=== PATIENT | male | born 1950 | race Caucasian/White ===

== ENCOUNTER 2019-04-11 13:42 | Emergency (ER) | payer MEDICARE, MEDICAID, SELFPAY ==
[2019-04-11] VITALS (8 sets, daily range): BP systolic 116–135; BP diastolic 56–60; PULSE 69–79; RESP 16–22; TEMP 36.9; O2SAT 93–100
--- NOTE | ~2019-04-11 | XR_ITS ---
EXAMINATION: XR chest 2V DATE: 04/11/2019 15:47 INDICATION: Shortness of breath and cough TECHNIQUE: frontal and lateral views of the chest were obtained. COMPARISON: Chest radiograph dated 02/28/2019 FINDINGS: Small lung volumes with additional chronic elevation of the right hemidiaphragm. Opacities in the lori ateral lower lung zones. No pneumothorax or definitive pleural effusion. The caudal tip of the right posterior sulcus is excluded from the [id number] on the lateral projection. The cardiomediastinal silhouette is within normal limits for AP technique. There are bridging osteophytes at multiple level s in the spine, consistent with diffuse idiopathic skeletal hyperostosis (DISH). IMPRESSION: 1. Opacities in the bilateral lower lung zones which could represent atelectasis or pneumonia. 2. Small lung volumes with chronic elevation of the right hemidiaphragm. Reviewed, dictated and finalized at location A. ER INFLATED PAD IMPRESSION: 1. Opacities in the bilateral lower lung zones which could represent atelectasi s or pneumonia. 2. Small lung volumes with chronic elevation of the right hemidiaphragm.
--- NOTE | 2019-04-11 13:57 | ED.SOB ---
HPI - SOB/Dyspnea General Chief Complaint: Shortness of Breath/Dyspnea Stated Complaint: sob Time Seen by Provider: 04/11/19 13:56 Source: patient Mode of arrival: ambulatory Limitations: no limitations History of Present Illness HPI Narrative: A 68 y/o male pt presents to the ED, with c/o chronic SOB that is worse today and a cough x 3 days. Pt states he called his assistant manager trainee who suggested he come to the ED. Per EMS, pt's O2 sat was 90% on RA en route to the hospital. Pt is currently 96% O2 on RA in the ED. Pt states he was approved for home O2 but he has not had a follow up yet. He states that he is fatigued and unable to sleep d/t his cough, but denies having a fever or CP. Pt notes having a PMHx of COPD, asthma, a paralyzed diaphragm, fibromyalgia, diastolic CHF, and states that only 25% of his heart is functioning. He denies taking any medication for his cough prior to arrival. MD elicited complaint: shortness of breath and cough Pertinent past history: COPD, asthma and congestive heart failure (diastolic) Onset (ago): day(s) (3) Timing: progressively worsening Known history of: COPD, asthma and congestive heart failure (diastolic) Associated symptoms: cough and other (difficulty sleeping, fatigue) Treatment prior to arrival: none Related Data Home Medications Medication Instructions Recorded Confirmed atorvastatin 40 mg tablet 40 mg PO HS 12/22/18 03/06/19 cholecalciferol (vitamin D3) 25 1,000 unit PO DAILY 12/22/18 03/06/19 mcg (1,000 unit) capsule cyanocobalamin (vitamin B-12) 2,500 mcg PO DAILY 12/22/18 03/06/19 2,500 mcg tablet cyclobenzaprine 5 mg tablet 5 mg PO HS PRN 12/22/18 03/06/19 furosemide 40 mg tablet 40 mg PO BID 12/22/18 03/06/19 levothyroxine 200 mcg tablet 200 mcg PO DAILY 12/22/18 03/06/19 metolazone 2.5 mg tablet 2.5 mg PO USEASDIRECTD 12/22/18 03/06/19 pantoprazole 40 mg tablet,delayed 40 mg PO BID 12/22/18 03/06/19 release sacubitril 49 mg-valsartan 51 mg 1 tablet PO BID 12/22/18 03/06/19 tablet tramadol 50 mg tablet 50 mg PO Q6H PRN 02/14/19 03/06/19 Fiasp FlexTouch U-100 Insulin 40 unit SUBCUT QACBREAK 02/28/19 03/06/19 Tresiba FlexTouch U-100 300 unit SUB-Q QACBREAK 02/28/19 03/06/19 Xarelto 20 mg PO HS 02/28/19 03/06/19 albuterol sulfate [Ventolin HFA] 2 puff INHALATION Q4H PRN 02/28/19 03/06/19 ascorbic acid (vitamin C) 1,000 mg PO DAILY 02/28/19 03/06/19 aspirin 81 mg PO DAILY 02/28/19 03/06/19 isosorbide mononitrate 30 mg PO DAILY 02/28/19 03/06/19 magnesium 500 mg PO DAILY 02/28/19 03/06/19 pen needle, diabetic [BD 02/28/19 03/06/19 Ultra-Fine Mini Pen Needle] potassium chloride [Klor-Con M20] 20 meq PO DAILY 02/28/19 03/06/19 pregabalin [Lyrica] 50 mg PO BID 02/28/19 03/06/19 trazodone 100 mg PO HS 02/28/19 03/06/19 Allergies Allergy/AdvReac Type Severity Reaction Status Date / Time clindamycin Allergy Severe Anaphylaxis Verified 02/28/19 20:33 iodine Allergy Mild RASH Verified 02/28/19 22:36 povidone Allergy Mild RASH Verified 02/28/19 22:36 azithromycin Allergy Unknown unk Verified 02/14/19 13:57 Gadolinium-Containing Allergy Unknown unk Verified 02/14/19 13:57 Contrast Medi latex Allergy Unknown unk Verified 02/14/19 13:57 erythromycin base AdvReac Mild NAUSEA Verified 02/28/19 22:36 Contrast Media Allergy Severe Hives / Uncoded 02/28/19 22:36 Red Face CONTRAST DYE Allergy Mild Rash Uncoded 02/28/19 22:36 INSULIN Allergy Unknown unk Uncoded 02/14/19 13:57 GLARGINE,HUM.REC.ANLOG Review of Systems Review of Systems: All systems reviewed & are unremarkable except as noted in HPI and below Constitutional: Constitutional: Reports difficulty sleeping, Reports fatigue and Denies fever(s) Cardiovascular: Cardiovascular: Denies chest pain Respiratory: Respiratory: Reports cough and Reports dyspnea (chronic, worsening) [facility] Past Medical History Medical History Anemia Anxiety Arthritis Asthma Atrial
--- NOTE | 2019-04-11 14:01 | PC.NURSE ---
Pt here today due to sample box maker asked to be evaluated for pneumonia. Pt has barking cough that is productive with yellow frothy sputum x 3 days. Pt has diminished lung sounds throughout. Pt has hx of COPD with asthma, CHF. Pt on monitor and call light in reach
--- NOTE | 2019-04-11 14:04 | ECG_ITS ---
Measurements Intervals [place] Rate: 61 P: 31 VT: 148 QRS: 3 QRSD: 84 T: 1 QT: 369 QTc: 373 Interpretive Statements SINUS RHYTHM EARLY PRECORDIAL R/S TRANSITION NONSPECIFIC T-WAVE ABNORMALITY- INFERIOR LEADS BASELINE ARTIFACT- I, II, III, AVR, AVL, AVF BORDERLINE ECG Electronically Signed On 04-11-2019 14:28:47 INSULATION HELPER by Gabriel Freed D.O.
[2019-04-11] MEDS: ALBUTEROL SULFATE NEB 2.5 MG/0.5 ML INH 10 MG INHALATION (14:17)
[2019-04-11] MEDS: IPRATROPIUM BR 0.02% INH SOLN 0.5 MG/2.5 ML VIAL 1 MG INHALATION (14:18)
[2019-04-11 14:24] LABS: Basophils Absolute Auto 0.1 K/mm3 (0.0-0.1); Basophils Percent Auto 0.8 % (0.2-1.2); Eosinophils Absolute Auto 0.1 K/mm3 (0-0.3); Eosinophils Percent Auto 1.7 % (0-4.4); Hemoglobin 11.6 g/dL (14.0-18.0); Immature Granulocyte Absolute 0.09 K/mm3 (0.00-0.031); Immature Granulocyte Percent A 1.2 % (0-0.5); Lymphocytes Absolute Auto 1.37 K/mm3 (0.9-3.2); Lymphocytes Percent Auto 17.7 % (18.3-44.2); Mean Corpuscular HGB Conc 31.4 g/dl (32-36); Mean Corpuscular Hemoglobin 28.4 pg (26-34); Mean Corpuscular Volume 90.7 fl (80-100); Mean Platelet Volume 10.9 fl (7.4-10.4); Monocytes Absolute Auto 0.8 K/mm3 (0.1-0.6); Monocytes Percent Auto 10.7 % (2.6-8.5); Neutrophils Absolute Auto 5.3 K/mm3 (1.3-6.7); Neutrophils Percent Auto 67.9 % (45.5-73.1); Platelet Count Result 214 k/mm3 (150-375); Red Blood Count 4.08 M/mm3 (4.6-6.20); Red Cell Distribution Width 15.7 % (11.5-14.5); White Blood Count 7.8 K/mm3 (4.5-10.0)
[2019-04-11 14:29] LABS: Alveolar/Arterial O2 Gradient 71.1 mmHg; Base Excess ABG 4.7 mEq/l (+/-2.0); Fractional Inspired Oxygen 28 %; HCO3 ABG 29.7 mEq/l (22.0-26.0); Oxygen Content ABG 16.2 %vol (16.0-22.0); Oxygen Saturation ABG 95.3 % (95.0-100.0); Oxyhemoglobin 93.9 % THb (90.0-100.0); PCO2 ABG 45.7 mmHg (35.0-45.0); PO2 ABG 74.6 mmHg (80.0-100.0); PO2 FiO2 Ratio Arterial Blood 2.66 %; Total Hemoglobin 12.2 g/dL (12.0-18.0); pH ABG 7.431 (7.350-7.450)
[2019-04-11 14:30] LABS: Device NASAL CANNULA; Modified Allen's Test Pass; Site Drawn RIGHT RADIAL
[2019-04-11 14:35] LABS: Partial Thromboplastin Time 25.2 SECONDS (22.3-36.8); Prothrombin Time 13.2 Seconds (11.1-14.7)
[2019-04-11 14:36] LABS: Blood Urea Nitrogen 15 mg/dL (9-20); Calcium 8.6 mg/dL (8.4-10.2); Carbon Dioxide 32 mmol/L (22-30); Chloride 95 mmol/L (98-107); Estimated CRCL calculation 100 ml/min; Estimated Glomerular Filt Rate > 60; Glucose 71 mg/dL (75-110); Potassium 3.8 mmol/L (3.4-5.0); Sodium 138 mmol/L (137-145)
[2019-04-11 14:47] LABS: NT Pro B Type Natriuretic Pept 54 PG/ML (5-100); Troponin I < 0.012 ng/mL (0.000-0.034)
== END 2019-04-11 16:28 | disposition home or self-care (01) ==
PROVIDERS: Emergency Provider Emergency Medicine; PCP Family Medicine
DX: J18.9 Pneumonia, unspecified organism (principal); I11.0 Hypertensive heart disease with heart failure; I50.30 Unspecified diastolic (congestive) heart failure; J44.9 Chronic obstructive pulmonary disease, unspecified; I48.91 Unspecified atrial fibrillation; E11.9 Type 2 diabetes mellitus without complications; I25.10 Atherosclerotic heart disease of native coronary artery without angina pectoris
CPT/HCPCS: 36415; 36600; 71046; 80048; 82805; 83880; 84484; 85025; 85610; 85730; 93005; 94640; 99284; A9270

== ENCOUNTER 2019-05-16 15:25 | Observation (INO) | payer MEDICARE, MEDICAID, SELFPAY ==
[2019-05-16] VITALS (10 sets, daily range): BP systolic 77–104; BP diastolic 46–61; PULSE 52–72; RESP 18–26; TEMP 36.6–36.7; O2SAT 92–100; BMI 44.3
--- NOTE | ~2019-05-16 | XR_ITS ---
EXAMINATION: XR chest 1V portable EXAM DATE: 05/16/2019 16:50 INDICATION: Shortness of breath, COPD, asthma. TECHNIQUE: Portable AP frontal chest x-ray was obtained. Comparison is made to prior examination from 04/11/2019. FINDINGS: There is cardiomegaly and pulmonary vascular congestion. Chronically elevated right hemidia phragm. There is some right basilar airspace disease probably atelectasis There is no pneumothorax vela spected. Possible small pleural effusions. There are mild bony degenerative changes. Accounting for differences in technique, there is no significant interval change. IMPRESSION: 1. Cardiomegaly, pulmonary vascular congestion. Possible small effusions. 2. Elevated right hemidiaphragm with adjacent opacity more likely atelectasis than pneumonia or isabela a. Reviewed, dictated and finalized at location A. IMPRESSION: 1. Cardiomegaly, pulmonary vascular congestion. Possible small effusions. 2. Elevated right hemidiaphragm with adjacent opacity more likely atelectasis than pneumonia or edema.
--- NOTE | 2019-05-16 15:48 | ECG_ITS ---
Measurements Intervals [place] Rate: 65 P: 28 KS: 162 QRS: 6 QRSD: 89 T: 60 QT: 398 QTc: 415 Interpretive Statements SINUS RHYTHM EARLY PRECORDIAL R/S TRANSITION NONSPECIFIC T-WAVE ABNORMALITY- INF/LAT LEADS BASELINE ARTIFACT- I, II, III, AVR, AVL, AVF, V1 BORDERLINE ECG Electronically Signed On 05-16-2019 17:09:49 CDT by Gabriel Freed D.O.
[2019-05-16 16:06] LABS: Basophils Absolute Auto 0.1 K/mm3 (0.0-0.1); Basophils Percent Auto 0.4 % (0.2-1.2); Eosinophils Absolute Auto 0.3 K/mm3 (0-0.3); Eosinophils Percent Auto 2.7 % (0-4.4); Hematocrit 35.1 % (42.0-52.0); Hemoglobin 11.4 g/dL (14.0-18.0); Immature Granulocyte Absolute 0.13 K/mm3 (0.00-0.031); Immature Granulocyte Percent A 1.1 % (0-0.5); Lymphocytes Absolute Auto 1.86 K/mm3 (0.9-3.2); Mean Corpuscular HGB Conc 32.5 g/dl (32-36); Mean Corpuscular Hemoglobin 28.4 pg (26-34); Mean Corpuscular Volume 87.3 fl (80-100); Mean Platelet Volume 11.5 fl (7.4-10.4); Monocytes Absolute Auto 0.9 K/mm3 (0.1-0.6); Monocytes Percent Auto 7.5 % (2.6-8.5); Neutrophils Absolute Auto 8.4 K/mm3 (1.3-6.7); Neutrophils Percent Auto 72.3 % (45.5-73.1); Platelet Count Result 260 k/mm3 (150-375); Red Blood Count 4.02 M/mm3 (4.6-6.20); Red Cell Distribution Width 15.9 % (11.5-14.5); White Blood Count 11.7 K/mm3 (4.5-10.0)
[2019-05-16 16:12] LABS: Alveolar/Arterial O2 Gradient 56.4 mmHg; Base Excess ABG 7.5 mEq/l (+/-2.0); Fractional Inspired Oxygen 28 %; HCO3 ABG 33.3 mEq/l (22.0-26.0); Oxygen Content ABG 16.1 %vol (16.0-22.0); Oxyhemoglobin 94.1 % THb (90.0-100.0); PCO2 ABG 52.4 mmHg (35.0-45.0); PO2 ABG 81.4 mmHg (80.0-100.0); PO2 FiO2 Ratio Arterial Blood 2.91 %; Total Hemoglobin 12.1 g/dL (12.0-18.0); pH ABG 7.421 (7.350-7.450)
[2019-05-16 16:13] LABS: Device NASAL CANNULA; Modified Allen's Test Pass; Site Drawn LEFT RADIAL
[2019-05-16 16:16] LABS: INR 1.2; Prothrombin Time 14.4 Seconds (11.1-14.7)
[2019-05-16 16:17] LABS: Alanine Aminotransferase 13 U/L (4-50); Albumin Level 3.6 g/dL (3.5-5.1); Alkaline Phosphatase 94 U/L (38-126); Aspartate Amino Transferase 17 U/L (17-59); Bilirubin,Total 0.7 mg/dL (0.2-1.3); Blood Urea Nitrogen 27 mg/dL (9-20); Calcium 8.7 mg/dL (8.4-10.2); Carbon Dioxide 34 mmol/L (22-30); Chloride 90 mmol/L (98-107); Estimated CRCL calculation 69 ml/min; Estimated Glomerular Filt Rate 47; Glucose 209 mg/dL (75-110); Magnesium 1.8 mg/dL (1.6-2.3); Partial Thromboplastin Time 26.4 SECONDS (22.3-36.8); Potassium 3.6 mmol/L (3.4-5.0); Sodium 135 mmol/L (137-145)
[2019-05-16] MEDS: SODIUM CHLORIDE 0.9% IV 500 ML 999 ML IV CONT ×2 (16:24→17:35)
[2019-05-16 16:28] LABS: NT Pro B Type Natriuretic Pept 70 PG/ML (5-100); Troponin I < 0.012 ng/mL (0.000-0.034)
[2019-05-16 16:28] LABS: Lactic Acid Reflex 1.8 mmol/L (0.7-2.1)
--- NOTE | 2019-05-16 16:47 | ED.GENADULT ---
HPI - General Adult General Chief complaint: Shortness of Breath/Dyspnea <Bryant Borja PA-C - Last Filed: 05/16/19 18:08> Stated complaint: weakness <IVON Beltran Last Filed: 05/16/19 18:08> Time Seen by Provider: 05/16/19 15:34 <IVON Beltran Last Filed: 05/16/19 18:08> Source: patient <IVON Beltran Last Filed: 05/16/19 18:08> Mode of arrival: ambulatory <IVON Beltran Last Filed: 05/16/19 18:08> Limitations: no limitations <IVON Beltran Last Filed: 05/16/19 18:08> History of Present Illness HPI narrative: Patient is a 68-year-old male who presents to emergency department for evaluation of generalized body aches and fatigue over the last several days worsening over the last 5 hours with generalized aches and pains. Patient denies any fever chills nausea vomiting diarrhea rectal bleeding or melena. Patient with multiple comorbidities lives at home by himself. Patient seen denies URI symptoms but does note dyspnea. On arrival patient in the room in no distress. Patient denies sick contacts <IVON Beltran Last Filed: 05/16/19 18:08> Related Data Home medications: Home Medications Medication Instructions Recorded Confirmed atorvastatin 40 mg tablet 40 mg PO HS 12/22/18 03/06/19 cholecalciferol (vitamin D3) 25 1,000 unit PO DAILY 12/22/18 03/06/19 mcg (1,000 unit) capsule cyanocobalamin (vitamin B-12) 2,500 mcg PO DAILY 12/22/18 03/06/19 2,500 mcg tablet cyclobenzaprine 5 mg tablet 5 mg PO HS PRN 12/22/18 03/06/19 furosemide 40 mg tablet 40 mg PO BID 12/22/18 03/06/19 levothyroxine 200 mcg tablet 200 mcg PO DAILY 12/22/18 03/06/19 pantoprazole 40 mg tablet,delayed 40 mg PO BID 12/22/18 03/06/19 release sacubitril 49 mg-valsartan 51 mg 1 tablet PO BID 12/22/18 03/06/19 tablet Tresiba FlexTouch U-100 300 unit SUB-Q QACBREAK 02/28/19 03/06/19 Xarelto 20 mg PO HS 02/28/19 03/06/19 albuterol sulfate [Ventolin HFA] 2 puff INHALATION Q4H PRN 02/28/19 03/06/19 ascorbic acid (vitamin C) 1,000 mg PO DAILY 02/28/19 03/06/19 aspirin 81 mg PO DAILY 02/28/19 03/06/19 isosorbide mononitrate 30 mg PO DAILY 02/28/19 03/06/19 magnesium 500 mg PO DAILY 02/28/19 03/06/19 pen needle, diabetic [BD 02/28/19 03/06/19 Ultra-Fine Mini Pen Needle] potassium chloride [Klor-Con M20] 20 meq PO DAILY 02/28/19 03/06/19 pregabalin [Lyrica] 50 mg PO BID 02/28/19 03/06/19 trazodone 100 mg PO HS 02/28/19 03/06/19 <Bryant Borja PA-C - Last Filed: 05/16/19 18:08> Allergies/adverse reactions: Allergies Allergy/AdvReac Type Severity Reaction Status Date / Time clindamycin Allergy Severe Anaphylaxis Verified 05/16/19 15:36 latex Allergy Intermediate Swelling Verified 05/16/19 15:39 Gadolinium-Containing Allergy Mild Rash Verified 05/16/19 15:39 Contrast Medi iodine Allergy Mild RASH Verified 05/16/19 15:36 erythromycin base AdvReac Mild NAUSEA Verified 05/16/19 15:39 Contrast Media Allergy Severe Hives / Uncoded 02/28/19 22:36 Red Face <Bryant Borja PA-C - Last Filed: 05/16/19 18:08> Review of Systems Review of Systems: All systems reviewed & are unremarkable except as noted in HPI and below <Bryant Borja PA-C - Last Filed: 05/16/19 18:08> [facility] Past Medical History Medical History: Medical History Anemia Anxiety Arthritis Asthma Atrial fibrillation BPH without obstruction/lower urinary tract symptoms CAD (coronary artery disease) Candidiasis of perineum Cataracts, bilateral CHF (congestive heart failure) Chronic bilateral low back pain Chronic neck pain COPD (chronic obstructive pulmonary disease) Coronary artery disease involving [place]well coronary artery of cantwell heart without angina pectoris DDD (degenerative disc disease) Depression Diabetic peripheral neuropathy associated with type 2 diabetes mellitus Diaphragmatic p
[2019-05-16 17:12] LABS: CRP 3.2 mg/dL (<1.0); Lactate Dehydrogenase 319 U/L (313-618)
[2019-05-16] MEDS: LACTATED RINGERS 1,000 ML 50 ML IV CONT (18:56)
[2019-05-16 19:08] LABS: Add Urine Microscopic? YES; Appearance Urine Clear (Clear); Bacteria Urine Trace /hpf; Bilirubin Urine Negative (Negative); Blood Urine Negative (Negative); Color Urine Yellow (Yellow); Glucose Urine UA 3+ mg/dL (Negative); Hyaline Casts Urine 20-29 /lpf; Ketones Urine Negative (Negative); Leukocyte Esterase Ur 2+ LEU/UL (Negative); Mucus Urine Rare /lpf; Nitrate Urine Negative (Negative); Protein Urine Negative (Negative); RBC Urine 0-2 /hpf (0-2); Specific Grav Ur 1.012 (1.001-1.035); Squamous Epithelial Cell Urine Rare /hpf (Few); Urobilinogen Urine Negative mg/dL (<2.0); WBC Urine 31-50 /hpf
[2019-05-16 20:09] LABS: Glucose Point of Care 215 (65-105)
--- NOTE | 2019-05-16 20:12 | ADMGEN ---
This patient, Nolan Onofre Jr., was admitted to IMU Room 204-01. Patient/family oriented to hospital policies and general routines including ID bracelet, bed and alarms, visiting hours, pain management, procedures, bathroom and other care routines, personal items, smoking policy, room service/diet, and visiting hours. Valuables list has been completed. Information on how to activate the Rapid Response Team has been discussed. Patient/Family are encouraged to report perceived risks to care and to ask questions if they do not understand what they are told or what they should do.
[2019-05-16] MEDS: OSELTAMIVIR PHOSPHATE 75 MG CAPSULE PO (20:34)
[2019-05-16] MEDS: INSULIN ASPART (*BKC) 100 UNITS/ML SUB-Q (20:34)
[2019-05-16 21:57] LABS: Troponin I < 0.012 ng/mL (0.000-0.034)
--- NOTE | 2019-05-16 22:04 | PM.IMHP ---
H&P: HPI History of Present Illness Chief complaint: Influenza B/hypotension/acute kidney injury/dehydr Narrative: Nolan Onofre Jr. is a 68 year old male who lives home alone.He came to Er because he is having generalized body aches and fatigue that last several days wosening over the last 5 hours. He had an upset stomach this am. No fever but he has chills. no cough. The patient stated that he has not been around any sick people. He does have a health aide that comes and helps him and feels that maybe he may have gotten the flu from her. Although she has not been complained of being sick. His home health aide takes care of several other people as well. But the patient does not go anywhere outside of his house. The patient is basically wheelchair-bound and has a hospital bed that is broken at home. He has multiple comorbidities. He does have congestive heart failure in takes his medication as prescribed. However the patient had several low blood pressures in the emergency room. It was given some fluids to maintain his blood pressure. The patient did test positive for influenza B. his lows blood pressure today was 77/56. And then he came up to 95/61. Patient was admitted overnight to IMU to monitor his blood pressure. He was started on Tamiflu as well. Date of service is 05/16/2019 The patient took [place] today to help with a body aches but it did not help. The patient's creatinine is normally normal and today is 1.5. Review of Systems Review of Systems: Narrative: Body aches and cramping leg aches and increased swelling to his lower extremities. All systems reviewed & are unremarkable except as noted in HPI and below Constitutional: Constitutional: Reports as per HPI and Reports no additional constitutional complaints Eyes: Eyes: Reports as per HPI and Reports no additional eye complaints ENT: Reports system reviewed and no additional complaints, except as documented and Reports Normal hearing present Cardiovascular: Cardiovascular: Reports no additional cardiovascular complaints Respiratory: Respiratory: Reports no additional respiratory complaints and Reports no additional respiratory complaints Gastrointestinal: Gastrointestinal: Reports as per HPI and Reports no additional gastrointestinal complaints Musculoskeletal: Musculoskeletal: Reports no additional musculoskeletal complaints Integumentary/Breasts: Skin/Breast: Reports system reviewed and no additional complaints, except as docu and Reports as per HPI Neurologic: Reports system reviewed and no additional complaints, except as documented, Reports as per HPI and Reports Normal hearing present Psychiatric: Psychiatric: Reports no additional psychiatric complaints and Reports as per HPI Endocrine: Endocrine: Reports no additional endocrine complaints Hematologic/Lymphatic: Hematologic/Lymphatic: Reports no additional hematologic/lymphatic complaints Allergic/Immunologic: Allergic/Immunologic: Reports no additional allergic/immunologic complaints [facility] Past Medical History Medical History (Updated 05/16/19 @ 22:35 by Tricia Chatterjee NP) Anemia Anxiety Arthritis Asthma Atrial fibrillation BPH without obstruction/lower urinary tract symptoms CAD (coronary artery disease) Candidiasis of perineum Cataracts, bilateral CHF (congestive heart failure) Chronic bilateral low back pain Chronic neck pain COPD (chronic obstructive pulmonary disease) Coronary artery disease involving nome coronary artery of nome heart without angina pectoris DDD (degenerative disc disease) Depression Diabetic peripheral neuropathy associated with type 2 diabetes mellitus Diaphragmatic paralysis DM (diabetes mellitus) Edema, peripheral Essential (primary) hypertension Fibromyalgia Gastroesophageal reflux disease Gout H/O: HTN (hypertension) Herniated disc History of inguinal hernia History of kidney stones History of pneumonia History of rectal polyps Hx of back injury fra
[2019-05-16] MEDS: FLUCONAZOLE 100 MG TABLET PO (22:59)
[2019-05-16] MEDS: TRAZODONE HCL 50 MG TABLET 100 MG PO (22:59)
[2019-05-16] MEDS: TOLNAFTATE 1% POWDER 45 GM BTL 1 APPLIC TOPICAL (23:00)
[2019-05-17] VITALS (10 sets, daily range): BP systolic 107–111; BP diastolic 51–68; PULSE 61–79; RESP 16–22; TEMP 36.1–36.6; O2SAT 94–97
[2019-05-17] MEDS: LEVOTHYROXINE SODIUM 100 MCG TABLET 200 MCG PO (05:42)
[2019-05-17 06:34] LABS: Basophils Percent Auto 0.3 % (0.2-1.2); Eosinophils Absolute Auto 0.3 K/mm3 (0-0.3); Eosinophils Percent Auto 3.1 % (0-4.4); Hematocrit 39.2 % (42.0-52.0); Hemoglobin 12.5 g/dL (14.0-18.0); Immature Granulocyte Absolute 0.16 K/mm3 (0.00-0.031); Immature Granulocyte Percent A 1.8 % (0-0.5); Lymphocytes Absolute Auto 1.59 K/mm3 (0.9-3.2); Lymphocytes Percent Auto 17.6 % (18.3-44.2); Mean Corpuscular HGB Conc 31.9 g/dl (32-36); Mean Corpuscular Hemoglobin 28.2 pg (26-34); Mean Corpuscular Volume 88.5 fl (80-100); Mean Platelet Volume 11.9 fl (7.4-10.4); Monocytes Absolute Auto 0.5 K/mm3 (0.1-0.6); Monocytes Percent Auto 5.8 % (2.6-8.5); Neutrophils Absolute Auto 6.5 K/mm3 (1.3-6.7); Neutrophils Percent Auto 71.4 % (45.5-73.1); Platelet Count Result 245 k/mm3 (150-375); Red Blood Count 4.43 M/mm3 (4.6-6.20); Red Cell Distribution Width 15.9 % (11.5-14.5)
[2019-05-17 06:41] LABS: Alanine Aminotransferase 12 U/L (4-50); Albumin Level 3.5 g/dL (3.5-5.1); Alkaline Phosphatase 91 U/L (38-126); Aspartate Amino Transferase 15 U/L (17-59); Bilirubin,Total 0.6 mg/dL (0.2-1.3); Blood Urea Nitrogen 24 mg/dL (9-20); Calcium 8.9 mg/dL (8.4-10.2); Carbon Dioxide 33 mmol/L (22-30); Chloride 95 mmol/L (98-107); Estimated CRCL calculation 101 ml/min; Estimated Glomerular Filt Rate > 60; Glucose 391 mg/dL (75-110); Sodium 132 mmol/L (137-145)
[2019-05-17 07:56] LABS: Glucose Point of Care 387 (65-105)
[2019-05-17] MEDS: ASPIRIN 81 MG ENTERIC TABLET PO (08:32)
[2019-05-17] MEDS: CYANOCOBALAMIN 500 MCG TABLET 2500 MCG PO (08:32)
[2019-05-17] MEDS: CHOLECALCIFEROL 1,000 UNIT TABLET 1000 UNITS PO (08:32)
[2019-05-17] MEDS: PRAMIPEXOLE 1 MG TABLET PO (08:33)
[2019-05-17] MEDS: OSELTAMIVIR PHOSPHATE 75 MG CAPSULE PO (08:33)
[2019-05-17] MEDS: TOLNAFTATE 1% POWDER 45 GM BTL 1 APPLIC TOPICAL (08:33)
[2019-05-17] MEDS: PREGABALIN 50 MG CAPSULE PO (08:33)
[2019-05-17] MEDS: MAGNESIUM OXIDE 400 MG TABLET PO (08:33)
[2019-05-17] MEDS: PANTOPRAZOLE 40 MG TABLET PO (08:33)
[2019-05-17] MEDS: TAMSULOSIN HCL 0.4 MG CAPSULE PO (08:33)
[2019-05-17] MEDS: INSULIN ASPART (*BKC) 100 UNITS/ML SUB-Q (08:35)
[2019-05-17] MEDS: ACETAMINOPHEN 325 MG TABLET 650 MG PO (08:36)
--- NOTE | 2019-05-17 09:46 | PM.DS ---
DS: Diagnosis Admitting Diagnosis Admitting Diagnosis: Influenza due to other identified influenza virus with other respiratory manifestations Discharge Diagnosis (1) Influenza B: Code(s): J10.1 - Influenza due to other identified influenza virus with other respiratory manifestations Status: Acute Assessment and Plan: Supportive care, as his duration of illness exceeded the window of opportunity to treat with Tamiflu. (2) Acute kidney injury: Code(s): N17.9 - Acute kidney failure, unspecified Status: Acute Assessment and Plan: Creatinine 1.0 Resume home meds (3) Acute hypotension: Code(s): I95.9 - Hypotension, unspecified Status: Acute Assessment and Plan: I held patient's blood pressure medication his Lasix and metolazone. Please re-evaluate tomorrow. Please take off his IV fluids as soon as possible as the patient has congestive heart failure. For tonight I feel that the patient needs a fluids but please monitor closely. (4) CHF (congestive heart failure): Code(s): I50.9 - Heart failure, unspecified Status: Acute Assessment and Plan: Resolved after hydration. Resume home medications. (5) Essential (primary) hypertension: Code(s): I10 - Essential (primary) hypertension Status: Acute Assessment and Plan: Resume home medications. (6) Hypothyroidism, unspecified: Code(s): E03.9 - Hypothyroidism, unspecified Status: Acute Assessment and Plan: Continue levothyroxine (7) COPD (chronic obstructive pulmonary disease): Code(s): J44.9 - Chronic obstructive pulmonary disease, unspecified Status: Acute Assessment and Plan: Continue Anoro (8) Obstructive sleep apnea on CPAP: Code(s): G47.33 - Obstructive sleep apnea (adult) (pediatric); Z99.89 - Dependence on other enabling machines and devices Status: Acute Assessment and Plan: Resume home CPAP (9) Atrial fibrillation: Code(s): I48.91 - Unspecified atrial fibrillation Status: Acute Assessment and Plan: Continue with Xarelto and Coreg. DS: Summary Hospital Course Reason for hospitalization: Fatigue cough body aches Hospital Course: Mr. Onofre was ill for several days prior to coming to the emergency department on May 15. He was feeling worse on that day so decided come and. He denied any recent travel or exposure to ill individuals. He was found to be mildly dehydrated, hypotensive, and have influenza B. he was treated overnight symptomatic [place] and with IV fluids for hydration. He remained afebrile. He was feeling much better on May 16. He tolerated his diet. He was able to transfer adequately from bed to chair. At home he transfers from bed to his electric scooter. He does not ambulate. He was evaluated by both PT and OT. He underwent a home oxygen evaluation that revealed no need for home oxygen. He ate well. He wished to go home. Time Spent with Patient Time attestation: Total time spent providing and/or coordinating discharge services: Exam Narrative: Exam Narrative: HEENT: EOMI, PERRL, pharyngeal mucosa pink and intact NECK: No JVD, adenopathy, or thyromegaly CHEST: Clear to auscultation. Normal effort. HEART: NL S1/S2, regular, no murmur ABDOMEN: BS+, soft, nontender, no mass, no bruits EXTREMITIES: No cyanosis, edema, or clubbing NEUROLOGIC: CN intact and symmetric to inspection. MUSCULOSKELETAL: Tone and strength symmetric. PSYCH: Alert. Oriented to person, place, and time. DS: Data Data Completed and Pending Labs on day of discharge: Labs from last 24 hours 05/17/19 05/17/19 05/17/19 07:48 05:58 05:58 WBC RBC Hgb Hct MCV MCH MCHC RDW Plt Count MPV Immature Gran % (Auto) Neut % (Auto) Lymph % (Auto) [place] % (Auto) Eos % (Auto) Baso % (Auto) Lymph # (Auto) [place] # (Auto) Eos # (Auto) Baso # (Auto)
[2019-05-17] MEDS: ASCORBIC ACID 500 MG TABLET 1000 MG PO (10:30)
[2019-05-17] MEDS: INSULIN GLARGINE (*BKC) 100 UNITS/ML 47 UNITS SUB-Q (10:30)
--- NOTE | 2019-05-17 10:32 | PCRCNOTE ---
HOME O2 EVAL COMPLETE, NO REQUIRMENTS
== END 2019-05-17 11:21 | disposition home or self-care (01) ==
LOC: ANHED 18:08 → ANHIMU 19:01
PROVIDERS: Emergency Medicine Emergency Medical Services; Nurse Practitioner; Admitting Provider Internal Medicine; Emergency Provider Emergency Medicine; PCP Family Medicine; Visit Provider Internal Medicine
DX: J10.1 Influenza due to other identified influenza virus with other respiratory manifestations (principal); N17.9 Acute kidney failure, unspecified; I95.9 Hypotension, unspecified; E86.0 Dehydration; I25.10 Atherosclerotic heart disease of native coronary artery without angina pectoris; I11.0 Hypertensive heart disease with heart failure; I50.9 Heart failure, unspecified; I48.91 Unspecified atrial fibrillation; E03.9 Hypothyroidism, unspecified; G47.33 Obstructive sleep apnea (adult) (pediatric); J44.9 Chronic obstructive pulmonary disease, unspecified; J45.40 Moderate persistent asthma, uncomplicated; E11.42 Type 2 diabetes mellitus with diabetic polyneuropathy; E11.51 Type 2 diabetes mellitus with diabetic peripheral angiopathy without gangrene; E11.59 Type 2 diabetes mellitus with other circulatory complications; E66.01 Morbid (severe) obesity due to excess calories; Z68.41 Body mass index [BMI] 40.0-44.9, adult; Z28.21 Immunization not carried out because of patient refusal; Z79.01 Long term (current) use of anticoagulants; Z79.4 Long term (current) use of insulin; Z79.82 Long term (current) use of aspirin; Z79.899 Other long term (current) drug therapy; Z99.3 Dependence on wheelchair; Z99.89 Dependence on other enabling machines and devices
CPT/HCPCS: 36415; 36600; 71045; 80053; 81001; 82805; 83036; 83605; 83615; 83735; 83880; 84484; 85025; 85610; 85730; 86140; 87040; 87077; 87086; 87088; 87186; 87804; 93005; 94618; 96361; 96365; 97161; 97165; 99285; A9270; G0378; J0131; J1815; J7040; J7120

== ENCOUNTER → 2019-05-22 15:39 | Outpatient (CLI) | payer MEDICARE, MEDICAID, SELFPAY ==
--- NOTE | ~2019-05-22 | XR_ITS ---
XR knee RT min 4V 05/22/2019 16:20 Indication: Right knee pain Procedure: 4 views right knee Comparison: No prior studies for comparison. Findings: No acute fracture, subluxation or dislocation. There is prepatellar soft tissue swelling. N o significant joint effusion. No significant joint space narrowing. There is subcutaneous edema. Impression: 1: No acute fracture. 2: Moderate prepatellar soft tissue swelling. Consider bursitis in the appropriate clinical setting. Reviewed, dictated and finalized at location A. Impression: 1: No acute fracture. 2: Moderate prepatellar soft tissue swelling. Consider bursitis in the appropri ate clinical setting.
== END ==
PROVIDERS: PCP Family Medicine; Visit Provider Family Medicine
DX: M25.561 Pain in right knee (principal); M79.89 Other specified soft tissue disorders
CPT/HCPCS: 73564

== ENCOUNTER 2019-07-14 12:03 | Outpatient (RCR) | payer MEDICARE, MEDICAID, SELFPAY ==
[2019-07-14 13:15] VITALS: BMI 45.9
== END 2019-09-13 15:09 | disposition home or self-care (01) ==
LOC: ANHWOC 12:03
PROVIDERS: PCP Family Medicine; Visit Provider Family Medicine
DX: L89.209 Pressure ulcer of unspecified hip, unspecified stage (principal); L89.309 Pressure ulcer of unspecified buttock, unspecified stage; E66.01 Morbid (severe) obesity due to excess calories; Z74.09 Other reduced mobility
CPT/HCPCS: 99212; G0463

== ENCOUNTER 2019-09-18 16:49 | Observation (INO) | payer MEDICARE, MEDICAID, SELFPAY ==
[2019-09-18] VITALS (9 sets, daily range): BP systolic 87–118; BP diastolic 51–62; PULSE 60–73; RESP 17–94; TEMP 35.6–36.8; O2SAT 92–100; BMI 43.4
--- NOTE | ~2019-09-18 | XR_ITS ---
EXAMINATION: XR chest 1V portable EXAM DATE: 09/18/2019 17:42 INDICATION: Weakness, history of CHF, COPD, coronary artery disease. TECHNIQUE: Portable AP frontal chest x-ray was obtained. Comparison is made to prior examination from 05/16/2019. FINDINGS: There is pulmonary vascular congestion. There is indistinct reticulation with a bibasal pre dominance which may indicate pulmonary edema. The cardiac silhouette is enlarged. No confluent cons olidation, pneumothorax or pleural effusion suspected. Low lung volume again noted. There are bony de generative changes. IMPRESSION: 1. Findings suspicious for mild CHF exacerbation. Reviewed, dictated and finalized at location A.
--- NOTE | 2019-09-18 17:00 | ECG_ITS ---
Measurements Intervals [place] Rate: 60 P: 17 VT: 150 QRS: 9 QRSD: 93 T: 31 QT: 393 QTc: 396 Interpretive Statements SINUS RHYTHM EARLY PRECORDIAL R/S TRANSITION NONSPECIFIC T-WAVE ABNORMALITY- INFERIOR LEADS BASELINE ARTIFACT- I, II, III, AVL, AVF BORDERLINE ECG Electronically Signed On 09-19-2019 10:43:36 CDT by Gabriel Freed D.O.
[2019-09-18] MEDS: SODIUM CHLORIDE 0.9% IV 1,000 ML 999 ML IV CONT (17:34)
[2019-09-18 17:57] LABS: Basophils Absolute Auto 0.1 K/mm3 (0.0-0.1); Basophils Percent Auto 0.6 % (0.2-1.2); Eosinophils Absolute Auto 0.4 K/mm3 (0-0.3); Eosinophils Percent Auto 3.6 % (0-4.4); Hematocrit 35.5 % (42.0-52.0); Hemoglobin 11.6 g/dL (14.0-18.0); Immature Granulocyte Absolute 0.08 K/mm3 (0.00-0.031); Immature Granulocyte Percent A 0.8 % (0-0.5); Lymphocytes Absolute Auto 2.37 K/mm3 (0.9-3.2); Lymphocytes Percent Auto 23.6 % (18.3-44.2); Mean Corpuscular HGB Conc 32.7 g/dl (32-36); Mean Corpuscular Hemoglobin 29.4 pg (26-34); Mean Corpuscular Volume 90.1 fl (80-100); Mean Platelet Volume 11.3 fl (7.4-10.4); Monocytes Absolute Auto 0.7 K/mm3 (0.1-0.6); Monocytes Percent Auto 6.9 % (2.6-8.5); Neutrophils Absolute Auto 6.5 K/mm3 (1.3-6.7); Neutrophils Percent Auto 64.5 % (45.5-73.1); Platelet Count Result 185 k/mm3 (150-375); Red Blood Count 3.94 M/mm3 (4.6-6.20); Red Cell Distribution Width 15.4 % (11.5-14.5); White Blood Count 10.1 K/mm3 (4.5-10.0)
--- NOTE | 2019-09-18 18:09 | PC.NURSE ---
PER ERP Dr. Keene hold NS Bolus until further notice..
[2019-09-18 18:10] LABS: Alanine Aminotransferase 11 U/L (4-50); Albumin Level 3.7 g/dL (3.5-5.1); Alkaline Phosphatase 71 U/L (38-126); Anion Gap 9.3 mmol/L (7-16); Aspartate Amino Transferase 22 U/L (17-59); Bilirubin,Total 0.7 mg/dL (0.2-1.3); Blood Urea Nitrogen 29 mg/dL (9-20); Calcium 8.4 mg/dL (8.4-10.2); Carbon Dioxide 33 mmol/L (22-30); Chloride 97 mmol/L (98-107); Estimated CRCL calculation 104 ml/min; Estimated Glomerular Filt Rate > 60; Glucose 164 mg/dL (75-110); Lipase 39 U/L (23-300); Potassium 4.3 mmol/L (3.4-5.0); Sodium 135 mmol/L (137-145)
[2019-09-18 18:17] LABS: NT Pro B Type Natriuretic Pept 68 PG/ML (5-100)
--- NOTE | 2019-09-18 18:35 | ED.WEAKNESS ---
HPI - Weakness General Chief complaint: Weakness Stated complaint: weakness Time Seen by Provider: 09/18/19 16:53 History of Present Illness HPI Narrative: Patient is a 69-year-old male who presents the ER with diffuse weakness. Worsening over the last 5 days. Reports he is too fatigued to get up and walk. Notes that his blood pressure is lower than typical. He also reports chronic shortness of breath. Has new productive cough that he reports to nursing staff but not to me. No covid expsoures as he doesn't leave the house. Patient has CHF. Reports due to his fatigue he has been unable to get up and really feed himself over the last couple of days. No fevers or chills or sweats. No new runny nose/sore throat. No dysuria. Patient reports orthopnea but this is chronic. Patient describes his symptoms very vaguely cannot give many specifics from [place]. Related Data Home Medications Medication Instructions Recorded Confirmed atorvastatin 40 mg tablet 40 mg PO HS 12/22/18 07/13/19 cholecalciferol (vitamin D3) 25 1,000 unit PO DAILY 12/22/18 07/13/19 mcg (1,000 unit) capsule cyanocobalamin (vitamin B-12) 2,500 mcg PO DAILY 12/22/18 07/13/19 2,500 mcg tablet cyclobenzaprine 5 mg tablet 5 mg PO HS PRN 12/22/18 07/13/19 pantoprazole 40 mg tablet,delayed 40 mg PO BID 12/22/18 07/13/19 release sacubitril 49 mg-valsartan 51 mg 1 tablet PO BID 12/22/18 07/13/19 tablet Xarelto 20 mg PO HS 02/28/19 07/13/19 albuterol sulfate [Ventolin HFA] 2 puff INHALATION Q4H PRN 02/28/19 07/13/19 ascorbic acid (vitamin C) 1,000 mg PO DAILY 02/28/19 07/13/19 aspirin 81 mg PO DAILY 02/28/19 07/13/19 isosorbide mononitrate 30 mg PO DAILY 02/28/19 07/13/19 magnesium 500 mg PO DAILY 02/28/19 07/13/19 potassium chloride [Klor-Con M20] 20 meq PO DAILY 02/28/19 07/13/19 trazodone 100 mg PO HS 02/28/19 07/13/19 carvedilol 25 mg PO BID 05/16/19 07/13/19 furosemide 40 mg tablet 40 mg PO QAM tablet 07/13/19 07/13/19 Allergies Allergy/AdvReac Type Severity Reaction Status Date / Time clindamycin Allergy Severe Anaphylaxis Verified 09/18/19 17:02 latex Allergy Intermediate Swelling Verified 09/18/19 17:02 Gadolinium-Containing Allergy Mild Rash Verified 09/18/19 17:02 Contrast Medi iodine Allergy Mild RASH Verified 09/18/19 17:02 erythromycin base AdvReac Mild NAUSEA Verified 09/18/19 17:02 Contrast Media Allergy Severe Hives / Uncoded 09/18/19 17:02 Red Face Review of Systems Review of Systems: All systems reviewed & are unremarkable except as noted in HPI and below Constitutional: Constitutional: Denies chills, Reports fatigue, Denies fever(s) and Reports weakness ENT: Denies nasal congestion and Denies sore throat Cardiovascular: Cardiovascular: Denies chest pain and Denies radiating jaw, neck or arm pain Respiratory: Respiratory: Reports cough, Reports dyspnea and Denies wheezing Gastrointestinal: Gastrointestinal: Reports abdominal pain (Intermittent and left-sided), Denies nausea and Denies vomiting [facility] Past Medical History Medical History (Updated 09/18/19 @ 19:09 by Michael Keene MD) Abscess of back Anemia Anxiety Arthritis Asthma Atrial fibrillation BPH without obstruction/lower urinary tract symptoms CAD (coronary artery disease) Candidiasis of perineum Cataracts, bilateral Cellulitis of right thigh CHF (congestive heart failure) Chronic bilateral low back pain Chronic neck pain Controlled diabetes mellitus with hyperglycemia, with long-term current use of insulin COPD (chronic obstructive pulmonary disease) Coronary artery disease involving [place] coronary artery of [place] heart without angina pectoris DDD (degenerative disc disease) Decubitus ulcer of right thigh, stage 3 Depression Diabetic peripheral neuropathy associated with type 2 diabetes mellitus Diaphragmatic paralysis DM (diabetes mellitus) Edema, peripheral Essential (primary) hypertension Fibromyalgia Gastroesophageal reflux disease Gout H/O
[2019-09-18 18:56] LABS: Add Urine Microscopic? YES; Appearance Urine Clear (Clear); Bacteria Urine Trace /hpf; Bilirubin Urine Negative (Negative); Color Urine Straw (Yellow); Glucose Urine UA 3+ mg/dL (Negative); Ketones Urine Negative (Negative); Leukocyte Esterase Ur 3+ LEU/UL (Negative); Mucus Urine Rare /lpf; Nitrate Urine Negative (Negative); Protein Urine Negative (Negative); Specific Grav Ur 1.018 (1.001-1.035); Squamous Epithelial Cell Urine Occasional /hpf (Few); Urobilinogen Urine Negative mg/dL (<2.0); WBC Urine >75 /hpf
[2019-09-18 19:01] LABS: Blood Urine Negative (Negative)
[2019-09-18] MEDS: SODIUM CHLORIDE 0.9% IV 1,000 ML 75 ML IV CONT (20:00)
--- NOTE | 2019-09-18 21:39 | PCRCNOTE ---
PT JUST GOT TO HIS ROOM AT 21:38. GIVING NEB TX NOW.
[2019-09-18] MEDS: IPRATROPIUM BR 0.02% INH SOLN 0.5 MG/2.5 ML VIAL INHALATION (21:43)
[2019-09-18] MEDS: ALBUTEROL SULFATE NEB 2.5 MG/0.5 ML INH 5 MG INHALATION (21:43)
--- NOTE | 2019-09-18 21:57 | ADMGEN ---
This patient, Nolan Onofre Jr., was admitted to IMU Room 212-01. Patient/family oriented to hospital policies and general routines including ID bracelet, bed and alarms, visiting hours, pain management, procedures, bathroom and other care routines, personal items, smoking policy, room service/diet, and visiting hours. Valuables list has been completed. Information on how to activate the Rapid Response Team has been discussed. Patient/Family are encouraged to report perceived risks to care and to ask questions if they do not understand what they are told or what they should do.
[2019-09-19] VITALS (25 sets, daily range): BP systolic 106–126; BP diastolic 47–67; PULSE 60–82; RESP 16–32; TEMP 35.6–36.9; O2SAT 91–97
[2019-09-19] MEDS: IPRATROPIUM BR 0.02% INH SOLN 0.5 MG/2.5 ML VIAL INHALATION ×4 (02:11→21:14)
[2019-09-19] MEDS: ALBUTEROL SULFATE NEB 2.5 MG/0.5 ML INH 5 MG INHALATION ×4 (02:11→21:14)
[2019-09-19] MEDS: SODIUM CHLORIDE 0.9% IV 1,000 ML 75 ML IV CONT ×2 (04:47→18:33)
[2019-09-19 08:15] LABS: Basophils Absolute Auto 0.1 K/mm3 (0.0-0.1); Basophils Percent Auto 0.6 % (0.2-1.2); Eosinophils Absolute Auto 0.4 K/mm3 (0-0.3); Eosinophils Percent Auto 3.8 % (0-4.4); Hematocrit 37.4 % (42.0-52.0); Hemoglobin 12.1 g/dL (14.0-18.0); Immature Granulocyte Absolute 0.08 K/mm3 (0.00-0.031); Immature Granulocyte Percent A 0.9 % (0-0.5); Lymphocytes Absolute Auto 1.73 K/mm3 (0.9-3.2); Lymphocytes Percent Auto 18.7 % (18.3-44.2); Mean Corpuscular HGB Conc 32.4 g/dl (32-36); Mean Corpuscular Hemoglobin 29.4 pg (26-34); Mean Platelet Volume 11.3 fl (7.4-10.4); Monocytes Absolute Auto 0.5 K/mm3 (0.1-0.6); Monocytes Percent Auto 5.6 % (2.6-8.5); Neutrophils Absolute Auto 6.5 K/mm3 (1.3-6.7); Neutrophils Percent Auto 70.4 % (45.5-73.1); Platelet Count Result 218 k/mm3 (150-375); Red Blood Count 4.11 M/mm3 (4.6-6.20); Red Cell Distribution Width 15.3 % (11.5-14.5); White Blood Count 9.3 K/mm3 (4.5-10.0)
[2019-09-19 08:28] LABS: Blood Urea Nitrogen 19 mg/dL (9-20); Calcium 8.2 mg/dL (8.4-10.2); Carbon Dioxide 30 mmol/L (22-30); Chloride 99 mmol/L (98-107); Estimated CRCL calculation 122 ml/min; Estimated Glomerular Filt Rate > 60; Glucose 229 mg/dL (75-110); Sodium 136 mmol/L (137-145)
[2019-09-19] MEDS: ASPIRIN 81 MG ENTERIC TABLET PO (10:12)
[2019-09-19] MEDS: LEVOTHYROXINE SODIUM 100 MCG TABLET 200 MCG PO (10:12)
[2019-09-19] MEDS: CHOLECALCIFEROL 1,000 UNIT TABLET 1000 UNITS PO (10:13)
[2019-09-19] MEDS: ASCORBIC ACID 500 MG TABLET 1000 MG PO (10:13)
[2019-09-19] MEDS: CYANOCOBALAMIN 1,000 MCG TABLET 5000 MCG PO (10:14)
[2019-09-19] MEDS: NYSTATIN OINTMENT 15 GM TUBE 1 APPLIC TOPICAL ×2 (10:15→17:33)
[2019-09-19] MEDS: PANTOPRAZOLE 40 MG TABLET PO ×2 (10:16→17:37)
[2019-09-19] MEDS: PRAMIPEXOLE 1 MG TABLET PO ×2 (10:16→17:37)
[2019-09-19] MEDS: TAMSULOSIN HCL 0.4 MG CAPSULE PO (10:16)
[2019-09-19] MEDS: PREGABALIN 50 MG CAPSULE PO ×2 (10:23→17:49)
[2019-09-19] MEDS: INSULIN ASPART (*BKC) 100 UNITS/ML SUB-Q ×3 (10:36→17:33)
[2019-09-19] MEDS: INSULIN GLARGINE (*BKC) 100 UNITS/ML 23 UNITS SUB-Q ×2 (10:39→17:46)
[2019-09-19 13:21] LABS: Glucose Point of Care 299 (65-105)
[2019-09-19 16:16] LABS: Glucose Point of Care 337 (65-105)
[2019-09-19] MEDS: SILVERGEL (ELTA) 45 ML 1 APPLIC TOPICAL (17:32)
--- NOTE | 2019-09-19 18:15 | PM.IMHP ---
H&P: HPI History of Present Illness Date/Time: 09/19/19 18:16 Chief complaint: hypotension, dyspnea Narrative: Nolan Onofre Jr. is a 69 year old male his morbidly obese with BMI 44 and home bound due to difficulty ambulating and chronic short of breath patient states the last few days symptoms were getting progressively worse he was so fatigued that had not been able to get apparently eat from his chair, he was seen by home health nurse and was asked to come to emergency department, the patient was brought to the emergency depart by EMS, patient complains of tired fatigue and shortness of breath. denies any fever or chills, in the emergency depart chest x-ray showed mild exacerbation of congestive failure patient is being gently diuresed, patient urine is positive for leukocyte patient being treated for UTI with Rocephin. will have a PT OT evaluate the patient, patient will benefit from acute rehab, patient also complains sores on his back will have more nurse evaluate the patient. Review of Systems Review of Systems: All systems reviewed & are unremarkable except as noted in HPI and below PMFSH Past Medical History Medical History (Updated 09/18/19 @ 19:09 by Michael Keene MD) Abscess of back Anemia Anxiety Arthritis Asthma Atrial fibrillation BPH without obstruction/lower urinary tract symptoms CAD (coronary artery disease) Candidiasis of perineum Cataracts, bilateral Cellulitis of right thigh CHF (congestive heart failure) Chronic bilateral low back pain Chronic neck pain Controlled diabetes mellitus with hyperglycemia, with long-term current use of insulin COPD (chronic obstructive pulmonary disease) Coronary artery disease involving [place] coronary artery of [place] heart without angina pectoris DDD (degenerative disc disease) Decubitus ulcer of right thigh, stage 3 Depression Diabetic peripheral neuropathy associated with type 2 diabetes mellitus Diaphragmatic paralysis DM (diabetes mellitus) Edema, peripheral Essential (primary) hypertension Fibromyalgia Gastroesophageal reflux disease Gout H/O: HTN (hypertension) Herniated disc History of inguinal hernia History of kidney stones History of pneumonia History of rectal polyps Hx of back injury fracture x2. Hx of transient ischemic attack (TIA) Hypertension associated with diabetes Hypothyroidism, unspecified Inflamed sebaceous cyst Malignant melanoma Metacarpal bone fracture Moderate persistent asthma, uncomplicated Morbid obesity Myocardial infarction x2 Obstructive sleep apnea on CPAP Pressure ulcer of buttock PVD (peripheral vascular disease) Right knee pain Shingles Sleep apnea Spinal stenosis Uncontrolled diabetes mellitus with hyperglycemia, with long-term current use of insulin Very poor mobility Surgical History Surgical History H/O removal of neck cyst History of inguinal hernia repair History of lithotripsy History of tonsillectomy Hx of cardiac cath with 1 stent. Social History Social History Smoking status: Never smoker Alcohol intake: never Substance use: never Gender identity (if verbalized by the patient): Male Sexual Orientation (if Verbalized by the Patient): Straight or Heterosexual Spiritual care concerns: No Agree to blood products: Yes Meds Home Medications and Allergies Home Medications Medication Instructions Recorded Confirmed Type atorvastatin 40 mg tablet 40 mg PO HS 12/22/18 09/18/19 History cholecalciferol (vitamin D3) 25 1,000 unit PO DAILY 12/22/18 09/18/19 History mcg (1,000 unit) capsule cyanocobalamin (vitamin B-12) 5,000 mcg PO DAILY 12/22/18 09/18/19 History 2,500 mcg tablet cyclobenzaprine 5 mg tablet 5 mg PO HS PRN 12/22/18 09/18/19 History pantoprazole 40 mg tablet,delayed 40 mg PO BID 12/22/18 09/18/19 History release sacubitril 49 mg-valsartan 51 mg 1 ta
[2019-09-19] MEDS: traZODone HCL 50 MG TABLET 100 MG PO (20:15)
[2019-09-19] MEDS: RIVAROXABAN 20 MG TABLET PO (20:15)
[2019-09-19] MEDS: ATORVASTATIN 40 MG TABLET PO (20:15)
[2019-09-19 20:49] LABS: Glucose Point of Care 330 (65-105)
[2019-09-20] VITALS (19 sets, daily range): BP systolic 120–146; BP diastolic 54–66; PULSE 60–84; RESP 18–22; TEMP 35.7–37.1; O2SAT 93–99
[2019-09-20] MEDS: IPRATROPIUM BR 0.02% INH SOLN 0.5 MG/2.5 ML VIAL INHALATION ×3 (02:31→14:58)
[2019-09-20] MEDS: ALBUTEROL SULFATE NEB 2.5 MG/0.5 ML INH 5 MG INHALATION ×3 (02:31→14:58)
[2019-09-20 04:47] LABS: Hematocrit 35.6 % (42.0-52.0); Hemoglobin 11.3 g/dL (14.0-18.0); Mean Corpuscular HGB Conc 31.7 g/dl (32-36); Mean Corpuscular Volume 91.3 fl (80-100); Platelet Count Result 224 k/mm3 (150-375); Red Cell Distribution Width 15.1 % (11.5-14.5); White Blood Count 9.1 K/mm3 (4.5-10.0)
[2019-09-20 05:03] LABS: Blood Urea Nitrogen 15 mg/dL (9-20); Calcium 8.3 mg/dL (8.4-10.2); Carbon Dioxide 29 mmol/L (22-30); Chloride 99 mmol/L (98-107); Estimated CRCL calculation 161 ml/min; Estimated Glomerular Filt Rate > 60; Glucose 259 mg/dL (75-110); Sodium 134 mmol/L (137-145)
[2019-09-20] MEDS: LEVOTHYROXINE SODIUM 100 MCG TABLET 200 MCG PO (05:05)
[2019-09-20 09:27] LABS: Glucose Point of Care 358 (65-105)
[2019-09-20] MEDS: INSULIN ASPART (*BKC) 100 UNITS/ML SUB-Q ×2 (09:27→14:09)
[2019-09-20] MEDS: CHOLECALCIFEROL 1,000 UNIT TABLET 1000 UNITS PO (09:29)
[2019-09-20] MEDS: PANTOPRAZOLE 40 MG TABLET PO (09:29)
[2019-09-20] MEDS: NYSTATIN OINTMENT 15 GM TUBE 1 APPLIC TOPICAL (09:29)
[2019-09-20] MEDS: PRAMIPEXOLE 1 MG TABLET PO (09:29)
[2019-09-20] MEDS: SILVERGEL (ELTA) 45 ML 1 APPLIC TOPICAL (09:29)
[2019-09-20] MEDS: ASCORBIC ACID 500 MG TABLET 1000 MG PO (09:29)
[2019-09-20] MEDS: ASPIRIN 81 MG ENTERIC TABLET PO (09:29)
[2019-09-20] MEDS: CYANOCOBALAMIN 1,000 MCG TABLET 5000 MCG PO (09:30)
[2019-09-20] MEDS: TAMSULOSIN HCL 0.4 MG CAPSULE PO (09:30)
[2019-09-20] MEDS: INSULIN GLARGINE (*BKC) 100 UNITS/ML 23 UNITS SUB-Q (09:49)
[2019-09-20] MEDS: PREGABALIN 50 MG CAPSULE PO (09:54)
[2019-09-20 10:23] LABS: NT Pro B Type Natriuretic Pept 128 PG/ML (5-100)
[2019-09-20 12:03] LABS: Glucose Point of Care 345 (65-105)
[2019-09-20 16:53] LABS: Hemoglobin A1C 11.9 % (<5.7)
--- NOTE | 2019-10-16 10:19 | PM.DS ---
DS: Admitting Diagnosis Admitting Diagnosis Admitting Diagnosis: hypotension, dyspnea DS: Discharge Diagnosis Discharge Diagnosis (1) Dyspnea: Code(s): R06.00 - Dyspnea, unspecified Status: Acute Assessment and Plan: Nolan Onofre Jr. is a 69 year old male his morbidly obese with BMI 44 and home bound due to difficulty ambulating and chronic short of breath patient states the last few days symptoms were getting progressively worse he was so fatigued that had not been able to get apparently eat from his chair, he was seen by home health nurse and was asked to come to emergency department, the patient was brought to the emergency depart by EMS, patient complains of tired fatigue and shortness of breath. denies any fever or chills, in the emergency depart chest x-ray showed mild exacerbation of congestive failure patient is being gently diuresed, patient urine is positive for leukocyte patient being treated for UTI with Rocephin. will have a PT OT evaluate the patient, patient will benefit from acute rehab, patient also complains sores on his back will have more nurse evaluate the patient. (2) Acute UTI: Code(s): N39.0 - Urinary tract infection, site not specified Status: Acute Assessment and Plan: patient started on Rocephin will follow-up culture and sensitivity (3) Decubitus ulcer of right thigh, stage 3: Code(s): L89.213 - Pressure ulcer of right hip, stage 3 Status: Acute Assessment and Plan: will wound nurse evaluate and treat the patient (4) Uncontrolled diabetes mellitus with hyperglycemia, with long-term current use of insulin: Code(s): E11.65 - Type 2 diabetes mellitus with hyperglycemia; Z79.4 - vermin exterminator (current) use of insulin Status: Acute Assessment and Plan: patient with history of uncontrolled diabetes will continue home regimen, will check A1c, health promotion educator consult the patient. DS: Summary Hospital Course Reason for hospitalization: Chief complaint: hypotension, dyspnea Narrative: Nolan Onofre Jr. is a 69 year old male his morbidly obese with BMI 44 and home bound due to difficulty ambulating and chronic short of breath patient states the last few days symptoms were getting progressively worse he was so fatigued that had not been able to get apparently eat from his chair, he was seen by home health nurse and was asked to come to emergency department, the patient was brought to the emergency depart by EMS, patient complains of tired fatigue and shortness of breath. denies any fever or chills, in the emergency depart chest x-ray showed mild exacerbation of congestive failure patient is being gently diuresed, patient urine is positive for leukocyte patient being treated for UTI with Rocephin. will have a PT OT evaluate the patient, patient will benefit from acute rehab, patient also complains sores on his back will have more nurse evaluate the patient. Hospital Course: Chief complaint: hypotension, dyspnea Narrative: Nolan Onofre Jr. is a 69 year old male his morbidly obese with BMI 44 and home bound due to difficulty ambulating and chronic short of breath patient states the last few days symptoms were getting progressively worse he was so fatigued that had not been able to get apparently eat from his chair, he was seen by home health nurse and was asked to come to emergency department, the patient was brought to the emergency depart by EMS, patient complains of tired fatigue and shortness of breath. denies any fever or chills, in the emergency depart chest x-ray showed mild exacerbation of congestive failure patient is being gently diuresed, patient urine is positive for leukocyte patient being treated for UTI with Rocephin. will have a PT OT evaluate the patient, patient will benefit from acute rehab, patient also complains sores on his back will have more nurse evaluate the patient. today patient is clinically it is baseline was seen by julian
== END 2019-09-20 16:16 | disposition home health service (06) ==
LOC: ANHED 18:59 → ANHIMU 19:39
PROVIDERS: Admitting Provider Family Medicine; Emergency Provider Emergency Medicine; PCP Family Medicine; Visit Provider Family Medicine
DX: N39.0 Urinary tract infection, site not specified (principal); L89.213 Pressure ulcer of right hip, stage 3; E11.65 Type 2 diabetes mellitus with hyperglycemia; R53.1 Weakness; I95.9 Hypotension, unspecified; R06.00 Dyspnea, unspecified; I25.10 Atherosclerotic heart disease of native coronary artery without angina pectoris; J44.9 Chronic obstructive pulmonary disease, unspecified; E11.42 Type 2 diabetes mellitus with diabetic polyneuropathy; E11.51 Type 2 diabetes mellitus with diabetic peripheral angiopathy without gangrene; I11.0 Hypertensive heart disease with heart failure; I50.9 Heart failure, unspecified; G47.33 Obstructive sleep apnea (adult) (pediatric); E66.01 Morbid (severe) obesity due to excess calories; Z68.41 Body mass index [BMI] 40.0-44.9, adult; Z79.4 Long term (current) use of insulin; Z79.82 Long term (current) use of aspirin; Z99.3 Dependence on wheelchair
CPT/HCPCS: 36415; 71045; 80048; 80053; 81001; 83036; 83690; 83735; 83880; 85025; 85027; 87040; 87077; 87086; 87088; 87186; 93005; 94640; 96361; 96365; 96366; 97161; 97165; 97535; 99285; A9270; G0378; J0696; J1815; J7030

== ENCOUNTER 2019-11-01 12:17 | Outpatient (CLI) | payer MEDICARE, MEDICAID, SELFPAY ==
--- NOTE | ~2019-11-01 | XR_ITS ---
XR chest 2V 11/01/2019 12:51 Indication: Chronic diastolic congestion Procedure: AP and lateral views of the chest Comparison: Comparison to multiple prior studies sequentially, with oldest reviewed study dated 02/28. Findings: Heart size normal. Bibasilar atelectasis. No focal pneumonia, edema, pleural effusion or pn eumothorax. No acute osseous abnormality. Impression: 1: Bibasilar atelectasis. Reviewed, dictated and finalized at location B. Impression: 1: Bibasilar atelectasis.
== END 2019-11-01 12:18 | disposition home or self-care (01) ==
PROVIDERS: PCP Family Medicine; Visit Provider Internal Medicine Cardiovascular Disease
DX: I50.32 Chronic diastolic (congestive) heart failure (principal); R91.8 Other nonspecific abnormal finding of lung field
CPT/HCPCS: 71046

== ENCOUNTER 2019-11-08 13:49 | Outpatient (CLI) | payer MEDICARE, MEDICAID, SELFPAY ==
--- NOTE | ~2019-11-08 | US_ITS ---
EXAMINATION: US venous doppler LE RT EXAM DATE: 11/08/2019 15:23 INDICATION: Right lower extremity edema. TECHNIQUE: Multiple grayscale, color flow and Doppler images of the right lower extremity deep venous system were obtained and reviewed. Comparison is made to prior examination from 05/04/2013. FINDINGS: Examination was done with patient sitting upright in chair. Color-flow evaluation was utili zed and there is no evidence of DVT within right lower extremity deep venous system. IMPRESSION: Limited exam without evidence of DVT. Reviewed, dictated and finalized at location B.
== END 2019-11-08 13:50 | disposition home or self-care (01) ==
PROVIDERS: PCP Family Medicine; Visit Provider Internal Medicine Cardiovascular Disease
DX: R60.0 Localized edema (principal)
CPT/HCPCS: 93971

== ENCOUNTER 2019-11-12 15:11 | Inpatient (IN) | payer MEDICARE, MEDICAID, SELFPAY ==
[2019-11-12] VITALS (9 sets, daily range): BP systolic 85–115; BP diastolic 43–67; PULSE 61–76; RESP 12–20; TEMP 36.4–36.9; O2SAT 88–98; BMI 44.1
--- NOTE | ~2019-11-12 | XR_ITS ---
EXAMINATION: XR chest 1V portable INDICATION: Shortness of breath, hypotension TECHNIQUE: Portable AP chest at 1536 hours COMPARISON: 11/01/2019 FINDINGS: There are minimal airspace opacities of the lung bases. Small pleural effusions are suggest ed. There is no pneumothorax. The cardiomediastinal silhouette is stable. IMPRESSION: 1. Bibasilar airspace opacities, consistent with atelectasis versus pneumonia. Reviewed, dictated and finalized at location A.
--- NOTE | 2019-11-12 15:09 | ED.SOB ---
HPI - SOB/Dyspnea General Chief Complaint: Shortness of Breath/Dyspnea Stated Complaint: sob Source: patient Mode of arrival: EMS Limitations: no limitations History of Present Illness HPI Narrative: Patient is a 69-year-old male with a history of diastolic heart failure, type 2 diabetes, obstructive sleep apnea, who presents for evaluation of weakness, dizziness, lower than normal blood pressure readings at home. Patient states his blood pressure has been slightly lower than normal. He reports increased shortness of breath. Patient reports chronic cough which is not new for him, but slightly worse in the normal. He denies fever, chills, loss of sense of taste or smell. He does report diffuse myalgias and bone pain. . He denies focal numbness or focal weakness. No nausea, vomiting or diarrhea. Patient with recent increase in metolazone, decrease in diuretic per his primary care physician. He follows with Dr. Chen with cardiology. Patient reports increased swelling in his right lower extremity. He denies recent sick contacts. He denies abdominal pain or diarrhea. Related Data Home Medications Medication Instructions Recorded Confirmed atorvastatin 40 mg tablet 40 mg PO HS 12/22/18 09/18/19 cholecalciferol (vitamin D3) 25 1,000 unit PO DAILY 12/22/18 09/18/19 mcg (1,000 unit) capsule cyanocobalamin (vitamin B-12) 5,000 mcg PO DAILY 12/22/18 09/18/19 2,500 mcg tablet pantoprazole 40 mg tablet,delayed 40 mg PO BID 12/22/18 09/18/19 release sacubitril 49 mg-valsartan 51 mg 1 tablet PO BID 12/22/18 09/18/19 tablet Xarelto 20 mg PO HS 02/28/19 09/18/19 ascorbic acid (vitamin C) 1,000 mg PO DAILY 02/28/19 09/18/19 aspirin 81 mg PO DAILY 02/28/19 09/18/19 isosorbide mononitrate 30 mg PO DAILY 02/28/19 09/18/19 magnesium 500 mg PO DAILY 02/28/19 09/18/19 potassium chloride [Klor-Con M20] 20 meq PO DAILY 02/28/19 09/18/19 trazodone 100 mg PO HS 02/28/19 09/18/19 carvedilol 25 mg PO BID 05/16/19 09/18/19 Tresiba FlexTouch U-200 100 unit SUB-Q HS 09/18/19 09/18/19 pregabalin [Lyrica] 50 mg PO BID 09/18/19 09/18/19 Allergies Allergy/AdvReac Type Severity Reaction Status Date / Time clindamycin Allergy Severe Anaphylaxis Verified 11/12/19 16:38 latex Allergy Intermediate Swelling Verified 11/12/19 16:38 Gadolinium-Containing Allergy Mild Rash Verified 11/12/19 16:38 Contrast Medi iodine Allergy Mild RASH Verified 11/12/19 16:38 erythromycin base AdvReac Mild NAUSEA Verified 11/12/19 16:38 Contrast Media Allergy Severe Hives / Uncoded 11/12/19 16:38 Red Face Review of Systems Review of Systems: Narrative: CONSTITUTIONAL: Denies fever, chills, or sweats. EYES: Denies visual changes ENT: Reports dry nasal passages CARDIOVASCULAR: Denies chest pain, palpitations, reports worsening right lower leg edema RESPIRATORY: Reports chronic cough and worsening shortness of breath GASTROINTESTINAL: Denies abdominal pain, nausea, vomiting, or diarrhea. GENITOURINARY: Denies dysuria or hematuria. SKIN: Denies rash or itching. MUSCULOSKELETAL: Reports chronic neck pain, joint pain, reports diffuse myalgias NEUROLOGIC: Denies headache, numbness, or reports feeling more weak than normal PMFSH Past Medical History Medical History Abscess of back Anemia Anxiety Arthritis Asthma Atrial fibrillation BPH without obstruction/lower urinary tract symptoms CAD (coronary artery disease) Candidiasis of perineum Cataracts, bilateral Cellulitis of right thigh CHF (congestive heart failure) Chronic bilateral low back pain Chronic neck pain Controlled diabetes mellitus with hyperglycemia, with long-term current use of insulin COPD (chronic obstructive pulmonary disease) Coronary artery disease involving [place] coronary artery of [place] heart without angina pectoris DDD (degenerative disc disease) Decubitus ulcer of right thigh, stage 3 Depression Diabetic peripheral neuropathy ass
--- NOTE | 2019-11-12 15:15 | ECG_ITS ---
Measurements Intervals [place] Rate: 65 P: 29 OR: 148 QRS: 5 QRSD: 92 T: 8 QT: 385 QTc: 403 Interpretive Statements SINUS RHYTHM EARLY PRECORDIAL R/S TRANSITION LOW QRS VOLTAGE IN PRECORDIAL LEADS BORDERLINE T WAVE ABNORMALITY- INFERIOR LEADS BASELINE WANDER- V1, V3 BORDERLINE ECG Electronically Signed On 11-12-2019 20:07:31 CDT by Gabriel Freed D.O.
[2019-11-12 15:29] LABS: Basophils Absolute Auto 0.1 K/mm3 (0.0-0.1); Basophils Percent Auto 0.5 % (0.2-1.2); Eosinophils Absolute Auto 0.2 K/mm3 (0-0.3); Eosinophils Percent Auto 1.5 % (0-4.4); Hematocrit 40.6 % (42.0-52.0); Hemoglobin 12.8 g/dL (14.0-18.0); Immature Granulocyte Absolute 0.32 K/mm3 (0.00-0.031); Lymphocytes Absolute Auto 1.31 K/mm3 (0.9-3.2); Lymphocytes Percent Auto 8.2 % (18.3-44.2); Mean Corpuscular HGB Conc 31.5 g/dl (32-36); Mean Corpuscular Hemoglobin 28.7 pg (26-34); Mean Platelet Volume 10.9 fl (7.4-10.4); Monocytes Absolute Auto 0.8 K/mm3 (0.1-0.6); Monocytes Percent Auto 5.2 % (2.6-8.5); Neutrophils Absolute Auto 13.2 K/mm3 (1.3-6.7); Neutrophils Percent Auto 82.6 % (45.5-73.1); Platelet Count Result 222 k/mm3 (150-375); Red Blood Count 4.46 M/mm3 (4.6-6.20); Red Cell Distribution Width 14.9 % (11.5-14.5)
[2019-11-12 15:36] LABS: Prothrombin Time 12.9 Seconds (11.1-14.7)
[2019-11-12 15:37] LABS: Partial Thromboplastin Time 21.6 SECONDS (22.3-36.8)
[2019-11-12 15:40] LABS: Anion Gap 3 mmol/L (8-16); Blood Urea Nitrogen 19 mg/dL (9-20); Calcium 8.6 mg/dL (8.4-10.2); Carbon Dioxide 38 mmol/L (22-30); Chloride 93 mmol/L (98-107); Estimated CRCL calculation 96 ml/min; Estimated Glomerular Filt Rate > 60; Glucose 208 mg/dL (75-110); Lactic Acid Reflex 1.5 mmol/L (0.7-2.1); Potassium 4.5 mmol/L (3.4-5.0); Sodium 134 mmol/L (137-145)
[2019-11-12 15:52] LABS: NT Pro B Type Natriuretic Pept 58 PG/ML (5-100); Troponin I < 0.012 ng/mL (0.000-0.034)
[2019-11-12 16:22] LABS: Alveolar/Arterial O2 Gradient 21.5 mmHg; Base Excess ABG 6.8 mEq/l (+/-2.0); Carboxyhemoglobin 0.5 % THb (0-2.0); Fractional Inspired Oxygen 28 %; HCO3 ABG 33.4 mEq/l (22.0-26.0); Methemoglobin ABG 0.2 %THb (0-1.5); Oxyhemoglobin 96.7 % THb (90.0-100.0); PCO2 ABG 56.1 mmHg (35.0-45.0); PO2 ABG 111.9 mmHg (80.0-100.0); Reduced Hemoglobin 2.6 %THb (0-5.0); Total Hemoglobin 13.1 g/dL (12.0-18.0); pH ABG 7.392 (7.350-7.450)
[2019-11-12 16:24] LABS: Modified Allen's Test Pass; Site Drawn LEFT RADIAL
[2019-11-12 16:25] LABS: Device NASAL CANNULA
[2019-11-12] MEDS: SODIUM CHLORIDE 0.9% IV 1,000 ML 999 ML IV CONT (16:35)
--- NOTE | 2019-11-12 18:13 | ADMGEN ---
This patient, Nolan Onofre Jr., was admitted to Intensive Care Unit-7. Patient/family oriented to hospital policies and general routines including ID bracelet, bed and alarms, visiting hours, pain management, procedures, bathroom and other care routines, personal items, smoking policy, room service/diet, and visiting hours. Valuables list has been completed. Information on how to activate the Rapid Response Team has been discussed. Patient/Family are encouraged to report perceived risks to care and to ask questions if they do not understand what they are told or what they should do.
[2019-11-13] VITALS (9 sets, daily range): BP systolic 102–135; BP diastolic 52–68; PULSE 60–76; RESP 12–34; TEMP 36.6–36.9; O2SAT 91–98
--- NOTE | 2019-11-13 00:07 | PM.IMHP ---
H&P: HPI History of Present Illness Date/Time: 11/13/19 00:07 Chief complaint: Dyspnea/pneumonia/hypotension Narrative: Nolan Onofre Jr. is a 69 year old male of COPD. He lives home alone and has a help at home help him and get his groceries otherwise he is in the house. The patient stated he has not left the house except to go to doctor's appointments. The patient sees Sam Florence is office. The patient also stated that he recently had his medications adjusted by Cardiology. He stated he was given more diuretics. The patient is an obese gentleman with a BMI of 44. The patient has been having loose productive cough. He stated he just completed a Medrol Dosepak. He is also diabetic and he states that his blood sugars have been in the 300s to 600s normally. He had been feeling weak and dizzy at home and lower blood pressures than normal. He has a chronic cough but is just been worse last couple days and he has had some bone pain. He denies any sick contacts. White count is noted to be 16.0. However the patient just recently finished steroids. Patient does not wear oxygen at home. He stated that he was not able to do the 6 minutes walk to qualify for home oxygen. The patient does have a CPAP at home for his obstructive sleep apnea patient's ABGs pH 7.392 CO2 56.1 which is about his average. Bicarb 33.4 which is is average. Side 92/43. He was afebrile. Blood pressure 85/48. His pulse ox was 88% on room air and he was placed on 2 L per nasal cannula. Was read as bibasilar airspace opacities consistent with atelectasis versus pneumonia. 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 Which is chronic. I was trying to compare the 2 chest x-rays 1 from the 16th in the 1 from today I could not see any difference however the ER physician felt that there is more consolidation on the right. Patient was swabbed for COVID-19 and placed in isolation in ICU. On Rocephin and azithromycin for possibility of pneumonia. He was also given a bolus of fluids due to his low blood pressure which did help his blood pressure. He responded to the fluid challenge. Date of service is 11/12/2019 Review of Systems Review of Systems: All systems reviewed & are unremarkable except as noted in HPI and below Constitutional: Constitutional: Reports as per HPI and Reports no additional constitutional complaints Eyes: Eyes: Reports as per HPI and Reports no additional eye complaints ENT: Reports system reviewed and no additional complaints, except as documented and Reports Normal hearing present Cardiovascular: Cardiovascular: Reports no additional cardiovascular complaints Respiratory: Respiratory: Reports no additional respiratory complaints and Reports no additional respiratory complaints Gastrointestinal: Gastrointestinal: Reports as per HPI and Reports no additional gastrointestinal complaints Musculoskeletal: Musculoskeletal: Reports no additional musculoskeletal complaints Integumentary/Breasts: Skin/Breast: Reports system reviewed and no additional complaints, except as docu and Reports as per HPI Neurologic: Reports system reviewed and no additional complaints, except as documented, Reports as per HPI and Reports Normal hearing present Psychiatric: Psychiatric: Reports no additional psychiatric complaints and Reports as per HPI Endocrine: Endocrine: Reports no additional endocrine complaints Hematologic/Lymphatic: Hematologic/Lymphatic: Reports no additional hematologic/lymphatic complaints Allergic/Immunologic: Allergic/Immunologic: Reports no additional allergic/immunologic complaints [facility] Past Medical History Medical History (Updated 11/13/19 @ 00:32 by Tricia Chatterjee NP) Abscess of back Anemia Anxiety Arthritis Asthma Atrial fibrillation Paroxysmal BPH without obstruction/lower urinary tract symptoms CAD (coronary artery disease) Candidiasis of perineum Cellulitis of right thigh CHF (congestive heart failure) Chroni
[2019-11-13] MEDS: RIVAROXABAN 20 MG TABLET PO ×2 (00:38→23:47)
[2019-11-13] MEDS: traZODone HCL 50 MG TABLET 100 MG PO ×2 (00:38→23:45)
[2019-11-13] MEDS: ATORVASTATIN 40 MG TABLET PO ×2 (00:38→23:46)
[2019-11-13] MEDS: BENZONATATE 100 MG CAPSULE 200 MG PO (00:38)
[2019-11-13] MEDS: LEVOTHYROXINE SODIUM 100 MCG TABLET 200 MCG PO (05:03)
[2019-11-13 05:17] LABS: Hematocrit 42.4 % (42.0-52.0); Hemoglobin 13.1 g/dL (14.0-18.0); Mean Corpuscular HGB Conc 30.9 g/dl (32-36); Mean Corpuscular Hemoglobin 28.2 pg (26-34); Mean Corpuscular Volume 91.4 fl (80-100); Platelet Count Result 231 k/mm3 (150-375); Red Blood Count 4.64 M/mm3 (4.6-6.20); Red Cell Distribution Width 14.8 % (11.5-14.5); White Blood Count 13.1 K/mm3 (4.5-10.0)
[2019-11-13 05:26] LABS: CRP 2.1 mg/dL (<1.0); Magnesium 2.1 mg/dL (1.6-2.3)
[2019-11-13 05:32] LABS: Anion Gap 1.99999 mmol/L (8-16); Blood Urea Nitrogen 17 mg/dL (9-20); Calcium 8.3 mg/dL (8.4-10.2); Carbon Dioxide > 40 mmol/L (22-30); Chloride 94 mmol/L (98-107); Estimated CRCL calculation 140 ml/min; Estimated Glomerular Filt Rate > 60; Glucose 330 mg/dL (75-110); Potassium 4.4 mmol/L (3.4-5.0); Sodium 136 mmol/L (137-145)
[2019-11-13 05:36] LABS: Hemoglobin A1C 11.5 % (<5.7)
--- NOTE | 2019-11-13 06:25 | PC.NURSE ---
This patient, Nolan Onofre , was received from [ICU ] on 11/13/19 at 0615. Personal belongings list checked and signed. Patient/family oriented to unit policies and routines
[2019-11-13 09:15] LABS: Glucose Point of Care 271 (65-105)
[2019-11-13] MEDS: INSULIN ASPART (*BKC) 100 UNITS/ML SUB-Q ×3 (09:16→16:33)
[2019-11-13] MEDS: oxyCODONE/ACETAMINOPHEN (*CRX) 5-325 MG TABLET 1 TABLET PO (09:17)
[2019-11-13] MEDS: PREGABALIN (*CRX) 50 MG CAPSULE PO ×2 (09:18→16:24)
[2019-11-13] MEDS: PRAMIPEXOLE 1 MG TABLET PO ×2 (11:52→16:27)
[2019-11-13] MEDS: DEXAMETHASONE SOD PHOS INJ 4 MG/ML VIAL 6 MG IV PUSH (11:52)
[2019-11-13] MEDS: TAMSULOSIN HCL 0.4 MG CAPSULE PO (11:53)
[2019-11-13] MEDS: CYANOCOBALAMIN 1,000 MCG TABLET 5000 MCG PO (11:53)
[2019-11-13] MEDS: ASPIRIN 81 MG ENTERIC TABLET PO (11:53)
[2019-11-13] MEDS: PANTOPRAZOLE 40 MG TABLET PO ×2 (11:54→23:48)
[2019-11-13] MEDS: CHOLECALCIFEROL 1,000 UNITS TABLET 1000 UNITS PO (11:54)
[2019-11-13] MEDS: ASCORBIC ACID 500 MG TABLET 1000 MG PO (11:54)
[2019-11-13] MEDS: NYSTATIN OINTMENT 15 GM TUBE 1 APPLIC TOPICAL ×2 (11:54→16:24)
[2019-11-13 12:00] LABS: SARS-CoV-2 RNA PCR Negative
[2019-11-13 12:12] LABS: Glucose Point of Care 304 (65-105)
[2019-11-13] MEDS: ALBUTEROL SULFATE (*SP) AEROSOL 1 PUFF 2 PUFF INHALATION (14:11)
--- NOTE | 2019-11-13 15:54 | PM.IMPN ---
Progress Note: A&P Assessment and Plan (1) Pneumonia: Qualifiers: Laterality: bilateral Lung location: unspecified part of lung Pneumonia type: due to unspecified organism Qualified Code(s): J18.9 - Pneumonia, unspecified organism Code(s): J18.9 - Pneumonia, unspecified organism Status: Acute Assessment and Plan: The patient was started on a Zithromax and Rocephin. Patient has a chronic paralyzed diaphragm this could possibly be atelectasis. Has sputum and blood cultures pending. I ordered a albuterol inhaler as well. Patient is hypoxic in on oxygen at this time. He would like to be evaluated for home O2 possibly we do this before the patient goes home. Currently he is on isolation so this would not be possible. 11/13/19 15:55 patient is 69-year-old male morbidly obese with BMI of 44% he history of diastolic dysfunction, COPD, diabetes sleep apnea he presented emergency department with complaint body ache myalgia shortness of breath he was found to hypotensivem with elevated white count and chest x-ray showing pneumonia he was suspected having sepsis and patient being started azithromycin and Rocephin and being treated for community-acquired pneumonia, patient COVID test was negative, patient with sleep apnea he did not bring his CPAP, will arrange for the CPAP in the hospital, continue to monitor and gently hydrate the patient as we do not want to volume overload, will have a PT OT evaluate the patient, patient will benefit going home with rehab physical therapy. (2) Suspected COVID-19 virus infection: Code(s): Z20.828 - Contact with and (suspected) exposure to other viral communicable diseases Status: Acute Assessment and Plan: The patient is on isolation. I did start the patient on low-dose Decadron. He does not qualify for antiviral this times because he has not had any positive test come back yet. (3) Hypotension: Code(s): I95.9 - Hypotension, unspecified Status: Acute Assessment and Plan: I held his Entresto, his Coreg and his Lasix due to the low blood pressure. For now due to the low blood pressure. The patient stated that he had metolazone ordered as well. So his diuretics and blood pressure pills are on hold at this time. (4) Uncontrolled diabetes mellitus with hyperglycemia, with long-term current use of insulin: Code(s): E11.65 - Type 2 diabetes mellitus with hyperglycemia; Z79.4 - termite control technician (current) use of insulin Status: Chronic Assessment and Plan: Check A1c and do sliding scale insulin. (5) Candidiasis of perineum: Code(s): B37.49 - Other urogenital candidiasis Status: Acute Assessment and Plan: Continue nystatin. (6) NEPTALI on CPAP: Code(s): G47.33 - Obstructive sleep apnea (adult) (pediatric); Z99.89 - Dependence on other enabling machines and devices Status: Chronic Assessment and Plan: Titrate home BiPAP or CPAP (7) Hypothyroidism, unspecified: Qualifiers: Hypothyroidism type: acquired Qualified Code(s): E03.9 - Hypothyroidism, unspecified Code(s): E03.9 - Hypothyroidism, unspecified Status: Chronic Assessment and Plan: Continue with levothyroxine and check levels. (8) Neuropathy: Code(s): G62.9 - Polyneuropathy, unspecified Status: Acute Assessment and Plan: Continue Lyrica (9) Sepsis: Code(s): A41.9 - Sepsis, unspecified organism Status: Acute Assessment and Plan: most likely secondary pneumonia patient is being treated plan is above Subjective Date/time seen: 11/13/19 15:55 patient is 69-year-old male morbidly obese with BMI of 44% he history of diastolic dysfunction, COPD, diabetes sleep apnea he presented emergency department with complaint body ache myalgia shortness of breath he was found to hypotensivem with elevated white count and chest x-ray showing pneumonia he was suspected having sepsis and
[2019-11-13] MEDS: INSULIN GLARGINE (*BKC) 100 UNITS/ML 20 UNITS SUB-Q (16:34)
[2019-11-13 16:48] LABS: Glucose Point of Care 474 (65-105)
[2019-11-13] MEDS: INSULIN ASPART (*BKC) 100 UNITS/ML 6 UNITS SUB-Q (22:35)
[2019-11-13 22:47] LABS: Glucose Point of Care 477 (65-105)
[2019-11-14] MEDS: oxyCODONE/ACETAMINOPHEN (*CRX) 5-325 MG TABLET 1 TABLET PO ×2 (00:05→08:55)
[2019-11-14 02:00] VITALS: BP 123/57; PULSE 62; RESP 20; TEMP 36.7; O2SAT 91
[2019-11-14 02:48] VITALS: PULSE 62; RESP 15; O2SAT 92
[2019-11-14 06:00] VITALS: BP 110/58; PULSE 55; RESP 20; TEMP 36.7; O2SAT 97
[2019-11-14] MEDS: LEVOTHYROXINE SODIUM 100 MCG TABLET 200 MCG PO (06:22)
[2019-11-14 07:00] LABS: Alanine Aminotransferase 14 U/L (4-50)
[2019-11-14 08:00] VITALS: BP 118/70; PULSE 64; RESP 18; TEMP 36; O2SAT 99
--- NOTE | 2019-11-14 08:02 | PC.NURSE ---
11/13/19 at 2230--called Tricia Chatterjee VOCATIONAL TRAINING TEACHER related to blood sugar of 422, new orders received.TDialRNC
[2019-11-14 08:28] LABS: Glucose Point of Care > 500 (65-105)
[2019-11-14] MEDS: INSULIN ASPART (*BKC) 100 UNITS/ML SUB-Q (08:45)
[2019-11-14] MEDS: INSULIN GLARGINE (*BKC) 100 UNITS/ML 50 UNITS SUB-Q (08:48)
[2019-11-14] MEDS: CHOLECALCIFEROL 1,000 UNITS TABLET 1000 UNITS PO (08:51)
[2019-11-14] MEDS: ASCORBIC ACID 500 MG TABLET 1000 MG PO (08:51)
[2019-11-14] MEDS: MAGNESIUM OXIDE 400 MG TABLET PO (08:51)
[2019-11-14] MEDS: ASPIRIN 81 MG ENTERIC TABLET PO (08:51)
[2019-11-14] MEDS: CYANOCOBALAMIN 1,000 MCG TABLET 5000 MCG PO (08:51)
[2019-11-14] MEDS: TAMSULOSIN HCL 0.4 MG CAPSULE PO (08:52)
[2019-11-14] MEDS: NYSTATIN OINTMENT 15 GM TUBE 1 APPLIC TOPICAL (08:52)
[2019-11-14] MEDS: PANTOPRAZOLE 40 MG TABLET PO (08:52)
[2019-11-14] MEDS: PRAMIPEXOLE 1 MG TABLET PO (08:52)
[2019-11-14] MEDS: PREGABALIN (*CRX) 50 MG CAPSULE PO (08:56)
[2019-11-14 10:28] LABS: Anion Gap 6.99999 mmol/L (8-16); Blood Urea Nitrogen 20 mg/dL (9-20); Calcium 9.4 mg/dL (8.4-10.2); Carbon Dioxide > 40 mmol/L (22-30); Chloride 92 mmol/L (98-107); Estimated CRCL calculation 124 ml/min; Estimated Glomerular Filt Rate > 60; Glucose 433 mg/dL (75-110); Potassium 4.5 mmol/L (3.4-5.0); Sodium 139 mmol/L (137-145)
[2019-11-14 12:00] VITALS: BP 125/58; PULSE 62; RESP 18; TEMP 36.1; O2SAT 99
[2019-11-14 12:23] LABS: Glucose Point of Care 357 (65-105)
--- NOTE | 2019-11-14 14:11 | PCRCNOTE ---
PT DISCHARGED PRIOR TO COMPLETING HOME O2 EVAL.
--- NOTE | 2019-12-05 09:19 | PM.DS ---
DS: Admitting Diagnosis Admitting Diagnosis Admitting Diagnosis: Dyspnea/pneumonia/hypotension DS: Discharge Diagnosis Discharge Diagnosis (1) Pneumonia: Qualifiers: Laterality: bilateral Lung location: unspecified part of lung Pneumonia type: due to unspecified organism Qualified Code(s): J18.9 - Pneumonia, unspecified organism Code(s): J18.9 - Pneumonia, unspecified organism Status: Acute Assessment and Plan: The patient was started on a Zithromax and Rocephin. Patient has a chronic paralyzed diaphragm this could possibly be atelectasis. Has sputum and blood cultures pending. I ordered a albuterol inhaler as well. Patient is hypoxic in on oxygen at this time. He would like to be evaluated for home O2 possibly we do this before the patient goes home. Currently he is on isolation so this would not be possible. 11/13/19 15:55 patient is 69-year-old male morbidly obese with BMI of 44% he history of diastolic dysfunction, COPD, diabetes sleep apnea he presented emergency department with complaint body ache myalgia shortness of breath he was found to hypotensivem with elevated white count and chest x-ray showing pneumonia he was suspected having sepsis and patient being started azithromycin and Rocephin and being treated for community-acquired pneumonia, patient COVID test was negative, patient with sleep apnea he did not bring his CPAP, will arrange for the CPAP in the hospital, continue to monitor and gently hydrate the patient as we do not want to volume overload, will have a PT OT evaluate the patient, patient will benefit going home with rehab physical therapy. (2) Suspected COVID-19 virus infection: Code(s): Z20.828 - Contact with and (suspected) exposure to other viral communicable diseases Status: Acute Assessment and Plan: The patient is on isolation. I did start the patient on low-dose Decadron. He does not qualify for antiviral this times because he has not had any positive test come back yet. (3) Hypotension: Qualifiers: Hypotension type: hypotension due to drug Qualified Code(s): I95.2 - Hypotension due to drugs Code(s): I95.9 - Hypotension, unspecified Status: Acute Assessment and Plan: I held his Entresto, his Coreg and his Lasix due to the low blood pressure. For now due to the low blood pressure. The patient stated that he had metolazone ordered as well. So his diuretics and blood pressure pills are on hold at this time. (4) Uncontrolled diabetes mellitus with hyperglycemia, with long-term current use of insulin: Code(s): E11.65 - Type 2 diabetes mellitus with hyperglycemia; Z79.4 - jail (current) use of insulin Status: Chronic Assessment and Plan: Check A1c and do sliding scale insulin. (5) Candidiasis of perineum: Code(s): B37.49 - Other urogenital candidiasis Status: Acute Assessment and Plan: Continue nystatin. (6) NEPTALI on CPAP: Code(s): G47.33 - Obstructive sleep apnea (adult) (pediatric); Z99.89 - Dependence on other enabling machines and devices Status: Chronic Assessment and Plan: Titrate home BiPAP or CPAP (7) Hypothyroidism, unspecified: Qualifiers: Hypothyroidism type: acquired Qualified Code(s): E03.9 - Hypothyroidism, unspecified Code(s): E03.9 - Hypothyroidism, unspecified Status: Chronic Assessment and Plan: Continue with levothyroxine and check levels. (8) Neuropathy: Code(s): G62.9 - Polyneuropathy, unspecified Status: Acute Assessment and Plan: Continue Lyrica (9) Sepsis: Code(s): A41.9 - Sepsis, unspecified organism Status: Acute Assessment and Plan: most likely secondary pneumonia patient is being treated plan is above DS: Summary Hospital Course Reason for hospitalization: Chief complaint: Dyspnea/pneumonia/hypotension Narrative: Nolankaye Onofre Jr. is a 69 year old
== END 2019-11-14 12:37 | disposition left against medical advice (07) | DRG 871 ==
LOC: ANHED 16:43 → ANHICU 17:47 → ANH3MEDSUR 11-13 06:29
PROVIDERS: Nurse Practitioner; Admitting Provider Family Medicine; Emergency Provider Emergency Medicine; PCP Family Medicine; Visit Provider Family Medicine
DX: A41.9 Sepsis, unspecified organism (principal); L89.893 Pressure ulcer of other site, stage 3; J18.9 Pneumonia, unspecified organism; B37.49 Other urogenital candidiasis; I50.32 Chronic diastolic (congestive) heart failure; Z68.41 Body mass index [BMI] 40.0-44.9, adult; Z20.828 Contact with and (suspected) exposure to other viral communicable diseases; I11.0 Hypertensive heart disease with heart failure; I95.9 Hypotension, unspecified; E11.65 Type 2 diabetes mellitus with hyperglycemia; G47.33 Obstructive sleep apnea (adult) (pediatric); E03.9 Hypothyroidism, unspecified; N40.0 Benign prostatic hyperplasia without lower urinary tract symptoms; I25.10 Atherosclerotic heart disease of native coronary artery without angina pectoris; D64.9 Anemia, unspecified; F41.8 Other specified anxiety disorders; M79.7 Fibromyalgia; E66.01 Morbid (severe) obesity due to excess calories; E11.42 Type 2 diabetes mellitus with diabetic polyneuropathy; J44.9 Chronic obstructive pulmonary disease, unspecified; M48.00 Spinal stenosis, site unspecified; Z79.4 Long term (current) use of insulin; Z86.73 Personal history of transient ischemic attack (TIA), and cerebral infarction without residual deficits; Z85.820 Personal history of malignant melanoma of skin; I25.2 Old myocardial infarction; Z95.5 Presence of coronary angioplasty implant and graft
CPT/HCPCS: 36415; 36600; 71045; 80048; 82375; 82728; 82805; 83036; 83050; 83605; 83735; 83880; 84443; 84460; 84484; 85025; 85027; 85610; 85730; 86140; 87040; 87077; 87635; 93005; 96365; 96367; 96375; 97161; 99285; A9270; C9803; G0378; J0456; J0696; J1100; J1815; J7030; U0003

== ENCOUNTER 2019-11-22 10:17 | Outpatient (CLI) | payer MEDICARE, MEDICAID, SELFPAY ==
[2019-11-22 10:00] VITALS: PULSE 79; O2SAT 94
[2019-11-22 10:05] VITALS: PULSE 86; O2SAT 87
[2019-11-22 10:10] VITALS: PULSE 89; O2SAT 87
[2019-11-22 10:15] VITALS: O2SAT 89
[2019-11-22 10:25] VITALS: PULSE 78; O2SAT 94
--- NOTE | 2019-11-22 11:13 | HOMEO2EVAL ---
Home Oxygen Evaluation RC: Home Oxygen (O2) Evaluation Start: 11/22/19 11:00 Freq: Status: Active Protocol: RPE Activity Type Activity Date Activity User E-Sign Co-Sign Detail Recorded Client Recorded Date Recorded By Document 11/22/19 10:00 [email or web address] [email or web address] 11/22/19 11:13 DJO Document 11/22/19 10:05 [email or web address] [email or web address] 11/22/19 11:13 DJO Document 11/22/19 10:10 [email or web address] [email or web address] 11/22/19 11:13 DJO Document 11/22/19 10:15 [email or web address] [email or web address] 11/22/19 11:13 DJO Document 11/22/19 10:25 [email or web address] [email or web address] 11/22/19 11:13 DJO 11/22/19 11/22/19 11/22/19 10:00 10:05 10:10 Home O2 Evaluation Test Phase Resting Exercise Exercise Oxygen Delivery Room Air Room Air Nasal Cannula Oxygen Flow Rate (L/min) 1 Pulse Oximetry (90-100 %) 94 87 L 87 L Pulse Rate (60-100 beats/min) 79 86 89 Activity Tolerance Poor Home Oxygen Evaluation Comments Treatment Charges O2 Evaluation 11/22/19 11/22/19 10:15 10:25 Home O2 Evaluation Test Phase Exercise Resting Oxygen Delivery Nasal Cannula Room Air Oxygen Flow Rate (L/min) 2 Pulse Oximetry (90-100 %) 89 L 94 Pulse Rate (60-100 beats/min) 78 Activity Tolerance Poor Home Oxygen Evaluation Comments PT NON AMBULATORY, PT DID EXERCISES IN WHEEL CHAIR. Treatment Charges
== END 2019-11-22 10:18 | disposition home or self-care (01) ==
LOC: ANHPFT 10:19
PROVIDERS: PCP Family Medicine; Visit Provider Family Medicine
DX: J44.9 Chronic obstructive pulmonary disease, unspecified (principal); I50.9 Heart failure, unspecified
CPT/HCPCS: 94618

== ENCOUNTER 2020-03-14 12:32 | Inpatient (IN) | payer MEDICARE, MEDICAID, SELFPAY ==
[2020-03-14] VITALS (42 sets, daily range): BP systolic 70–142; BP diastolic 35–101; PULSE 0–81; RESP 15–31; TEMP 36.7–37.6; O2SAT 96–100; BMI 43.4
--- NOTE | ~2020-03-14 | US_ITS ---
EXAMINATION: US venous doppler [facility] EXAM DATE: 03/15/2020 10:34 INDICATION: Right lower extremity edema. TECHNIQUE: Multiple grayscale, color flow and Doppler images of the lower extremity deep venous syste ms bilaterally were obtained and reviewed. Comparison is made to prior examination from 11/08/2019. FINDINGS: Right side: The right common femoral, femoral and profunda veins demonstrate normal color flow, respi ratory variation, augmentation and compressibility. Compressibility, color flow confirmed within the right popliteal, posterior tibial, peroneal, and greater saphenous veins. Left side: The left common femoral, femoral and profunda veins demonstrate normal color flow, respira tory variation, augmentation and compressibility. Compressibility, color flow confirmed within the l eft popliteal, posterior tibial, peroneal, and greater saphenous veins. IMPRESSION: 1. No lower extremity deep venous thrombosis bilaterally. Reviewed, dictated and finalized at location A. BLEACHING PLEATER
--- NOTE | ~2020-03-14 | XR_ITS ---
EXAMINATION: XR chest 1V portable DATE: 03/14/2020 13:35 INDICATION: Shortness of breath TECHNIQUE: frontal view of the chest was obtained. COMPARISON: Chest radiograph dated 11/12/2019 FINDINGS: Similar appearance of airspace opacities in the left mid to lower lung zone and in the right lower ewa ng zone along the chronically elevated right hemidiaphragm. No pneumothorax or definitive pleural eff usion. Cardiomediastinal silhouette is within normal limits for AP technique. There are bridging oste ophytes at multiple levels in the spine, consistent with diffuse idiopathic skeletal hyperostosis (DI SH). IMPRESSION: 1. Opacities in the bilateral lower lung zones which could represent pulmonary edema, pneumonia, atel ectasis or some combination thereof. Reviewed, dictated and finalized at location B. UTER ANALYST SUPERVISOR IMPRESSION: 1. Opacities in the bilateral lower lung zones which could represent pulmonary edema, pneumonia, atelectasis or some combination thereof.
--- NOTE | 2020-03-14 12:54 | ECG_ITS ---
Measurements Intervals [place] Rate: 77 P: 27 WY: 156 QRS: 0 QRSD: 82 T: -6 QT: 347 QTc: 394 Interpretive Statements SINUS RHYTHM LOW QRS VOLTAGE IN PRECORDIAL LEADS BORDERLINE T WAVE ABNORMALITY- ANTEROLAT/INF LEADS BASELINE ARTIFACT- I, II, III, AVR, AVL, AVF, V1, V5-V6 BORDERLINE ECG Electronically Signed On 03-14-2020 13:19:54 GAS MAKER by Gabriel Freed D.O.
[2020-03-14 13:09] LABS: Glucose Point of Care > 500 (65-105)
[2020-03-14 13:14] LABS: Basophils Absolute Auto 0.1 K/mm3 (0.0-0.1); Basophils Percent Auto 0.4 % (0.2-1.2); Eosinophils Absolute Auto 0.4 K/mm3 (0-0.3); Eosinophils Percent Auto 2.5 % (0-4.4); Hematocrit 43.1 % (42.0-52.0); Hemoglobin 13.6 g/dL (14.0-18.0); Immature Granulocyte Absolute 0.08 K/mm3 (0.00-0.031); Immature Granulocyte Percent A 0.6 % (0-0.5); Lymphocytes Absolute Auto 0.93 K/mm3 (0.9-3.2); Lymphocytes Percent Auto 6.5 % (18.3-44.2); Mean Corpuscular HGB Conc 31.6 g/dl (32-36); Mean Corpuscular Hemoglobin 29.1 pg (26-34); Mean Corpuscular Volume 92.3 fl (80-100); Mean Platelet Volume 11.7 fl (7.4-10.4); Monocytes Absolute Auto 0.8 K/mm3 (0.1-0.6); Monocytes Percent Auto 5.3 % (2.6-8.5); Neutrophils Absolute Auto 12.1 K/mm3 (1.3-6.7); Neutrophils Percent Auto 84.7 % (45.5-73.1); Platelet Count Result 199 k/mm3 (150-375); Red Blood Count 4.67 M/mm3 (4.6-6.20); Red Cell Distribution Width 14.6 % (11.5-14.5); White Blood Count 14.2 K/mm3 (4.5-10.0)
[2020-03-14 13:18] LABS: Add Urine Microscopic? YES; Appearance Urine Clear (Clear); Bilirubin Urine Negative (Negative); Blood Urine Negative (Negative); Color Urine Colorless (Yellow); Glucose Urine UA 3+ mg/dL (Negative); Ketones Urine Negative (Negative); Leukocyte Esterase Ur Negative LEU/UL (Negative); Nitrate Urine Negative (Negative); Protein Urine Negative (Negative); RBC Urine 0-2 /hpf (0-2); Specific Grav Ur 1.023 (1.001-1.035); Squamous Epithelial Cell Urine Rare /hpf (Few); Urobilinogen Urine Negative mg/dL (<2.0)
[2020-03-14 13:36] LABS: Alveolar/Arterial O2 Gradient 93.7 mmHg; Carboxyhemoglobin 0.7 % THb (0-2.0); Fractional Inspired Oxygen 36 %; HCO3 ABG 30.9 mEq/l (22.0-26.0); Methemoglobin ABG 0.1 %THb (0-1.5); Oxygen Content ABG 17.7 %vol (16.0-22.0); Oxygen Saturation ABG 95.9 % (95.0-100.0); Oxyhemoglobin 95.5 % THb (90.0-100.0); PO2 ABG 89.8 mmHg (80.0-100.0); PO2 FiO2 Ratio Arterial Blood 2.49 %; Reduced Hemoglobin 3.7 %THb (0-5.0); Total Hemoglobin 13.1 g/dL (12.0-18.0); pH ABG 7.308 (7.350-7.450)
[2020-03-14 13:37] LABS: PCO2 ABG 63.1 mmHg (35.0-45.0)
[2020-03-14 13:38] LABS: Device NASAL CANNULA; Modified Allen's Test Pass; Site Drawn LEFT RADIAL
[2020-03-14 14:24] LABS: INR 1.1; Prothrombin Time 14.4 Seconds (11.1-14.7)
[2020-03-14 14:25] LABS: Partial Thromboplastin Time 25.2 SECONDS (22.3-36.8)
[2020-03-14 14:29] LABS: Lactic Acid Reflex 3.1 mmol/L (0.7-2.1)
[2020-03-14 14:38] LABS: NT Pro B Type Natriuretic Pept 94 PG/ML (5-100)
[2020-03-14 14:40] LABS: Alanine Aminotransferase 15 U/L (4-50); Albumin Level 3.4 g/dL (3.5-5.1); Alkaline Phosphatase 102 U/L (38-126); Anion Gap 2 mmol/L (8-16); Aspartate Amino Transferase 14 U/L (17-59); Bilirubin,Total 0.7 mg/dL (0.2-1.3); Blood Urea Nitrogen 12 mg/dL (9-20); Calcium 8.6 mg/dL (8.4-10.2); Carbon Dioxide 35 mmol/L (22-30); Chloride 96 mmol/L (98-107); Estimated CRCL calculation 157 ml/min; Estimated Glomerular Filt Rate > 60; Glucose 510 mg/dL (75-110); Potassium 4.3 mmol/L (3.4-5.0); Sodium 133 mmol/L (137-145)
--- NOTE | 2020-03-14 14:55 | ED.GENADULT ---
HPI - General Adult General Chief complaint: Recheck/Abnormal Lab/Rx Stated complaint: Decreased BP Time Seen by Provider: 03/14/20 12:58 History of Present Illness HPI narrative: Patient is a 69-year-old male who presents ER with concerns of low blood pressure. Reports he has been feeling weak check his blood pressure this morning it was lower than typical. Patient also had an elevated temperature upon arrival 99.7 ?F. Patient is denying any runny nose/sore throat/productive cough. No known sick contacts. He does have people from [employer] to come in to give him food. Patient's blood sugar found to be significantly elevated. Patient reports he cannot member the last time he took his insulin. Reports he often forgets to take that medication. Patient also is too weak to get up today. Patient has some baseline lower extremity weakness due to spinal stenosis and can only muster enough strength to perform transfers. Today he was unable to do that. Related Data Home Medications Medication Instructions Recorded Confirmed cholecalciferol (vitamin D3) 25 1,000 unit PO DAILY 12/22/18 11/16/19 mcg (1,000 unit) capsule cyanocobalamin (vitamin B-12) 5,000 mcg PO DAILY 12/22/18 11/16/19 2,500 mcg tablet Xarelto 20 mg PO HS 02/28/19 11/16/19 potassium chloride [Klor-Con M20] 20 meq PO DAILY 02/28/19 11/16/19 atorvastatin 03/14/20 carvedilol 03/14/20 cyclobenzaprine mg 03/14/20 furosemide 03/14/20 glycopyrrolate-formoterol [Bevespi INHALATION 03/14/20 Aerosphere] insulin degludec [Tresiba unit SUBCUT 03/14/20 FlexTouch U-200] isosorbide mononitrate mg PO 03/14/20 levothyroxine 03/14/20 nystatin TOPICAL 03/14/20 pantoprazole PO 03/14/20 penicillin V potassium 03/14/20 pramipexole mg 03/14/20 pregabalin 03/14/20 rivaroxaban [Xarelto] mg 03/14/20 sacubitril-valsartan [Entresto] 03/14/20 silver sulfadiazine applic TOPICAL 03/14/20 tamsulosin mg PO 03/14/20 trazodone 03/14/20 vitamin A and D TOPICAL 03/14/20 Allergies Allergy/AdvReac Type Severity Reaction Status Date / Time clindamycin Allergy Severe Anaphylaxis Verified 03/14/20 16:41 latex Allergy Intermediate Swelling Verified 03/14/20 16:41 Gadolinium-Containing Allergy Mild Rash Verified 03/14/20 16:41 Contrast Medi iodine Allergy Mild RASH Verified 03/14/20 16:41 erythromycin base AdvReac Mild NAUSEA Verified 03/14/20 16:41 Contrast Media Allergy Severe Hives / Uncoded 11/12/19 16:38 [place] Review of Systems Review of Systems: All systems reviewed & are unremarkable except as noted in HPI and below Constitutional: Constitutional: Denies chills, Reports fatigue, Reports fever(s) and Reports weakness ENT: Denies nasal congestion and Denies sore throat Cardiovascular: Cardiovascular: Denies chest pain, Denies rapid heart rate and Denies radiating jaw, neck or arm pain Respiratory: Respiratory: Denies cough, Denies dyspnea and Denies wheezing Gastrointestinal: Gastrointestinal: Denies abdominal pain, Denies nausea and Denies vomiting Musculoskeletal: Comments: Chronic lower extremity edema PMFSH Past Medical History Medical History Abscess of back Anemia Anxiety Arthritis Asthma Atrial fibrillation Paroxysmal BPH without obstruction/lower urinary tract symptoms CAD (coronary artery disease) Candidiasis of perineum Cellulitis of right thigh CHF (congestive heart failure) Chronic bilateral low back pain Chronic neck pain Controlled diabetes mellitus with hyperglycemia, with long-term current use of insulin COPD (chronic obstructive pulmonary disease) Coronary artery disease involving pokagon coronary artery of pokagon heart without angina pectoris DDD (degenerative disc disease) Decubitus ulcer of right thigh, stage 3 Depression Diabetic peripheral neuropathy associated with type 2 diabetes mellitus Diaphragmatic paralysis DM (diabetes mellitus) Edema, elijah
[2020-03-14] MEDS: INSULIN ASPART (*BKC) 100 UNITS/ML 50 UNITS SUB-Q (15:42)
[2020-03-14 17:05] LABS: Glucose Point of Care 476 (65-105)
[2020-03-14 17:13] LABS: Reflex Lactic Acid Yes or No Add Lactic
[2020-03-14] MEDS: SODIUM CHLORIDE 0.9% IV 1,000 ML 999 ML IV CONT ×2 (17:30→18:57)
--- NOTE | 2020-03-14 17:55 | PM.IMHP ---
H&P: HPI History of Present Illness Date/Time: 03/14/20 17:55 Chief Complaint: sob Narrative: Nolan Onofre Jr. is a 69 year old male who had been admitted here on 11/13/2019 due to pneumonia and hypotension. He does have a history of COPD. He lives home alone and he has home health 7 days a week for 3 hours a day. The patient does have a history of congestive heart failure as well. The patient has a paralyzed diaphragm and has atelectasis. The patient's white count was noted to be 14.2. The patient was 12 per covid 19 Today. Patient's pH was 7.308 and CO2 63.1. Patient's anion gap was only noted to be two. patient's glucose was noted to be 510 and the patient stated that his blood sugars are typically around for 500 at home. The patient has an allergy to latex and cannot take regular insulin. Patient's lactic is 3.1. The patient's last A1c was 11.5 on 11/13/2019. Appears patient was A1c is typically between 10 and 12. Chest x-ray was read as opacities in the bilateral lower lung zones which could represent pulmonary edema pneumonia atelectasis or some combination thereof. Patient was empirically started on azithromycin and Rocephin. Patient was given NovoLog in the emergency room. The patient was given a L of IV fluids since he appear dry his lips were dry. Then he was given continues IV fluids. Patient's blood pressure was also Low. patient was placed on oxygen at 2 L per nasal cannula since his oxygen level dropped down to 89%. Patient was admitted to inpatient services on 03/14/2020. Review of Systems Review of Systems: All systems reviewed & are unremarkable except as noted in HPI and below Constitutional: Constitutional: Reports as per HPI and Reports no additional constitutional complaints Eyes: Eyes: Reports as per HPI and Reports no additional eye complaints ENT: Reports system reviewed and no additional complaints, except as documented and Reports Normal hearing present Cardiovascular: Cardiovascular: Reports no additional cardiovascular complaints Respiratory: Respiratory: Reports no additional respiratory complaints and Reports no additional respiratory complaints Gastrointestinal: Gastrointestinal: Reports as per HPI and Reports no additional gastrointestinal complaints Musculoskeletal: Musculoskeletal: Reports no additional musculoskeletal complaints Integumentary/Breasts: Skin/Breast: Reports system reviewed and no additional complaints, except as docu and Reports as per HPI Neurologic: Reports system reviewed and no additional complaints, except as documented, Reports as per HPI and Reports Normal hearing present Psychiatric: Psychiatric: Reports no additional psychiatric complaints and Reports as per HPI Endocrine: Endocrine: Reports no additional endocrine complaints Hematologic/Lymphatic: Hematologic/Lymphatic: Reports no additional hematologic/lymphatic complaints Allergic/Immunologic: Allergic/Immunologic: Reports no additional allergic/immunologic complaints [facility] Past Medical History Medical History Abscess of back Anemia Anxiety Arthritis Asthma Atrial fibrillation Paroxysmal BPH without obstruction/lower urinary tract symptoms CAD (coronary artery disease) Candidiasis of perineum Cellulitis of right thigh CHF (congestive heart failure) Chronic bilateral low back pain Chronic neck pain Controlled diabetes mellitus with hyperglycemia, with long-term current use of insulin COPD (chronic obstructive pulmonary disease) Coronary artery disease involving circle coronary artery of circle heart without angina pectoris DDD (degenerative disc disease) Decubitus ulcer of right thigh, stage 3 Depression Diabetic peripheral neuropathy associated with type 2 diabetes mellitus Diaphragmatic paralysis DM (diabetes mellitus) Edema, peripheral Essential (primary) hypertension Fibromyalgia Gastroesophageal reflux disease Gout H/O: HTN (hyperten
[2020-03-14 18:08] LABS: Lactic Acid 1.9 mmol/L (0.7-2.1)
[2020-03-14 19:07] LABS: Alveolar/Arterial O2 Gradient 98.9 mmHg; Carboxyhemoglobin 0.5 % THb (0-2.0); Fractional Inspired Oxygen 36 %; HCO3 ABG 30.8 mEq/l (22.0-26.0); Methemoglobin ABG 0.2 %THb (0-1.5); Oxygen Content ABG 16.7 %vol (16.0-22.0); Oxygen Saturation ABG 95.2 % (95.0-100.0); Oxyhemoglobin 94.6 % THb (90.0-100.0); PO2 ABG 84.6 mmHg (80.0-100.0); PO2 FiO2 Ratio Arterial Blood 2.35 %; Reduced Hemoglobin 4.7 %THb (0-5.0); Total Hemoglobin 12.5 g/dL (12.0-18.0); pH ABG 7.307 (7.350-7.450)
[2020-03-14 19:11] LABS: Device NASAL CANNULA; Modified Allen's Test Pass; PCO2 ABG 63.1 mmHg (35.0-45.0); Site Drawn LEFT RADIAL
[2020-03-14 19:35] LABS: Hemoglobin A1C > 14.0 % (<5.7)
[2020-03-14] MEDS: MORPHINE SULFATE (*CRX) 4 MG/ML INJ IV PUSH (19:55)
[2020-03-14 21:49] LABS: Glucose Point of Care 261 (65-105)
[2020-03-15] VITALS (16 sets, daily range): BP systolic 123–144; BP diastolic 56–88; PULSE 70–94; RESP 20–28; TEMP 35.8–36.7; O2SAT 93–100
[2020-03-15] MEDS: SODIUM CHLORIDE 0.9% IV 1,000 ML 125 ML IV CONT (00:06)
--- NOTE | 2020-03-15 01:49 | ADMGEN ---
This patient, Nolan Onofre Jr., was admitted to IMU Room 209-01 on 03/14/20 at 2210. Patient/family oriented to hospital policies and general routines including ID bracelet, bed and alarms, visiting hours, pain management, procedures, bathroom and other care routines, personal items, smoking policy, room service/diet, and visiting hours. Information on how to activate the Rapid Response Team has been discussed. Patient/Family are encouraged to report perceived risks to care and to ask questions if they do not understand what they are told or what they should do.
[2020-03-15 07:39] LABS: Alanine Aminotransferase 13 U/L (4-50); Albumin Level 3.5 g/dL (3.5-5.1); Alkaline Phosphatase 98 U/L (38-126); Anion Gap 4 mmol/L (8-16); Aspartate Amino Transferase 25 U/L (17-59); Bilirubin,Total 0.8 mg/dL (0.2-1.3); Blood Urea Nitrogen 12 mg/dL (9-20); CRP 8.8 mg/dL (<1.0); Calcium 8.3 mg/dL (8.4-10.2); Carbon Dioxide 30 mmol/L (22-30); Chloride 102 mmol/L (98-107); Estimated CRCL calculation 157 ml/min; Estimated Glomerular Filt Rate > 60; Glucose 316 mg/dL (75-110); Magnesium 1.8 mg/dL (1.6-2.3); Sodium 136 mmol/L (137-145)
[2020-03-15 08:15] LABS: Glucose Point of Care 309 (65-105)
[2020-03-15] MEDS: HYDROcodone/acetaminophen (*CRX) 5-325 MG TABLET 1 TAB PO (08:15)
[2020-03-15] MEDS: INSULIN ASPART (*BKC) 100 UNITS/ML SUB-Q ×3 (08:15→18:36)
[2020-03-15 12:03] LABS: Glucose Point of Care 342 (65-105)
[2020-03-15] MEDS: INSULIN ASPART (*BKC) 100 UNITS/ML 6 UNITS SUB-Q (12:12)
--- NOTE | 2020-03-15 13:51 | PM.IMPN ---
Progress Note: A&P Assessment and Plan (1) Pneumonia: Qualifiers: Laterality: bilateral Lung location: unspecified part of lung Pneumonia type: due to unspecified organism Qualified Code(s): J18.9 - Pneumonia, unspecified organism Code(s): J18.9 - Pneumonia, unspecified organism Status: Acute Assessment and Plan: Continue IV Rocephin and azithromycin pending COVID-19 testing continue inhaler treatment Patient has history of paralysis of the diaphragm Has a history of atelectasis I am not sure patient is having no pneumonia or atelectasis Will get infectious disease evaluation (2) Uncontrolled diabetes mellitus with hyperglycemia, with long-term current use of insulin: Code(s): E11.65 - Type 2 diabetes mellitus with hyperglycemia; Z79.4 - care home (current) use of insulin Status: Chronic Assessment and Plan: Patient's A1cs have been anywhere from 10-12 in the past. Insulin sliding scale Medication adjusted (3) Hypothyroidism, unspecified: Qualifiers: Hypothyroidism type: acquired Qualified Code(s): E03.9 - Hypothyroidism, unspecified Code(s): E03.9 - Hypothyroidism, unspecified Status: Chronic Assessment and Plan: Levothyroxine. (4) Obstructive sleep apnea on CPAP: Code(s): G47.33 - Obstructive sleep apnea (adult) (pediatric); Z99.89 - Dependence on other enabling machines and devices Status: Acute Assessment and Plan: Patient was treated with BiPAP as he has acute on top of chronic hypoxemic respiratory failure Wean off BiPAP discussed with the nurse (5) Tinea cruris: Code(s): B35.6 - Tinea cruris Status: Acute Assessment and Plan: continue with nystatin powder (6) Atrial fibrillation: Qualifiers: Atrial fibrillation type: unspecified Qualified Code(s): I48.91 - Unspecified atrial fibrillation Code(s): I48.91 - Unspecified atrial fibrillation Status: Chronic Assessment and Plan: Continue home medication as tolerated by blood pressure. Continue with Xarelto (7) BPH without obstruction/lower urinary tract symptoms: Code(s): N40.0 - Benign prostatic hyperplasia without lower urinary tract symptoms Status: Chronic Assessment and Plan: continue with tamsulosin (8) Suspected COVID-19 virus infection: Code(s): Z20.828 - Contact with and (suspected) exposure to other viral communicable diseases Status: Acute Assessment and Plan: droplet isolation. Pending COVID-19 serology (9) CHF (congestive heart failure): Qualifiers: Heart failure type: unspecified Heart failure chronicity: chronic Qualified Code(s): I50.9 - Heart failure, unspecified Code(s): I50.9 - Heart failure, unspecified Status: Acute Assessment and Plan: Blood pressure medication was held because of hypotension Patient was given IV fluid Subjective Date/time seen: 03/15/20 13:51 Interval history: Patient seen and examined Patient feels weak he is complaining of cough and shortness of breath patient had episodes of hypoxia up to 70s this morning improved with oxygen pending CT scan of the chest pending COVID-19 Patient denies fever headache chest pain s I am seeing the patient for shortness of breath Exam Narrative: Exam Narrative: Alert Chest positive scattered wheeze and crackles Abdomen nontender nondistended CVS S1 + S2 Positive Lower extremity edema Objective Data Vital Signs Vital Signs: Vital Signs - 24 hr 03/14/20 14:01 03/14/20 14:16 03/14/20 14:31 Temperature Pulse Rate 0 L 70 Respiratory Rate 23 H Blood Pressure 108/55 L 131/58 L 105/63 Pulse Oximetry 03/14/20 14:46 03/14/20 15:01 03/14/20 15:17 Temperature Pulse Rate 67 66 68 Respiratory Rate 18 22 H 19 Blood Pressure 106/64 120/80 142/85 H Pulse Oximetry 03/14/20 15:39 03/14/20 15:47 03/14/20 16:01 Temperature Pu
[2020-03-15 16:50] LABS: Glucose Point of Care 355 (65-105)
--- NOTE | 2020-03-15 17:10 | WPDINFPN2 ---
Progress Note: A&P Assessment and Plan (1) Person under investigation for COVID-19: Code(s): Z20.822 - Contact with and (suspected) exposure to COVID-19 Status: Acute Assessment and Plan: 1. PUI with dyspnea 2. Leukocytosis 3. Abnormal CXR, no new findings and I think represent atelectasis 4. Poorly controlled DM REC No empiric antimicrobials, micro in process Subjective Date/time seen: 03/15/20 17:10 Objective Data Vital Signs Vital Signs: Vital Signs - 24 hr 03/14/20 17:23 03/14/20 17:32 03/14/20 17:45 Temperature Pulse Rate 71 75 69 Respiratory Rate 22 H 16 21 H Blood Pressure 83/35 L 78/44 L Pulse Oximetry 98 03/14/20 17:53 03/14/20 18:00 03/14/20 18:01 Temperature 36.7 C Pulse Rate 0 L 67 Respiratory Rate 23 H 18 Blood Pressure 83/65 L 84/51 L Pulse Oximetry 03/14/20 18:16 03/14/20 18:17 03/14/20 18:30 Temperature Pulse Rate 65 64 68 Respiratory Rate 15 21 H 21 H Blood Pressure 85/43 L Pulse Oximetry 03/14/20 18:32 03/14/20 18:45 03/14/20 18:56 Temperature Pulse Rate 66 69 74 Respiratory Rate 21 H 21 H 21 H Blood Pressure 70/50 L 97/47 L Pulse Oximetry 97 03/14/20 19:00 03/14/20 19:01 03/14/20 19:08 Temperature Pulse Rate 66 Respiratory Rate 26 H 29 H 20 Blood Pressure 116/53 L 116/53 L Pulse Oximetry 97 03/14/20 19:15 03/14/20 19:30 03/14/20 19:32 Temperature Pulse Rate 57 L 69 70 Respiratory Rate 21 H 16 18 Blood Pressure 107/48 L Pulse Oximetry 97 03/14/20 19:45 03/14/20 19:47 03/14/20 20:00 Temperature Pulse Rate 53 L 58 L 67 Respiratory Rate 21 H 17 19 Blood Pressure 93/46 L Pulse Oximetry 03/14/20 20:01 03/14/20 20:38 03/14/20 20:54 Temperature Pulse Rate 66 73 67 Respiratory Rate 18 28 H 21 H Blood Pressure 103/56 L 101/49 L Pulse Oximetry 98 96 03/14/20 21:58 03/14/20 22:12 03/14/20 22:15 Temperature 37.1 C Pulse Rate 71 75 76 Respiratory Rate 22 H 18 Blood Pressure 94/46 L 127/58 L Pulse Oximetry 100 97 03/14/20 22:18 03/15/20 00:00 03/15/20 02:00 Temperature 36.7 C Pulse Rate 75 79 72 Respiratory Rate 18 20 Blood Pressure 123/60 Pulse Oximetry 97 96 03/15/20 03:02 03/15/20 03:06 03/15/20 04:00 Temperature 35.9 C L Pulse Rate 74 79 79 Respiratory Rate 22 H 22 H Blood Pressure 138/63 Pulse Oximetry 100 97 97 03/15/20 06:00 03/15/20 08:00 03/15/20 08:57 Temperature 35.8 C L Pulse Rate 74 94 Respiratory Rate 26 H Blood Pressure 127/56 L Pulse Oximetry 93 93 03/15/20 10:00 03/15/20 12:00 03/15/20 14:00 Temperature 36.1 C L Pulse Rate 89 88 72 Respiratory Rate 28 H Blood Pressure 135/66 Pulse Oximetry 95 03/15/20 16:00 Temperature 36.1 C L Pulse Rate 93 Respiratory Rate 28 H Blood Pressure 144/88 H Pulse Oximetry 95 Intake/Output Intake/Output: Intake & Output 03/12/20 03/13/20 03/14/20 03/15/20 23:59 23:59 23:59 23:59 Intake Total 2300 1640 Output Total 1000 Balance 1300 1640 Meds/Results Medications: Active Medications Generic Name Dose Route Start Last Admin Trade Name Freq PRN Reason Stop Dose Admin Acetaminophen 650 mg 03/14/20 14:52 Acetaminophen 325 Mg Tablet PO Q4H PRN Mild Pain (1-3) or Fever Hydrocodone Bitart/Acetaminophen 1 tab 03/14/20 14:52 03/15/20 08:15 Hydrocodone/Acetaminophen (*Crx) 5-325 Mg Tablet PO 1 tab Q4H PRN Administration Pain Rated 4-6 Dextrose 12.5 gm 03/14/20 17:51 Dextrose 50% 25 Gm/50 Ml Syringe IV PUSH PRN PRN Hypoglycemia Protocol Glucagon 1 mg 03/14/20 17:51 Glucagon For Inj 1 Mg Vial IM PRN PRN Hypoglycemia Protocol Glucose 15 gm 03/14/20 17:51 Glucose Oral Gel 15 Gm Of Glucse In 37.5 Gm Tube PO PRN PRN Hypoglycemia Protocol Dextrose 1,000 mls @ 100 mls/hr 03/14/20 17:51 Dextrose 5% 1,000 Ml IVPB PRN PRN Hypoglycemia
[2020-03-15] MEDS: INSULIN ASPART (*BKC) 100 UNITS/ML 12 UNITS SUB-Q (18:27)
--- NOTE | 2020-03-15 18:50 | CONS_ITS ---
DATE OF CONSULTATION: 03/15/2020 REASON FOR CONSULTATION: Leukocytosis. HISTORY OF PRESENT ILLNESS: A 69-year-old male who has had 3 coronavirus assays nonreactive in the last year. He presented to the emergency room yesterday with a low blood pressure at home by self report. Here he has had some mild hypotension as well. He has been on no antibiotics recently for any reasons. No steroids. He lives alone. Does have a home health nurse or aide 3 hours every day. He also has a dog. No other contacts. He has had no fever, chills, sweats, sputum production. He has had poor appetite. He is not on oxygen at home. Presently does have a CPAP mask on. ALLERGIES: CLINDAMYCIN CAUSED ANAPHYLAXIS. ERYTHROMYCIN, NAUSEA. OTHERS NOT PERTINENT. HABITS: No alcohol, no tobacco. PRESENT MEDICATIONS: List reviewed. No immunosuppressants. PAST MEDICAL HISTORY: Very extensive and reviewed including very poor control of his diabetes. I reviewed the entire list of his past illnesses and will not restate. He was on penicillin for a broken tooth, but stopped before admission. REVIEW OF SYSTEMS: 14-point review otherwise negative. FAMILY HISTORY: Not pertinent to his present illness. SOCIAL HISTORY: since 2014, has a daughter, lives locally. Home health as above. PHYSICAL EXAMINATION: GENERAL: This is an elderly male who appears older than his actual age, in mild respiratory distress. VITAL SIGNS: Afebrile. 95% on 3 L, 144/88, 93, 28. SKIN: No generalized rashes. Warm and dry. EENT: The conjunctivae are normal. Mucous membranes are dry. No paranasal sinus erythema, edema, or tenderness. NECK: Without adenopathy, mass or meningismus. LUNGS: Diminished breath sounds. No wheezing. No rhonchi. Clear to percussion. CARDIAC: Soft S1, S2. Regular rate and rhythm. ABDOMEN: Massively obese. No organomegaly. No masses. EXTREMITIES: No clubbing, cyanosis. There is 2+ edema. LABORATORY DATA: Blood cultures, no growth after 1 day's incubation. White blood cell count 14.2, hemoglobin 13.6, platelets are 199. Blood gases 7.31, 63, 85, 31. AA gradient 99. He has mild hyponatremia. BUN, creatinine normal. Glucose 316. His A1c over 14%. Lactate normal. Transaminases normal. CRP 9. Urinalysis with sugar, otherwise normal. His coronavirus assay is pending. RADIOLOGY: I personally reviewed his chest x-ray. He has atelectasis in both lung bases. No change since prior films in October and April. ASSESSMENT: 1. Chronically abnormal chest x-ray, no recent change. 2. Leukocytosis, mild and without focal or systemic infection identified by clinical evaluation. 3. Dyspnea. 4. Mild hypotension, resolved. 5. Diabetes mellitus, poor control. 6. Multiple medical problems. RECOMMENDATIONS: 1. No empiric antibacterials. 2. Coronavirus assay in process and if positive would treat with dexamethasone 6 mg daily. 3. Glycemic control as you are doing. Thank you very much for asking me to see him. MARCOS CEBALLOS M.D. LINEN ROOM ATTENDANT LINEN ROOM ATTENDANT D I MT: [place]
[2020-03-15 19:17] LABS: SARS-CoV-2 RNA PCR Negative
[2020-03-15 21:02] LABS: Glucose Point of Care 301 (65-105)
[2020-03-15] MEDS: INSULIN GLARGINE (*BKC) 100 UNITS/ML 24 UNITS SUB-Q (21:41)
[2020-03-15] MEDS: CYCLOBENZAPRINE HCL 5 MG TABLET PO (21:43)
[2020-03-15] MEDS: RIVAROXABAN 20 MG TABLET PO (21:44)
[2020-03-15] MEDS: ATORVASTATIN 40 MG TABLET PO (21:44)
[2020-03-15] MEDS: PRAMIPEXOLE 1 MG TABLET PO (21:45)
[2020-03-15] MEDS: PANTOPRAZOLE 40 MG TABLET PO (21:45)
[2020-03-15] MEDS: SACUBITRIL/VALSARTAN 49-51 MG TABLET 1 TABLET PO (21:45)
[2020-03-15] MEDS: carvediloL 25 MG TABLET PO (21:48)
--- NOTE | 2020-03-15 23:01 | PC.NURSE ---
This patient, Nolan Onofre ., was transferred to [[id number] ] on 03/15/20 at 2339. Personal belongings sent with patient. Report given to [ Yanet Mendoza]. Appropriate documentation sent with patient.
--- NOTE | 2020-03-15 23:46 | PC.NURSE ---
Received from IMU At 2340. Transferred per bed in room 254. Oriented to room and call light in reach.
[2020-03-16] VITALS (13 sets, daily range): BP systolic 102–130; BP diastolic 52–69; PULSE 59–89; RESP 20–22; TEMP 36.3–37; O2SAT 94–99
[2020-03-16] MEDS: traZODone HCL 50 MG TABLET 100 MG PO (00:27)
[2020-03-16] MEDS: LEVOTHYROXINE SODIUM 100 MCG TABLET 200 MCG PO (05:16)
[2020-03-16] MEDS: INSULIN ASPART (*BKC) 100 UNITS/ML SUB-Q ×2 (07:34→12:34)
[2020-03-16] MEDS: PRAMIPEXOLE 1 MG TABLET PO (08:55)
[2020-03-16] MEDS: CYANOCOBALAMIN 1,000 MCG TABLET 5000 MCG PO (08:55)
[2020-03-16] MEDS: FUROSEMIDE 20 MG TABLET PO (08:56)
[2020-03-16] MEDS: ISOSORBIDE MONONITRATE 30 MG TAB.ER.24H PO (08:56)
[2020-03-16] MEDS: PANTOPRAZOLE 40 MG TABLET PO (08:56)
[2020-03-16] MEDS: CHOLECALCIFEROL 1,000 UNITS TABLET 1000 UNITS PO (08:56)
[2020-03-16] MEDS: carvediloL 25 MG TABLET PO (08:56)
[2020-03-16] MEDS: TAMSULOSIN HCL 0.4 MG CAPSULE PO (08:56)
[2020-03-16] MEDS: SACUBITRIL/VALSARTAN 49-51 MG TABLET 1 TABLET PO (08:56)
[2020-03-16] MEDS: PREGABALIN (*CRX) 50 MG CAPSULE PO ×2 (08:58→12:35)
[2020-03-16 09:15] LABS: Glucose Point of Care 287 (65-105)
[2020-03-16 09:58] LABS: Base Excess ABG 4.2 mEq/l (+/-2.0); Fractional Inspired Oxygen 36 %; HCO3 ABG 31.3 mEq/l (22.0-26.0); Oxygen Content ABG 17.3 %vol (16.0-22.0); Oxygen Saturation ABG 94.1 % (95.0-100.0); Oxyhemoglobin 93.6 % THb (90.0-100.0); PCO2 ABG 58.3 mmHg (35.0-45.0); PO2 ABG 75.1 mmHg (80.0-100.0); PO2 FiO2 Ratio Arterial Blood 2.09 %; Total Hemoglobin 13.1 g/dL (12.0-18.0); pH ABG 7.348 (7.350-7.450)
[2020-03-16 09:59] LABS: Device NASAL CANNULA; Modified Allen's Test Pass; Site Drawn RIGHT RADIAL
[2020-03-16 10:39] LABS: Basophils Percent Auto 0.5 % (0.2-1.2); Eosinophils Absolute Auto 0.3 K/mm3 (0-0.3); Eosinophils Percent Auto 3.8 % (0-4.4); Hematocrit 38.1 % (42.0-52.0); Immature Granulocyte Absolute 0.06 K/mm3 (0.00-0.031); Immature Granulocyte Percent A 0.7 % (0-0.5); Lymphocytes Absolute Auto 1.42 K/mm3 (0.9-3.2); Mean Corpuscular HGB Conc 31.5 g/dl (32-36); Mean Corpuscular Hemoglobin 29.4 pg (26-34); Mean Corpuscular Volume 93.4 fl (80-100); Mean Platelet Volume 10.6 fl (7.4-10.4); Monocytes Absolute Auto 0.6 K/mm3 (0.1-0.6); Monocytes Percent Auto 6.6 % (2.6-8.5); Neutrophils Absolute Auto 6.4 K/mm3 (1.3-6.7); Neutrophils Percent Auto 72.4 % (45.5-73.1); Platelet Count Result 185 k/mm3 (150-375); Red Blood Count 4.08 M/mm3 (4.6-6.20); Red Cell Distribution Width 14.4 % (11.5-14.5); White Blood Count 8.9 K/mm3 (4.5-10.0)
[2020-03-16 10:56] LABS: Alanine Aminotransferase 12 U/L (4-50); Albumin Level 3.1 g/dL (3.5-5.1); Alkaline Phosphatase 89 U/L (38-126); Anion Gap -3 mmol/L (8-16); Aspartate Amino Transferase 14 U/L (17-59); Bilirubin,Total 0.7 mg/dL (0.2-1.3); Blood Urea Nitrogen 9 mg/dL (9-20); Calcium 8.4 mg/dL (8.4-10.2); Carbon Dioxide 37 mmol/L (22-30); Chloride 99 mmol/L (98-107); Estimated CRCL calculation 157 ml/min; Estimated Glomerular Filt Rate > 60; Glucose 328 mg/dL (75-110); Potassium 4.2 mmol/L (3.4-5.0); Sodium 133 mmol/L (137-145)
[2020-03-16] MEDS: SILVER SULFADIAZINE 1% CR 400 GM JAR (*BKC) 1 APPLIC TOPICAL (11:39)
--- NOTE | 2020-03-16 11:48 | PM.DS ---
DS: Admitting Diagnosis Admitting Diagnosis Admitting Diagnosis: Hyperglycemia shortness of breath DS: Discharge Diagnosis Discharge Diagnosis (1) Pneumonia: Qualifiers: Laterality: bilateral Lung location: unspecified part of lung Pneumonia type: due to unspecified organism Qualified Code(s): J18.9 - Pneumonia, unspecified organism Code(s): J18.9 - Pneumonia, unspecified organism Status: Acute Assessment and Plan: ID was consulted patient does not have pneumonia patient has atelectasis incentive spirometry repeat chest x-ray in 1 week follow-up with PCP (2) Uncontrolled diabetes mellitus with hyperglycemia, with long-term current use of insulin: Code(s): E11.65 - Type 2 diabetes mellitus with hyperglycemia; Z79.4 - ferry terminal agent (current) use of insulin Status: Chronic Assessment and Plan: Patient's A1cs have been anywhere from 10-12 in the past. Medication was adjusted on discharge diet and exercise follow-up with PCP Most likely patient is not compliant (3) Hypothyroidism, unspecified: Qualifiers: Hypothyroidism type: acquired Qualified Code(s): E03.9 - Hypothyroidism, unspecified Code(s): E03.9 - Hypothyroidism, unspecified Status: Chronic Assessment and Plan: Levothyroxine. (4) Obstructive sleep apnea on CPAP: Code(s): G47.33 - Obstructive sleep apnea (adult) (pediatric); Z99.89 - Dependence on other enabling machines and devices Status: Acute Assessment and Plan: Patient was treated with BiPAP as he has acute on top of chronic hypoxemic respiratory failure Wean off BiPAP discussed with the nurse Most likely related to atelectasis counseling was given (5) Tinea cruris: Code(s): B35.6 - Tinea cruris Status: Acute Assessment and Plan: continue with nystatin powder (6) Atrial fibrillation: Qualifiers: Atrial fibrillation type: unspecified Qualified Code(s): I48.91 - Unspecified atrial fibrillation Code(s): I48.91 - Unspecified atrial fibrillation Status: Chronic Assessment and Plan: Continue home medication as tolerated by blood pressure. Continue with Xarelto (7) BPH without obstruction/lower urinary tract symptoms: Code(s): N40.0 - Benign prostatic hyperplasia without lower urinary tract symptoms Status: Chronic Assessment and Plan: continue with tamsulosin (8) Suspected COVID-19 virus infection: Code(s): Z20.828 - Contact with and (suspected) exposure to other viral communicable diseases Status: Acute Assessment and Plan: COVID-19 testing was done and was negative (9) CHF (congestive heart failure): Qualifiers: Heart failure type: unspecified Heart failure chronicity: chronic Qualified Code(s): I50.9 - Heart failure, unspecified Code(s): I50.9 - Heart failure, unspecified Status: Acute Assessment and Plan: Blood pressure medication was held because of hypotension Patient was given IV fluid DS: Summary Hospital Course Hospital Course: Patient was admitted to the hospital with hyperglycemia shortness of breath was found to have atelectasis most likely patient has non compliant insulin dose was adjusted on discharge counseling was given patient did not have pneumonia ID recommendation was consulted and patient has acute on top of chronic hypercapnic respiratory failure likely related to sleep apnea and atelectasis counseling regarding BiPAP and incentive spirometry follow-up with PCP repeat chest x-ray in 2 weeks Time Spent with Patient Time attestation: Total time spent providing and/or coordinating discharge services: Exam Narrative: Exam Narrative: Alert Chest positive scattered wheeze and crackles Abdomen nontender nondistended CVS S1 + S2 Positive Lower extremity edema DS: Data Data Completed and Pending Labs on day of discharge: Labs from last 24 hours 03/16/20 03/16/20
[2020-03-16 12:30] LABS: Glucose Point of Care 295 (65-105)
[2020-03-16] MEDS: INSULIN ASPART (*BKC) 100 UNITS/ML 6 UNITS SUB-Q (12:35)
== END 2020-03-16 18:55 | disposition home or self-care (01) | DRG 189 ==
LOC: ANHED 13:32 → ANH3MEDSUR 20:39 → ANHIMU 03-15 03:39 → ANH2MED 03-16 11:48 → ANH3MEDSUR 03-19 16:34 → ANHIMU 03-19 16:34
PROVIDERS: Nurse Practitioner; Admitting Provider Internal Medicine; Emergency Provider Emergency Medicine; PCP Family Medicine; Visit Provider Internal Medicine
DX: J96.22 Acute and chronic respiratory failure with hypercapnia (principal); J98.11 Atelectasis; J96.21 Acute and chronic respiratory failure with hypoxia; E11.65 Type 2 diabetes mellitus with hyperglycemia; Z20.822 Contact with and (suspected) exposure to COVID-19; J98.6 Disorders of diaphragm; E03.9 Hypothyroidism, unspecified; G47.33 Obstructive sleep apnea (adult) (pediatric); D72.829 Elevated white blood cell count, unspecified; I95.9 Hypotension, unspecified; B35.6 Tinea cruris; I48.91 Unspecified atrial fibrillation; I25.10 Atherosclerotic heart disease of native coronary artery without angina pectoris; I25.2 Old myocardial infarction; N40.0 Benign prostatic hyperplasia without lower urinary tract symptoms; E11.59 Type 2 diabetes mellitus with other circulatory complications; I11.0 Hypertensive heart disease with heart failure; I50.9 Heart failure, unspecified; E11.42 Type 2 diabetes mellitus with diabetic polyneuropathy; J44.9 Chronic obstructive pulmonary disease, unspecified; Z79.01 Long term (current) use of anticoagulants; Z79.4 Long term (current) use of insulin; Z79.899 Other long term (current) drug therapy; Z91.14 Patient's other noncompliance with medication regimen
CPT/HCPCS: 36415; 36600; 71045; 80053; 81001; 82375; 82728; 82805; 82948; 83036; 83050; 83605; 83735; 83880; 84443; 85025; 85610; 85730; 86140; 87040; 93005; 93970; 94002; 94003; 96361; 96365; 96367; 96375; 99285; A9270; C9803; G0378; J0456; J0696; J1815; J2270; J7030; U0003; U0005

== ENCOUNTER 2020-04-14 09:39 | Inpatient (IN) | payer MEDICARE, MEDICAID, SELFPAY ==
[2020-04-14] VITALS (37 sets, daily range): BP systolic 96–131; BP diastolic 50–95; PULSE 61–150; RESP 16–34; TEMP 36.2–36.9; O2SAT 92–98; BMI 44.8
--- NOTE | ~2020-04-14 | US_ITS ---
EXAMINATION: US venous doppler [facility] DATE: 04/15/2020 11:22 INDICATION: Lower limb edema. TECHNIQUE: Grayscale ultrasound images without and with compression and Doppler ultrasound images of the bilateral lower extremity veins were obtained. COMPARISON: Ultrasound 03/15/2020 FINDINGS: The visualized portions of right common femoral vein, profunda (deep) femoral vein, femoral vein, pop liteal vein, peroneal veins, posterior tibial veins, and greater saphenous vein outflow are patent. T he calf veins are not well visualized due to obesity. The visualized portions of left common femoral vein, profunda femoral vein, femoral vein, popliteal v ein, posterior tibial veins, and greater saphenous vein outflow are patent. The calf veins are not we ll visualized due to obesity. IMPRESSION: 1. No deep venous thrombosis. Reviewed, dictated and finalized at location A. H BEAMER
--- NOTE | ~2020-04-14 | XR_ITS ---
XR chest 1V portable DATE: 04/14/2020 10:04 INDICATION: Chest pain TECHNIQUE: Portable AP chest on April 14, 2020 at 1008 hours COMPARISON: 03/14/2020 portable AP chest FINDINGS: There is prominent elevation the right leaf of the diaphragm. Cardiomegaly. There is pulmonary vascular congestion and redistribution. There is mild prominence of the minor fissure. There is suggestion of mild pleural effusions. There are infiltrates and/atelectas is in the lower lung zones. Diffuse osteopenia. Degenerative spurring of the thoracic spine. IMPRESSION: Congestive heart failure Bilateral lower lung infiltrate and/atelectasis Elevated right diaphragm Reviewed, dictated and finalized at location A. ECRAFT SYSTEMS ENGINEER
--- NOTE | 2020-04-14 09:45 | ECG_ITS ---
Measurements Intervals [place] Rate: 150 P: [place]: 0 QRS: 10 QRSD: 88 T: 168 QT: 243 QTc: 384 Interpretive Statements ATRIAL FIBRILLATION WITH RAPID VENTRICULAR RESPONSE NONSPECIFIC ST & T-WAVE ABNORMALITY- DIFFUSE LEADS BASELINE ARTIFACT- I, AVR, AVL, AVF, V1 BORDERLINE ECG Electronically Signed On 04-14-2020 12:42:19 QUALITY ASSURANCE COACH by Gabriel Freed D.O.
[2020-04-14] MEDS: dilTIAZem HCl INJ 25 MG/5 ML VIAL 10 MG IV PUSH (09:59)
[2020-04-14 10:14] LABS: Basophils Absolute Auto 0.1 K/mm3 (0.0-0.1); Basophils Percent Auto 0.6 % (0.2-1.2); Eosinophils Absolute Auto 0.3 K/mm3 (0-0.3); Eosinophils Percent Auto 3.5 % (0-4.4); Hematocrit 38.3 % (42.0-52.0); Hemoglobin 11.7 g/dL (14.0-18.0); Immature Granulocyte Absolute 0.09 K/mm3 (0.00-0.031); Lymphocytes Absolute Auto 1.42 K/mm3 (0.9-3.2); Lymphocytes Percent Auto 15.6 % (18.3-44.2); Mean Corpuscular HGB Conc 30.5 g/dl (32-36); Mean Corpuscular Volume 91.6 fl (80-100); Mean Platelet Volume 11.2 fl (7.4-10.4); Monocytes Absolute Auto 0.6 K/mm3 (0.1-0.6); Monocytes Percent Auto 6.3 % (2.6-8.5); Neutrophils Absolute Auto 6.6 K/mm3 (1.3-6.7); Platelet Count Result 237 k/mm3 (150-375); Red Blood Count 4.18 M/mm3 (4.6-6.20); White Blood Count 9.1 K/mm3 (4.5-10.0)
[2020-04-14 10:18] LABS: INR 2.2
[2020-04-14 10:19] LABS: Partial Thromboplastin Time 39.1 SECONDS (22.3-36.8)
--- NOTE | 2020-04-14 10:20 | ED.SOB ---
HPI - SOB/Dyspnea General Chief Complaint: Shortness of Breath/Dyspnea Stated Complaint: sob/cp x90 mins Time Seen by Provider: 04/14/20 09:42 History of Present Illness HPI Narrative: 69 yo male with mutiple medical problems presents to the ED for SOB. He reports relative sudden onset of chest pain and SOB about 90 minutes prior to arrival. On arrival he states that it has improved significantly. No pain at this time. Moderately SOB. He is on 4L O2 at baseline. He was found to be in a-fib w/ RVR on EMS ekg. He had a recent hospital visit for the same. Related Data Home Medications Medication Instructions Recorded Confirmed cholecalciferol (vitamin D3) 25 1,000 unit PO DAILY 12/22/18 04/14/20 mcg (1,000 unit) capsule cyanocobalamin (vitamin B-12) 5,000 mcg PO DAILY 12/22/18 04/14/20 2,500 mcg tablet Xarelto 20 mg PO HS 02/28/19 04/14/20 potassium chloride [Klor-Con M20] 20 meq PO BID 02/28/19 04/14/20 Bevespi Aerosphere 2 puff INHALATION DAILY 03/14/20 04/14/20 Entresto 1 tablet PO BID 03/14/20 04/14/20 atorvastatin 40 mg PO HS 03/14/20 04/14/20 carvedilol 12.5 mg PO BID 03/14/20 04/14/20 cyclobenzaprine 5 mg PO HS 03/14/20 04/14/20 furosemide 20 mg PO DAILY 03/14/20 04/14/20 isosorbide mononitrate 60 mg PO DAILY 03/14/20 04/14/20 levothyroxine 200 mcg PO DAILY 03/14/20 04/14/20 nystatin 1 applic TOPICAL BID 03/14/20 04/14/20 pantoprazole 40 mg PO BID 03/14/20 04/14/20 pregabalin 50 mg PO BID 03/14/20 04/14/20 tamsulosin 0.4 mg PO DAILY 03/14/20 04/14/20 trazodone 100 mg PO HS 03/14/20 04/14/20 vitamin A and D 1 applic TOPICAL 4-6XD PRN 01/28/21 02/28/21 Fiasp FlexTouch U-100 Insulin 70 unit SUBCUT QACLUNCH 04/14/20 04/14/20 amoxicillin 1,500 mg PO DAILY 04/14/20 04/14/20 Allergies Allergy/AdvReac Type Severity Reaction Status Date / Time clindamycin Allergy Severe Anaphylaxis Verified 04/14/20 09:41 Iodinated Contrast Media Allergy Severe Hives/RED Verified 04/15/20 10:22 FACE latex Allergy Intermediate Swelling Verified 04/14/20 09:41 Gadolinium-Containing Allergy Mild Rash Verified 04/14/20 09:41 Contrast Medi iodine Allergy Mild RASH Verified 04/14/20 09:41 erythromycin base AdvReac Mild NAUSEA Verified 04/14/20 09:41 Contrast Media Allergy Severe Hives / Uncoded 04/14/20 09:41 Red Face Review of Systems Review of Systems: All systems reviewed & are unremarkable except as noted in HPI and below Constitutional: Constitutional: Reports fatigue and Denies fever(s) Eyes: Eyes: Reports no additional eye complaints Cardiovascular: Cardiovascular: Reports chest pain Respiratory: Respiratory: Reports dyspnea Gastrointestinal: Gastrointestinal: Denies abdominal pain Neurologic: Reports system reviewed and no additional complaints, except as documented PMFSH Past Medical History Medical History Abscess of back Acute and chronic respiratory failure with hypercapnia Acute dehydration Acute hyperglycemia Acute hypotension Acute kidney injury Acute UTI Anxiety Arthritis Asthma Atrial fibrillation Paroxysmal BPH without obstruction/lower urinary tract symptoms Candidiasis of perineum Cellulitis of right thigh CHF (congestive heart failure) Chronic bilateral low back pain Chronic neck pain Controlled diabetes mellitus with hyperglycemia, with long-term current use of insulin COPD (chronic obstructive pulmonary disease) Coronary artery disease involving [place] coronary artery of [place] heart without angina pectoris DDD (degenerative disc disease) Decubitus ulcer of right thigh, stage 3 Depression Diabetes Diabetic peripheral neuropathy associated with type 2 diabetes mellitus Diaphragmatic paralysis DVT prophylaxis Dyspnea Edema, peripheral Essential (primary) hypertension Fibromyalgia Gastroesophageal reflux disease Gout H/O: HTN (hypertension) Herniated disc History of inguinal hernia History of kidney stones History of pneumonia H
[2020-04-14 10:21] LABS: Anion Gap 6 mmol/L (8-16); Blood Urea Nitrogen 12 mg/dL (9-20); Calcium 8.4 mg/dL (8.4-10.2); Carbon Dioxide 34 mmol/L (22-30); Chloride 98 mmol/L (98-107); Estimated CRCL calculation 188 ml/min; Estimated Glomerular Filt Rate > 60; Glucose 348 mg/dL (75-110); Potassium 3.6 mmol/L (3.4-5.0); Sodium 138 mmol/L (137-145)
[2020-04-14 10:33] LABS: NT Pro B Type Natriuretic Pept 160 PG/ML (5-100); Troponin I < 0.012 ng/mL (0.000-0.034)
[2020-04-14] MEDS: FUROSEMIDE INJ 100 MG/10 ML VIAL 80 MG IV PUSH (11:45)
--- NOTE | 2020-04-14 13:56 | PC.NURSE ---
Called dietary and ordered pt a tray at this time. Spoke to Dre.
--- NOTE | 2020-04-14 14:25 | ADMGEN ---
This patient, Nolan Onofre Jr., was admitted to IMU Room 201-01. Patient/family oriented to hospital policies and general routines including ID bracelet, bed and alarms, visiting hours, pain management, procedures, bathroom and other care routines, personal items, smoking policy, room service/diet, and visiting hours. Information on how to activate the Rapid Response Team has been discussed. Patient/Family are encouraged to report perceived risks to care and to ask questions if they do not understand what they are told or what they should do.
[2020-04-14 15:52] LABS: Glucose Point of Care 321 (65-105)
[2020-04-14 16:18] LABS: Troponin I < 0.012 ng/mL (0.000-0.034)
--- NOTE | 2020-04-14 18:53 | PM.IMHP ---
H&P: HPI History of Present Illness Date/Time: 04/14/20 18:53 Chief Complaint: sob orthopnea Narrative: Nolan Onofre Jr. is a 69 year old male who has a history of congestive heart failure and COPD. He also has a history of atrial fibrillation. The patient has home health approximately 7 days a week. The patient has become more short of breath recently and more edematous. He was also complaining of having chest pain greater than 90 minutes. The patient is telling me that he has been using his CPAP machine at home. He wears his oxygen at 4 L per nasal cannula at home every day. Patient is short of breath when he lays flat. H&H is 11.7 and 38.3. Which is pretty close to the baseline. His blood sugar is 321 today. Last A1c was greater than 14 last month. His troponin is negative x2. His BNP is only 160. As degenerative spurring of the thoracic spine. Congestive heart failure. Bilateral lower lung infiltrates and/or atelectasis. Elevated right diaphragm. In AFib RVR and was placed on a Cardizem drip. The patient was given IV Lasix and nitro patch. The patient is being admitted to inpatient status on the date of service of 04/14/2020. Review of Systems Review of Systems: All systems reviewed & are unremarkable except as noted in HPI and below Constitutional: Constitutional: Reports as per HPI and Reports no additional constitutional complaints Eyes: Eyes: Reports as per HPI and Reports no additional eye complaints ENT: Reports system reviewed and no additional complaints, except as documented and Reports Normal hearing present Cardiovascular: Cardiovascular: Reports no additional cardiovascular complaints Respiratory: Respiratory: Reports no additional respiratory complaints and Reports no additional respiratory complaints Gastrointestinal: Gastrointestinal: Reports as per HPI and Reports no additional gastrointestinal complaints Musculoskeletal: Musculoskeletal: Reports no additional musculoskeletal complaints Integumentary/Breasts: Skin/Breast: Reports system reviewed and no additional complaints, except as docu and Reports as per HPI Neurologic: Reports system reviewed and no additional complaints, except as documented, Reports as per HPI and Reports Normal hearing present Psychiatric: Psychiatric: Reports no additional psychiatric complaints and Reports as per HPI Endocrine: Endocrine: Reports no additional endocrine complaints Hematologic/Lymphatic: Hematologic/Lymphatic: Reports no additional hematologic/lymphatic complaints Allergic/Immunologic: Allergic/Immunologic: Reports no additional allergic/immunologic complaints [facility] Past Medical History Medical History Abscess of back Acute and chronic respiratory failure with hypercapnia Acute dehydration Acute hyperglycemia Acute hypotension Acute kidney injury Acute UTI Anxiety Arthritis Asthma Atrial fibrillation Paroxysmal BPH without obstruction/lower urinary tract symptoms Candidiasis of perineum Cellulitis of right thigh CHF (congestive heart failure) Chronic bilateral low back pain Chronic neck pain Controlled diabetes mellitus with hyperglycemia, with long-term current use of insulin COPD (chronic obstructive pulmonary disease) Coronary artery disease involving [place] coronary artery of [place] heart without angina pectoris DDD (degenerative disc disease) Decubitus ulcer of right thigh, stage 3 Depression Diabetic peripheral neuropathy associated with type 2 diabetes mellitus Diaphragmatic paralysis DVT prophylaxis Dyspnea Edema, peripheral Essential (primary) hypertension Fibromyalgia Gastroesophageal reflux disease Gout H/O: HTN (hypertension) Herniated disc History of inguinal hernia History of kidney stones History of pneumonia History of rectal polyps Hx of back injury fracture x2. Hx of transient ischemic attack (TIA) Hypothyroidism, unspecified Influenza B Malignant melanoma
[2020-04-14 19:25] LABS: Troponin I < 0.012 ng/mL (0.000-0.034)
[2020-04-14] MEDS: NYSTATIN OINTMENT 15 GM TUBE 1 APPLIC TOPICAL (20:09)
[2020-04-14] MEDS: PANTOPRAZOLE 40 MG TABLET PO (20:09)
[2020-04-14] MEDS: PRAMIPEXOLE 1 MG TABLET PO (20:09)
[2020-04-14] MEDS: ATORVASTATIN 40 MG TABLET PO (20:09)
[2020-04-14] MEDS: RIVAROXABAN 20 MG TABLET PO (20:09)
[2020-04-14] MEDS: traZODone HCL 50 MG TABLET 100 MG PO (20:09)
[2020-04-14] MEDS: CYCLOBENZAPRINE HCL 5 MG TABLET PO (20:09)
[2020-04-14] MEDS: SACUBITRIL/VALSARTAN 49-51 MG TABLET 1 TABLET PO (20:09)
[2020-04-14] MEDS: POTASSIUM CHLORIDE 20 MEQ TABLET.ER PO (20:09)
[2020-04-14] MEDS: PREGABALIN (*CRX) 50 MG CAPSULE PO (20:09)
[2020-04-14] MEDS: methylPREDNISolone SOD SUCC 125 MG VIAL 60 MG IV PUSH (20:10)
[2020-04-14 20:31] LABS: Glucose Point of Care 339 (65-105)
[2020-04-14] MEDS: INSULIN ASPART (*BKC) 100 UNITS/ML 8 UNITS SUB-Q (20:40)
--- NOTE | 2020-04-14 23:17 | ECG_ITS ---
Measurements Intervals [place] Rate: 64 P: 22 [place]: 151 QRS: 15 QRSD: 80 T: 32 QT: 392 QTc: 406 Interpretive Statements SINUS RHYTHM NORMAL ECG Electronically Signed On 04-15-2020 7:18:04 BOTTLE WASHING MACHINE OPERATOR by Gabriel Freed D.O.
[2020-04-14] MEDS: oxyCODONE/ACETAMINOPHEN (*CRX) 5-325 MG TABLET 1 TABLET PO (23:34)
[2020-04-15] VITALS (12 sets, daily range): BP systolic 137–150; BP diastolic 59–78; PULSE 54–91; RESP 15–22; TEMP 36.1–36.6; O2SAT 92–95
--- NOTE | 2020-04-15 00:07 | PC.NURSE ---
Patient in SR (ekg obtained) Dr. Adrian had been notified. Turn Cardizem Drip off as HR is 63. Continue to monitor.
[2020-04-15 04:42] LABS: Basophils Absolute Auto 0.1 K/mm3 (0.0-0.1); Basophils Percent Auto 0.5 % (0.2-1.2); Hemoglobin 12.8 g/dL (14.0-18.0); Lymphocytes Absolute Auto 0.45 K/mm3 (0.9-3.2); Lymphocytes Percent Auto 4.4 % (18.3-44.2); Mean Corpuscular HGB Conc 30.5 g/dl (32-36); Mean Corpuscular Volume 91.9 fl (80-100); Mean Platelet Volume 10.9 fl (7.4-10.4); Monocytes Absolute Auto 0.1 K/mm3 (0.1-0.6); Monocytes Percent Auto 0.7 % (2.6-8.5); Neutrophils Absolute Auto 9.5 K/mm3 (1.3-6.7); Neutrophils Percent Auto 93.4 % (45.5-73.1); Platelet Count Result 266 k/mm3 (150-375); Red Blood Count 4.57 M/mm3 (4.6-6.20); Red Cell Distribution Width 13.9 % (11.5-14.5); White Blood Count 10.2 K/mm3 (4.5-10.0)
[2020-04-15 04:52] LABS: Lactic Acid Reflex 2.3 mmol/L (0.7-2.1)
[2020-04-15] MEDS: LEVOTHYROXINE SODIUM 100 MCG TABLET 200 MCG PO (04:54)
[2020-04-15 04:55] LABS: Alanine Aminotransferase 13 U/L (4-50); Albumin Level 3.7 g/dL (3.5-5.1); Alkaline Phosphatase 88 U/L (38-126); Anion Gap 4 mmol/L (8-16); Aspartate Amino Transferase 15 U/L (17-59); Bilirubin,Total 0.4 mg/dL (0.2-1.3); Blood Urea Nitrogen 15 mg/dL (9-20); Calcium 8.6 mg/dL (8.4-10.2); Carbon Dioxide 37 mmol/L (22-30); Chloride 98 mmol/L (98-107); Estimated CRCL calculation 120 ml/min; Estimated Glomerular Filt Rate > 60; Glucose 397 mg/dL (75-110); Magnesium 1.8 mg/dL (1.6-2.3); Sodium 139 mmol/L (137-145)
[2020-04-15] MEDS: methylPREDNISolone SOD SUCC 125 MG VIAL 60 MG IV PUSH (04:55)
[2020-04-15 07:26] LABS: Glucose Point of Care 430 (65-105)
[2020-04-15 07:37] LABS: Reflex Lactic Acid Yes or No Add Lactic
[2020-04-15 09:12] LABS: Lactic Acid 1.8 mmol/L (0.7-2.1)
[2020-04-15] MEDS: CYANOCOBALAMIN 500 MCG TABLET 5000 MCG PO (09:14)
[2020-04-15] MEDS: CHOLECALCIFEROL 1,000 UNITS TABLET 1000 UNITS PO (09:14)
[2020-04-15] MEDS: INSULIN GLARGINE (*BKC) 100 UNITS/ML 40 UNITS SUB-Q (09:14)
[2020-04-15] MEDS: FUROSEMIDE INJ 40 MG/4 ML VIAL IV PUSH (09:14)
[2020-04-15] MEDS: ISOSORBIDE MONONITRATE 60 MG TAB.ER.24H PO (09:15)
[2020-04-15] MEDS: INSULIN HUMAN REGULAR (*BKC) 100 UNITS/ML SUB-Q (09:15)
[2020-04-15] MEDS: PREGABALIN (*CRX) 50 MG CAPSULE PO (09:15)
[2020-04-15] MEDS: SACUBITRIL/VALSARTAN 49-51 MG TABLET 1 TABLET PO (09:15)
[2020-04-15] MEDS: PRAMIPEXOLE 1 MG TABLET PO (09:15)
[2020-04-15] MEDS: PANTOPRAZOLE 40 MG TABLET PO (09:15)
[2020-04-15] MEDS: POTASSIUM CHLORIDE 20 MEQ TABLET.ER PO (09:15)
[2020-04-15] MEDS: INSULIN ASPART (*BKC) 100 UNITS/ML SUB-Q ×2 (09:15→14:25)
[2020-04-15] MEDS: TAMSULOSIN HCL 0.4 MG CAPSULE PO (09:16)
[2020-04-15] MEDS: NYSTATIN OINTMENT 15 GM TUBE 1 APPLIC TOPICAL (09:16)
[2020-04-15] MEDS: SILVER SULFADIAZINE 1% CR 400 GM JAR (*BKC) 1 APPLIC TOPICAL (09:16)
[2020-04-15] MEDS: oxyCODONE/ACETAMINOPHEN (*CRX) 5-325 MG TABLET 1 TABLET PO (09:28)
[2020-04-15 13:01] LABS: Glucose Point of Care 469 (65-105)
--- NOTE | 2020-04-15 13:09 | PM.DS ---
DS: Admitting Diagnosis Admitting Diagnosis Admitting Diagnosis: Shortness of breath DS: Discharge Diagnosis Discharge Diagnosis (1) Atrial fibrillation: Qualifiers: Atrial fibrillation type: unspecified Qualified Code(s): I48.91 - Unspecified atrial fibrillation Code(s): I48.91 - Unspecified atrial fibrillation Status: Chronic Assessment and Plan: The patient is on a cardizem drip.His bp is on the soft side at this time so i will hold his correg for now.Continue with xarelto (2) CHF (congestive heart failure): Qualifiers: Heart failure type: unspecified Heart failure chronicity: chronic Qualified Code(s): I50.9 - Heart failure, unspecified Code(s): I50.9 - Heart failure, unspecified Status: Chronic Assessment and Plan: The patient is on entresto and we can continue with this if his bp allows. Holding correg. Added iv lasix (3) NEPTALI on CPAP: Code(s): G47.33 - Obstructive sleep apnea (adult) (pediatric); Z99.89 - Dependence on other enabling machines and devices Status: Chronic Assessment and Plan: continue with c pap as he uses at home (4) Depression: Code(s): F32.9 - Major depressive disorder, single episode, unspecified Status: Acute Assessment and Plan: continue with traza done (5) Tinea cruris: Code(s): B35.6 - Tinea cruris Status: Acute Assessment and Plan: continue with nystatin (6) Morbid obesity: Code(s): E66.01 - Morbid (severe) obesity due to excess calories Status: Acute Assessment and Plan: bmi 44.8. on a diabtic diet. needs a heart healthy diet as well (7) BPH without obstruction/lower urinary tract symptoms: Code(s): N40.0 - Benign prostatic hyperplasia without lower urinary tract symptoms Status: Chronic Assessment and Plan: continue with tamsulosin (8) Diabetic peripheral neuropathy associated with type 2 diabetes mellitus: Code(s): E11.42 - Type 2 diabetes mellitus with diabetic polyneuropathy Status: Chronic Assessment and Plan: continue with preglabalin. (9) COPD (chronic obstructive pulmonary disease): Qualifiers: COPD type: unspecified COPD Qualified Code(s): J44.9 - Chronic obstructive pulmonary disease, unspecified Code(s): J44.9 - Chronic obstructive pulmonary disease, unspecified Status: Chronic Assessment and Plan: solumedrol and inhalers. Continue with o2 at 4 liters pe nc as he uses at home.continue with inhalers (10) Essential (primary) hypertension: Code(s): I10 - Essential (primary) hypertension Status: Acute Assessment and Plan: holding his correg at this time due to low bp. he is on entresto and a cardizem drip at this time for the afib with rvr (11) Diabetes: Code(s): E11.9 - Type 2 diabetes mellitus without complications Status: Chronic Assessment and Plan: accucheck ac and hs . last a1c last month was greater than 14. his insulin is non formulary (12) Hypothyroidism, unspecified: Qualifiers: Hypothyroidism type: acquired Qualified Code(s): E03.9 - Hypothyroidism, unspecified Code(s): E03.9 - Hypothyroidism, unspecified Status: Chronic Assessment and Plan: continue with levothyroxine DS: Summary Hospital Course Reason for hospitalization: Chief Complaint: sob orthopnea Narrative: Nolan Onofre . is a 69 year old male who has a history of congestive heart failure and COPD. He also has a history of atrial fibrillation. The patient has home health approximately 7 days a week. The patient has become more short of breath recently and more edematous. He was also complaining of having chest pain greater than 90 minutes. The patient is telling me that he has been using his CPAP machine at home. He wears his oxygen at 4 L per nasal cannula at home every day. Patient is short of breath when he
[2020-04-15] MEDS: carvediloL 12.5 MG TABLET PO (14:25)
[2020-04-15] MEDS: INSULIN GLARGINE (*BKC) 100 UNITS/ML 20 UNITS SUB-Q (14:25)
== END 2020-04-15 15:12 | disposition home health service (06) | DRG 308 ==
LOC: ANHED 12:12 → ANHIMU 13:30
PROVIDERS: Nurse Practitioner; Admitting Provider Family Medicine; Emergency Provider Emergency Medicine; PCP Family Medicine; Visit Provider Family Medicine
DX: I48.20 Chronic atrial fibrillation, unspecified (principal); L89.893 Pressure ulcer of other site, stage 3; Z68.42 Body mass index [BMI] 45.0-49.9, adult; I11.0 Hypertensive heart disease with heart failure; I50.9 Heart failure, unspecified; E11.42 Type 2 diabetes mellitus with diabetic polyneuropathy; E11.65 Type 2 diabetes mellitus with hyperglycemia; L89.309 Pressure ulcer of unspecified buttock, unspecified stage; K21.9 Gastro-esophageal reflux disease without esophagitis; N40.0 Benign prostatic hyperplasia without lower urinary tract symptoms; M19.90 Unspecified osteoarthritis, unspecified site; E11.51 Type 2 diabetes mellitus with diabetic peripheral angiopathy without gangrene; I73.9 Peripheral vascular disease, unspecified; F41.8 Other specified anxiety disorders; R32 Unspecified urinary incontinence; J44.9 Chronic obstructive pulmonary disease, unspecified; B35.6 Tinea cruris; E03.9 Hypothyroidism, unspecified; E66.01 Morbid (severe) obesity due to excess calories; M79.7 Fibromyalgia; G47.33 Obstructive sleep apnea (adult) (pediatric); Z85.820 Personal history of malignant melanoma of skin; I25.2 Old myocardial infarction; Z86.73 Personal history of transient ischemic attack (TIA), and cerebral infarction without residual deficits; Z95.5 Presence of coronary angioplasty implant and graft
CPT/HCPCS: 36415; 71045; 80048; 80053; 82948; 83605; 83735; 83880; 84484; 85025; 85610; 85730; 93005; 93970; 96365; 96366; 96375; 97161; 97166; 99285; A9270; J1815; J1940; J2930

== ENCOUNTER 2020-06-07 12:43 | Outpatient (RCR) | payer MEDICARE, MEDICAID, SELFPAY ==
[2020-06-07 17:44] VITALS: BMI 42.9
== END 2020-07-24 10:40 | disposition home or self-care (01) ==
LOC: ANHWOC 12:43
PROVIDERS: PCP Family Medicine; Visit Provider Family Medicine
DX: L89.90 Pressure ulcer of unspecified site, unspecified stage (principal)
CPT/HCPCS: 99212; G0463

== ENCOUNTER 2020-06-19 13:30 | Inpatient (IN) | payer MEDICARE, MEDICAID, SELFPAY ==
[2020-06-19] VITALS (54 sets, daily range): BP systolic 58–118; BP diastolic 38–73; PULSE 55–144; RESP 13–27; TEMP 36.1–36.7; O2SAT 77–100; BMI 47.7
--- NOTE | ~2020-06-19 | US_ITS ---
EXAMINATION: US venous doppler [facility] DATE: 06/21/2020 16:49 INDICATION: Lower limb edema. TECHNIQUE: Grayscale ultrasound images without and with compression and Doppler ultrasound images of the bilateral lower extremity veins were obtained. COMPARISON: Ultrasound 04/15/2020 FINDINGS: The visualized portions of right common femoral vein, profunda (deep) femoral vein, femoral vein, pop liteal vein, peroneal veins, posterior tibial veins, and greater saphenous vein outflow are patent. The visualized portions of left common femoral vein, profunda femoral vein, femoral vein, popliteal v ein, peroneal veins, posterior tibial veins, and greater saphenous vein outflow are patent. IMPRESSION: 1. No deep venous thrombosis. Reviewed, dictated and finalized at location A.
--- NOTE | ~2020-06-19 | XR_ITS ---
EXAMINATION: XR chest 1V portable DATE: 06/25/2020 11:42 INDICATION: Congestive heart failure. TECHNIQUE: A single frontal view of the chest was obtained. COMPARISON: Chest single view 06/19/2020 FINDINGS: There are small pleural effusions. There are airspace opacities in the perihilar regions an d at the lung bases. No pneumothorax. Cardiomegaly is noted. IMPRESSION: 1. Small pleural effusions. 2. Airspace opacities in the perihilar regions and at the lung bases with interval worsening, consist ent with atelectasis and pulmonary edema versus pneumonia. 3. Cardiomegaly. Reviewed, dictated and finalized at location B. IMPRESSION: 1. Small pleural effusions. 2. Airspace opacities in the perihilar regions and at the lung bases with inter giselle worsening, consistent with atelectasis and pulmonary edema versus pneumonia . 3. Cardiomegaly.
--- NOTE | ~2020-06-19 | XR_ITS ---
EXAMINATION: XR chest 1V portable EXAM DATE: 06/19/2020 14:41 INDICATION: Shortness of breath and weakness noted. TECHNIQUE: Portable AP frontal chest x-ray was obtained. Comparison is made to prior examination from 04/14/2020. FINDINGS: There is no significant interval change. Cardiomegaly, pulmonary vascular congestion and p robable small to moderate pleural effusions. Scattered regions of linear atelectasis. Pneumonia not e xcludable. There is no pneumothorax suspected. There is aortic arteriosclerosis. The vertebral bodies are aligned in the AP dimension. IMPRESSION: Findings consistent with CHF exacerbation. Basilar pneumonia not excluded. Reviewed, dictated and finalized at location B. IMPRESSION: Findings consistent with CHF exacerbation. Basilar pneumonia not e xcluded.
--- NOTE | 2020-06-19 13:32 | ECG_ITS ---
Measurements Intervals [place] Rate: 131 P: NC: 0 QRS: 5 QRSD: 81 T: 85 QT: 311 QTc: 461 Interpretive Statements ATRIAL FIBRILLATION WITH RAPID VENTRICULAR RESPONSE VENTRICULAR PREMATURE COMPLEX LOW QRS VOLTAGE IN PRECORDIAL LEADS NONSPECIFIC T-WAVE ABNORMALITY- INF/LAT LEADS BASELINE ARTIFACT- I, II, AVR, AVF, V1-V6 ABNORMAL ECG Electronically Signed On 06-19-2020 14:07:53 CDT by Gabriel Freed D.O.
[2020-06-19] MEDS: KETAMINE HCL (*CRX) 500 MG/10 ML VIAL 100 MG IV PUSH (13:58)
--- NOTE | 2020-06-19 14:08 | ED.SOB ---
HPI - SOB/Dyspnea General Chief Complaint: Shortness of Breath/Dyspnea Stated Complaint: SOB Time Seen by Provider: 06/19/20 13:32 History of Present Illness HPI Narrative: 69 yo male w/ h/o chf, COPD, atrial fibrillation, DM presents to the ED for not feeling well. He syas that he was generally not feeling well this morning. He says that he was feeling warm and couldn't cool down. He then became short of breath. He checked his glucose, it was over 300, which he says is good for him. On arrival here he was in atrial fibrillation with RVR. He knows that he has had this in the past, but not sure if he is in a-fib chronically. No chest pain. He does report a painful sore on his buttocks. Related Data Home Medications Medication Instructions Recorded Confirmed cholecalciferol (vitamin D3) 25 1,000 unit PO DAILY 12/22/18 06/04/20 mcg (1,000 unit) capsule cyanocobalamin (vitamin B-12) 5,000 mcg PO DAILY 12/22/18 06/04/20 2,500 mcg tablet potassium chloride [Klor-Con M20] 20 meq PO BID 02/28/19 06/04/20 Bevespi Aerosphere 2 puff INHALATION DAILY 03/14/20 06/04/20 Entresto 1 tablet PO BID 03/14/20 06/04/20 atorvastatin 40 mg PO HS 03/14/20 06/04/20 cyclobenzaprine 5 mg PO HS 03/14/20 06/04/20 furosemide 20 mg PO DAILY 03/14/20 06/04/20 isosorbide mononitrate 60 mg PO DAILY 03/14/20 06/04/20 pantoprazole 40 mg PO BID 03/14/20 06/04/20 pregabalin 50 mg PO BID 03/14/20 06/04/20 tamsulosin 0.4 mg PO DAILY 03/14/20 06/04/20 trazodone 100 mg PO HS 03/14/20 06/04/20 vitamin A and D 1 applic TOPICAL 4-6XD PRN 03/14/20 06/04/20 Fiasp FlexTouch U-100 Insulin 70 unit SUBCUT QACLUNCH 04/14/20 06/04/20 Allergies Allergy/AdvReac Type Severity Reaction Status Date / Time clindamycin Allergy Severe Anaphylaxis Verified 04/14/20 09:41 Iodinated Contrast Media Allergy Severe Hives/RED Verified 04/15/20 10:22 FACE latex Allergy Intermediate Swelling Verified 04/14/20 09:41 Gadolinium-Containing Allergy Mild Rash Verified 04/14/20 09:41 Contrast Medi iodine Allergy Mild RASH Verified 04/14/20 09:41 erythromycin base AdvReac Mild NAUSEA Verified 04/14/20 09:41 Contrast Media Allergy Severe Hives / Uncoded 04/14/20 09:41 Red Face Review of Systems Constitutional: Constitutional: Reports chills and Denies fever(s) Eyes: Eyes: Reports no additional eye complaints Cardiovascular: Cardiovascular: Denies chest pain Respiratory: Respiratory: Reports chest congestion and Reports dyspnea Gastrointestinal: Gastrointestinal: Denies abdominal pain Genitourinary: Comments: scrotal chaffing Neurologic: Reports dizziness, Denies syncope and Reports weakness Allergic/Immunologic: Allergic/Immunologic: Reports no additional allergic/immunologic complaints PMFSH Past Medical History Medical History Abscess of back Acute and chronic respiratory failure with hypercapnia Acute dehydration Acute hyperglycemia Acute hypotension Acute kidney injury Acute UTI Anxiety Arthritis Asthma Atrial fibrillation Paroxysmal BPH without obstruction/lower urinary tract symptoms Candidiasis of perineum Cellulitis of right thigh CHF (congestive heart failure) Chronic bilateral low back pain Chronic depression Chronic neck pain Controlled diabetes mellitus with hyperglycemia, with long-term current use of insulin COPD (chronic obstructive pulmonary disease) Coronary artery disease involving [place] coronary artery of [place] heart without angina pectoris DDD (degenerative disc disease) Decubitus ulcer of right thigh, stage 3 Depression Diabetes Diabetic peripheral neuropathy associated with type 2 diabetes mellitus Diaphragmatic paralysis DVT prophylaxis Dyspnea Edema, peripheral Essential (primary) hypertension Fibromyalgia Gastroesophageal reflux disease Gout H/O: HTN (hypertension) Herniated disc History of inguinal hernia History of kidney stones History of pneumonia History of recta
[2020-06-19] MEDS: AMIODARONE 150 MG/D5W 100 ML 150 MG/100 ML BAG 600 MG IV CONT (14:14)
[2020-06-19 14:16] LABS: Alveolar/Arterial O2 Gradient 474.5 mmHg; Base Excess ABG 5.9 mEq/l (+/-2.0); Fractional Inspired Oxygen 100 %; HCO3 ABG 36.8 mEq/l (22.0-26.0); Oxygen Content ABG 15.3 %vol (16.0-22.0); Oxygen Saturation ABG 97.9 % (95.0-100.0); Oxyhemoglobin 97.1 % THb (90.0-100.0); PO2 FiO2 Ratio Arterial Blood 1.39 %
[2020-06-19 14:18] LABS: Device NON-REBREATHER MASK; Modified Allen's Test Pass; PCO2 ABG 99.5 mmHg (35.0-45.0); Site Drawn LEFT RADIAL; pH ABG 7.186 (7.350-7.450)
[2020-06-19] MEDS: SODIUM CHLORIDE 0.9% IV 1,000 ML 999 ML IV CONT (14:18)
[2020-06-19 14:29] LABS: Basophils Absolute Auto 0.1 K/mm3 (0.0-0.1); Basophils Percent Auto 0.5 % (0.2-1.2); Eosinophils Absolute Auto 0.3 K/mm3 (0-0.3); Eosinophils Percent Auto 2.7 % (0-4.4); Hematocrit 35.9 % (42.0-52.0); Hemoglobin 10.2 g/dL (14.0-18.0); Immature Granulocyte Absolute 0.05 K/mm3 (0.00-0.031); Immature Granulocyte Percent A 0.5 % (0-0.5); Lymphocytes Absolute Auto 1.07 K/mm3 (0.9-3.2); Mean Corpuscular HGB Conc 28.4 g/dl (32-36); Mean Corpuscular Hemoglobin 26.4 pg (26-34); Mean Platelet Volume 10.7 fl (7.4-10.4); Monocytes Percent Auto 9.2 % (2.6-8.5); Neutrophils Absolute Auto 8.3 K/mm3 (1.3-6.7); Neutrophils Percent Auto 77.1 % (45.5-73.1); Platelet Count Result 268 k/mm3 (150-375); Red Blood Count 3.86 M/mm3 (4.6-6.20); Red Cell Distribution Width 15.1 % (11.5-14.5); White Blood Count 10.7 K/mm3 (4.5-10.0)
[2020-06-19] MEDS: AMIODARONE 360 MG/D5W 200 ML 360 MG/200 ML BAG 33.33 MG IV CONT (14:30)
[2020-06-19 14:38] LABS: Lactic Acid Reflex 1.2 mmol/L (0.7-2.1)
[2020-06-19 14:41] LABS: INR 1.4; Prothrombin Time 17.9 Seconds (11.1-14.7)
[2020-06-19 14:42] LABS: Partial Thromboplastin Time 34.2 SECONDS (22.3-36.8)
[2020-06-19 14:47] LABS: Hypochromasia 1+ (NORMAL); Ovalocytes 1+ (NORMAL); Platelet Estimate Adequate (Adequate); Stomatocytes 1+ (NORMAL)
[2020-06-19 14:51] LABS: NT Pro B Type Natriuretic Pept 407 pg/mL (5-100); Troponin I < 0.012 ng/mL (0.000-0.034)
--- NOTE | 2020-06-19 18:30 | PM.IMHP ---
H&P: HPI History of Present Illness Date/Time: 06/19/20 18:30 Chief Complaint: Shortness of breath. Narrative: This is a 69-year-old male with multiple medical problems including obstructive sleep apnea recently put on a trilogy, coronary artery disease, paroxysmal atrial fibrillation, hypertension, hypothyroidism, type 2 diabetes mellitus, and several other comorbidities who presented to the emergency department earlier today via EMS from home for evaluation of shortness of breath. He was just not feeling well when he got up this morning although nondescript. About an hour and half prior to arrival he began feeling increasingly short of breath and felt really warm and was unable to cool himself down. He thought perhaps that he was hypoglycemic however Accu-Chek showed that his glucose was somewhere around 300. He then felt his heart racing and his shortness of breath worsened so he pushed his Life Alert and went across the [place] to his neighbor's until EMS arrived. On arrival to the emergency department he was hypoxic and hypercarbic and was started on BiPAP with findings of congestive heart failure on chest x-ray. He was also in atrial fibrillation with rapid ventricular response with soft blood pressures. Attempts at cardioversion were unsuccessful and he was started on an amiodarone drip with improvement in his rate. At the time of my evaluation he is feeling much better and he is able to speak freely through the mask. In addition to the shortness of breath he has had increasing edema up to the scrotum and lower abdomen. He has chronic orthopnea and sleeps with his head raised up on his adjustable bed.He denies fever, chills, sweats, headache, cold and flu symptoms, chest pain, pleuritic pain, nausea, and vomiting. Review of Systems Review of Systems: Narrative: Twelve systems were reviewed with pertinent positives and negatives as per HPI. No fever, chills, or sweats. He denies recent cold and flu symptoms. No exposure to those positive for COVID-19. He denies dysphagia and concerns for aspiration. Denies cough. States compliance with his home medication. He has not noticed a change in urine output. Reports pain in the scrotal region due to swelling and he thinks there may be some yeast under there is well. He admits that his diabetes is poorly controlled with A1c greater than 14% earlier this year. He denies blurry vision, polydipsia, and polyuria. Except as documented, all other systems were reviewed and are negative. [facility] Past Medical History Medical History (Updated 06/19/20 @ 23:51 by Georgia Howard PA-C) Anxiety Arthritis Asthma Benign prostatic hyperplasia Chronic anemia Chronic bilateral low back pain Chronic depression Chronic neck pain Congestive heart failure Coronary artery disease involving [place] coronary artery of [place] heart without angina pectoris Status post RI with stents in 2003. Degenerative disc disease Depression Diabetic peripheral neuropathy Diaphragmatic paralysis Diverticulitis Essential (primary) hypertension Fibromyalgia Gastroesophageal reflux disease Gout Herniated disc Hyperlipidemia Hypertension Hypothyroidism Insulin dependent type 2 diabetes mellitus, uncontrolled Kidney stones Malignant melanoma Moderate persistent asthma, uncomplicated Morbid obesity Myocardial infarction x2 Obstructive sleep apnea Patient uses a trilogy unit. Paroxysmal atrial fibrillation Peripheral vascular disease Rectal polyp Shingles Spinal stenosis Transient ischemic attack Surgical History Surgical History (Updated 06/19/20 @ 23:43 by Georgia Howard PA-C) History of cardiac catheterization Stent x1 in 2003. History of inguinal hernia repair History of lithotripsy History of removal of neck cyst History of tonsillectomy Family History Family History Father Cancer Lung cancer he at the age of 52. Mother Acute myoc
[2020-06-19 19:18] LABS: Alveolar/Arterial O2 Gradient 96.2 mmHg; Base Excess ABG 7.2 mEq/l (+/-2.0); Carboxyhemoglobin 0.3 % THb (0-2.0); Fractional Inspired Oxygen 40 %; HCO3 ABG 36.4 mEq/l (22.0-26.0); Methemoglobin ABG 0.3 %THb (0-1.5); Oxyhemoglobin 95.5 % THb (90.0-100.0); PO2 ABG 95.9 mmHg (80.0-100.0); Reduced Hemoglobin 3.9 %THb (0-5.0); Total Hemoglobin 11.1 g/dL (12.0-18.0)
--- NOTE | 2020-06-19 19:19 | PC.NURSE ---
This patient, Nolan Onofre Jr., was admitted to IMU Room 203-01. Patient/family oriented to hospital policies and general routines including ID bracelet, bed and alarms, visiting hours, pain management, procedures, bathroom and other care routines, personal items, smoking policy, room service/diet, and visiting hours. Information on how to activate the Rapid Response Team has been discussed. Patient/Family are encouraged to report perceived risks to care and to ask questions if they do not understand what they are told or what they should do.
[2020-06-19 19:25] LABS: Device NON-INVASIVE VENT; Modified Allen's Test Pass; Site Drawn LEFT RADIAL
[2020-06-19 19:26] LABS: Non-Invasive Expiratory Pressure 6 CMH2O; Non-Invasive Inspiratory Pressure 14 CMH2O; Non-Invasive Vent Rate 4 /MIN
[2020-06-19 19:41] LABS: Glucose Point of Care 97 (65-105)
[2020-06-19] MEDS: AMIODARONE 360 MG/D5W 200 ML 360 MG/200 ML BAG 16.67 MG IV CONT (20:23)
[2020-06-19 21:06] LABS: Troponin I < 0.012 ng/mL (0.000-0.034)
[2020-06-19 21:55] LABS: Troponin I 0.019 ng/mL (0.000-0.034)
[2020-06-19 23:52] LABS: Alveolar/Arterial O2 Gradient 104.8 mmHg; Base Excess ABG 9.5 mEq/l (+/-2.0); Fractional Inspired Oxygen 40 %; HCO3 ABG 37.9 mEq/l (22.0-26.0); Oxygen Content ABG 15.4 %vol (16.0-22.0); Oxygen Saturation ABG 96.3 % (95.0-100.0); PO2 FiO2 Ratio Arterial Blood 2.35 %; Total Hemoglobin 11.3 g/dL (12.0-18.0); pH ABG 7.321 (7.350-7.450)
[2020-06-19 23:54] LABS: Device NON-INVASIVE VENT; Modified Allen's Test Pass; PCO2 ABG 75.1 mmHg (35.0-45.0); Site Drawn RIGHT RADIAL
[2020-06-19 23:55] LABS: Non-Invasive Expiratory Pressure 8 CMH2O; Non-Invasive Inspiratory Pressure 18 CMH2O; Non-Invasive Vent Rate 12 /MIN
[2020-06-20] VITALS (22 sets, daily range): BP systolic 80–136; BP diastolic 45–83; PULSE 51–68; RESP 18–24; TEMP 36.1–36.6; O2SAT 90–100
--- NOTE | 2020-06-20 00:32 | ECG_ITS ---
Measurements Intervals [place] Rate: 55 P: 24 MA: 148 QRS: 8 QRSD: 84 T: 26 QT: 414 QTc: 399 Interpretive Statements SINUS BRADYCARDIA LOW QRS VOLTAGE IN PRECORDIAL LEADS BORDERLINE T WAVE ABNORMALITY- INFERIOR LEADS BASELINE ARTIFACT- I, II, III, AVR, AVL, AVF BORDERLINE ECG Electronically Signed On 06-20-2020 6:24:57 CDT by Gabriel Freed D.O.
[2020-06-20 01:13] LABS: Hemoglobin A1C 10.8 % (<5.7)
[2020-06-20] MEDS: carvediloL 12.5 MG TABLET PO (01:34)
[2020-06-20] MEDS: RIVAROXABAN 20 MG TABLET PO ×2 (01:35→18:21)
[2020-06-20] MEDS: ATORVASTATIN 40 MG TABLET PO ×2 (01:35→20:49)
[2020-06-20] MEDS: traZODone HCL 50 MG TABLET 100 MG PO ×2 (01:35→20:48)
[2020-06-20] MEDS: CYCLOBENZAPRINE HCL 5 MG TABLET PO ×2 (01:36→20:48)
[2020-06-20] MEDS: PRAMIPEXOLE 1 MG TABLET PO (01:36)
[2020-06-20 02:37] LABS: Alanine Aminotransferase 9 U/L (4-50); Albumin Level 3.2 g/dL (3.5-5.1); Alkaline Phosphatase 59 U/L (38-126); Anion Gap 1 mmol/L (8-16); Aspartate Amino Transferase 19 U/L (17-59); Bilirubin,Total 0.5 mg/dL (0.2-1.3); Blood Urea Nitrogen 18 mg/dL (9-20); Calcium 8.5 mg/dL (8.4-10.2); Carbon Dioxide 38 mmol/L (22-30); Chloride 101 mmol/L (98-107); Estimated CRCL calculation 127 ml/min; Estimated Glomerular Filt Rate > 60; Glucose 103 mg/dL (75-110); Potassium 4.6 mmol/L (3.4-5.0); Sodium 140 mmol/L (137-145)
[2020-06-20 04:21] LABS: Free T4 Free Thyroxine Reflex 1.46 ng/dL (0.78-2.19)
[2020-06-20 05:35] LABS: Total Triiodothyronine (T3) 1.11 NG/ML (0.97-1.69)
[2020-06-20] MEDS: LEVOTHYROXINE SODIUM 100 MCG TABLET 200 MCG PO (05:51)
[2020-06-20 05:55] LABS: Alveolar/Arterial O2 Gradient 99.5 mmHg; Fractional Inspired Oxygen 40 %; HCO3 ABG 38.4 mEq/l (22.0-26.0); Oxygen Saturation ABG 95.1 % (95.0-100.0); Oxyhemoglobin 95.3 % THb (90.0-100.0); PO2 ABG 88.5 mmHg (80.0-100.0); PO2 FiO2 Ratio Arterial Blood 2.21 %; Total Hemoglobin 11.1 g/dL (12.0-18.0)
[2020-06-20 05:57] LABS: Device NON-INVASIVE VENT; PCO2 ABG 84.5 mmHg (35.0-45.0); Site Drawn RIGHT BRACHIAL; pH ABG 7.275 (7.350-7.450)
[2020-06-20 05:58] LABS: Non-Invasive Expiratory Pressure 8 CMH2O; Non-Invasive Inspiratory Pressure 18 CMH2O; Non-Invasive Vent Rate 12 /MIN
[2020-06-20 07:43] LABS: Glucose Point of Care 155 (65-105)
[2020-06-20 07:48] LABS: Alveolar/Arterial O2 Gradient 114.9 mmHg; Base Excess ABG 8.3 mEq/l (+/-2.0); Fractional Inspired Oxygen 40 %; HCO3 ABG 37.1 mEq/l (22.0-26.0); Oxygen Content ABG 14.5 %vol (16.0-22.0); Oxyhemoglobin 94.1 % THb (90.0-100.0); PO2 ABG 80.4 mmHg (80.0-100.0); PO2 FiO2 Ratio Arterial Blood 2.01 %; Total Hemoglobin 10.9 g/dL (12.0-18.0); pH ABG 7.294 (7.350-7.450)
[2020-06-20 07:50] LABS: Device NON-INVASIVE VENT; Modified Allen's Test Pass; PCO2 ABG 78.2 mmHg (35.0-45.0); Site Drawn RIGHT RADIAL
[2020-06-20 07:51] LABS: Non-Invasive Expiratory Pressure 8 CMH2O; Non-Invasive Inspiratory Pressure 20 CMH2O; Non-Invasive Vent Rate 12 /MIN
[2020-06-20] MEDS: DULoxetine HCL 60 MG CAPSULE.DR PO (09:04)
[2020-06-20] MEDS: PANTOPRAZOLE 40 MG TABLET PO ×2 (09:04→18:20)
[2020-06-20] MEDS: POTASSIUM CHLORIDE 20 MEQ TABLET.ER PO (09:04)
[2020-06-20] MEDS: TAMSULOSIN HCL 0.4 MG CAPSULE PO (09:08)
[2020-06-20] MEDS: FUROSEMIDE INJ 40 MG/4 ML VIAL IV PUSH ×2 (09:11→18:20)
[2020-06-20] MEDS: PREGABALIN (*CRX) 50 MG CAPSULE PO ×3 (09:13→18:20)
--- NOTE | 2020-06-20 09:42 | PM.CNCAR ---
Assessment and Plan Additional Plan -acute on chronic diastolic heart failure exacerbation. -atrial fibrillation with RVR. -acute on chronic hypoxic and hypercarbic respiratory failure. -severe obstructive sleep apnea. -history of coronary artery disease with a stent in the circumflex artery 2003. -chronic anticoagulation with Xarelto. This 69-year-old patient who presents to the hospital with shortness of breath and was found to have hypoxia or hypercarbia. Imaging shows bilateral pleural effusions and pulmonary vascular congestion. He does have severe bilateral lower extremity edema. He does have also a history of sleep apnea not compliant with triology. He converted to sinus rhythm and his blood pressures has been running on the low side. -recommend at this time to give IV Lasix 40 b.i.d. -recommend to hold Coreg until we make sure that he tolerates diuretics and his blood pressure will not drop. If his blood pressure tolerates we can start Coreg at 3.125 mg b.i.d. if this patient goes into atrial fibrillation recommend IV amiodarone. -monitor electrolytes and renal function. History of Present Illness History of Present Illness Consult date/time: date of service: 06/20/20 09:42 Requesting physician: Gaston Lujan MD Consult reason: Other (elevated troponins) Reason For Visit: acute on chronic respiratory failure,chf exacerbat Narrative: This is 69-year-old patient with past medical history of diastolic heart failure, paroxysmal atrial fibrillation, myocardial infarction with stent to left circumflex artery 2003, hypertension, diabetes, obstructive sleep apnea who was recently started on Triology who presents to the hospital because of increasing shortness of breath and palpitations. On arrival to emergency room he was found to be hypoxic with AFib in RVR. Apparently attempt to do cardioversion failed and then patient started on IV amiodarone with improvement of heart rates. Blood pressure has been low with systolic being in the 80s. Currently patient is on BiPAP. His blood pressure 94/60. He had some episodes of chest pain at home intermittently with no aggravating or relieving factors lasting for few minutes to hours. He does have chronic lower limb edema. He stated that he has not been compliant with using triology at home. He takes Lasix 20 mg daily at home. Currently sinus rhythm. Last echo 2017 shows normal ejection fraction. Hemoglobin 10, white cell count 10.7. PH 7.18, CO2 98. Serum creatinine 0.8, brain atretic peptide 407, chest x-ray reviewed and analyzed myself shows pulmonary vascular congestion, cardiomegaly and bilateral pleural effusions. Initial EKG reviewed analyze myself shows AFib with RVR and repeat EKG shows normal sinus rhythm. Dobutamine stress echo done February 2019 was technically very difficult study and suspicious that it is positive for ischemia. Review of Systems Constitutional: Constitutional: Denies chills, Denies fever(s) and Denies poor appetite Eyes: Eyes: Denies eye discharge, Denies loss of vision, Denies eye pain and Denies photophobia ENT: Denies dizziness, Denies epistaxis, Denies nasal congestion and Denies sore throat Cardiovascular: Cardiovascular: Reports chest pain, Denies syncope, Reports pedal edema, Reports leg edema, Reports palpitations, Reports dyspnea, Reports dyspnea on exertion and Denies orthopnea Respiratory: Respiratory: Denies cough, Reports dyspnea, Reports dyspnea on exertion and Denies wheezing Gastrointestinal: Gastrointestinal: Denies abdominal pain, Denies diarrhea, Denies nausea and Denies vomiting Genitourinary: Genitourinary: Denies hematuria, Denies genital lesions and Denies dysuria Musculoskeletal: Musculoskeletal: Denies arthralgias, Denies joint swelling and Denies numbness Integumentary/Breasts: Skin/Breast: Denies pruritus and Denies rash Neurologic: Denies dizziness, Denies syncope, Denies loss of vision and Denies numbness Psychiatric: Psych
--- NOTE | 2020-06-20 10:46 | PM.CNPUL ---
Assessment and Plan Assessment and plan (1) Acute respiratory failure with hypoxia and hypercarbia: Code(s): J96.01 - Acute respiratory failure with hypoxia; J96.02 - Acute respiratory failure with hypercapnia Status: Acute Assessment and Plan: Patient with a history of chronic hypoxemic and hypercarbic respiratory failure from multiple conditions including morbid obesity, asthma/COPD, obstructive sleep apnea, CHF, elevated right hemidiarphram (seen on 10/04/2007 CT of abdomen) and alveolar hypoventilation syndrome. patient is maintained on 3 L nasal cannula oxygen at rest and with ambulation and a trilogy noninvasive ventilator at night with 3 L nasal cannula bleed in. Patient presents now with acute hypercarbic respiratory failure with a blood gas of 7.19/100/139 and is currently being treated for fluid overload and possibly untreated obstructive sleep apnea. I see no evidence of a bacterial infection at this time and no evidence of an active COPD exacerbation. 06/20 I have placed the patient on a hospital AVAPS mode with a backup rate of 14, tidal volume 500, EPAP 8, minimal inspiratory pressure 9, maximal inspiratory pressure 25, rise of 3, inspiratory time of 1.2, and 30% FiO2. Patient states that these settings feel very similar to his trilogy. unfortunately he lives at home and has no way to bring his home trilogy machine in to the hospital. patient should wear the hospital AVAPS mode when he sleeps and p.r.n. during the day. current saturations on 30% FIO2 are 97%. I will continue his home dose of glycopyrrolate -formoterol 9-4.8 at 2 puffs b.i.d.. I see no need for inhaled steroids or systemic steroids at this point. with called his home care company to obtain a download to assess his compliance with his home trilogy machine and are waiting those reports. Will follow with you. (2) Acute exacerbation of congestive heart failure: Code(s): I50.9 - Heart failure, unspecified Status: Acute Assessment and Plan: Cardiology has been consulted to manage his AFib/RVR and his fluid overload requiring diuresis. I spoke with the customer logistics manager and I am in favor of aggressive diuresis as tolerated by his cardiac and renal systems. Patient does have right lower extremity edema greater than left and he has had negative venous Dopplers on 04/15/2020 and 03/15/2020 and 9 05/05/2019 all of which were negative for DVT. He states that his right leg usually swells up more than his left. History of Present Illness History of Present Illness Consult date: 06/20/20 Requesting physician: Demi Francois MD Reason for consult: COPD, hypoxemia and obstructive sleep apnea Chief complaint: acute on chronic respiratory failure,chf exacerbat Narrative: This is a new pulmonary consult for hypoxemic and hypercarbic respiratory failure. This is a 69-year-old male with a history of congestive heart failure, AFib on rivaroxaban, who is followed in the Pulmonary Clinic for morbid obesity, chronic hypoxic and hypercarbic respiratory failure, and obstructive sleep apnea. On 05/28/2020 patient was converted from his CPAP 18 to a trilogy noninvasive ventilator. he was set at a rate of auto, tidal volume 500, EPAP minimum 5, EPAP maximum 15, pressure support minimum 4, pressure support maximum 14, pressure maximum 25. Patient tells me today that he has been trying to get acclimated to this machine and has been wearing the machine in consistently. We are awaiting a remote download to assess patient's compliance. Today patient tells me that he just was not feeling right over the last few days and was having trouble sleeping. He denied any fever, chills, rigors, phlegm production, hemoptysis. Patient did state that his total body edema is worse than usual. Patient presented to the emergency room and was also found to be in AFib RVR and underwent cardioversion with a brief return to sinus but then AFib RVR. Patient was treated wi
[2020-06-20 11:27] LABS: Glucose Point of Care 150 (65-105)
[2020-06-20] MEDS: TOLNAFTATE 1% POWDER 45 GM BTL 1 APPLIC TOPICAL ×2 (11:46→20:49)
[2020-06-20 16:50] LABS: Glucose Point of Care 163 (65-105)
--- NOTE | 2020-06-20 18:50 | PM.IMPN ---
Progress Note: A&P Assessment and Plan (1) Acute exacerbation of congestive heart failure: Code(s): I50.9 - Heart failure, unspecified Status: Acute (2) Acute respiratory failure with hypoxia and hypercarbia: Code(s): J96.01 - Acute respiratory failure with hypoxia; J96.02 - Acute respiratory failure with hypercapnia Status: Acute (3) Atrial fibrillation with RVR: Code(s): I48.91 - Unspecified atrial fibrillation Status: Acute (4) Hypotension: Code(s): I95.9 - Hypotension, unspecified Status: Acute (5) Chronic anemia: Code(s): D64.9 - Anemia, unspecified Status: Acute (6) Obstructive sleep apnea: Code(s): G47.33 - Obstructive sleep apnea (adult) (pediatric) Status: Acute (7) Insulin dependent type 2 diabetes mellitus, uncontrolled: Code(s): E11.65 - Type 2 diabetes mellitus with hyperglycemia; Z79.4 - long-term (current) use of insulin Status: Acute (8) Morbid obesity: Code(s): E66.01 - Morbid (severe) obesity due to excess calories Status: Acute Additional Plan 06/19/20 The patient presents today with increasing shortness of breath and lower extremity edema consistent with congestive heart failure exacerbation possibly precipitated by atrial fibrillation with rapid ventricular response. ABG also demonstrated hypercarbia for which he has been started on a BiPAP. He remains in AFib but his rate has improved quite a bit since he was started on an amiodarone drip. I will ask Dr. Chen to see him in consultation as he was supposed to have an appointment with him today anyway. Patient was hypotensive in the emergency department but is pressures have improved with improvement in his rate. At this time I will continue his carvedilol but may end up holding his other hypertensives depending on what his blood pressures do tonight. He will remain on BiPAP tonight with repeat blood gas to ensure his hypercarbia as improving. As mentioned he was recently given a trilogy unit but he does not think anybody will be able to bring that in for him to use while hospitalized. His diabetes remains poorly controlled with a recent A1c of greater than 14%. Will repeat A1c and continue basal insulin. Initiate sliding scale insulin, Accu-Cheks, and hypoglycemic protocol. The rest of his home medications will be reviewed and resumed as appropriate. 06/20/20 patient doing okay has been weaned from BiPAP. He is unable to bring his home machine into the hospital and Pulmonary has given alternative settings for avap. Cardiology has seen pt as well and Time Spent With Patient Time with patient: 25 - 35 minutes Subjective Date/time seen: 06/20/20 18:50 Patient seen on BiPAP is requesting to eat. Patient advise I will not be possible lights on BiPAP at that will give him a break rest him and let him eat a few hours. He has no other complaints during my interview other than lack of access to be healthy food, nonambulatory state preventing him from having normal daily activities and caring for himself, and financial difficulties since the of his spouse. Exam Narrative: Exam Narrative: GEN: NAD, cooperative, morbidly obese HEENT: NCAT, MMM, EOMI Neck: no JVD Lungs: no use of accessory muscles, on BIPAP Abd: globose, soft, NT, ND, bowel sounds normoactive Ext: moves all, no cyanosis, no clubbing, 3+ pitting edema Neuro: Cranial nerves intact, no focal neurological deficits, AAOx3 Psych: Mood and affect congruent Objective Data Vital Signs Vital Signs: Vital Signs - 24 hr 06/19/20 19:11 06/19/20 20:00 06/19/20 20:23 Temperature Pulse Rate 89 92 90 Respiratory Rate 18 Blood Pressure 118/62 Pulse Oximetry 95 06/19/20 21:57 06/19/20 23:23 06/19/20 23:43 Temperature 97.2 F L Pulse Rate 89 55 L 91 Respiratory Rate 23 H 20 Blood Pressure 114/66 Pulse Oximetry 100 95 06/20/20 00:00 06/20/20 01:34 06/20/20 02:00 Temperature
[2020-06-20 20:24] LABS: Glucose Point of Care 159 (65-105)
[2020-06-21] VITALS (16 sets, daily range): BP systolic 116–151; BP diastolic 51–88; PULSE 56–81; RESP 19–27; TEMP 36.1–36.6; O2SAT 90–98
[2020-06-21] MEDS: ACETAMINOPHEN 325 MG TABLET 650 MG PO (02:32)
[2020-06-21 05:05] LABS: Alveolar/Arterial O2 Gradient 93.7 mmHg; Base Excess ABG 12.7 mEq/l (+/-2.0); Fractional Inspired Oxygen 35 %; Oxygen Content ABG 13.8 %vol (16.0-22.0); Oxyhemoglobin 87.8 % THb (90.0-100.0); PCO2 ABG 85.3 mmHg (35.0-45.0); PO2 ABG 56.7 mmHg (80.0-100.0); PO2 FiO2 Ratio Arterial Blood 1.62 %; Total Hemoglobin 11.2 g/dL (12.0-18.0)
[2020-06-21 05:06] LABS: Non-Invasive Vent Rate 14 /MIN; Site Drawn RIGHT BRACHIAL
[2020-06-21 05:07] LABS: Hematocrit 35.5 % (42.0-52.0); Hemoglobin 10.2 g/dL (14.0-18.0); Mean Corpuscular HGB Conc 28.7 g/dl (32-36); Mean Corpuscular Hemoglobin 26.4 pg (26-34); Mean Corpuscular Volume 91.7 fl (80-100); Platelet Count Result 234 k/mm3 (150-375); Red Blood Count 3.87 M/mm3 (4.6-6.20); Red Cell Distribution Width 15.1 % (11.5-14.5); White Blood Count 8.9 K/mm3 (4.5-10.0)
[2020-06-21 05:08] LABS: Device NON-INVASIVE VENT; Non-Invasive Expiratory Pressure 8 CMH2O
[2020-06-21 05:26] LABS: Blood Urea Nitrogen 17 mg/dL (9-20); Calcium 8.4 mg/dL (8.4-10.2); Carbon Dioxide > 40 mmol/L (22-30); Chloride 99 mmol/L (98-107); Estimated CRCL calculation 168 ml/min; Estimated Glomerular Filt Rate > 60; Glucose 148 mg/dL (75-110); Magnesium 1.8 mg/dL (1.6-2.3); Potassium 4.6 mmol/L (3.4-5.0); Sodium 142 mmol/L (137-145)
[2020-06-21] MEDS: LEVOTHYROXINE SODIUM 100 MCG TABLET 200 MCG PO (06:15)
[2020-06-21 08:12] LABS: Glucose Point of Care 120 (65-105)
--- NOTE | 2020-06-21 08:43 | PM.PNPUL ---
Progress Note: A&P Assessment and Plan (1) Acute respiratory failure with hypoxia and hypercarbia: Code(s): J96.01 - Acute respiratory failure with hypoxia; J96.02 - Acute respiratory failure with hypercapnia Status: Acute Assessment and Plan: Patient with a history of chronic hypoxemic and hypercarbic respiratory failure from multiple conditions including morbid obesity, asthma/COPD, obstructive sleep apnea, CHF, elevated right hemidiarphram (seen on 10/04/2007 CT of abdomen) and alveolar hypoventilation syndrome. patient is maintained on 3 L nasal cannula oxygen at rest and with ambulation and a trilogy noninvasive ventilator at night with 3 L nasal cannula bleed in. Patient presents now with acute hypercarbic respiratory failure with a blood gas of 7.19/100/139 and is currently being treated for fluid overload and possibly untreated obstructive sleep apnea. I see no evidence of a bacterial infection at this time and no evidence of an active COPD exacerbation. 06/20 I have placed the patient on a hospital AVAPS mode with a backup rate of 14, tidal volume 500, EPAP 8, minimal inspiratory pressure 9, maximal inspiratory pressure 25, rise of 3, inspiratory time of 1.2, and 30% FiO2. Patient states that these settings feel very similar to his trilogy. unfortunately he lives at home and has no way to bring his home trilogy machine in to the hospital. patient should wear the hospital AVAPS mode when he sleeps and p.r.n. during the day. current saturations on 30% FIO2 are 97%. I will continue his home dose of glycopyrrolate -formoterol 9-4.8 at 2 puffs b.i.d.. I see no need for inhaled steroids or systemic steroids at this point. with called his home care company to obtain a download to assess his compliance with his home trilogy machine and are waiting those reports. 06/21 I obtained a download from [employer] and he is noncompliant and he admits that he is getting used to machine and at times forgets and falls asleep without putting it on. He is on AVAPS-AE rate of auto, tidal volume 500, EPAP minimum 5, EPAP maximum 15, pressure support minimum 4, pressure support maximum 14, pressure maximum 25, rise time 3. Percent of days used greater than 4 hours was 30%, percent total days used was 70%. Average time used -per days used was 3.6 hours , average IPAP was 20.7, average EPAP was 6.3 average breaths were 21.8, average tidal volume was 436 mL. Average total leak was 49.5. Patient wore hospital AVAPS backup rate of 14, tidal volume 500, EPAP 8, minimal inspiratory pressure 9, maximal inspiratory pressure 25, rise of 3, inspiratory time of 1.2, and 35% FiO2 and sled said that he had a very good night sleep and feels refreshed this morning. Overall he has improved since when he presented. He had a blood gas at the end of the night of pH 7.31/85/57 And he was changed to straight BiPAP 20/10 with a backup rate of 16. He was on these settings when I saw him and he was sleeping with tidal volumes of 400. He complains of his chronic back and hip pain and says currently that he would like to come off the BiPAP so he could eat breakfast. Today BiPAP PRN and when sleeps with AVAPS settings of AVAPS backup rate of 20, tidal volume 550, EPAP 8, minimal inspiratory pressure 9, maximal inspiratory pressure 25, rise of 3, inspiratory time of 1.2, and 35% FiO2. I have increased RR to 20 and TV to 550 to increase minute ventilation. Check ABG in morning, Apnea link overnight on 35%. OT/PT and OOB today. Pain issues to be addressed by hospitalist. Will follow with you. (2) Acute exacerbation of congestive heart failure: Code(s): I50.9 - Heart failure, unspecified Status: Acute Assessment and Plan: 06/20 Cardiology has been consulted to manage his AFib/RVR and his fluid overload requiring diuresis. DC inhalers for now. I spoke with the tie bucker and I am in favor of aggressive diuresis as tolerated by his cardiac and renal systems.
[2020-06-21] MEDS: TAMSULOSIN HCL 0.4 MG CAPSULE PO (09:15)
[2020-06-21] MEDS: DULoxetine HCL 60 MG CAPSULE.DR PO (09:15)
[2020-06-21] MEDS: FUROSEMIDE INJ 40 MG/4 ML VIAL IV PUSH ×2 (09:16→18:33)
[2020-06-21] MEDS: POTASSIUM CHLORIDE 20 MEQ TABLET.ER PO (09:16)
[2020-06-21] MEDS: PANTOPRAZOLE 40 MG TABLET PO ×2 (09:16→18:33)
[2020-06-21] MEDS: PREGABALIN (*CRX) 50 MG CAPSULE PO ×3 (09:19→18:33)
[2020-06-21] MEDS: TOLNAFTATE 1% POWDER 45 GM BTL 1 APPLIC TOPICAL ×2 (09:29→23:05)
[2020-06-21] MEDS: MUPIROCIN 2% OINT 22 GM TUBE 1 APPLIC EACH NARE ×2 (11:54→21:55)
[2020-06-21 12:31] LABS: Glucose Point of Care 164 (65-105)
[2020-06-21] MEDS: oxyCODONE/ACETAMINOPHEN (*CRX) 5-325 MG TABLET 1 TABLET PO ×2 (12:44→19:13)
--- NOTE | 2020-06-21 15:29 | PM.IMPN ---
Progress Note: A&P Assessment and Plan (1) Acute exacerbation of congestive heart failure: Code(s): I50.9 - Heart failure, unspecified Status: Acute (2) Acute respiratory failure with hypoxia and hypercarbia: Code(s): J96.01 - Acute respiratory failure with hypoxia; J96.02 - Acute respiratory failure with hypercapnia Status: Acute (3) Atrial fibrillation with RVR: Code(s): I48.91 - Unspecified atrial fibrillation Status: Acute (4) Hypotension: Code(s): I95.9 - Hypotension, unspecified Status: Acute (5) Chronic anemia: Code(s): D64.9 - Anemia, unspecified Status: Acute (6) Obstructive sleep apnea: Code(s): G47.33 - Obstructive sleep apnea (adult) (pediatric) Status: Acute (7) Insulin dependent type 2 diabetes mellitus, uncontrolled: Code(s): E11.65 - Type 2 diabetes mellitus with hyperglycemia; Z79.4 - MCFP (current) use of insulin Status: Acute (8) Morbid obesity: Code(s): E66.01 - Morbid (severe) obesity due to excess calories Status: Acute Additional Plan 06/19/20 The patient presents today with increasing shortness of breath and lower extremity edema consistent with congestive heart failure exacerbation possibly precipitated by atrial fibrillation with rapid ventricular response. ABG also demonstrated hypercarbia for which he has been started on a BiPAP. He remains in AFib but his rate has improved quite a bit since he was started on an amiodarone drip. I will ask Dr. Chen to see him in consultation as he was supposed to have an appointment with him today anyway. Patient was hypotensive in the emergency department but is pressures have improved with improvement in his rate. At this time I will continue his carvedilol but may end up holding his other hypertensives depending on what his blood pressures do tonight. He will remain on BiPAP tonight with repeat blood gas to ensure his hypercarbia as improving. As mentioned he was recently given a trilogy unit but he does not think anybody will be able to bring that in for him to use while hospitalized. His diabetes remains poorly controlled with a recent A1c of greater than 14%. Will repeat A1c and continue basal insulin. Initiate sliding scale insulin, Accu-Cheks, and hypoglycemic protocol. The rest of his home medications will be reviewed and resumed as appropriate. 06/20/20 patient doing okay has been weaned from BiPAP. He is unable to bring his home machine into the hospital and Pulmonary has given alternative settings for avap. Cardiology has seen pt as well 06/21/2020 Patient complaining of nasal congestion saline at bedside, spoke with RN to add humidified air to his nasal cannula, MiraLax for constipation, chronic lower extremity swelling R>L ultrasound ordered to rule out DVT Subjective Date/time seen: 06/21/20 15:30 patient doing okay still with shortness of breath, constipation, dry congested nose. Currently trying to eat breakfast. Complains of lower extremity swelling. Case reviewed with RN invasion to be placed back on BiPAP when breakfast completed. Pulmonology and cardiology following Exam Narrative: Exam Narrative: GEN: NAD, AAOx3, cooperative morbid obesity HEENT: NCAT, MMM, EOMI Neck: no JVD Heart: IRR Lungs: decreased breath sounds mild crackles Abd: globose abdomen, soft, NT, ND, bowel sounds normoactive Ext: moves all, no cyanosis, no clubbing, 2+ edema Neuro: no focal neurological deficits, cranial nerves intact Psych: mood and affect congruent depressed mood Objective Data Vital Signs Vital Signs: Vital Signs - 24 hr 06/20/20 16:00 06/20/20 18:00 06/20/20 19:59 Temperature 97.7 F 97 F L Pulse Rate 58 L 62 64 Respiratory Rate 24 H 24 H Blood Pressure 114/52 L 136/83 Pulse Oximetry 94 98 06/20/20 20:00 06/20/20 21:45 06/20/20 22:00 Temperature Pulse Rate 61 58 L 68 Respiratory Rate 21 H Blood Pressure Pulse Ox
[2020-06-21] MEDS: RIVAROXABAN 20 MG TABLET PO (18:33)
[2020-06-21 18:43] LABS: Glucose Point of Care 304 (65-105)
[2020-06-21] MEDS: INSULIN ASPART (*BKC) 100 UNITS/ML SUB-Q (18:44)
[2020-06-21 21:31] LABS: Glucose Point of Care 246 (65-105)
[2020-06-21] MEDS: CYCLOBENZAPRINE HCL 5 MG TABLET PO (21:54)
[2020-06-21] MEDS: traZODone HCL 50 MG TABLET 100 MG PO (21:54)
[2020-06-21] MEDS: ATORVASTATIN 40 MG TABLET PO (21:54)
[2020-06-22] VITALS (25 sets, daily range): BP systolic 101–136; BP diastolic 44–77; PULSE 55–152; RESP 18–24; TEMP 35.9–36.5; O2SAT 92–100
[2020-06-22] MEDS: oxyCODONE/ACETAMINOPHEN (*CRX) 5-325 MG TABLET 1 TABLET PO ×2 (03:14→12:44)
[2020-06-22 06:13] LABS: Alveolar/Arterial O2 Gradient 79.1 mmHg; Base Excess ABG 13.4 mEq/l (+/-2.0); Carboxyhemoglobin 0.2 % THb (0-2.0); Fractional Inspired Oxygen 35 %; HCO3 ABG 42.3 mEq/l (22.0-26.0); Methemoglobin ABG 0.2 %THb (0-1.5); Oxygen Content ABG 15.1 %vol (16.0-22.0); Oxygen Saturation ABG 93.7 % (95.0-100.0); Oxyhemoglobin 93.9 % THb (90.0-100.0); PO2 ABG 76.4 mmHg (80.0-100.0); PO2 FiO2 Ratio Arterial Blood 2.18 %; Reduced Hemoglobin 5.7 %THb (0-5.0); Total Hemoglobin 11.4 g/dL (12.0-18.0); pH ABG 7.336 (7.350-7.450)
[2020-06-22 06:16] LABS: Device NON-INVASIVE VENT; Modified Allen's Test Pass; PCO2 ABG 80.9 mmHg (35.0-45.0); Site Drawn RIGHT RADIAL
[2020-06-22 06:17] LABS: Non-Invasive Expiratory Pressure 8 CMH2O; Non-Invasive Vent Rate 20 /MIN
[2020-06-22 06:18] LABS: Non-Invasive Inspiratory Pressure 25 CMH2O
[2020-06-22] MEDS: LEVOTHYROXINE SODIUM 100 MCG TABLET 200 MCG PO (06:26)
--- NOTE | 2020-06-22 07:43 | P.PNPL_ITS ---
Progress Note: A&P Assessment and Plan (1) Acute respiratory failure with hypoxia and hypercarbia: Code(s): J96.01 - Acute respiratory failure with hypoxia; J96.02 - Acute respiratory failure with hypercapnia Status: Acute Assessment and Plan: Patient with a history of chronic hypoxemic and hypercarbic respiratory failure from multiple conditions including morbid obesity, asthma/COPD, obstructive sleep apnea, CHF, elevated right hemidiarphram (seen on 10/04/2007 CT of abdomen) and alveolar hypoventilation syndrome. patient is maintained on 3 L nasal cannula oxygen at rest and with ambulation and a trilogy noninvasive ventilator at night with 3 L nasal cannula bleed in. Patient presents now with acute hypercarbic respiratory failure with a blood gas of 7.19/100/139 and is currently being treated for fluid overload and possibly untreated obstructive sleep apnea. I see no evidence of a bacterial infection at this time and no evidence of an active COPD exacerbation. 06/20 I have placed the patient on a hospital AVAPS mode with a backup rate of 14, tidal volume 500, EPAP 8, minimal inspiratory pressure 9, maximal inspiratory pressure 25, rise of 3, inspiratory time of 1.2, and 30% FiO2. Patient states that these settings feel very similar to his trilogy. unfortunately he lives at home and has no way to bring his home trilogy machine in to the hospital. patient should wear the hospital AVAPS mode when he sleeps and p.r.n. during the day. current saturations on 30% FIO2 are 97%. I will continue his home dose of glycopyrrolate -formoterol 9-4.8 at 2 puffs b.i.d.. I see no need for inhaled steroids or systemic steroids at this point. with called his home care company to obtain a download to assess his compliance with his home trilogy machine and are waiting those reports. 06/21 I obtained a download from [employer] and he is noncompliant and he admits that he is getting used to machine and at times forgets and falls asleep without putting it on. He is on AVAPS-AE rate of auto, tidal volume 500, EPAP minimum 5, EPAP maximum 15, pressure support minimum 4, pressure support maximum 14, pressure maximum 25, rise time 3. Percent of days used greater than 4 hours was 30%, percent total days used was 70%. Average time used -per days used was 3.6 hours , average IPAP was 20.7, average EPAP was 6.3 average breaths were 21.8, average tidal volume was 436 mL. Average total leak was 49.5. Patient wore hospital AVAPS backup rate of 14, tidal volume 500, EPAP 8, minimal inspiratory pressure 9, maximal inspiratory pressure 25, rise of 3, inspiratory time of 1.2, and 35% FiO2 and sled said that he had a very good night sleep and feels refreshed this morning. Overall he has improved since when he presented. He had a blood gas at the end of the night of pH 7.31/85/57 And he was changed to straight BiPAP 20/10 with a backup rate of 16. He was on these settings when I saw him and he was sleeping with tidal volumes of 400. He complains of his chronic back and hip pain and says currently that he would like to come off the BiPAP so he could eat breakfast. Today BiPAP PRN and when sleeps with AVAPS settings of AVAPS backup rate of 20, tidal volume 550, EPAP 8, minimal inspiratory pressure 9, maximal inspiratory pressure 25, rise of 3, inspiratory time of 1.2, and 35% FiO2. I have increased RR to 20 and TV to 550 to increase minute ventilation. Check ABG in morning, Apnea link overnight on 35%. OT/PT and OOB today. Pain issues to be addressed by hospitalist. 06/22 Wore AVAPS backup rate of 20, tidal volume 550, EPAP 8, minimal inspiratory pressure 9, maximal inspiratory pressure 25, rise of 3, inspiratory time of 1.2, and 35% FiO2 with ABG at end of night 7.34//76.
[2020-06-22 07:57] LABS: Glucose Point of Care 321 (65-105)
--- NOTE | 2020-06-22 09:04 | PM.IMPN ---
Progress Note: A&P Assessment and Plan (1) Acute exacerbation of congestive heart failure: Code(s): I50.9 - Heart failure, unspecified Status: Acute (2) Acute respiratory failure with hypoxia and hypercarbia: Code(s): J96.01 - Acute respiratory failure with hypoxia; J96.02 - Acute respiratory failure with hypercapnia Status: Acute (3) Atrial fibrillation with RVR: Code(s): I48.91 - Unspecified atrial fibrillation Status: Acute (4) Hypotension: Code(s): I95.9 - Hypotension, unspecified Status: Acute (5) Chronic anemia: Code(s): D64.9 - Anemia, unspecified Status: Acute (6) Obstructive sleep apnea: Code(s): G47.33 - Obstructive sleep apnea (adult) (pediatric) Status: Acute (7) Insulin dependent type 2 diabetes mellitus, uncontrolled: Code(s): E11.65 - Type 2 diabetes mellitus with hyperglycemia; Z79.4 - assisted (current) use of insulin Status: Acute (8) Morbid obesity: Code(s): E66.01 - Morbid (severe) obesity due to excess calories Status: Acute Additional Plan 06/19/20 The patient presents today with increasing shortness of breath and lower extremity edema consistent with congestive heart failure exacerbation possibly precipitated by atrial fibrillation with rapid ventricular response. ABG also demonstrated hypercarbia for which he has been started on a BiPAP. He remains in AFib but his rate has improved quite a bit since he was started on an amiodarone drip. I will ask Dr. Chen to see him in consultation as he was supposed to have an appointment with him today anyway. Patient was hypotensive in the emergency department but is pressures have improved with improvement in his rate. At this time I will continue his carvedilol but may end up holding his other hypertensives depending on what his blood pressures do tonight. He will remain on BiPAP tonight with repeat blood gas to ensure his hypercarbia as improving. As mentioned he was recently given a trilogy unit but he does not think anybody will be able to bring that in for him to use while hospitalized. His diabetes remains poorly controlled with a recent A1c of greater than 14%. Will repeat A1c and continue basal insulin. Initiate sliding scale insulin, Accu-Cheks, and hypoglycemic protocol. The rest of his home medications will be reviewed and resumed as appropriate. 06/20/20 patient doing okay has been weaned from BiPAP. He is unable to bring his home machine into the hospital and Pulmonary has given alternative settings for avap. Cardiology has seen pt as well 06/21/2020 Patient complaining of nasal congestion saline at bedside, spoke with RN to add humidified air to his nasal cannula, MiraLax for constipation, chronic lower extremity swelling R>L ultrasound ordered to rule out DVT 06/22/20 BG not at goal on HD ISS will add Lantus 10U q am, diuresing well - 4.77L cont current regimen monitoring Cr / BUN, BP tolerating diuresis, carvedilol on hold, metoprolol IV PRN x HR.-> patient converted into AFib RVR amiodarone drip started. Bolus x2 given. Metoprolol p.r.n. Encourage up to chair and use of bedside commode when heart rate improves. pulm and cardiology recs appreciated. Subjective Date/time seen: 06/22/20 09:04 Patient complaining of shortness of breath. He feels his heart racing. Patient is noted to have heart rate in 140s on amiodarone drip. Case has been reviewed with both RN and cardiology. Recommendations appreciated. Second Bolus of amiodarone ordered. Exam Narrative: Exam Narrative: GEN: NAD, AAOx3, cooperative morbid obesity HEENT: NCAT, MMM, EOMI Neck: no JVD Heart: IRR Lungs: decreased breath sounds mild crackles Abd: globose abdomen, soft, NT, ND, bowel sounds normoactive Ext: moves all, no cyanosis, no clubbing, 2+ edema Neuro: no focal neurological deficits, cranial nerves intact Psych: mood and affect congruent depressed mood Objective D
[2020-06-22] MEDS: INSULIN ASPART (*BKC) 100 UNITS/ML SUB-Q ×3 (09:34→17:17)
[2020-06-22] MEDS: INSULIN GLARGINE (*BKC) 100 UNITS/ML 10 UNITS SUB-Q (09:35)
[2020-06-22] MEDS: AMIODARONE 150 MG/D5W 100 ML 150 MG/100 ML BAG 600 MG IV CONT ×2 (09:38→11:31)
[2020-06-22] MEDS: MUPIROCIN 2% OINT 22 GM TUBE 1 APPLIC EACH NARE ×2 (09:51→21:39)
[2020-06-22] MEDS: FUROSEMIDE INJ 40 MG/4 ML VIAL IV PUSH ×2 (09:52→16:06)
[2020-06-22] MEDS: TAMSULOSIN HCL 0.4 MG CAPSULE PO (09:53)
[2020-06-22] MEDS: POTASSIUM CHLORIDE 20 MEQ TABLET.ER PO (09:53)
[2020-06-22] MEDS: DULoxetine HCL 60 MG CAPSULE.DR PO (09:53)
[2020-06-22] MEDS: PANTOPRAZOLE 40 MG TABLET PO ×2 (09:54→16:06)
[2020-06-22] MEDS: PREGABALIN (*CRX) 50 MG CAPSULE PO ×3 (09:55→16:08)
[2020-06-22] MEDS: TOLNAFTATE 1% POWDER 45 GM BTL 1 APPLIC TOPICAL ×2 (09:56→21:39)
[2020-06-22] MEDS: AMIODARONE 360 MG/D5W 200 ML 360 MG/200 ML BAG 33.33 MG IV CONT (10:01)
[2020-06-22 10:52] LABS: Blood Urea Nitrogen 14 mg/dL (9-20); Calcium 8.4 mg/dL (8.4-10.2); Carbon Dioxide > 40 mmol/L (22-30); Chloride 92 mmol/L (98-107); Estimated CRCL calculation 129 ml/min; Estimated Glomerular Filt Rate > 60; Glucose 250 mg/dL (75-110); Magnesium 1.7 mg/dL (1.6-2.3); Potassium 4.1 mmol/L (3.4-5.0); Sodium 139 mmol/L (137-145)
[2020-06-22 11:38] LABS: Glucose Point of Care 282 (65-105)
--- NOTE | 2020-06-22 15:55 | PM.PNCARD ---
Progress Note: A&P Assessment and Plan (1) Paroxysmal atrial fibrillation: Code(s): I48.0 - Paroxysmal atrial fibrillation Status: Acute Assessment and Plan: Paroxysmal with RVR. Amiodarone re-initiated this AM due to recurrence of A.Fib with RVR after previously converting to SR. Will also give beta-kathie as BP allows. Systemic anticoagulation with Xarelto. Treatment of respiratory failure, NEPTALI fundamental. I would also resume BB therapy as BP allows. Coreg 3.125mg BID. (2) Acute respiratory failure with hypoxia and hypercarbia: Code(s): J96.01 - Acute respiratory failure with hypoxia; J96.02 - Acute respiratory failure with hypercapnia Status: Acute Assessment and Plan: Chronic O2 use. Pulmonary following. Trilogy. PCO2 81 this a.m. by ABG. (3) Acute exacerbation of congestive heart failure: Code(s): I50.9 - Heart failure, unspecified Status: Acute Assessment and Plan: Acute on chronic heart failure with preserved ejection fraction secondary to hypoxic respiratory failure in setting the AFib with RVR. Continue IV diuresis Lasix 40 mg b.i.d.. Monitor electrolytes and renal function closely. Accurate input and output, daily weight. Monitor renal function and electrolytes closely. (4) NEPTALI on CPAP: Code(s): G47.33 - Obstructive sleep apnea (adult) (pediatric); Z99.89 - Dependence on other enabling machines and devices Status: Chronic Assessment and Plan: As above, per pulmonology. Compliance with O2 and Trilogy unit. (5) Coronary artery disease involving [place] coronary artery of [place] heart without angina pectoris: Code(s): I25.10 - Atherosclerotic heart disease of [place] coronary artery without angina pectoris Status: Acute Assessment and Plan: history of stent to circumflex artery 2003. Risk factor modification. Continue atorvastatin, resume beta-kathie. negative serial troponins. Hold off on isosorbide mononitrate. Subjective Date/time seen: date of service:06/22/20 15:55 Follow-up for atrial fibrillation with rapid ventricular response, shortness of breath patient complains of shortness of breath but he states is chronic. States he feels okay overall. Denies significant palpitations at this time. patient referred back to atrial fibrillation with rapid ventricular response overnight. Amiodarone re-initiated This morning. No chest pain. Review of Systems Constitutional: Constitutional: Denies chills, Denies fever(s) and Denies poor appetite Eyes: Eyes: Denies eye discharge, Denies loss of vision, Denies eye pain and Denies photophobia ENT: Denies dizziness, Denies epistaxis, Denies nasal congestion and Denies sore throat Cardiovascular: Cardiovascular: Reports chest pain, Denies syncope, Reports pedal edema, Reports leg edema, Reports palpitations, Reports dyspnea, Reports dyspnea on exertion and Denies orthopnea Respiratory: Respiratory: Denies cough, Reports dyspnea, Reports dyspnea on exertion and Denies wheezing Gastrointestinal: Gastrointestinal: Denies abdominal pain, Denies diarrhea, Denies nausea and Denies vomiting Genitourinary: Genitourinary: Denies hematuria, Denies genital lesions and Denies dysuria Musculoskeletal: Musculoskeletal: Denies arthralgias, Denies joint swelling and Denies numbness Integumentary/Breasts: Skin/Breast: Denies pruritus and Denies rash Neurologic: Denies dizziness, Denies syncope, Denies loss of vision and Denies numbness Psychiatric: Psychiatric: Denies anxiety and Denies depression Endocrine: Endocrine: Denies cold intolerance, Denies heat intolerance and Reports palpitations Hematologic/Lymphatic: Hematologic/Lymphatic: Denies easy bleeding and Denies easy bruising Allergic/Immunologic: Allergic/Immunologic: Denies urticaria and Denies wheezing Exam Const: General: cooperative, comfortable, no acute distress, alert and awake Nutritional Appearance: w
[2020-06-22] MEDS: ACETAMINOPHEN 325 MG TABLET 650 MG PO (16:05)
[2020-06-22] MEDS: RIVAROXABAN 20 MG TABLET PO (16:08)
[2020-06-22] MEDS: AMIODARONE 360 MG/D5W 200 ML 360 MG/200 ML BAG 16.67 MG IV CONT (16:09)
[2020-06-22 16:59] LABS: Glucose Point of Care 354 (65-105)
[2020-06-22 20:55] LABS: Glucose Point of Care 257 (65-105)
--- NOTE | 2020-06-22 21:37 | ECG_ITS ---
Measurements Intervals [place] Rate: 62 P: 8 [place]: 163 QRS: 17 QRSD: 83 T: 53 QT: 405 QTc: 412 Interpretive Statements SINUS RHYTHM NONSPECIFIC T-WAVE ABNORMALITY- HIGH LATERAL LEADS BORDERLINE ECG Electronically Signed On 06-23-2020 7:53:41 CDT by Gabriel Freed D.O.
[2020-06-22] MEDS: ATORVASTATIN 40 MG TABLET PO (21:38)
[2020-06-22] MEDS: CYCLOBENZAPRINE HCL 5 MG TABLET PO (21:38)
[2020-06-22] MEDS: traZODone HCL 50 MG TABLET 100 MG PO (21:39)
[2020-06-23] VITALS (25 sets, daily range): BP systolic 122–156; BP diastolic 50–70; PULSE 60–89; RESP 18–34; TEMP 36.1–36.6; O2SAT 92–98
[2020-06-23] MEDS: AMIODARONE 360 MG/D5W 200 ML 360 MG/200 ML BAG 16.67 MG IV CONT (04:08)
[2020-06-23] MEDS: LEVOTHYROXINE SODIUM 100 MCG TABLET 200 MCG PO (06:20)
[2020-06-23 06:31] LABS: Blood Urea Nitrogen 13 mg/dL (9-20); Calcium 8.4 mg/dL (8.4-10.2); Carbon Dioxide > 40 mmol/L (22-30); Chloride 90 mmol/L (98-107); Estimated CRCL calculation 168 ml/min; Estimated Glomerular Filt Rate > 60; Glucose 223 mg/dL (75-110); Magnesium 1.6 mg/dL (1.6-2.3); Potassium 3.8 mmol/L (3.4-5.0); Sodium 138 mmol/L (137-145)
[2020-06-23 08:28] LABS: Glucose Point of Care 237 (65-105)
[2020-06-23] MEDS: INSULIN ASPART (*BKC) 100 UNITS/ML SUB-Q ×3 (09:12→17:50)
[2020-06-23] MEDS: INSULIN GLARGINE (*BKC) 100 UNITS/ML 10 UNITS SUB-Q ×2 (09:15→17:51)
[2020-06-23] MEDS: TOLNAFTATE 1% POWDER 45 GM BTL 1 APPLIC TOPICAL ×2 (09:24→20:46)
[2020-06-23] MEDS: FUROSEMIDE INJ 40 MG/4 ML VIAL IV PUSH ×2 (09:24→17:52)
[2020-06-23] MEDS: DULoxetine HCL 60 MG CAPSULE.DR PO (09:24)
[2020-06-23] MEDS: MUPIROCIN 2% OINT 22 GM TUBE 1 APPLIC EACH NARE ×2 (09:25→20:46)
[2020-06-23] MEDS: PANTOPRAZOLE 40 MG TABLET PO ×2 (09:26→17:53)
[2020-06-23] MEDS: POTASSIUM CHLORIDE 20 MEQ TABLET.ER PO (09:27)
[2020-06-23] MEDS: TAMSULOSIN HCL 0.4 MG CAPSULE PO (09:28)
--- NOTE | 2020-06-23 10:04 | PCOTNOTE ---
Patient declined treatment this date due to increased SOB. I was taken off the bipap and breathing is a little more difficult .
[2020-06-23 11:54] LABS: Glucose Point of Care 310 (65-105)
--- NOTE | 2020-06-23 11:54 | PM.PNCARD ---
Progress Note: A&P Assessment and Plan (1) Paroxysmal atrial fibrillation: Code(s): I48.0 - Paroxysmal atrial fibrillation Status: Acute Assessment and Plan: Paroxysmal with RVR converted back to sinus rhythm after re-initiation of Amiodarone. -Transition to po Amiodarone 400mg BID, stop IV gtt 30 minutes after oral dose. Would plan for short term use but for now A.Fib recurs off Amio and BB. -Resume Coreg 3.125mg BID as HR allows. HR 50-60's this AM. BP stable. -Systemic anticoagulation with Xarelto. Treatment of respiratory failure, NEPTALI fundamental. (2) Acute respiratory failure with hypoxia and hypercarbia: Code(s): J96.01 - Acute respiratory failure with hypoxia; J96.02 - Acute respiratory failure with hypercapnia Status: Acute Assessment and Plan: Chronic O2 use. Pulmonary following. (3) Acute exacerbation of congestive heart failure: Code(s): I50.9 - Heart failure, unspecified Status: Acute Assessment and Plan: Acute on chronic heart failure with preserved ejection fraction secondary to hypoxic respiratory failure in setting the AFib with RVR. Continue IV diuresis Lasix 40 mg b.i.d.. Monitor electrolytes and renal function closely. Accurate input and output, daily weight. (4) NEPTALI on CPAP: Code(s): G47.33 - Obstructive sleep apnea (adult) (pediatric); Z99.89 - Dependence on other enabling machines and devices Status: Chronic Assessment and Plan: As above, per pulmonology. Compliance with O2 and Trilogy unit. (5) Coronary artery disease involving [place] coronary artery of [place] heart without angina pectoris: Code(s): I25.10 - Atherosclerotic heart disease of [place] coronary artery without angina pectoris Status: Acute Assessment and Plan: history of stent to circumflex artery 2003. Risk factor modification. Continue atorvastatin, resume beta-kathie. negative serial troponins. Hold off on isosorbide mononitrate. Subjective Date/time seen: Date of service: 06/23/20 11:54 Follow-up for paroxysmal atrial fibrillation with rapid ventricular response Feels little better. Wore AVAPS per Pulm. no palps, converted to SR overnight. Remains on amiodarone. No chest pain, fevers, chills. Review of Systems Constitutional: Constitutional: Denies chills, Denies fever(s) and Denies poor appetite Eyes: Eyes: Denies eye discharge, Denies loss of vision, Denies eye pain and Denies photophobia ENT: Denies dizziness, Denies epistaxis, Denies nasal congestion and Denies sore throat Cardiovascular: Cardiovascular: Reports chest pain, Denies syncope, Reports pedal edema, Reports leg edema, Reports palpitations, Reports dyspnea, Reports dyspnea on exertion and Denies orthopnea Respiratory: Respiratory: Denies cough, Reports dyspnea, Reports dyspnea on exertion and Denies wheezing Gastrointestinal: Gastrointestinal: Denies abdominal pain, Denies diarrhea, Denies nausea and Denies vomiting Genitourinary: Genitourinary: Denies hematuria, Denies genital lesions and Denies dysuria Musculoskeletal: Musculoskeletal: Denies arthralgias, Denies joint swelling and Denies numbness Integumentary/Breasts: Skin/Breast: Denies pruritus and Denies rash Neurologic: Denies dizziness, Denies syncope, Denies loss of vision and Denies numbness Psychiatric: Psychiatric: Denies anxiety and Denies depression Endocrine: Endocrine: Denies cold intolerance, Denies heat intolerance and Reports palpitations Hematologic/Lymphatic: Hematologic/Lymphatic: Denies easy bleeding and Denies easy bruising Allergic/Immunologic: Allergic/Immunologic: Denies urticaria and Denies wheezing Exam Const: General: cooperative, comfortable, no acute distress, alert and awake Nutritional Appearance: well nourished Orientation/consciousness: patient oriented x3 HENMT: Head: normal to inspection, normocephalic and atraumatic Ears: hearing grossly normal bilaterally G
[2020-06-23] MEDS: POTASSIUM CHLORIDE 20 MEQ PACKET (FOR LIQUID) 40 MEQ PO (13:18)
[2020-06-23] MEDS: PREGABALIN (*CRX) 50 MG CAPSULE PO ×2 (13:20→18:04)
[2020-06-23] MEDS: MAGNESIUM SULF 2 GM/WATER 50ML 2 GM/50 ML BAG IVPB (13:21)
[2020-06-23] MEDS: carvediloL 3.125 MG TABLET PO ×2 (13:56→20:47)
[2020-06-23] MEDS: AMIODARONE HCL 200 MG TABLET 400 MG PO ×2 (15:07→20:46)
[2020-06-23 16:14] LABS: Glucose Point of Care 311 (65-105)
--- NOTE | 2020-06-23 16:16 | PM.IMPN ---
Progress Note: A&P Assessment and Plan (1) Acute exacerbation of congestive heart failure: Code(s): I50.9 - Heart failure, unspecified Status: Acute (2) Acute respiratory failure with hypoxia and hypercarbia: Code(s): J96.01 - Acute respiratory failure with hypoxia; J96.02 - Acute respiratory failure with hypercapnia Status: Acute (3) Atrial fibrillation with RVR: Code(s): I48.91 - Unspecified atrial fibrillation Status: Acute (4) Hypotension: Code(s): I95.9 - Hypotension, unspecified Status: Acute (5) Chronic anemia: Code(s): D64.9 - Anemia, unspecified Status: Acute (6) Obstructive sleep apnea: Code(s): G47.33 - Obstructive sleep apnea (adult) (pediatric) Status: Acute (7) Insulin dependent type 2 diabetes mellitus, uncontrolled: Code(s): E11.65 - Type 2 diabetes mellitus with hyperglycemia; Z79.4 - USP (current) use of insulin Status: Acute (8) Morbid obesity: Code(s): E66.01 - Morbid (severe) obesity due to excess calories Status: Acute Additional Plan 06/19/20 The patient presents today with increasing shortness of breath and lower extremity edema consistent with congestive heart failure exacerbation possibly precipitated by atrial fibrillation with rapid ventricular response. ABG also demonstrated hypercarbia for which he has been started on a BiPAP. He remains in AFib but his rate has improved quite a bit since he was started on an amiodarone drip. I will ask Dr. Chen to see him in consultation as he was supposed to have an appointment with him today anyway. Patient was hypotensive in the emergency department but is pressures have improved with improvement in his rate. At this time I will continue his carvedilol but may end up holding his other hypertensives depending on what his blood pressures do tonight. He will remain on BiPAP tonight with repeat blood gas to ensure his hypercarbia as improving. As mentioned he was recently given a trilogy unit but he does not think anybody will be able to bring that in for him to use while hospitalized. His diabetes remains poorly controlled with a recent A1c of greater than 14%. Will repeat A1c and continue basal insulin. Initiate sliding scale insulin, Accu-Cheks, and hypoglycemic protocol. The rest of his home medications will be reviewed and resumed as appropriate. 06/20/20 patient doing okay has been weaned from BiPAP. He is unable to bring his home machine into the hospital and Pulmonary has given alternative settings for avap. Cardiology has seen pt as well 06/21/2020 Patient complaining of nasal congestion saline at bedside, spoke with RN to add humidified air to his nasal cannula, MiraLax for constipation, chronic lower extremity swelling R>L ultrasound ordered to rule out DVT 06/22/20 BG not at goal on HD ISS will add Lantus 10U q am, diuresing well - 4.77L cont current regimen monitoring Cr / BUN, BP tolerating diuresis, carvedilol on hold, metoprolol IV PRN x HR.-> patient converted into AFib RVR amiodarone drip started. Bolus x2 given. Metoprolol p.r.n. Encourage up to chair and use of bedside commode when heart rate improves. pulm and cardiology recs appreciated. 06/23/20 patient improving slowly continues to have elevated blood glucose despite receiving Lantus 10 units q.a.m. Will add Lantus b.i.d. for improved coverage. Remains on high-dose sliding scale. We home insulin was greater than 100 units daily unclear if he was compliant. Carvedilol low-dose started remains on amiodarone drip defer to Cardiology transition to orals. And noted to have p.o. intake of fluids greater than 1500 yesterday p.o. fluid restriction ordered patient with respiratory failure requiring BiPAP being followed by film recordist. Subjective Date/time seen: 06/23/20 16:16 Patient currently using BiPAP. He has no complaints. Swelling is improving. Exam Narrative: Exam Narrative: GEN: NAD
[2020-06-23] MEDS: RIVAROXABAN 20 MG TABLET PO (17:55)
[2020-06-23 20:40] LABS: Glucose Point of Care 282 (65-105)
[2020-06-23] MEDS: ATORVASTATIN 40 MG TABLET PO (20:47)
[2020-06-23] MEDS: traZODone HCL 50 MG TABLET 100 MG PO (20:47)
[2020-06-23] MEDS: CYCLOBENZAPRINE HCL 5 MG TABLET PO (20:47)
[2020-06-24] VITALS (18 sets, daily range): BP systolic 108–150; BP diastolic 49–69; PULSE 55–97; RESP 20–36; TEMP 36.3–36.9; O2SAT 90–98
[2020-06-24] MEDS: LEVOTHYROXINE SODIUM 100 MCG TABLET 200 MCG PO (05:36)
[2020-06-24 05:46] LABS: Basophils Percent Auto 0.5 % (0.2-1.2); Eosinophils Absolute Auto 0.3 K/mm3 (0-0.3); Eosinophils Percent Auto 2.8 % (0-4.4); Hematocrit 34.9 % (42.0-52.0); Hemoglobin 10.5 g/dL (14.0-18.0); Immature Granulocyte Absolute 0.05 K/mm3 (0.00-0.031); Immature Granulocyte Percent A 0.6 % (0-0.5); Lymphocytes Absolute Auto 1.41 K/mm3 (0.9-3.2); Mean Corpuscular HGB Conc 30.1 g/dl (32-36); Mean Corpuscular Hemoglobin 26.1 pg (26-34); Mean Corpuscular Volume 86.8 fl (80-100); Monocytes Absolute Auto 0.8 K/mm3 (0.1-0.6); Monocytes Percent Auto 8.8 % (2.6-8.5); Neutrophils Absolute Auto 6.3 K/mm3 (1.3-6.7); Neutrophils Percent Auto 71.3 % (45.5-73.1); Platelet Count Result 252 k/mm3 (150-375); Red Blood Count 4.02 M/mm3 (4.6-6.20); Red Cell Distribution Width 14.9 % (11.5-14.5); White Blood Count 8.8 K/mm3 (4.5-10.0)
[2020-06-24 05:54] LABS: Alanine Aminotransferase 7 U/L (4-50); Albumin Level 3.4 g/dL (3.5-5.1); Alkaline Phosphatase 70 U/L (38-126); Aspartate Amino Transferase 13 U/L (17-59); Bilirubin,Total 1.1 mg/dL (0.2-1.3); Blood Urea Nitrogen 11 mg/dL (9-20); Calcium 8.8 mg/dL (8.4-10.2); Carbon Dioxide > 40 mmol/L (22-30); Chloride 90 mmol/L (98-107); Estimated CRCL calculation 145 ml/min; Estimated Glomerular Filt Rate > 60; Glucose 252 mg/dL (75-110); Magnesium 1.8 mg/dL (1.6-2.3); Sodium 137 mmol/L (137-145)
[2020-06-24] MEDS: oxyCODONE/ACETAMINOPHEN (*CRX) 5-325 MG TABLET 1 TABLET PO (06:36)
[2020-06-24 08:28] LABS: Glucose Point of Care 264 (65-105)
[2020-06-24] MEDS: PREGABALIN (*CRX) 50 MG CAPSULE PO ×3 (08:30→16:50)
[2020-06-24] MEDS: carvediloL 3.125 MG TABLET PO (08:30)
[2020-06-24] MEDS: AMIODARONE HCL 200 MG TABLET 400 MG PO ×2 (08:31→16:46)
[2020-06-24] MEDS: PANTOPRAZOLE 40 MG TABLET PO ×2 (08:31→16:46)
[2020-06-24] MEDS: DULoxetine HCL 60 MG CAPSULE.DR PO (08:32)
[2020-06-24] MEDS: POTASSIUM CHLORIDE 20 MEQ TABLET.ER PO (08:32)
[2020-06-24] MEDS: FUROSEMIDE INJ 40 MG/4 ML VIAL IV PUSH (08:32)
[2020-06-24] MEDS: TAMSULOSIN HCL 0.4 MG CAPSULE PO (08:34)
[2020-06-24] MEDS: MUPIROCIN 2% OINT 22 GM TUBE 1 APPLIC EACH NARE ×2 (08:34→20:59)
[2020-06-24] MEDS: TOLNAFTATE 1% POWDER 45 GM BTL 1 APPLIC TOPICAL ×2 (08:35→20:59)
[2020-06-24] MEDS: INSULIN GLARGINE (*BKC) 100 UNITS/ML 10 UNITS SUB-Q (08:44)
[2020-06-24] MEDS: INSULIN ASPART (*BKC) 100 UNITS/ML SUB-Q ×3 (08:45→17:08)
--- NOTE | 2020-06-24 09:14 | PM.PNCARD ---
Progress Note: A&P Assessment and Plan (1) Paroxysmal atrial fibrillation: Code(s): I48.0 - Paroxysmal atrial fibrillation Status: Acute Assessment and Plan: Paroxysmal with RVR converted back to sinus rhythm after re-initiation of Amiodarone. -increase carvedilol 6.25 mg p.o. b.i.d. -Systemic anticoagulation with Xarelto. Treatment of respiratory failure, NEPTALI fundamental. (2) Acute respiratory failure with hypoxia and hypercarbia: Code(s): J96.01 - Acute respiratory failure with hypoxia; J96.02 - Acute respiratory failure with hypercapnia Status: Acute Assessment and Plan: Chronic O2 use. Pulmonary following. (3) Acute exacerbation of congestive heart failure: Code(s): I50.9 - Heart failure, unspecified Status: Acute Assessment and Plan: Acute on chronic heart failure with preserved ejection fraction secondary to hypoxic respiratory failure in setting the AFib with RVR. Reduce IV furosemide to 20 mg b.i.d.. Monitor electrolytes and renal function closely. Accurate input and output, daily weight. (4) NEPTALI on CPAP: Code(s): G47.33 - Obstructive sleep apnea (adult) (pediatric); Z99.89 - Dependence on other enabling machines and devices Status: Chronic Assessment and Plan: As above, per pulmonology. Compliance with O2 and Trilogy unit. (5) Coronary artery disease involving [place] coronary artery of [place] heart without angina pectoris: Code(s): I25.10 - Atherosclerotic heart disease of [place] coronary artery without angina pectoris Status: Acute Assessment and Plan: history of stent to circumflex artery 2003. Risk factor modification. Continue atorvastatin, resume beta-kathie. negative serial troponins. Hold off on isosorbide mononitrate. Subjective Date/time seen: 06/24/20 09:14 Interval history: This is a 69-year-old male with a history of congestive heart failure, AFib on rivaroxaban, who is followed in the Pulmonary Clinic for morbid obesity, chronic hypoxic and hypercarbic respiratory failure, and obstructive sleep apnea. On 05/28/2020 patient was converted from his CPAP 18 to a trilogy noninvasive ventilator. he was set at AVAPS-AE rate of auto, tidal volume 500, EPAP minimum 5, EPAP maximum 15, pressure support minimum 4, pressure support maximum 14, pressure maximum 25, rise time 3. Patient tells me today that he has been trying to get acclimated to this machine and has been wearing the machine in consistently. We are awaiting a remote download to assess patient's compliance. Date of service 06/24/2020: Feels a little better today. Less short of breath. No chest pain. Review of Systems Constitutional: Constitutional: Denies chills, Denies fever(s) and Denies poor appetite Eyes: Eyes: Denies eye discharge, Denies loss of vision, Denies eye pain and Denies photophobia ENT: Denies dizziness, Denies epistaxis, Denies nasal congestion and Denies sore throat Cardiovascular: Cardiovascular: Reports chest pain, Denies syncope, Reports pedal edema, Reports leg edema, Reports palpitations, Reports dyspnea, Reports dyspnea on exertion and Denies orthopnea Respiratory: Respiratory: Denies cough, Reports dyspnea, Reports dyspnea on exertion and Denies wheezing Gastrointestinal: Gastrointestinal: Denies abdominal pain, Denies diarrhea, Denies nausea and Denies vomiting Genitourinary: Genitourinary: Denies hematuria, Denies genital lesions and Denies dysuria Musculoskeletal: Musculoskeletal: Denies arthralgias, Denies joint swelling and Denies numbness Integumentary/Breasts: Skin/Breast: Denies pruritus and Denies rash Neurologic: Denies dizziness, Denies syncope, Denies loss of vision and Denies numbness Psychiatric: Psychiatric: Denies anxiety and Denies depression Endocrine: Endocrine: Denies cold intolerance, Denies heat intolerance and Reports palpitations Hematologic/Lymphatic: Hematologic/Lymphatic:
--- NOTE | 2020-06-24 09:28 | PM.PNPUL ---
Progress Note: A&P Assessment and Plan (1) Acute respiratory failure with hypoxia and hypercarbia: Code(s): J96.01 - Acute respiratory failure with hypoxia; J96.02 - Acute respiratory failure with hypercapnia Status: Acute Assessment and Plan: Patient with a history of chronic hypoxemic and hypercarbic respiratory failure from multiple conditions including morbid obesity, asthma/COPD, obstructive sleep apnea, CHF, elevated right hemidiarphram (seen on 10/04/2007 CT of abdomen) and alveolar hypoventilation syndrome. patient is maintained on 3 L nasal cannula oxygen at rest and with ambulation and a trilogy noninvasive ventilator at night with 3 L nasal cannula bleed in. Patient presents now with acute hypercarbic respiratory failure with a blood gas of 7.19/100/139 and is currently being treated for fluid overload and possibly untreated obstructive sleep apnea. I see no evidence of a bacterial infection at this time and no evidence of an active COPD exacerbation. 06/20 I have placed the patient on a hospital AVAPS mode with a backup rate of 14, tidal volume 500, EPAP 8, minimal inspiratory pressure 9, maximal inspiratory pressure 25, rise of 3, inspiratory time of 1.2, and 30% FiO2. Patient states that these settings feel very similar to his trilogy. unfortunately he lives at home and has no way to bring his home trilogy machine in to the hospital. patient should wear the hospital AVAPS mode when he sleeps and p.r.n. during the day. current saturations on 30% FIO2 are 97%. I will continue his home dose of glycopyrrolate -formoterol 9-4.8 at 2 puffs b.i.d.. I see no need for inhaled steroids or systemic steroids at this point. with called his home care company to obtain a download to assess his compliance with his home trilogy machine and are waiting those reports. 06/21 I obtained a download from [employer] and he is noncompliant and he admits that he is getting used to machine and at times forgets and falls asleep without putting it on. He is on AVAPS-AE rate of auto, tidal volume 500, EPAP minimum 5, EPAP maximum 15, pressure support minimum 4, pressure support maximum 14, pressure maximum 25, rise time 3. Percent of days used greater than 4 hours was 30%, percent total days used was 70%. Average time used -per days used was 3.6 hours , average IPAP was 20.7, average EPAP was 6.3 average breaths were 21.8, average tidal volume was 436 mL. Average total leak was 49.5. Patient wore hospital AVAPS backup rate of 14, tidal volume 500, EPAP 8, minimal inspiratory pressure 9, maximal inspiratory pressure 25, rise of 3, inspiratory time of 1.2, and 35% FiO2 and sled said that he had a very good night sleep and feels refreshed this morning. Overall he has improved since when he presented. He had a blood gas at the end of the night of pH 7.31/85/57 And he was changed to straight BiPAP 20/10 with a backup rate of 16. He was on these settings when I saw him and he was sleeping with tidal volumes of 400. He complains of his chronic back and hip pain and says currently that he would like to come off the BiPAP so he could eat breakfast. Today BiPAP PRN and when sleeps with AVAPS settings of AVAPS backup rate of 20, tidal volume 550, EPAP 8, minimal inspiratory pressure 9, maximal inspiratory pressure 25, rise of 3, inspiratory time of 1.2, and 35% FiO2. I have increased RR to 20 and TV to 550 to increase minute ventilation. Check ABG in morning, Apnea link overnight on 35%. OT/PT and OOB today. Pain issues to be addressed by hospitalist. 06/22 Wore AVAPS backup rate of 20, tidal volume 550, EPAP 8, minimal inspiratory pressure 9, maximal inspiratory pressure 25, rise of 3, inspiratory time of 1.2, and 35% FiO2 with ABG at end of night 7.34/81/76. Said he slept well. Will continue these setting PRN during day and when sleeps and NC to achieve sats 90-94% throughout day. Given his degree of respiratory failure and debillity I recommended to rn wound care th
--- NOTE | 2020-06-24 10:04 | PM.IMPN ---
Progress Note: A&P Assessment and Plan (1) Acute respiratory failure with hypoxia and hypercarbia: Code(s): J96.01 - Acute respiratory failure with hypoxia; J96.02 - Acute respiratory failure with hypercapnia Status: Acute Assessment and Plan: -chronic hypoxemic and hypercarbic respiratory failure from multiple conditions including morbid obesity, asthma/COPD, obstructive sleep apnea, CHF, elevated right hemidiarphram (seen on 10/04/2007 CT of abdomen) and alveolar hypoventilation syndrome. -maintained on 3 L nasal cannula oxygen at rest and with ambulation and a trilogy noninvasive ventilator at night with 3 L nasal cannula bleed in. -continue treating fluid overload per helper shear operator - treat obstructive sleep apnea per skull grinder -using trilogy at home, pulmonary waiting those download reports. . unfortunately he lives at home and has no way to bring his home trilogy machine in to the hospital. patient should wear the -continue his home dose of glycopyrrolate -formoterol 9-4.8 at 2 puffs b.i.d.. -continue AVAPS with nursing staff assistance to remember to apply for sleep. - keep chronic back pain controlled. -keep afib controlled -continue diuresis -keep BPs in goal range. -checking a set of Orthostatic BPs -discharge to LTAC -home O2 study ordered -during day, Bambi on 4 L NC with sats 97%. Stable from pulmonary perspective for discharge home. LTAC nursing staff: Need to Call and schedule patient a Follow up appointment to be seen in Pulmonary clinic in 3 weeks. Discharge on: Albuterol 2 puffs Q 4 hours PRN. No other inhalers. AVAPS-AE rate of 20, tidal volume 550, EPAP minimum 5, EPAP maximum 15, pressure support minimum 4, pressure support maximum 24, pressure maximum 35, rise time 3, with 4 Liters bleed in (I have arranged for these changes on 06/24). He should use full face under nose style (dreamwear) until bridge of nose heals then return to full face mask if desired. Oxygen per home O2 assessment on day of discharge. (2) Acute exacerbation of congestive heart failure: Code(s): I50.9 - Heart failure, unspecified Status: Acute Assessment and Plan: AFib/RVR, CHF exacerb, diuresis continued as allowed by renal function and avoiding hypotension. -monitor BLE edema -keeping in mind may have chronicaly RLE edema > Left (negative venous Dopplers on 06/21/2020, 04/15/2020, 03/15/2020,and 05/05/2019 all of which were negative for DVT) -daily weights -keep afib controlled -continue diuresis (tolerated Lasix 40mg IV BID for 06/20-06/24, changed today to Lasix 20mg IV BID) -creatinine stayed normal 0.6 to 0.7 -keep BPs in goal range. -checking a set of Orthostatic BPs -low dose Coreg started today 6.25mg (off Amio?) -continue to follow Rn Correctional recommendations -discharge to LTAC -LTAC nursing staff: Need to Call and schedule patient a Follow up appointment to be seen by Rn Correctional in 2-3 weeks. (3) Obstructive sleep apnea: Code(s): G47.33 - Obstructive sleep apnea (adult) (pediatric) Status: Acute Assessment and Plan: -chronic hypoxemic and hypercarbic respiratory failure from multiple conditions including morbid obesity, asthma/COPD, obstructive sleep apnea, CHF, elevated right hemidiarphram (seen on 10/04/2007 CT of abdomen) and alveolar hypoventilation syndrome. -maintained on 3 L nasal cannula oxygen at rest and with ambulation and a trilogy noninvasive ventilator at night with 3 L nasal cannula bleed in. - treat obstructive sleep apnea per skull grinder -using trilogy at home, pulmonary waiting those download reports. -unfortunately he lives at home and has no way to bring his home trilogy machine in to the hospital. -continue AVAPS with nursing staff assistance to remember to apply for sleep. -continue diuresis -checking a set of Orthostatic BPs -discharge to LTAC -home O2 study ordered -during day, Currenlty on 4 L NC with sats 97%. Stable from pulmonary perspective fo
--- NOTE | 2020-06-24 11:07 | PCRCNOTE ---
Order for Trilogy setting changes faxed to patient's Sandra REYNOLDS.
[2020-06-24 11:50] LABS: Glucose Point of Care 301 (65-105)
[2020-06-24] MEDS: FLUTICASONE PROPIONATE 0.05% NA SPR 16 GM BTL (*BKC) 1 SPRAY NASAL ×2 (12:40→20:59)
--- NOTE | 2020-06-24 14:17 | PC.NURSE ---
This patient, Nolan Whittington [place], was received from [facility] on 06/24/20 at 1418. Patient/family oriented to unit policies and routines
--- NOTE | 2020-06-24 14:46 | PCRCNOTE ---
IN REGARDS TO HOME O2 EVAL, SINCE PATIENT IS DISCHARGING TO ACUTE CARE SETTING, NO HOME O2 EVAL IS NEEDED. O2 WILL BE TITRATED NEEDED.
[2020-06-24 14:55] LABS: Glucose Point of Care 275 (65-105)
--- NOTE | 2020-06-24 15:23 | PC.NURSE ---
This patient, Nolan Onofre , was transferred to [[facility] ] on 06/24/20 at 1415. Personal belongings sent with patient. Report given to [Sarah ]. Appropriate documentation sent with patient.
[2020-06-24] MEDS: FUROSEMIDE INJ 40 MG/4 ML VIAL 20 MG IV PUSH (16:47)
[2020-06-24] MEDS: PRAMIPEXOLE 1 MG TABLET PO (16:47)
[2020-06-24] MEDS: INSULIN GLARGINE (*BKC) 100 UNITS/ML 20 UNITS SUB-Q (17:09)
[2020-06-24] MEDS: RIVAROXABAN 20 MG TABLET PO (17:09)
[2020-06-24 17:57] LABS: Glucose Point of Care 321 (65-105)
[2020-06-24] MEDS: ATORVASTATIN 40 MG TABLET PO (20:58)
[2020-06-24] MEDS: traZODone HCL 50 MG TABLET 100 MG PO (20:58)
[2020-06-24] MEDS: CYCLOBENZAPRINE HCL 5 MG TABLET PO (20:58)
[2020-06-24] MEDS: carvediloL 6.25 MG TABLET PO (20:58)
[2020-06-24 21:06] LABS: Glucose Point of Care 324 (65-105)
[2020-06-25] VITALS (14 sets, daily range): BP systolic 111–141; BP diastolic 49–64; PULSE 55–76; RESP 16–27; TEMP 36.1–36.7; O2SAT 93–98
[2020-06-25 05:44] LABS: Hematocrit 36.5 % (42.0-52.0); Hemoglobin 10.5 g/dL (14.0-18.0); Mean Corpuscular HGB Conc 28.8 g/dl (32-36); Mean Corpuscular Hemoglobin 25.9 pg (26-34); Mean Corpuscular Volume 90.1 fl (80-100); Mean Platelet Volume 10.5 fl (7.4-10.4); Platelet Count Result 216 k/mm3 (150-375); Red Blood Count 4.05 M/mm3 (4.6-6.20); Red Cell Distribution Width 15.3 % (11.5-14.5); White Blood Count 8.9 K/mm3 (4.5-10.0)
[2020-06-25 05:57] LABS: Blood Urea Nitrogen 15 mg/dL (9-20); Calcium 8.6 mg/dL (8.4-10.2); Carbon Dioxide > 40 mmol/L (22-30); Chloride 92 mmol/L (98-107); Estimated CRCL calculation 142 ml/min; Estimated Glomerular Filt Rate > 60; Glucose 285 mg/dL (75-110); Potassium 3.9 mmol/L (3.4-5.0); Sodium 139 mmol/L (137-145)
[2020-06-25] MEDS: LEVOTHYROXINE SODIUM 100 MCG TABLET 200 MCG PO (06:20)
[2020-06-25] MEDS: DULoxetine HCL 60 MG CAPSULE.DR PO (08:35)
[2020-06-25] MEDS: FLUTICASONE PROPIONATE 0.05% NA SPR 16 GM BTL (*BKC) 1 SPRAY NASAL ×2 (08:35→21:05)
[2020-06-25] MEDS: POTASSIUM CHLORIDE 20 MEQ TABLET.ER PO (08:35)
[2020-06-25] MEDS: carvediloL 6.25 MG TABLET PO (08:35)
[2020-06-25] MEDS: TAMSULOSIN HCL 0.4 MG CAPSULE PO (08:35)
[2020-06-25] MEDS: PANTOPRAZOLE 40 MG TABLET PO ×2 (08:36→15:57)
[2020-06-25] MEDS: AMIODARONE HCL 200 MG TABLET 400 MG PO (08:36)
[2020-06-25] MEDS: FUROSEMIDE INJ 40 MG/4 ML VIAL 20 MG IV PUSH (08:36)
[2020-06-25] MEDS: PRAMIPEXOLE 1 MG TABLET PO ×2 (08:36→15:57)
[2020-06-25] MEDS: MUPIROCIN 2% OINT 22 GM TUBE 1 APPLIC EACH NARE ×2 (08:37→20:54)
[2020-06-25] MEDS: TOLNAFTATE 1% POWDER 45 GM BTL 1 APPLIC TOPICAL ×2 (08:37→20:52)
[2020-06-25] MEDS: PREGABALIN (*CRX) 50 MG CAPSULE PO ×3 (08:42→16:00)
[2020-06-25] MEDS: INSULIN GLARGINE (*BKC) 100 UNITS/ML 20 UNITS SUB-Q ×2 (08:43→15:54)
[2020-06-25] MEDS: INSULIN ASPART (*BKC) 100 UNITS/ML SUB-Q ×3 (08:44→15:52)
[2020-06-25 08:58] LABS: Glucose Point of Care 282 (65-105)
[2020-06-25 12:29] LABS: Glucose Point of Care 265 (65-105)
--- NOTE | 2020-06-25 12:39 | PM.PNCARD ---
Progress Note: A&P Assessment and Plan (1) Paroxysmal atrial fibrillation: Code(s): I48.0 - Paroxysmal atrial fibrillation Status: Acute Assessment and Plan: Paroxysmal with RVR converted back to sinus rhythm after re-initiation of Amiodarone. -increase carvedilol 12.5 mg p.o. b.i.d. -Systemic anticoagulation with Xarelto. Treatment of respiratory failure, NEPTALI fundamental. (2) Acute respiratory failure with hypoxia and hypercarbia: Code(s): J96.01 - Acute respiratory failure with hypoxia; J96.02 - Acute respiratory failure with hypercapnia Status: Acute Assessment and Plan: Chronic O2 use. Pulmonary following. (3) Acute exacerbation of congestive heart failure: Code(s): I50.9 - Heart failure, unspecified Status: Acute Assessment and Plan: Acute on chronic heart failure with preserved ejection fraction secondary to hypoxic respiratory failure in setting the AFib with RVR. DC Fajardo. Furosemide 40 mg p.o. daily to be started Change oral amiodarone 200 mg p.o. daily (4) NEPTALI on CPAP: Code(s): G47.33 - Obstructive sleep apnea (adult) (pediatric); Z99.89 - Dependence on other enabling machines and devices Status: Chronic Assessment and Plan: As above, per pulmonology. Compliance with O2 and Trilogy unit. (5) Coronary artery disease involving [place] coronary artery of [place] heart without angina pectoris: Code(s): I25.10 - Atherosclerotic heart disease of [place] coronary artery without angina pectoris Status: Acute Assessment and Plan: history of stent to circumflex artery 2003. Risk factor modification. Continue atorvastatin, resume beta-kathie. negative serial troponins. Hold off on isosorbide mononitrate. Subjective Date/time seen: 06/25/20 12:39 Interval history: This is a 69-year-old male with a history of congestive heart failure, AFib on rivaroxaban, who is followed in the Pulmonary Clinic for morbid obesity, chronic hypoxic and hypercarbic respiratory failure, and obstructive sleep apnea. On 05/28/2020 patient was converted from his CPAP 18 to a trilogy noninvasive ventilator. he was set at AVAPS-AE rate of auto, tidal volume 500, EPAP minimum 5, EPAP maximum 15, pressure support minimum 4, pressure support maximum 14, pressure maximum 25, rise time 3. Patient tells me today that he has been trying to get acclimated to this machine and has been wearing the machine in consistently. We are awaiting a remote download to assess patient's compliance. Date of service 06/24/2020: Feels a little better today. Less short of breath. No chest pain. Review of Systems Constitutional: Constitutional: Denies chills, Denies fever(s) and Denies poor appetite Eyes: Eyes: Denies eye discharge, Denies loss of vision, Denies eye pain and Denies photophobia ENT: Denies dizziness, Denies epistaxis, Denies nasal congestion and Denies sore throat Cardiovascular: Cardiovascular: Reports chest pain, Denies syncope, Reports pedal edema, Reports leg edema, Reports palpitations, Reports dyspnea, Reports dyspnea on exertion and Denies orthopnea Respiratory: Respiratory: Denies cough, Reports dyspnea, Reports dyspnea on exertion and Denies wheezing Gastrointestinal: Gastrointestinal: Denies abdominal pain, Denies diarrhea, Denies nausea and Denies vomiting Genitourinary: Genitourinary: Denies hematuria, Denies genital lesions and Denies dysuria Musculoskeletal: Musculoskeletal: Denies arthralgias, Denies joint swelling and Denies numbness Integumentary/Breasts: Skin/Breast: Denies pruritus and Denies rash Neurologic: Denies dizziness, Denies syncope, Denies loss of vision and Denies numbness Psychiatric: Psychiatric: Denies anxiety and Denies depression Endocrine: Endocrine: Denies cold intolerance, Denies heat intolerance and Reports palpitations Hematologic/Lymphatic: Hematologic/Lymphatic: Denies easy bleeding and Denies easy
--- NOTE | 2020-06-25 13:43 | PM.DS ---
DS: Admitting Diagnosis Admitting Diagnosis Admitting Diagnosis: acute respiratory failure, cHF exacerbation DS: Discharge Diagnosis Discharge Diagnosis (1) Acute respiratory failure with hypoxia and hypercarbia: Code(s): J96.01 - Acute respiratory failure with hypoxia; J96.02 - Acute respiratory failure with hypercapnia Status: Acute (2) Acute exacerbation of congestive heart failure: Code(s): I50.9 - Heart failure, unspecified Status: Acute (3) Obstructive sleep apnea: Code(s): G47.33 - Obstructive sleep apnea (adult) (pediatric) Status: Acute (4) Insulin dependent type 2 diabetes mellitus, uncontrolled: Code(s): E11.65 - Type 2 diabetes mellitus with hyperglycemia; Z79.4 - intermediate designer (current) use of insulin Status: Acute (5) Paroxysmal atrial fibrillation: Code(s): I48.0 - Paroxysmal atrial fibrillation Status: Acute (6) Atrial fibrillation with RVR: Code(s): I48.91 - Unspecified atrial fibrillation Status: Acute DS: Summary Hospital Course Hospital Course: Patient is a 69-year-old male with the past medical history of respiratory failure on 3 L at home, CHF, sleep apnea (on trilogy), diabetes, and AFib who presented emergency room for generalized malaise. weakness and shortness of breath. Vitals in the ER temp 36.7, pulse 139, RR 20, bp 85/57, pulse ox 92 on home 3L. He was found to be in afib RVR and was cardioverted in the ER. Initial wbc 10.7, hgb 10.2, hct 35.9, platlets 268. lactic 1.2, trop neg x 3. CXR showed CHF exacerbation. His initial abg showed significant CO2 retention with a pH of 7.186, pCO2 99.5, bicarb 36.8. Patient was placed on BiPAP with a pulmonology consult.He also saw carediology while he was here and his medications were adjusted. At the beginning of his stay he required an amiodarone drip to control his rate which was transitioned to oral eventually when his HR improved. His respiratory state improved with bipap as well. The day of discharge he was on his home o2 and when he sleeps he uses the bipap. The pt was very weak during his stay and requires PT. Because of his need for bipap and his respiratory failure and heart failure, he was accepted to LTAC. As for his DM, His A1c was 10.8 and takes 15u of aspart TID as well as tresiba 60u HS. While he was here this was decreased due to his diet being more controlled but he did run high. At discharge he was placed back on his home insulin but I have asked the facility to adjust this as needed depending on his glucoses at their facility. Cardiology placed the pt on amiodarone 200mg daily as well as lasix 40mg daily. Pt will need a repeat BMP to assess kidney function and potassium and I have asked the facility to check this. He also needs a TSH in 6 weeks. An order for bipap at their facility was given as such: AVAPS-AE rate of 20, tidal volume 550, EPAP minimum 5, EPAP maximum 15, pressure support minimum 4, pressure support maximum 24, pressure maximum 35, rise time 3, with 4 Liters bleed in. He will be continued on rivaroxaban. All in all, the pt was improved the day of discharge. Both cardiology and pulmonology approved discharge to LTAC. Pt has many chronic co-morbidies that make him high risk for readmission but was discharged in stable, but guarded, condition 06/25/20. Status at Discharge Overall status at discharge: patient is progressing back to baseline Time Spent with Patient Time attestation: Total time spent providing and/or coordinating discharge services:45 min Time spent: Greater than 30 minutes Exam Narrative: Exam Narrative: General: Overweight pt resting in bed in NAD HEENT: normocephalic Neck: supple Neuro: Alert and oriented x4 CV:RRR. tele showing NSR, no afib. Resp:Crackles bilaterally, no wheezing or rhonchi Abd: Soft, non distended. No pain to palpation. Positive bowel sounds Extremities: Mild lower extremity swelling with no significant erythema or pain to palpation.
[2020-06-25] MEDS: RIVAROXABAN 20 MG TABLET PO (15:57)
[2020-06-25 17:44] LABS: Glucose Point of Care 320 (65-105)
[2020-06-25 18:55] LABS: SARS-CoV-2 RNA PCR Negative
[2020-06-25] MEDS: traZODone HCL 50 MG TABLET 100 MG PO (20:53)
[2020-06-25] MEDS: carvediloL 12.5 MG TABLET PO (20:53)
[2020-06-25] MEDS: ATORVASTATIN 40 MG TABLET PO (20:53)
[2020-06-25] MEDS: CYCLOBENZAPRINE HCL 5 MG TABLET PO (21:00)
== END 2020-06-25 22:01 | DRG 291 ==
LOC: ANHED 15:17 → ANHIMU 16:13 → ANH2MED 06-25 07:12 → ANHIMU 06-27 11:53
PROVIDERS: Internal Medicine; Internal Medicine Pulmonary Disease; Nurse Practitioner; Physician Assistant; Admitting Provider Hospitalist; Emergency Provider Emergency Medicine; PCP Family Medicine; Visit Provider Physician Assistant
DX: I11.0 Hypertensive heart disease with heart failure (principal); J96.21 Acute and chronic respiratory failure with hypoxia; J96.22 Acute and chronic respiratory failure with hypercapnia; Z68.42 Body mass index [BMI] 45.0-49.9, adult; E66.2 Morbid (severe) obesity with alveolar hypoventilation; Z20.822 Contact with and (suspected) exposure to COVID-19; I48.0 Paroxysmal atrial fibrillation; I50.33 Acute on chronic diastolic (congestive) heart failure; D64.9 Anemia, unspecified; I95.9 Hypotension, unspecified; E11.65 Type 2 diabetes mellitus with hyperglycemia; E11.42 Type 2 diabetes mellitus with diabetic polyneuropathy; E11.51 Type 2 diabetes mellitus with diabetic peripheral angiopathy without gangrene; J45.40 Moderate persistent asthma, uncomplicated; J44.9 Chronic obstructive pulmonary disease, unspecified; I25.10 Atherosclerotic heart disease of native coronary artery without angina pectoris; K21.9 Gastro-esophageal reflux disease without esophagitis; E78.5 Hyperlipidemia, unspecified; N40.0 Benign prostatic hyperplasia without lower urinary tract symptoms; I25.2 Old myocardial infarction; Z95.5 Presence of coronary angioplasty implant and graft; Z79.01 Long term (current) use of anticoagulants; Z79.4 Long term (current) use of insulin; Z79.899 Other long term (current) drug therapy; Z99.89 Dependence on other enabling machines and devices
CPT/HCPCS: 36415; 36600; 71045; 80048; 80053; 82375; 82805; 82948; 83036; 83050; 83605; 83735; 83880; 84439; 84443; 84480; 84484; 85025; 85027; 85610; 85730; 87040; 92960; 93005; 93970; 94002; 94003; 94762; 96361; 96365; 96375; 97110; 97161; 97166; 97530; 99291; A9270; C9803; J0282; J1815; J1940; J3475; J7030; U0003; U0005

== ENCOUNTER 2020-08-04 17:45 | Inpatient (IN) | payer MEDICARE, MEDICAID, SELFPAY ==
[2020-08-04] VITALS (9 sets, daily range): BP systolic 73–95; BP diastolic 42–68; PULSE 58–98; RESP 18–25; TEMP 36.4–36.8; O2SAT 95–98
--- NOTE | ~2020-08-04 | XR_ITS ---
EXAMINATION: XR chest 1V portable DATE: 08/06/2020 06:06 INDICATION: Congestive heart failure TECHNIQUE: frontal view of the chest was obtained. COMPARISON: Chest radiograph dated 08/04/2020 FINDINGS: Small lung volumes. Cardiomegaly with pulmonary vascular congestion. Opacities at the bilateral lower lung zones. No pneumothorax. Visualized bones and soft tissues are unremarkable. IMPRESSION: 1. Small lung volumes with opacities in the bilateral lower lung zones which could represent atelecta sis, pneumonia, small bilateral pleural effusions or some combination thereof. 2. Cardiomegaly with pulmonary vascular congestion. Reviewed, dictated and finalized at location A. IMPRESSION: 1. Small lung volumes with opacities in the bilateral lower lung zones which co uld represent atelectasis, pneumonia, small bilateral pleural effusions or some combination thereof. 2. Cardiomegaly with pulmonary vascular congestion.
--- NOTE | ~2020-08-04 | XR_ITS ---
XR chest 1V portable DATE: 08/04/2020 18:15 INDICATION: Low oxygen saturation, hypotension. Weakness. TECHNIQUE: Portable AP chest on 08/04/2020 at 1818 hours COMPARISON: 06/25/2020 portable AP chest FINDINGS: There is cardiomegaly. Pulmonary vascular congestion or redistribution. There are pleural e ffusions, right greater than left. There are bilateral pulmonary infiltrates which are more prominent centrally and in the lower lung zo alvin which may be due to pulmonary edema. Pneumonia is not excluded. Diffuse osteopenia. Degenerative spurring of the thoracic spine. IMPRESSION: Congestive heart failure, probable pulmonary edema. Pneumonia is not excluded Reviewed, dictated and finalized at location A. IMPRESSION: Congestive heart failure, probable pulmonary edema. Pneumonia is no t excluded
--- NOTE | 2020-08-04 18:00 | ECG_ITS ---
Measurements Intervals [place] Rate: 59 P: 40 MT: 163 QRS: 12 QRSD: 93 T: 24 QT: 409 QTc: 406 Interpretive Statements SINUS BRADYCARDIA EARLY PRECORDIAL R/S TRANSITION BORDERLINE ST-T WAVE ABNORMALITY- INF/HIGH LAT LEADS BASELINE ARTIFACT- I, II, AVR, AVL, AVF, V1, V3-V6 BORDERLINE ECG Electronically Signed On 08-04-2020 19:31:18 CDT by Gabriel Freed D.O.
[2020-08-04 19:01] LABS: Basophils Percent Auto 0.3 % (0.2-1.2); Eosinophils Percent Auto 0.3 % (0-4.4); Hemoglobin 9.9 g/dL (14.0-18.0); Immature Granulocyte Absolute 0.16 K/mm3 (0.00-0.031); Immature Granulocyte Percent A 1.1 % (0-0.5); Mean Corpuscular HGB Conc 29.1 g/dl (32-36); Mean Corpuscular Hemoglobin 25.8 pg (26-34); Mean Corpuscular Volume 88.8 fl (80-100); Mean Platelet Volume 11.4 fl (7.4-10.4); Monocytes Absolute Auto 1.1 K/mm3 (0.1-0.6); Monocytes Percent Auto 7.6 % (2.6-8.5); Neutrophils Absolute Auto 12.9 K/mm3 (1.3-6.7); Neutrophils Percent Auto 86.7 % (45.5-73.1); Platelet Count Result 214 k/mm3 (150-375); Red Blood Count 3.83 M/mm3 (4.6-6.20); Red Cell Distribution Width 16.9 % (11.5-14.5); White Blood Count 14.9 K/mm3 (4.5-10.0)
[2020-08-04 19:10] LABS: Lactic Acid Reflex 1.1 mmol/L (0.7-2.1)
[2020-08-04 19:11] LABS: Alanine Aminotransferase 9 U/L (4-50); Albumin Level 3.2 g/dL (3.5-5.1); Alkaline Phosphatase 68 U/L (38-126); Anion Gap 8 mmol/L (8-16); Aspartate Amino Transferase 19 U/L (17-59); Bilirubin,Total 0.7 mg/dL (0.2-1.3); Blood Urea Nitrogen 41 mg/dL (9-20); Calcium 7.7 mg/dL (8.4-10.2); Carbon Dioxide 29 mmol/L (22-30); Chloride 99 mmol/L (98-107); Estimated CRCL calculation 46 ml/min; Estimated Glomerular Filt Rate 32; Glucose 176 mg/dL (75-110); Sodium 136 mmol/L (137-145)
[2020-08-04 19:13] LABS: Platelet Estimate Adequate (Adequate)
[2020-08-04 19:14] LABS: Anisocytosis 2+ (NORMAL); Hypochromasia 1+ (NORMAL)
[2020-08-04] MEDS: HYDROcodone/acetaminophen (*CRX) 5-325 MG TABLET 1 TAB PO (19:33)
[2020-08-04 19:50] LABS: NT Pro B Type Natriuretic Pept 1290 pg/mL (5-100); Troponin I < 0.012 ng/mL (0.000-0.034)
--- NOTE | 2020-08-04 19:58 | ED.WEAKNESS ---
HPI - Weakness General Chief complaint: Weakness Stated complaint: weakness Time Seen by Provider: 08/04/20 18:59 History of Present Illness HPI Narrative: Patient is a 69-year-old male who presents ER with weakness. Patient reports he was discharged from [facility] days ago. Home health was out today and called EMS due to him feeling weak over the last 2 days. Patient denies any fevers or chills or sweats. He has had no productive cough. He has chronic shortness of breath and wears 3 L of oxygen at all times. Reports compliance with home medications. No nausea/vomiting/chest pain. Patient does report he has had some achiness in his legs since he is arrived here and would like some pain medication for that. Related Data Home Medications Medication Instructions Recorded Confirmed potassium chloride [Klor-Con M20] 20 meq PO DAILY 02/28/19 08/04/20 atorvastatin 40 mg PO HS 03/14/20 08/04/20 cyclobenzaprine 5 mg PO HS 03/14/20 08/04/20 isosorbide mononitrate 60 mg PO DAILY 03/14/20 08/04/20 pantoprazole 40 mg PO BID 03/14/20 08/04/20 pregabalin 50 mg PO TID 03/14/20 08/04/20 tamsulosin 0.4 mg PO DAILY 03/14/20 08/04/20 trazodone 100 mg PO HS 03/14/20 08/04/20 Saccharomyces boulardii 250 mg 250 mg PO . daily ea 08/02/20 08/04/20 oral powder packet albuterol sulfate 2.5 mg INHALATION Q6H PRN 08/02/20 08/04/20 aspirin 81 mg tablet,delayed 81 mg PO DAILY 08/02/20 08/04/20 release ferrous sulfate 325 mg (65 mg 325 mg PO DAILY 08/02/20 08/04/20 iron) tablet insulin aspart 30 unit SUBCUT TID ml 08/02/20 08/04/20 (niacinamide)(U-100) 100 unit/mL(3 mL) subcutaneous pen insulin degludec 200 unit/mL (3 100 unit SUBCUT HS ml 08/02/20 08/04/20 mL) subcutaneous pen nitroglycerin 0.4 mg sublingual 0.4 mg SUBLINGUAL Q5M PRN 08/02/20 08/04/20 tablet polyethylene glycol 3350 17 gram 17 g PO DAILY PRN 08/02/20 08/04/20 oral powder packet umeclidinium 62.5 mcg/actuation 1 inh INHALATION DAILY 08/02/20 08/04/20 blister powder for inhalation apixaban [Eliquis] 5 mg PO DAILY 08/04/20 08/04/20 carvedilol 25 mg PO DAILY 08/04/20 08/04/20 fluoxetine 20 mg PO DAILY 08/04/20 08/04/20 Allergies Allergy/AdvReac Type Severity Reaction Status Date / Time clindamycin Allergy Severe Anaphylaxis Verified 08/04/20 18:09 Iodinated Contrast Media Allergy Severe Hives/RED Verified 08/04/20 18:09 FACE latex Allergy Intermediate Swelling Verified 08/04/20 18:09 Gadolinium-Containing Allergy Mild Rash Verified 08/04/20 18:09 Contrast Medi iodine Allergy Mild RASH Verified 08/04/20 18:09 erythromycin base AdvReac Mild NAUSEA Verified 08/04/20 18:09 Contrast Media Allergy Severe Hives / Uncoded 08/04/20 18:09 Red Face Review of Systems Review of Systems: All systems reviewed & are unremarkable except as noted in HPI and below Constitutional: Constitutional: Denies chills, Reports fatigue, Denies fever(s) and Reports weakness ENT: Denies nasal congestion and Denies sore throat Cardiovascular: Cardiovascular: Denies chest pain, Denies rapid heart rate and Denies radiating jaw, neck or arm pain Respiratory: Respiratory: Denies cough, Reports dyspnea and Denies wheezing Gastrointestinal: Gastrointestinal: Denies abdominal pain, Denies nausea and Denies vomiting [facility] Past Medical History Medical History (Updated 08/05/20 @ 06:28 by Michael Keene MD) Anxiety Arthritis Asthma Benign prostatic hyperplasia Chronic anemia Chronic bilateral low back pain Chronic constipation Chronic depression Chronic neck pain Congestive heart failure Coronary artery disease involving elem coronary artery of elem heart without angina pectoris Status post [place] with stents in 2003. Degenerative disc disease Depression Diabetic peripheral neuropathy Diaphragmatic paralysis Diverticulitis Essential (primary) hypertension Fibromyalgia Gastroesophageal reflux disease Gout Herniated disc Hyperlipidemia Hy
[2020-08-04 20:48] LABS: Alveolar/Arterial O2 Gradient 58.9 mmHg; Base Excess ABG 0.1 mEq/l (+/-2.0); Fractional Inspired Oxygen 32 %; HCO3 ABG 29.8 mEq/l (22.0-26.0); Methemoglobin ABG 0.3 %THb (0-1.5); Oxygen Content ABG 15.2 %vol (16.0-22.0); Oxygen Saturation ABG 92.1 % (95.0-100.0); PO2 ABG 78.2 mmHg (80.0-100.0); PO2 FiO2 Ratio Arterial Blood 2.44 %; Reduced Hemoglobin 6.7 %THb (0-5.0); Total Hemoglobin 11.7 g/dL (12.0-18.0)
[2020-08-04 20:49] LABS: PCO2 ABG 77.8 mmHg (35.0-45.0); Site Drawn RIGHT RADIAL; pH ABG 7.201 (7.350-7.450)
[2020-08-04 20:50] LABS: Device NASAL CANNULA; Modified Allen's Test Pass
[2020-08-04] MEDS: FUROSEMIDE INJ 40 MG/4 ML VIAL IV PUSH (21:42)
--- NOTE | 2020-08-04 22:00 | PC.NURSE ---
PT BLOOD PRESSURE 84/48 MANUAL. PT ALERT AND ORIENTED. DR TRIANA NOTIFIED. NO NEW ORDERS. OK FOR PT TO GO TO THE FLOOR.
--- NOTE | 2020-08-04 22:18 | ADMGEN ---
This patient, Nolan Onofre Jr., was admitted to IMU Room 212-01. Patient/family oriented to hospital policies and general routines including ID bracelet, bed and alarms, visiting hours, pain management, procedures, bathroom and other care routines, personal items, smoking policy, room service/diet, and visiting hours. Information on how to activate the Rapid Response Team has been discussed. Patient/Family are encouraged to report perceived risks to care and to ask questions if they do not understand what they are told or what they should do.
--- NOTE | 2020-08-04 23:35 | PM.IMHP ---
H&P: HPI History of Present Illness Date/Time: 08/04/20 23:35 Chief Complaint: weakness Narrative: Patient is a 69-year-old male who was recently discharged from [facility] long-term care about 6 days ago, was seen home health. Prior to that was here in this hospital with congestive heart failure on chronic BiPAP. Home health nurse was about to see him today and was noted to be very weak and EMS was called. Upon presentation he reported no fever chills or sweating no productive cough. He reports his chronic shortness of breath and uses 3 L of oxygen all the time and also BiPAP. It isn't clear whether he has been using BiPAP at home. He does did report compliance with more home medication herniated to the ED doc as noted in the chart. Upon evaluation in the ER he was noted to be hypotensive and had acute on chronic respiratory acidosis with pH of 7.2 on initial evaluation with pCO2 of 77. He was put on a BiPAP. Chest x-ray showed congestive changes and hence was given a dose of Lasix. His blood pressure did improve after the treatment. He is also noted to have acute kidney injury with creatinine of 2.1. He was then admitted for further evaluation and management. He is currently somnolent and not able to answer my questions he does answer what his name is but remains on the BiPAP with lowest blood pressure. I tried to contact his next a cane however was not able to get hold of him. As per my conversation with the ED doctor earlier today he had mentioned he does not want to be resuscitated. He had also discussed about central line to aid in his care and also stated he would not allow any invasive tests on him. When I ask him about central line, he does nod his head and says no. Review of Systems Review of Systems: ROS unobtainable: Yes unobtainable due to medical condition [facility] Past Medical History Medical History (Updated 08/02/20 @ 14:19 by Ren Lu MD) Anxiety Arthritis Asthma Benign prostatic hyperplasia Chronic anemia Chronic bilateral low back pain Chronic constipation Chronic depression Chronic neck pain Congestive heart failure Coronary artery disease involving [place] coronary artery of [place] heart without angina pectoris Status post [place] with stents in 2003. Degenerative disc disease Depression Diabetic peripheral neuropathy Diaphragmatic paralysis Diverticulitis Essential (primary) hypertension Fibromyalgia Gastroesophageal reflux disease Gout Herniated disc Hyperlipidemia Hypertension Hypothyroidism Insulin dependent type 2 diabetes mellitus, uncontrolled Kidney stones Malignant melanoma Moderate persistent asthma, uncomplicated Morbid obesity Myocardial infarction x2 Obstructive sleep apnea Patient uses a trilogy unit. Paroxysmal atrial fibrillation Peripheral vascular disease Rectal polyp Shingles Spinal stenosis Transient ischemic attack Surgical History Surgical History History of cardiac catheterization Stent x1 in 2003. History of inguinal hernia repair History of lithotripsy History of removal of neck cyst History of tonsillectomy Family History Family History Father Cancer Lung cancer he at the age of 52. Mother Acute myocardial infarction She during surgery after having a massive heart attack. Social History Social History Social History: The patient is as of June 2014 and lives alone in [place]. He has 1 child. Retired and now on disability. He has home health that comes in daily. No alcohol, tobacco, or illicit substance use. He designates his friend, Jossue Espinosa, as his surrogate decision maker. He wishes to be a do not resuscitate. Smoking status: Unknown if ever smoked Gender identity (if verbalized by the patient): Male Spiritual care concerns: No
--- NOTE | 2020-08-04 23:37 | PC.NURSE ---
patient is unable to answer questions at this time. patient extremely lethargic and has intermittent confusion. dr torres is aware, he has been informed of patients current blood pressure. attempted to call salesperson w[employer] with no answer.
[2020-08-05] VITALS (20 sets, daily range): BP systolic 76–136; BP diastolic 45–88; PULSE 53–79; RESP 18–31; TEMP 36.4–37.1; O2SAT 91–99; BMI 46.0
--- NOTE | 2020-08-05 | ECHO_ITS ---
Patient Info Name: Nolan Onofre Age: 69 years : 1950 Gender: Male Ht: 73 in Wt: 348 lbs BSA: 2.93 m2 HR: 62 bpm BP: 113 / 48 mmHg Heart Rhythm: Sinus Rhythm Technical Quality: Good Exam Date: 08/05/2020 2:47 PM Exam Location: [facility] Patient Status: Inpatient Admit Date: 08/05/2020 Staff Ordering Physician: Luis Chen MD Maintenance Custodian: Ney Pantoja, RDCS, RT Attending Provider: Spenser Rodriguez MD Referring Physician: April ROACH; Exam Type: CA echo doppler color flow Study Info Indications I50.9 - Heart failure, unspecified Complete two-dimensional, color flow and Doppler transthoracic echocardiogram is performed. Summary 1. Complete two-dimensional, color flow and Doppler transthoracic echocardiogram is performed. 2. Left ventricular chamber dimension is mildly enlarged. 3. Left ventricular systolic function is normal, estimated at 55-60%. 4. There is mildly increased left ventricular wall thickness. 5. The left ventricular diastolic function is normal. 6. Right ventricular chamber dimension is mildly enlarged. 7. Left atrial chamber dimension is mildly enlarged. 8. The mitral valve has thickened leaflets. 9. There is mild aortic valve sclerosis. Left Ventricle Left ventricular chamber dimension is mildly enlarged. Left ventricular systolic function is normal, estimated at 55-60%. There is mildly increased left ventricular wall thickness. The left ventricular diastolic function is normal. Right Ventricle Right ventricular chamber dimension is mildly enlarged. Right ventricular systolic function is normal. Left Atria Left atrial chamber dimension is mildly enlarged. Right Atria Right atrial chamber dimension is normal. Atrial Septum Intact interatrial septum visualized by color flow imaging. Aortic Valve The aortic valve is trileaflet. There is mild aortic valve sclerosis. There is no aortic valve stenosis. There is trace aortic valve regurgitation. Pulmonic Valve The pulmonic valve is normal. There is no pulmonic valve stenosis. There is trace pulmonic regurgitation. Mitral Valve The mitral valve has thickened leaflets. There is no mitral valve stenosis. There is trace mitral valve regurgitation. Tricuspid Valve The tricuspid valve leaflets are normal. There is no significant tricuspid valve stenosis. There is trace tricuspid valve regurgitation. Pericardium/Pleural The pericardium appears normal. There is no pericardial effusion. Inferior Vena Cava Normal inferior vena cava with >50% collapse upon inspiration consistent with normal right atrial pressure, 5 mmHg. Aorta The aortic root size at the sinus of Valsalva is normal. The prox ascending aorta size is normal. Left Ventricular Outflow Tract Name Value Normal LVOT 2D LVOT Diameter 2.1 cm LVOT Doppler LVOT Peak Gradient 4 mmHg LVOT Mean Gradient 2 mmHg LVOT VTI 21 cm LVOT VTI/AV VTI Ratio 0.8 LVOT Stroke Volume
[2020-08-05 01:48] LABS: Base Excess ABG 1.1 mEq/l (+/-2.0); Fractional Inspired Oxygen 30 %; HCO3 ABG 30.6 mEq/l (22.0-26.0); Oxygen Content ABG 15.1 %vol (16.0-22.0); Oxygen Saturation ABG 93.6 % (95.0-100.0); Oxyhemoglobin 93.8 % THb (90.0-100.0); PO2 ABG 83.8 mmHg (80.0-100.0); PO2 FiO2 Ratio Arterial Blood 2.79 %; Total Hemoglobin 11.4 g/dL (12.0-18.0)
[2020-08-05 01:49] LABS: pH ABG 7.214 (7.350-7.450)
[2020-08-05 01:50] LABS: Device NON-INVASIVE VENT; Modified Allen's Test Unable to perform; PCO2 ABG 77.5 mmHg (35.0-45.0); Site Drawn RIGHT RADIAL
[2020-08-05 01:51] LABS: Non-Invasive Expiratory Pressure 8 CMH2O; Non-Invasive Inspiratory Pressure 16 CMH2O; Non-Invasive Vent Rate 14 /MIN
--- NOTE | 2020-08-05 04:11 | PC.NURSE ---
patient to lethargic to take oral medication at this time. dr melissa alston.
[2020-08-05 04:31] LABS: Alveolar/Arterial O2 Gradient 43.8 mmHg; Base Excess ABG 0.9 mEq/l (+/-2.0); Carboxyhemoglobin 0.4 % THb (0-2.0); Fractional Inspired Oxygen 30 %; HCO3 ABG 29.6 mEq/l (22.0-26.0); Methemoglobin ABG 0.2 %THb (0-1.5); Oxygen Content ABG 15.3 %vol (16.0-22.0); Oxyhemoglobin 94.7 % THb (90.0-100.0); PO2 ABG 88.3 mmHg (80.0-100.0); PO2 FiO2 Ratio Arterial Blood 2.94 %; Reduced Hemoglobin 4.7 %THb (0-5.0); Total Hemoglobin 11.4 g/dL (12.0-18.0); pH ABG 7.246 (7.350-7.450)
[2020-08-05 04:32] LABS: Device NON-INVASIVE VENT; Modified Allen's Test Pass; Non-Invasive Expiratory Pressure 8 CMH2O; Non-Invasive Inspiratory Pressure 20 CMH2O; Non-Invasive Vent Rate 14 /MIN; PCO2 ABG 69.6 mmHg (35.0-45.0); Site Drawn RIGHT RADIAL
[2020-08-05] MEDS: UMECLIDINIUM BROMIDE 62.5 MCG ELLIPTA 1 PUFF INHALATION (08:34)
[2020-08-05] MEDS: AMIODARONE HCL 200 MG TABLET PO (09:19)
[2020-08-05] MEDS: FERROUS SULFATE 324 MG TABLET PO (09:19)
[2020-08-05] MEDS: ASPIRIN 81 MG ENTERIC TABLET PO (09:20)
[2020-08-05] MEDS: PANTOPRAZOLE 40 MG TABLET PO ×2 (09:20→17:37)
[2020-08-05] MEDS: PREGABALIN (*CRX) 50 MG CAPSULE PO ×3 (09:20→17:37)
[2020-08-05] MEDS: POTASSIUM CHLORIDE 20 MEQ TABLET.ER PO (09:20)
[2020-08-05] MEDS: FUROSEMIDE INJ 40 MG/4 ML VIAL IV PUSH ×2 (09:20→22:03)
[2020-08-05] MEDS: PRAMIPEXOLE 1 MG TABLET PO ×2 (09:20→17:37)
[2020-08-05] MEDS: TAMSULOSIN HCL 0.4 MG CAPSULE PO (09:20)
[2020-08-05] MEDS: DULoxetine HCL 60 MG CAPSULE.DR PO (09:20)
[2020-08-05] MEDS: SACCHAROMYCES BOULARDII 250 MG CAPSULE PO (09:20)
[2020-08-05] MEDS: MICONAZOLE NITRATE 2% CREAM 30 GM TUBE 1 APPLIC TOPICAL (09:21)
[2020-08-05 10:45] LABS: Glucose Point of Care 168 mg/dl (65-105)
--- NOTE | 2020-08-05 10:46 | PM.CNPUL ---
Assessment and Plan Assessment and plan (1) Acute respiratory failure with hypoxia and hypercarbia: Code(s): J96.01 - Acute respiratory failure with hypoxia; J96.02 - Acute respiratory failure with hypercapnia Status: Acute Assessment and Plan: Patient with a history of chronic hypoxemic and hypercarbic respiratory failure from multiple conditions including morbid obesity, possible asthma/COPD (never smoker), obstructive sleep apnea, CHF, elevated right hemidiaphram (seen on 10/04/2007 CT of abdomen) and alveolar hypoventilation syndrome. Patient is a never smoker and I do not believe he has COPD. Last admission he was off all inhaled medications and was breathing at his baseline. I do believe the patient has alveolar hypoventilation syndrome, possible obstructive sleep apnea, fluid overload and a chronically elevated right hemidiaphragm. 08/05 patient is currently off his BiPAP for 1 hour and states that he is breathing back at his baseline. He denies fever, chills, cough, phlegm, wheezing. Patient did have leukocytosis and I will continue ceftriaxone and azithromycin pending culture results. I will discontinue patient's incruse inhaler at this time and follow him clinically. I will obtain a download from his [employer] to determine his compliance and settings. Will follow with you. History of Present Illness History of Present Illness Consult date: 08/05/20 Requesting physician: Loire Garcia MD Reason for consult: other (respiratory failure) Chief complaint: chf exacerbation, acute respiratory failure Narrative: Patient with a history of chronic hypoxemic and hypercarbic respiratory failure from multiple conditions including morbid obesity, possible asthma/COPD (never smoker), obstructive sleep apnea, CHF, elevated right hemidiaphram (seen on 10/04/2007 CT of abdomen) and alveolar hypoventilation syndrome. patient is maintained on 3 L nasal cannula oxygen at rest and with ambulation and a trilogy noninvasive ventilator at night with 3 L nasal cannula bleed in prior to his admission from 06/19/20 to 06/25/20. He was discharged to [facility] rehab on AVAPS-AE rate of 20, tidal volume 550, EPAP minimum 5, EPAP maximum 15, pressure support minimum 4, pressure support maximum 24, pressure maximum 35, rise time 3, with 4 Liters bleed in (I have arranged for these changes on 06/24) his blood gas at the end of the night on these settings was a pH of 7.34/81/76. He should use full face under nose style (dreamwear) until bridge of nose heals then return to full face mask if desired. patient states that he went to [facility] and was there for 2 weeks in which he improved. Patient was walking up to 300 ft with a walker and he was down to 1 L oxygen during the day and BiPAP at night. He was discharged home to his apartment with [facility] providing his nocturnal noninvasive ventilator. He tells me that he was wearing his noninvasive ventilator at home. Patient has minimal recollection of why he was brought to the hospital on 08/04 but the chart indicates he presented with weakness. His blood gas was 7.20/78/78 on 3 L nasal cannula. His white blood cell count was 14.9 and his chest x-ray demonstrated a chronically elevated right hemidiaphragm with possible congestion. Patient was started on ceftriaxone and azithromycin for possible pneumonia, Lasix 40 b.i.d. and increase inhaler. 08/05 patient is currently off his BiPAP for 1 hour and states that he is breathing back at his baseline. He denies fever, chills, cough, phlegm, wheezing. Review of Systems Review of Systems: All systems reviewed & are unremarkable except as noted in HPI and below Eyes: Eyes: Reports no additional eye complaints ENT: Reports system reviewed and no additional complaints, except as documented Cardiovascular: Cardiovascular: Reports no additional cardiovascular complaints Respiratory: Respiratory: Reports no additional respiratory co
--- NOTE | 2020-08-05 12:40 | PM.CNCAR ---
Assessment and Plan Assessment and plan (1) Congestive heart failure: Code(s): I50.9 - Heart failure, unspecified Status: Acute Assessment and Plan: Likely acute on chronic diastolic heart failure. Will repeat a 2D echocardiogram with Doppler. Continue his IV furosemide for another 24 hours but will reduce it to once daily starting tomorrow. Check a BMP tomorrow. I/os and daily weights. Uncertain as to the etiology. Possibly related to dietary noncompliance. Repeat portable chest x-ray tomorrow. (2) Paroxysmal atrial fibrillation: Code(s): I48.0 - Paroxysmal atrial fibrillation Status: Acute Assessment and Plan: On anticoagulation and sinus rhythm. Continue anticoagulation (3) Acute and chronic respiratory failure: Code(s): J96.20 - Acute and chronic respiratory failure, unspecified whether with hypoxia or hypercapnia Status: Acute Assessment and Plan: ? Use of BiPAP appropriately. CO2 significantly elevated upon presentation. Pulmonology following (4) NEPTALI on CPAP: Code(s): G47.33 - Obstructive sleep apnea (adult) (pediatric); Z99.89 - Dependence on other enabling machines and devices Status: Chronic Assessment and Plan: Pulmonology on board (5) Essential (primary) hypertension: Code(s): I10 - Essential (primary) hypertension Status: Acute Assessment and Plan: hypotensive earlier today. Blood pressure has improved. (6) JENS (acute kidney injury): Code(s): N17.9 - Acute kidney failure, unspecified Status: Acute Assessment and Plan: Repeat a basic metabolic panel tomorrow. He also complains of buttock pain. Will consult wound care. White count was elevated upon presentation. Will also check a UA History of Present Illness History of Present Illness Consult date/time: 08/05/20 12:40 Requesting physician: Spenser Rodriguez MD Consult reason: congestive heart failure Reason For Visit: chf exacerbation, acute respiratory failure Narrative: Date of service 08/05/2020: Patient is a 69-year-old patient of mine who does have a history of diastolic heart failure. He also has a multitude of other health problems including morbid obesity, hypoventilation syndrome, CAD, elevated hemidiaphragm, COPD. He has been at [facility] up until recently where he was discharged to home. Home health nurse noticed that he was very weak and had altered mental status. He was therefore admitted to the hospital because of these changes and he was noted to have a pH of 7.2 and a CO2 of 77. He was started on BiPAP and chest x-ray showed congestive changes in started on Lasix. Creatinine was elevated of 2.1. Patient states that he does not really remember what happened yesterday. He was very somnolent whenever he arrived in the emergency department. He denies any chest pain, syncope, presyncope, paroxysmal nocturnal dyspnea, orthopnea, significant palpitations. He thinks that his swelling is better. Review of Systems Review of Systems: All systems reviewed & are unremarkable except as noted in HPI and below Constitutional: Constitutional: Reports weakness Eyes: Eyes: Denies blurry vision ENT: Reports Normal hearing present Cardiovascular: Cardiovascular: Denies chest pain Respiratory: Respiratory: Reports dyspnea Gastrointestinal: Gastrointestinal: Denies abdominal pain Genitourinary: Genitourinary: Denies dysuria and Denies urinary frequency Musculoskeletal: Musculoskeletal: Denies back pain and Denies neck pain Integumentary/Breasts: Skin/Breast: Denies dry skin Neurologic: Denies headache(s) Psychiatric: Psychiatric: Denies anxiety and Denies confusion Endocrine: Endocrine: Denies fatigue and Denies flushing Hematologic/Lymphatic: Hematologic/Lymphatic: Denies easy bleeding Allergic/Immunologic: Allergic/Immunologic: Denies GI upset with certain foods PMFSH Past Medical History [facility]
--- NOTE | 2020-08-05 14:40 | PM.IMPN ---
Progress Note: A&P Assessment and Plan (1) Chronic anemia: Code(s): D64.9 - Anemia, unspecified Status: Acute (2) Hypotension: Code(s): I95.9 - Hypotension, unspecified Status: Acute (3) Acute respiratory failure with hypoxia and hypercarbia: Code(s): J96.01 - Acute respiratory failure with hypoxia; J96.02 - Acute respiratory failure with hypercapnia Status: Acute Assessment and Plan: See plan below (4) Acute exacerbation of congestive heart failure: Code(s): I50.9 - Heart failure, unspecified Status: Acute (5) Obstructive sleep apnea: Code(s): G47.33 - Obstructive sleep apnea (adult) (pediatric) Status: Acute (6) Insulin dependent type 2 diabetes mellitus, uncontrolled: Code(s): E11.65 - Type 2 diabetes mellitus with hyperglycemia; Z79.4 - snf (current) use of insulin Status: Acute (7) Paroxysmal atrial fibrillation: Code(s): I48.0 - Paroxysmal atrial fibrillation Status: Acute (8) Gastroesophageal reflux disease: Qualifiers: Esophagitis presence: without esophagitis Qualified Code(s): K21.9 - Gastro-esophageal reflux disease without esophagitis Code(s): K21.9 - Gastro-esophageal reflux disease without esophagitis Status: Acute (9) Fibromyalgia: Code(s): M79.7 - Fibromyalgia Status: Acute (10) Chronic bilateral low back pain: Qualifiers: Sciatica presence: unspecified whether sciatica present Qualified Code(s): M54.5 - Low back pain; G89.29 - Other chronic pain Code(s): M54.5 - Low back pain; G89.29 - Other chronic pain Status: Acute (11) Chronic neck pain: Code(s): M54.2 - Cervicalgia; G89.29 - Other chronic pain Status: Acute (12) Hypothyroidism, unspecified: Qualifiers: Hypothyroidism type: acquired Qualified Code(s): E03.9 - Hypothyroidism, unspecified Code(s): E03.9 - Hypothyroidism, unspecified Status: Chronic (13) COPD (chronic obstructive pulmonary disease): Qualifiers: COPD type: unspecified COPD Qualified Code(s): J44.9 - Chronic obstructive pulmonary disease, unspecified Code(s): J44.9 - Chronic obstructive pulmonary disease, unspecified Status: Chronic (14) Coronary artery disease involving [place] coronary artery of [place] heart without angina pectoris: Code(s): I25.10 - Atherosclerotic heart disease of [place] coronary artery without angina pectoris Status: Acute Additional Plan Generalised weakness Acute encephalopathy hypotension Possible pneumonia JENS: cr 2.1 baseline 0.6 Acute on chronic congestive heart failure. Acute on chronic hypercapnic respiratory failure on trilogy at home Diabetes mellitus type 2 Paroxysmal a fib Chronic anemia Leukocytosis Hypothyroidism GERD Hyperlipidemia Hypertension Morbid obesity Obstructive sleep apnea Coronary artery disease Chronic back pain Diabetic peripheral neuropathy Depression BPH PLAN Start antibiotics for possible pneumonia with ceftriaxone and azithromycin Cardiology and pulmonary consultation Continue supportive management DVT prophylaxis PT/OT Subjective Date/time seen: 08/05/20 14:40 Interval history: 69-year-old male who was recently discharged from [facility] long-term care about 6 days ago, was seen home health. Prior to that was here in this hospital with congestive heart failure on chronic BiPAP. Pt is back to oxygen with nasal cannulae. Seen by cardiology and pulmonology. Review of Systems Review of Systems: ROS unobtainable: Yes unobtainable due to medical condition Exam Narrative: Exam Narrative: GENERAL: Chronically [id number], morbidly obese, wearing nasal cannulae HEAD: Normocephalic, atraumatic. EYES: PERRL and EOMI. ENT: Mucous membranes moist. CHEST: Clear to auscultation but diminished throughout. No respiratory distress. HEART: regular rate and
[2020-08-05 17:54] LABS: Glucose Point of Care 195 mg/dl (65-105)
[2020-08-05 20:51] LABS: Glucose Point of Care 257 mg/dl (65-105)
[2020-08-05] MEDS: ATORVASTATIN 40 MG TABLET PO (22:02)
[2020-08-05] MEDS: CYCLOBENZAPRINE HCL 5 MG TABLET PO (22:03)
[2020-08-05 22:22] LABS: Add Urine Microscopic? YES; Appearance Urine Cloudy (Clear); Bacteria Urine Trace /hpf; Bilirubin Urine Negative (Negative); Blood Urine 2+ (Negative); Color Urine Yellow (Yellow); Glucose Urine UA 1+ mg/dL (Negative); Ketones Urine Negative (Negative); Leukocyte Esterase Ur 3+ LEU/UL (Negative); Mucus Urine Rare /lpf; Nitrate Urine Negative (Negative); Protein Urine Negative (Negative); Specific Grav Ur 1.011 (1.001-1.035); Squamous Epithelial Cell Urine Few /hpf (Few); Urobilinogen Urine Negative mg/dL (<2.0); WBC Clumps Urine Present /HPF; WBC Urine 51-75 /hpf
[2020-08-06] VITALS (17 sets, daily range): BP systolic 104–125; BP diastolic 46–101; PULSE 57–72; RESP 18–25; TEMP 36.3–36.6; O2SAT 93–99
[2020-08-06 04:55] LABS: Hemoglobin 10.3 g/dL (14.0-18.0); Mean Corpuscular HGB Conc 30.3 g/dl (32-36); Mean Corpuscular Hemoglobin 26.2 pg (26-34); Mean Corpuscular Volume 86.5 fl (80-100); Mean Platelet Volume 10.4 fl (7.4-10.4); Platelet Count Result 242 k/mm3 (150-375); Red Blood Count 3.93 M/mm3 (4.6-6.20); Red Cell Distribution Width 16.8 % (11.5-14.5); White Blood Count 9.3 K/mm3 (4.5-10.0)
[2020-08-06 05:11] LABS: Anion Gap 7 mmol/L (8-16); Blood Urea Nitrogen 45 mg/dL (9-20); Calcium 8.2 mg/dL (8.4-10.2); Carbon Dioxide 35 mmol/L (22-30); Chloride 95 mmol/L (98-107); Estimated CRCL calculation 53 ml/min; Estimated Glomerular Filt Rate 32; Glucose 220 mg/dL (75-110); Potassium 4.4 mmol/L (3.4-5.0); Sodium 137 mmol/L (137-145)
[2020-08-06] MEDS: LEVOTHYROXINE SODIUM 100 MCG TABLET 200 MCG PO (06:03)
[2020-08-06 08:20] LABS: Glucose Point of Care 170 mg/dl (65-105)
[2020-08-06] MEDS: AMIODARONE HCL 200 MG TABLET PO (08:21)
[2020-08-06] MEDS: FERROUS SULFATE 324 MG TABLET PO (08:21)
[2020-08-06] MEDS: DULoxetine HCL 60 MG CAPSULE.DR PO (08:22)
[2020-08-06] MEDS: PRAMIPEXOLE 1 MG TABLET PO ×2 (08:22→17:33)
[2020-08-06] MEDS: POTASSIUM CHLORIDE 20 MEQ TABLET.ER PO (08:22)
[2020-08-06] MEDS: ASPIRIN 81 MG ENTERIC TABLET PO (08:22)
[2020-08-06] MEDS: SACCHAROMYCES BOULARDII 250 MG CAPSULE PO (08:22)
[2020-08-06] MEDS: MICONAZOLE NITRATE 2% CREAM 30 GM TUBE 1 APPLIC TOPICAL (08:22)
[2020-08-06] MEDS: FUROSEMIDE INJ 40 MG/4 ML VIAL IV PUSH (08:22)
[2020-08-06] MEDS: PREGABALIN (*CRX) 50 MG CAPSULE PO ×3 (08:22→17:33)
[2020-08-06] MEDS: PANTOPRAZOLE 40 MG TABLET PO ×2 (08:22→17:33)
[2020-08-06] MEDS: TAMSULOSIN HCL 0.4 MG CAPSULE PO (08:22)
[2020-08-06] MEDS: HYDROcodone/acetaminophen (*CRX) 5-325 MG TABLET 1 TAB PO (08:35)
--- NOTE | 2020-08-06 10:07 | PM.PNCARD ---
Progress Note: A&P Assessment and Plan (1) Congestive heart failure: Code(s): I50.9 - Heart failure, unspecified Status: Acute Assessment and Plan: Reduce furosemide to 40 mg IV once daily and transition back to oral Lasix soon. Will resume his isosorbide mononitrate 60 mg daily. Eventually resume his beta-kathie (2) Paroxysmal atrial fibrillation: Code(s): I48.0 - Paroxysmal atrial fibrillation Status: Acute Assessment and Plan: On anticoagulation and sinus rhythm. Continue anticoagulation (3) Acute and chronic respiratory failure: Code(s): J96.20 - Acute and chronic respiratory failure, unspecified whether with hypoxia or hypercapnia Status: Acute Assessment and Plan: ? Use of BiPAP appropriately. CO2 significantly elevated upon presentation. Pulmonology following (4) NEPTALI on CPAP: Code(s): G47.33 - Obstructive sleep apnea (adult) (pediatric); Z99.89 - Dependence on other enabling machines and devices Status: Chronic Assessment and Plan: Pulmonology on board (5) Essential (primary) hypertension: Code(s): I10 - Essential (primary) hypertension Status: Acute Assessment and Plan: Blood pressure has improved. (6) JENS (acute kidney injury): Code(s): N17.9 - Acute kidney failure, unspecified Status: Acute Assessment and Plan: It appears he has an underlying UTI Subjective Date/time seen: 08/06/20 10:07 Interval history: 69-year-old male who was recently discharged from [facility] long-term care about 6 days ago, was seen home health. Prior to that was here in this hospital with congestive heart failure on chronic BiPAP. Pt is back to oxygen with nasal cannulae. Date of service 08/06/2020: He feels okay today. No chest pain shortness breath. Review of Systems Review of Systems: All systems reviewed & are unremarkable except as noted in HPI and below Constitutional: Constitutional: Denies fatigue, Denies headache(s) and Reports weakness Eyes: Eyes: Denies blurry vision ENT: Reports Normal hearing present, Denies headache(s) and Denies neck pain Cardiovascular: Cardiovascular: Denies chest pain and Reports dyspnea Respiratory: Respiratory: Reports dyspnea Gastrointestinal: Gastrointestinal: Denies abdominal pain Genitourinary: Genitourinary: Denies dysuria and Denies urinary frequency Musculoskeletal: Musculoskeletal: Denies back pain and Denies neck pain Integumentary/Breasts: Skin/Breast: Denies dry skin Neurologic: Reports Normal hearing present, Denies confusion, Denies headache(s) and Reports weakness Psychiatric: Psychiatric: Denies anxiety and Denies confusion Endocrine: Endocrine: Denies fatigue and Denies flushing Hematologic/Lymphatic: Hematologic/Lymphatic: Denies easy bleeding Allergic/Immunologic: Allergic/Immunologic: Denies GI upset with certain foods Exam Narrative: Exam Narrative: Patient is awake alert oriented appears to be in no acute distress. Appears stated age Const: General: comfortable and no acute distress; No confusion Orientation/consciousness: No confusion HENMT: General nose exam: Normal nares present Eyes: Sclera: sclerae normal Neck: Neck: supple and no JVD Chest: Other: No reproducible chest wall pain to palpation Resp: Auscultation: clear to auscultation bilaterally and diminished lung sounds Cardio: Rate: regular rate Rhythm: regular rhythm GI: Inspection: normal to inspection Skin: General skin exam: normal color Neuro: General: No confusion Cranial nerves: Yes Normal hearing present Cognition (Neuro): normal cognition Speech: normal speech Extrem: General: edema (Mild right leg edema) Psych: Mental Status: mental status grossly normal Objective Data Vital Signs Vital Signs: Vital Signs - 24 hr 08/05/20 12:00 08/05/20 14:00 08/05/20 15:10 Temperature 37.1 C Pulse Rate 62 60 Respiratory Rate 20 Bloo
--- NOTE | 2020-08-06 10:35 | PM.PNPUL ---
Progress Note: A&P Assessment and Plan (1) Acute respiratory failure with hypoxia and hypercarbia: Code(s): J96.01 - Acute respiratory failure with hypoxia; J96.02 - Acute respiratory failure with hypercapnia Status: Acute Assessment and Plan: Patient with a history of chronic hypoxemic and hypercarbic respiratory failure from multiple conditions including morbid obesity, possible asthma/COPD (never smoker), obstructive sleep apnea, CHF, elevated right hemidiaphram (seen on 10/04/2007 CT of abdomen) and alveolar hypoventilation syndrome. Patient is a never smoker and I do not believe he has COPD. Last admission he was off all inhaled medications and was breathing at his baseline. I do believe the patient has alveolar hypoventilation syndrome, possible obstructive sleep apnea, fluid overload and a chronically elevated right hemidiaphragm. 08/05 patient is currently off his BiPAP for 1 hour and states that he is breathing back at his baseline. He denies fever, chills, cough, phlegm, wheezing. Patient did have leukocytosis and I will continue ceftriaxone and azithromycin pending culture results. I will discontinue patient's incruse inhaler at this time and follow him clinically. I will obtain a download from his [employer] to determine his compliance and settings. I obtained a download from the patient's [employer] company from July 22 to August 03. Patient told me he is still getting used to the machine and wears a few hours a day. Patient is using AVAPS-AE the breath rate of 20, tidal volume 550, EPAP Min 5, EPAP max 15, pressure support minimum 4, pressure support maximum 24, maximum pressure 35 rise time 3.0, inspiratory time 0.8. Patient states that he does bleed oxygen into his machine but does not know how much. Days used 12 days used greater than 4 hours 15.4%. Average use days used is 2.1 hours. Average EPAP 5.5 cm average IPAP 25.8 cm average total leak 42.9. 08/06 Patient states he is breathing back at his baseline. Wore BiPAP 20/8 last night but pressure is too high. Patient is currently on 1 L oxygen nasal cannula with saturations 96% (on 1 L at home). CXR without change in elevated R HD, bibasilar infiltrates and congestion. Afebrile and white blood cell count is 9.3. Cr 2.1. I do not think this is pneumonia and I will DC ceftriaxone and azithromycin for now. Stable off inhalers. Stable for discharge home from pulmonary perspective: When naps and sleeps at night use home AVAPS-AE breath rate of 20, tidal volume 550, EPAP Min 5, EPAP max 15, pressure support minimum 4, pressure support maximum 24, maximum pressure 35 rise time 3.0, inspiratory time 0.8. Bleed in per home unit settings. Follow up in pulmonary clinic in 2-3 weeks. If he stays in hospital tonight will place on hospital unit AVAPS mode rate 20, TV 550, EPAP 6, IPAP min 7, I PAP max 30. Will follow with you. Subjective Date/time seen: 08/06/20 10:35 Interval history: Chief complaint: chf exacerbation, acute respiratory failure Narrative: Patient with a history of chronic hypoxemic and hypercarbic respiratory failure from multiple conditions including morbid obesity, possible asthma/COPD (never smoker), obstructive sleep apnea, CHF, elevated right hemidiaphram (seen on 10/04/2007 CT of abdomen) and alveolar hypoventilation syndrome. patient is maintained on 3 L nasal cannula oxygen at rest and with ambulation and a trilogy noninvasive ventilator at night with 3 L nasal cannula bleed in prior to his admission from 06/19/20 to 06/25/20. He was discharged to [facility] rehab on AVAPS-AE rate of 20, tidal volume 550, EPAP minimum 5, EPAP maximum 15, pressure support minimum 4, pressure support maximum 24, pressure maximum 35, rise time 3, with 4 Liters bleed in (I have arranged for these changes on 06/24) his blood gas at the end of the night on these settings was a pH of 7.34/81/76. He should use full face under nose style (dreamwear) until bridge of nose hea
[2020-08-06] MEDS: INSULIN ASPART (*BKC) 100 UNITS/ML SUB-Q ×2 (12:15→17:33)
[2020-08-06 12:32] LABS: Glucose Point of Care 351 mg/dl (65-105)
[2020-08-06 16:41] LABS: Glucose Point of Care 329 mg/dl (65-105)
--- NOTE | 2020-08-06 17:07 | PM.IMPN ---
Progress Note: A&P Assessment and Plan (1) Chronic anemia: Code(s): D64.9 - Anemia, unspecified Status: Acute Assessment and Plan: 08/06/20 17:07 patient is a morbidly obese presented with a shortness of breath and atrial fibrillation with RVR an attempts was made to cardiovert the patient but was unsuccessful started the patient on amiodarone and heart rate trended patient was hypotensive, most likely multifactorial with exacerbation of COPD, exacerbation of CHF as well as hyperventilation due to morbid obesity with BMI of 53.4 patient seen by filling layer up his BiPAP is adjusted, the patient is not very comfortable using BiPAP for long-term but being try however today in terms of COPD perspective patient is doing well, patient seen by chemistry specialist suspect patient has acute on chronic diastolic congestive heart failure being diuresed patient's symptoms are improving, today patient sitting in the chair states has no complaint denies any chest pain shortness of breath fever or chills. (2) Hypotension: Code(s): I95.9 - Hypotension, unspecified Status: Acute Assessment and Plan: Patient blood pressure is soft, patient is being diuresed will closely monitor (3) Acute respiratory failure with hypoxia and hypercarbia: Code(s): J96.01 - Acute respiratory failure with hypoxia; J96.02 - Acute respiratory failure with hypercapnia Status: Acute Assessment and Plan: Plan is above See plan below (4) Acute exacerbation of congestive heart failure: Code(s): I50.9 - Heart failure, unspecified Status: Acute Assessment and Plan: Plan is above (5) Obstructive sleep apnea: Code(s): G47.33 - Obstructive sleep apnea (adult) (pediatric) Status: Acute (6) Insulin dependent type 2 diabetes mellitus, uncontrolled: Code(s): E11.65 - Type 2 diabetes mellitus with hyperglycemia; Z79.4 - halfway (current) use of insulin Status: Acute Assessment and Plan: Will continue home regimen and monitor (7) Paroxysmal atrial fibrillation: Code(s): I48.0 - Paroxysmal atrial fibrillation Status: Acute Assessment and Plan: Rate is controlled anticoagulated with Xarelto (8) Gastroesophageal reflux disease: Qualifiers: Esophagitis presence: without esophagitis Qualified Code(s): K21.9 - Gastro-esophageal reflux disease without esophagitis Code(s): K21.9 - Gastro-esophageal reflux disease without esophagitis Status: Acute Assessment and Plan: PPI (9) Fibromyalgia: Code(s): M79.7 - Fibromyalgia Status: Acute (10) Chronic bilateral low back pain: Qualifiers: Sciatica presence: unspecified whether sciatica present Qualified Code(s): M54.5 - Low back pain; G89.29 - Other chronic pain Code(s): M54.5 - Low back pain; G89.29 - Other chronic pain Status: Acute (11) Chronic neck pain: Code(s): M54.2 - Cervicalgia; G89.29 - Other chronic pain Status: Acute (12) Hypothyroidism, unspecified: Qualifiers: Hypothyroidism type: acquired Qualified Code(s): E03.9 - Hypothyroidism, unspecified Code(s): E03.9 - Hypothyroidism, unspecified Status: Chronic (13) COPD (chronic obstructive pulmonary disease): Qualifiers: COPD type: unspecified COPD Qualified Code(s): J44.9 - Chronic obstructive pulmonary disease, unspecified Code(s): J44.9 - Chronic obstructive pulmonary disease, unspecified Status: Chronic (14) Coronary artery disease involving [place] coronary artery of [place] heart without angina pectoris: Code(s): I25.10 - Atherosclerotic heart disease of [place] coronary artery without angina pectoris Status: Acute Additional Plan Generalised weakness Acute encephalopathy hypotension Possible pneumonia JENS: cr 2.1 baseline 0.6 Acute on chronic congestive heart failure. Acute on chronic hypercapnic respirato
[2020-08-06] MEDS: RIVAROXABAN 20 MG TABLET PO (17:33)
[2020-08-06] MEDS: CYCLOBENZAPRINE HCL 5 MG TABLET PO (20:35)
[2020-08-06] MEDS: ATORVASTATIN 40 MG TABLET PO (20:35)
[2020-08-07] VITALS (17 sets, daily range): BP systolic 104–134; BP diastolic 52–67; PULSE 63–87; RESP 14–42; TEMP 36.4–36.9; O2SAT 94–100
[2020-08-07 00:19] LABS: Glucose Point of Care 220 mg/dl (65-105)
[2020-08-07 05:13] LABS: Anion Gap 10 mmol/L (8-16); Blood Urea Nitrogen 51 mg/dL (9-20); Calcium 8.6 mg/dL (8.4-10.2); Carbon Dioxide 32 mmol/L (22-30); Chloride 93 mmol/L (98-107); Estimated CRCL calculation 45 ml/min; Estimated Glomerular Filt Rate 26; Glucose 257 mg/dL (75-110); Potassium 5.1 mmol/L (3.4-5.0); Sodium 135 mmol/L (137-145)
[2020-08-07 05:36] LABS: Glucose Point of Care 272 mg/dl (65-105)
[2020-08-07] MEDS: LEVOTHYROXINE SODIUM 100 MCG TABLET 200 MCG PO (05:50)
--- NOTE | 2020-08-07 08:05 | PC.NURSE ---
0805 Dr. Quinn in patient's room. This RN called to come see patient. Patient unresponsive and placed on bipap mask. Dr. Feldman called and made aware of change in orientation. ABGs, vital signs and blood sugar checked. New orders received.
[2020-08-07] MEDS: FUROSEMIDE INJ 40 MG/4 ML VIAL IV PUSH (08:23)
[2020-08-07] MEDS: NALOXONE HCL 0.4 MG/ML VIAL IV PUSH (08:23)
[2020-08-07 08:27] LABS: Alveolar/Arterial O2 Gradient 47.8 mmHg; Base Excess ABG -0.9 mEq/l (+/-2.0); Fractional Inspired Oxygen 30 %; HCO3 ABG 29.7 mEq/l (22.0-26.0); Oxygen Content ABG 16.3 %vol (16.0-22.0); Oxygen Saturation ABG 87.2 % (95.0-100.0); Oxyhemoglobin 89.3 % THb (90.0-100.0); PO2 ABG 67.6 mmHg (80.0-100.0); PO2 FiO2 Ratio Arterial Blood 2.25 %
[2020-08-07 08:29] LABS: Device NON-INVASIVE VENT; Modified Allen's Test Pass; PCO2 ABG 83.8 mmHg (35.0-45.0); Site Drawn RIGHT RADIAL; pH ABG 7.168 (7.350-7.450)
[2020-08-07 08:30] LABS: Non-Invasive Vent Rate 20 /MIN
[2020-08-07 08:31] LABS: Non-Invasive Expiratory Pressure 6 CMH2O
[2020-08-07] MEDS: INSULIN ASPART (*BKC) 100 UNITS/ML SUB-Q ×2 (08:40→13:26)
[2020-08-07 08:42] LABS: Glucose Point of Care 264 mg/dl (65-105)
[2020-08-07] MEDS: MICONAZOLE NITRATE 2% CREAM 30 GM TUBE 1 APPLIC TOPICAL (08:42)
--- NOTE | 2020-08-07 09:44 | PM.PNCARD ---
Progress Note: A&P Assessment and Plan (1) Congestive heart failure: Code(s): I50.9 - Heart failure, unspecified Status: Acute Assessment and Plan: Continue isosorbide mononitrate 60 mg daily. Eventually resume his beta-kathie. Hold his furosemide and potassium due to worsening renal failure (2) Paroxysmal atrial fibrillation: Code(s): I48.0 - Paroxysmal atrial fibrillation Status: Acute Assessment and Plan: On anticoagulation and sinus rhythm. Continue anticoagulation (3) Acute and chronic respiratory failure: Code(s): J96.20 - Acute and chronic respiratory failure, unspecified whether with hypoxia or hypercapnia Status: Acute Assessment and Plan: ? Use of BiPAP appropriately. CO2 significantly elevated upon presentation. Pulmonology following. Significantly worse today. (4) NEPTALI on CPAP: Code(s): G47.33 - Obstructive sleep apnea (adult) (pediatric); Z99.89 - Dependence on other enabling machines and devices Status: Chronic Assessment and Plan: Pulmonology on board (5) Essential (primary) hypertension: Code(s): I10 - Essential (primary) hypertension Status: Acute Assessment and Plan: Blood pressure has improved. (6) JENS (acute kidney injury): Code(s): N17.9 - Acute kidney failure, unspecified Status: Acute Assessment and Plan: It appears he has an underlying UTI. Will hold his potassium and furosemide today. Subjective Date/time seen: 08/07/20 09:44 Interval history: 69-year-old male who was recently discharged from [facility] long-term care about 6 days ago, was seen home health. Prior to that was here in this hospital with congestive heart failure on chronic BiPAP. Pt is back to oxygen with nasal cannulae. Date of service 08/07/2020: decompensation. CO2 levels are now in the 80s. Obviously there are some issues with his ventilation. He is significantly lethargic and acidotic. Minimally responsive Review of Systems Review of Systems: All systems reviewed & are unremarkable except as noted in HPI and below Constitutional: Constitutional: Denies fatigue, Denies headache(s) and Reports weakness Eyes: Eyes: Denies blurry vision ENT: Reports Normal hearing present, Denies headache(s) and Denies neck pain Cardiovascular: Cardiovascular: Denies chest pain and Reports dyspnea Respiratory: Respiratory: Reports dyspnea Gastrointestinal: Gastrointestinal: Denies abdominal pain Genitourinary: Genitourinary: Denies dysuria and Denies urinary frequency Musculoskeletal: Musculoskeletal: Denies back pain and Denies neck pain Integumentary/Breasts: Skin/Breast: Denies dry skin Neurologic: Reports Normal hearing present, Denies confusion, Denies headache(s) and Reports weakness Psychiatric: Psychiatric: Denies anxiety and Denies confusion Endocrine: Endocrine: Denies fatigue and Denies flushing Hematologic/Lymphatic: Hematologic/Lymphatic: Denies easy bleeding Allergic/Immunologic: Allergic/Immunologic: Denies GI upset with certain foods Exam Narrative: Exam Narrative: Patient is awake alert oriented appears to be in no acute distress. Appears stated age Const: General: comfortable and no acute distress; No confusion Orientation/consciousness: No confusion HENMT: General nose exam: Normal nares present Eyes: Sclera: sclerae normal Neck: Neck: supple and no JVD Chest: Other: No reproducible chest wall pain to palpation Resp: Auscultation: clear to auscultation bilaterally and diminished lung sounds Cardio: Rate: regular rate Rhythm: regular rhythm GI: Inspection: normal to inspection Skin: General skin exam: normal color Neuro: General: confusion Cranial nerves: Yes Normal hearing present Cognition (Neuro): normal cognition Speech: No normal speech Extrem: General: edema (Mild right leg edema) Psych: Mental Status: other ( lethargic) Objective Data Vi
--- NOTE | 2020-08-07 10:28 | PM.PNPUL ---
Progress Note: A&P Assessment and Plan (1) Acute respiratory failure with hypoxia and hypercarbia: Code(s): J96.01 - Acute respiratory failure with hypoxia; J96.02 - Acute respiratory failure with hypercapnia Status: Acute Assessment and Plan: Patient with a history of chronic hypoxemic and hypercarbic respiratory failure from multiple conditions including morbid obesity, possible asthma/COPD (never smoker), obstructive sleep apnea, CHF, elevated right hemidiaphram (seen on 10/04/2007 CT of abdomen) and alveolar hypoventilation syndrome. Patient is a never smoker and I do not believe he has COPD. Last admission he was off all inhaled medications and was breathing at his baseline. I do believe the patient has alveolar hypoventilation syndrome, possible obstructive sleep apnea, fluid overload and a chronically elevated right hemidiaphragm. 08/05 patient is currently off his BiPAP for 1 hour and states that he is breathing back at his baseline. He denies fever, chills, cough, phlegm, wheezing. Patient did have leukocytosis and I will continue ceftriaxone and azithromycin pending culture results. I will discontinue patient's incruse inhaler at this time and follow him clinically. I will obtain a download from his [email or web address] to determine his compliance and settings. I obtained a download from the patient's [email or web address] company from July 22 to August 03. Patient told me he is still getting used to the machine and wears a few hours a day. Patient is using AVAPS-AE the breath rate of 20, tidal volume 550, EPAP Min 5, EPAP max 15, pressure support minimum 4, pressure support maximum 24, maximum pressure 35 rise time 3.0, inspiratory time 0.8 with 2 L bleed in. Patient states that he does bleed oxygen into his machine but does not know how much. Days used 12 days used greater than 4 hours 15.4%. Average use days used is 2.1 hours. Average EPAP 5.5 cm average IPAP 25.8 cm average total leak 42.9. 08/06 Patient states he is breathing back at his baseline. Wore BiPAP 20/8 last night but pressure is too high. Patient is currently on 1 L oxygen nasal cannula with saturations 96% (on 1 L at home). CXR without change in elevated R HD, bibasilar infiltrates and congestion. Afebrile and white blood cell count is 9.3. Cr 2.1. I do not think this is pneumonia and I will DC ceftriaxone and azithromycin for now. Stable off inhalers. 08/07 Patient wore his hospital AVAPS overnight with RR 20, TV 550, EPAP6, IPAP min 7, I PAP max 30, 30% but was lethargic yesterday and this morning with worsening renal function with a creatinine of 2.50. Patient had a blood gas on his AVAPS RR 20, TV 550 setting of 7.17/84/67. Patient was given Narcan with minimal to no response. I will increase his RR to 24 and TV increased to 600. If no response will place on straight BiPAP /. Patient is DNR. Discussed with Dr. Feldman. Will follow with you. Subjective Date/time seen: 08/07/20 10:28 Interval history: Chief complaint: chf exacerbation, acute respiratory failure Narrative: Patient with a history of chronic hypoxemic and hypercarbic respiratory failure from multiple conditions including morbid obesity, possible asthma/COPD (never smoker), obstructive sleep apnea, CHF, elevated right hemidiaphram (seen on 10/04/2007 CT of abdomen) and alveolar hypoventilation syndrome. patient is maintained on 3 L nasal cannula oxygen at rest and with ambulation and a trilogy noninvasive ventilator at night with 3 L nasal cannula bleed in prior to his admission from 06/19/20 to 06/25/20. He was discharged to [facility] rehab on AVAPS-AE rate of 20, tidal volume 550, EPAP minimum 5, EPAP maximum 15, pressure support minimum 4, pressure support maximum 24, pressure maximum 35, rise time 3, with 4 Liters bleed in (I have arranged for these changes on 06/24) his blood gas at the end of the night on these settings was a pH of 7.34/81/76. He should use full face under nose style (dreamwear) un
--- NOTE | 2020-08-07 11:30 | PC.NURSE ---
Dr. Quinn and Dr. Feldman in patient's room. Patient arousable to name and opening eyes. Patient's brother and nephew here to see patient. Drs updated them on patient's condition.
--- NOTE | 2020-08-07 11:56 | PCPTNOTE ---
PT held per RN, do not see patient at this time due to medical status. Will continue tomorrow per POC as appropriate. Doris Restrepo, CLIENT ACCOUNT MANAGER
--- NOTE | 2020-08-07 12:20 | PC.NURSE ---
Patient still on bipap at this time. Patient arousable to name. A/O x3. Patient asked if he had a POA and who that person was. Patient stated his friend Jossue Hernandezrell is his POA.
[2020-08-07 13:18] LABS: Glucose Point of Care 244 mg/dl (65-105)
--- NOTE | 2020-08-07 15:00 | PM.IMPN ---
Progress Note: A&P Assessment and Plan (1) Chronic anemia: Code(s): D64.9 - Anemia, unspecified Status: Acute Assessment and Plan: 08/07/20 15:00 08/06 patient is a morbidly obese presented with a shortness of breath and atrial fibrillation with RVR an attempts was made to cardiovert the patient but was unsuccessful started the patient on amiodarone and heart rate trended patient was hypotensive, most likely multifactorial with exacerbation of COPD, exacerbation of CHF as well as hyperventilation due to morbid obesity with BMI of 53.4 patient seen by assembler lay ups his BiPAP is adjusted, the patient is not very comfortable using BiPAP for long-term but being try however today in terms of COPD perspective patient is doing well, patient seen by mainspring strip gauger suspect patient has acute on chronic diastolic congestive heart failure being diuresed patient's symptoms are improving, today patient sitting in the chair states has no complaint denies any chest pain shortness of breath fever or chills. 08/07 yesterday patient was doing well and had baseline and assembler lay ups had signed off and cardiology diuresing the patient, today I was called to assess the patient as patient was more lethargic and not very responsive. There was a concerned the pain medication patient presents yesterday may have caused somnolent patient was given Narcan 0.4 mg without much improvement, Patient was seen by assembler lay ups ABG showed hypercapnia patient BIPAP setting were adjusted, I also called patient's family to let them know the current condition of the patient and his brother came to see him, I went back to check the patient he is now more alert nor oriented able to communicate, will take the patient off the BiPAP patient nasal cannula so he can eat and monitor him, will place the patient back on BiPAP and the nighttime to0, will continue to monitor and further recommendation to (2) Hypotension: Code(s): I95.9 - Hypotension, unspecified Status: Acute Assessment and Plan: Patient blood pressure is soft, patient is being diuresed will closely monitor (3) Acute respiratory failure with hypoxia and hypercarbia: Code(s): J96.01 - Acute respiratory failure with hypoxia; J96.02 - Acute respiratory failure with hypercapnia Status: Acute Assessment and Plan: Plan is above See plan below (4) Acute exacerbation of congestive heart failure: Code(s): I50.9 - Heart failure, unspecified Status: Acute Assessment and Plan: Plan is above (5) Obstructive sleep apnea: Code(s): G47.33 - Obstructive sleep apnea (adult) (pediatric) Status: Acute (6) Insulin dependent type 2 diabetes mellitus, uncontrolled: Code(s): E11.65 - Type 2 diabetes mellitus with hyperglycemia; Z79.4 - halfway (current) use of insulin Status: Acute Assessment and Plan: Will continue home regimen and monitor (7) Paroxysmal atrial fibrillation: Code(s): I48.0 - Paroxysmal atrial fibrillation Status: Acute Assessment and Plan: Rate is controlled anticoagulated with Xarelto (8) Gastroesophageal reflux disease: Qualifiers: Esophagitis presence: without esophagitis Qualified Code(s): K21.9 - Gastro-esophageal reflux disease without esophagitis Code(s): K21.9 - Gastro-esophageal reflux disease without esophagitis Status: Acute Assessment and Plan: PPI (9) Fibromyalgia: Code(s): M79.7 - Fibromyalgia Status: Acute (10) Chronic bilateral low back pain: Qualifiers: Sciatica presence: unspecified whether sciatica present Qualified Code(s): M54.5 - Low back pain; G89.29 - Other chronic pain Code(s): M54.5 - Low back pain; G89.29 - Other chronic pain Status: Acute (11) Chronic neck pain: Code(s): M54.2 - Cervicalgia; G89.29 - Other chronic pain Status: Acute (12) Hypothyroidism, unspecified: Qualifi
[2020-08-07] MEDS: PRAMIPEXOLE 1 MG TABLET PO (17:35)
[2020-08-07] MEDS: PREGABALIN (*CRX) 50 MG CAPSULE PO (17:35)
[2020-08-07] MEDS: PANTOPRAZOLE 40 MG TABLET PO (17:35)
[2020-08-07] MEDS: RIVAROXABAN 20 MG TABLET PO (17:35)
[2020-08-07] MEDS: CYCLOBENZAPRINE HCL 5 MG TABLET PO (20:19)
[2020-08-07] MEDS: ATORVASTATIN 40 MG TABLET PO (20:19)
[2020-08-08] VITALS (19 sets, daily range): BP systolic 83–162; BP diastolic 43–71; PULSE 62–80; RESP 12–24; TEMP 36.7–37.1; O2SAT 95–97
[2020-08-08 00:33] LABS: Glucose Point of Care 199 mg/dl (65-105)
[2020-08-08] MEDS: LEVOTHYROXINE SODIUM 100 MCG TABLET 200 MCG PO (05:04)
[2020-08-08] MEDS: ACETAMINOPHEN 325 MG TABLET 650 MG PO (05:04)
[2020-08-08 06:06] LABS: Alveolar/Arterial O2 Gradient 57.2 mmHg; Base Excess ABG 5.4 mEq/l (+/-2.0); Fractional Inspired Oxygen 30 %; HCO3 ABG 32.1 mEq/l (22.0-26.0); Oxygen Content ABG 20.5 %vol (16.0-22.0); Oxygen Saturation ABG 96.8 % (95.0-100.0); Oxyhemoglobin 95.8 % THb (90.0-100.0); PO2 ABG 92.1 mmHg (80.0-100.0); PO2 FiO2 Ratio Arterial Blood 3.07 %; Total Hemoglobin 15.2 g/dL (12.0-18.0); pH ABG 7.384 (7.350-7.450)
[2020-08-08 06:07] LABS: Device NON-INVASIVE VENT; Modified Allen's Test Pass; Non-Invasive Expiratory Pressure 10 CMH2O; Non-Invasive Inspiratory Pressure 22 CMH2O; Non-Invasive Vent Rate 24 /MIN; Site Drawn LEFT RADIAL
[2020-08-08 06:16] LABS: Glucose Point of Care 220 mg/dl (65-105)
[2020-08-08 07:23] LABS: Glucose Point of Care 190 mg/dl (65-105)
[2020-08-08] MEDS: SACCHAROMYCES BOULARDII 250 MG CAPSULE PO (09:56)
[2020-08-08] MEDS: TAMSULOSIN HCL 0.4 MG CAPSULE PO (09:56)
[2020-08-08] MEDS: ISOSORBIDE MONONITRATE 60 MG TAB.ER.24H PO (09:56)
[2020-08-08] MEDS: FERROUS SULFATE 324 MG TABLET PO (09:57)
[2020-08-08] MEDS: AMIODARONE HCL 200 MG TABLET PO (09:57)
[2020-08-08] MEDS: PRAMIPEXOLE 1 MG TABLET PO ×2 (09:57→17:15)
[2020-08-08] MEDS: PANTOPRAZOLE 40 MG TABLET PO ×2 (09:57→17:15)
[2020-08-08] MEDS: DULoxetine HCL 60 MG CAPSULE.DR PO (09:57)
[2020-08-08] MEDS: ASPIRIN 81 MG ENTERIC TABLET PO (09:58)
[2020-08-08] MEDS: PREGABALIN (*CRX) 50 MG CAPSULE PO ×3 (10:02→17:15)
--- NOTE | 2020-08-08 10:42 | PCPTNOTE ---
Attempted to see patient at 10:35 for PT, however patient refused to participate. Patient states that he does not want to do anymore therapy and wants everyone to stop asking him. Patient states that he will not do therapy later if attempted. Will continue per POC. Doris Restrepo, DIESEL POWERPLANT MECHANIC
--- NOTE | 2020-08-08 11:13 | PM.PNCARD ---
Progress Note: A&P Assessment and Plan (1) Congestive heart failure: Code(s): I50.9 - Heart failure, unspecified Status: Acute Assessment and Plan: Continue isosorbide mononitrate 60 mg daily. Will resume his metoprolol 25 mg p.o. b.i.d.. Continue to Hold his furosemide and potassium due to worsening renal failure (2) Paroxysmal atrial fibrillation: Code(s): I48.0 - Paroxysmal atrial fibrillation Status: Acute Assessment and Plan: On anticoagulation and sinus rhythm. Continue anticoagulation (3) Acute and chronic respiratory failure: Code(s): J96.20 - Acute and chronic respiratory failure, unspecified whether with hypoxia or hypercapnia Status: Acute Assessment and Plan: ? Use of BiPAP appropriately. CO2 significantly elevated upon presentation. Pulmonology following. CO2 has improved but patient is still lethargic and CO2 levels are still (4) NEPTALI on CPAP: Code(s): G47.33 - Obstructive sleep apnea (adult) (pediatric); Z99.89 - Dependence on other enabling machines and devices Status: Chronic Assessment and Plan: Pulmonology on board (5) Essential (primary) hypertension: Code(s): I10 - Essential (primary) hypertension Status: Acute Assessment and Plan: Blood pressure has improved. (6) JENS (acute kidney injury): Code(s): N17.9 - Acute kidney failure, unspecified Status: Acute Assessment and Plan: It appears he has an underlying UTI. Will hold his potassium and furosemide. Will check a basic metabolic panel Subjective Date/time seen: 08/08/20 11:13 Interval history: 69-year-old male who was recently discharged from [facility] long-term care about 6 days ago, was seen home health. Prior to that was here in this hospital with congestive heart failure on chronic BiPAP. Pt is back to oxygen with nasal cannulae. Date of service 08/08/2020: He has improved from yesterday. CO2 levels markedly better. Still a bit lethargic but conversant. Denies any chest pain or shortness of breath Review of Systems Review of Systems: All systems reviewed & are unremarkable except as noted in HPI and below Constitutional: Constitutional: Denies fatigue, Denies headache(s) and Reports weakness Eyes: Eyes: Denies blurry vision ENT: Reports Normal hearing present, Denies headache(s) and Denies neck pain Cardiovascular: Cardiovascular: Denies chest pain and Reports dyspnea Respiratory: Respiratory: Reports dyspnea Gastrointestinal: Gastrointestinal: Denies abdominal pain Genitourinary: Genitourinary: Denies dysuria and Denies urinary frequency Musculoskeletal: Musculoskeletal: Denies back pain and Denies neck pain Integumentary/Breasts: Skin/Breast: Denies dry skin Neurologic: Reports Normal hearing present, Denies confusion, Denies headache(s) and Reports weakness Psychiatric: Psychiatric: Denies anxiety and Denies confusion Endocrine: Endocrine: Denies fatigue and Denies flushing Hematologic/Lymphatic: Hematologic/Lymphatic: Denies easy bleeding Allergic/Immunologic: Allergic/Immunologic: Denies GI upset with certain foods Exam Narrative: Exam Narrative: Patient is awake alert oriented appears to be in no acute distress. Appears stated age Const: General: comfortable and no acute distress; No confusion Orientation/consciousness: No confusion HENMT: General nose exam: Normal nares present Eyes: Sclera: sclerae normal Neck: Neck: supple and no JVD Chest: Other: No reproducible chest wall pain to palpation Resp: Auscultation: clear to auscultation bilaterally and diminished lung sounds Cardio: Rate: regular rate Rhythm: regular rhythm GI: Inspection: normal to inspection Skin: General skin exam: normal color Neuro: General: No confusion Cranial nerves: Yes Normal hearing present Cognition (Neuro): normal cognition Speech: No normal speech Extrem: General: edema (Mild right le
[2020-08-08 12:57] LABS: Glucose Point of Care 229 mg/dl (65-105)
[2020-08-08] MEDS: INSULIN ASPART (*BKC) 100 UNITS/ML SUB-Q ×2 (13:01→17:16)
[2020-08-08] MEDS: METOPROLOL TARTRATE 25 MG TABLET PO (13:01)
[2020-08-08] MEDS: MICONAZOLE NITRATE 2% CREAM 30 GM TUBE 1 APPLIC TOPICAL (13:05)
--- NOTE | 2020-08-08 14:00 | PCPTNOTE ---
Attempted to see pt for PT session this afternoon and pt declined any participation. Pt was educated on the benefits of therapy, importance of participation, and consequences of remaining in bed during the hospital stay. Pt continued to decline participation on this date.
--- NOTE | 2020-08-08 14:34 | PM.PNPUL ---
Progress Note: A&P Assessment and Plan (1) Acute respiratory failure with hypoxia and hypercarbia: Code(s): J96.01 - Acute respiratory failure with hypoxia; J96.02 - Acute respiratory failure with hypercapnia Status: Acute Assessment and Plan: Patient with a history of chronic hypoxemic and hypercarbic respiratory failure from multiple conditions including morbid obesity, possible asthma/COPD (never smoker), obstructive sleep apnea, CHF, elevated right hemidiaphram (seen on 10/04/2007 CT of abdomen) and alveolar hypoventilation syndrome. Patient is a never smoker and I do not believe he has COPD. Last admission he was off all inhaled medications and was breathing at his baseline. I do believe the patient has alveolar hypoventilation syndrome, possible obstructive sleep apnea, fluid overload and a chronically elevated right hemidiaphragm. 08/05 patient is currently off his BiPAP for 1 hour and states that he is breathing back at his baseline. He denies fever, chills, cough, phlegm, wheezing. Patient did have leukocytosis and I will continue ceftriaxone and azithromycin pending culture results. I will discontinue patient's incruse inhaler at this time and follow him clinically. I will obtain a download from his [employer] to determine his compliance and settings. I obtained a download from the patient's [employer] company from July 22 to August 03. Patient told me he is still getting used to the machine and wears a few hours a day. Patient is using AVAPS-AE the breath rate of 20, tidal volume 550, EPAP Min 5, EPAP max 15, pressure support minimum 4, pressure support maximum 24, maximum pressure 35 rise time 3.0, inspiratory time 0.8 with 2 L bleed in. Patient states that he does bleed oxygen into his machine but does not know how much. Days used 12 days used greater than 4 hours 15.4%. Average use days used is 2.1 hours. Average EPAP 5.5 cm average IPAP 25.8 cm average total leak 42.9. 08/06 Patient states he is breathing back at his baseline. Wore BiPAP 20/8 last night but pressure is too high. Patient is currently on 1 L oxygen nasal cannula with saturations 96% (on 1 L at home). CXR without change in elevated R HD, bibasilar infiltrates and congestion. Afebrile and white blood cell count is 9.3. Cr 2.1. I do not think this is pneumonia and I will DC ceftriaxone and azithromycin for now. Stable off inhalers. 08/07 Patient wore his hospital AVAPS overnight with RR 20, TV 550, EPAP6, IPAP min 7, I PAP max 30, 30% but was lethargic yesterday and this morning with worsening renal function with a creatinine of 2.50. Patient had a blood gas on his AVAPS RR 20, TV 550 setting of 7.17/84/67. Patient was given Narcan with minimal to no response. I will increase his RR to 24 and TV increased to 600. If no response will place on straight BiPAP /. Patient is DNR. 08/08 Patient wore the BiPAP overnight and he is more awake this morning but he is confused. He is currently off the BiPAP on nasal cannula oxygen 2 L with saturations 95%. Continue nasal cannula during the day and will continue BiPAP at night again tonight. If patient is stable tomorrow will consider AVAPS mode. Will follow with you. Subjective Date/time seen: 08/08/20 14:34 Interval history: Chief complaint: chf exacerbation, acute respiratory failure Narrative: Patient with a history of chronic hypoxemic and hypercarbic respiratory failure from multiple conditions including morbid obesity, possible asthma/COPD (never smoker), obstructive sleep apnea, CHF, elevated right hemidiaphram (seen on 10/04/2007 CT of abdomen) and alveolar hypoventilation syndrome. patient is maintained on 3 L nasal cannula oxygen at rest and with ambulation and a trilogy noninvasive ventilator at night with 3 L nasal cannula bleed in prior to his admission from 06/19/20 to 06/25/20. He was discharged to [facility] rehab on AVAPS-AE rate of 20, tidal volume 550, EPAP minimum 5, EPAP maximum 15,
--- NOTE | 2020-08-08 15:29 | PM.IMPN ---
Progress Note: A&P Assessment and Plan (1) Chronic anemia: Code(s): D64.9 - Anemia, unspecified Status: Acute Assessment and Plan: 08/08/20 15:29 08/06 patient is a morbidly obese presented with a shortness of breath and atrial fibrillation with RVR an attempts was made to cardiovert the patient but was unsuccessful started the patient on amiodarone and heart rate trended patient was hypotensive, most likely multifactorial with exacerbation of COPD, exacerbation of CHF as well as hyperventilation due to morbid obesity with BMI of 53.4 patient seen by body man his BiPAP is adjusted, the patient is not very comfortable using BiPAP for long-term but being try however today in terms of COPD perspective patient is doing well, patient seen by aircraft fuselage framer suspect patient has acute on chronic diastolic congestive heart failure being diuresed patient's symptoms are improving, today patient sitting in the chair states has no complaint denies any chest pain shortness of breath fever or chills. 08/07 yesterday patient was doing well and had baseline and body man had signed off and cardiology diuresing the patient, today I was called to assess the patient as patient was more lethargic and not very responsive. There was a concerned the pain medication patient presents yesterday may have caused somnolent patient was given Narcan 0.4 mg without much improvement, Patient was seen by body man ABG showed hypercapnia patient BIPAP setting were adjusted, I also called patient's family to let them know the current condition of the patient and his brother came to see him, I went back to check the patient he is now more alert nor oriented able to communicate, will take the patient off the BiPAP patient nasal cannula so he can eat and monitor him, will place the patient back on BiPAP and the nighttime to0, will continue to monitor and further recommendation to follow. 08/08 today patient is more alert and orient he wore is BiPAP last night, currently is on 2 L nasal cannula and saturating 95%, seen by Cardiology continued isosorbide mononitrate 60 mg q.day and resume metoprolol 25 mg b.i.d., patient creatinine is rising will hold furosemide and monitor kidney function patient remains clinically stable will reassess tomorrow and plan, may discharge the patient home tomorrow (2) Hypotension: Code(s): I95.9 - Hypotension, unspecified Status: Acute Assessment and Plan: Patient blood pressure is soft, patient is being diuresed will closely monitor (3) Acute respiratory failure with hypoxia and hypercarbia: Code(s): J96.01 - Acute respiratory failure with hypoxia; J96.02 - Acute respiratory failure with hypercapnia Status: Acute Assessment and Plan: Plan is above See plan below (4) Acute exacerbation of congestive heart failure: Code(s): I50.9 - Heart failure, unspecified Status: Acute Assessment and Plan: Plan is above (5) Obstructive sleep apnea: Code(s): G47.33 - Obstructive sleep apnea (adult) (pediatric) Status: Acute (6) Insulin dependent type 2 diabetes mellitus, uncontrolled: Code(s): E11.65 - Type 2 diabetes mellitus with hyperglycemia; Z79.4 - ferry terminal agent (current) use of insulin Status: Acute Assessment and Plan: Will continue home regimen and monitor (7) Paroxysmal atrial fibrillation: Code(s): I48.0 - Paroxysmal atrial fibrillation Status: Acute Assessment and Plan: Rate is controlled anticoagulated with Xarelto (8) Gastroesophageal reflux disease: Qualifiers: Esophagitis presence: without esophagitis Qualified Code(s): K21.9 - Gastro-esophageal reflux disease without esophagitis Code(s): K21.9 - Gastro-esophageal reflux disease without esophagitis Status: Acute Assessment and Plan: PPI (9) Fibromyalgia: Code(s): M79.7 - Fibromyalgia Status: Acute (10) Chronic bilate
[2020-08-08 17:05] LABS: Glucose Point of Care 228 mg/dl (65-105)
[2020-08-08] MEDS: RIVAROXABAN 20 MG TABLET PO (17:15)
[2020-08-08] MEDS: ATORVASTATIN 40 MG TABLET PO (20:53)
[2020-08-08] MEDS: CYCLOBENZAPRINE HCL 5 MG TABLET PO (20:53)
[2020-08-08 23:48] LABS: Glucose Point of Care 213 mg/dl (65-105)
[2020-08-09] VITALS (9 sets, daily range): BP systolic 96–132; BP diastolic 50–105; PULSE 57–70; RESP 12–24; TEMP 36.2–36.9; O2SAT 90–100
[2020-08-09 05:42] LABS: Potassium 4.5 mmol/L (3.4-5.0)
[2020-08-09 05:50] LABS: Anion Gap 5 mmol/L (8-16); Blood Urea Nitrogen 50 mg/dL (9-20); Calcium 8.7 mg/dL (8.4-10.2); Carbon Dioxide 35 mmol/L (22-30); Chloride 96 mmol/L (98-107); Estimated CRCL calculation 47 ml/min; Estimated Glomerular Filt Rate 27; Glucose 181 mg/dL (75-110); Sodium 136 mmol/L (137-145)
[2020-08-09] MEDS: LEVOTHYROXINE SODIUM 100 MCG TABLET 200 MCG PO (06:10)
[2020-08-09] MEDS: oxyCODONE/ACETAMINOPHEN (*CRX) 5-325 MG TABLET 1 TABLET PO (06:15)
[2020-08-09] MEDS: PREGABALIN (*CRX) 50 MG CAPSULE PO ×3 (09:10→17:24)
[2020-08-09] MEDS: SACCHAROMYCES BOULARDII 250 MG CAPSULE PO (09:10)
[2020-08-09] MEDS: METOPROLOL TARTRATE 25 MG TABLET PO (09:10)
[2020-08-09] MEDS: FERROUS SULFATE 324 MG TABLET PO (09:10)
[2020-08-09] MEDS: PRAMIPEXOLE 1 MG TABLET PO ×2 (09:10→17:25)
[2020-08-09] MEDS: PANTOPRAZOLE 40 MG TABLET PO ×2 (09:10→17:25)
[2020-08-09] MEDS: ASPIRIN 81 MG ENTERIC TABLET PO (09:10)
[2020-08-09] MEDS: ISOSORBIDE MONONITRATE 60 MG TAB.ER.24H PO (09:11)
[2020-08-09] MEDS: TAMSULOSIN HCL 0.4 MG CAPSULE PO (09:11)
[2020-08-09] MEDS: AMIODARONE HCL 200 MG TABLET PO (09:11)
[2020-08-09] MEDS: DULoxetine HCL 60 MG CAPSULE.DR PO (09:11)
[2020-08-09] MEDS: MICONAZOLE NITRATE 2% CREAM 30 GM TUBE 1 APPLIC TOPICAL (09:12)
--- NOTE | 2020-08-09 11:49 | PM.DS ---
DS: Admitting Diagnosis Admitting Diagnosis Admitting Diagnosis: Chief Complaint: weakness DS: Discharge Diagnosis Discharge Diagnosis (1) Chronic anemia: Code(s): D64.9 - Anemia, unspecified Status: Acute Assessment and Plan: 08/08/20 15:29 08/06 patient is a morbidly obese presented with a shortness of breath and atrial fibrillation with RVR an attempts was made to cardiovert the patient but was unsuccessful started the patient on amiodarone and heart rate trended patient was hypotensive, most likely multifactorial with exacerbation of COPD, exacerbation of CHF as well as hyperventilation due to morbid obesity with BMI of 53.4 patient seen by instructor psychiatric aide his BiPAP is adjusted, the patient is not very comfortable using BiPAP for long-term but being try however today in terms of COPD perspective patient is doing well, patient seen by rubber process hand suspect patient has acute on chronic diastolic congestive heart failure being diuresed patient's symptoms are improving, today patient sitting in the chair states has no complaint denies any chest pain shortness of breath fever or chills. 08/07 yesterday patient was doing well and had baseline and instructor psychiatric aide had signed off and cardiology diuresing the patient, today I was called to assess the patient as patient was more lethargic and not very responsive. There was a concerned the pain medication patient presents yesterday may have caused somnolent patient was given Narcan 0.4 mg without much improvement, Patient was seen by instructor psychiatric aide ABG showed hypercapnia patient BIPAP setting were adjusted, I also called patient's family to let them know the current condition of the patient and his brother came to see him, I went back to check the patient he is now more alert nor oriented able to communicate, will take the patient off the BiPAP patient nasal cannula so he can eat and monitor him, will place the patient back on BiPAP and the nighttime to0, will continue to monitor and further recommendation to follow. 08/08 today patient is more alert and orient he wore is BiPAP last night, currently is on 2 L nasal cannula and saturating 95%, seen by Cardiology continued isosorbide mononitrate 60 mg q.day and resume metoprolol 25 mg b.i.d., patient creatinine is rising will hold furosemide and monitor kidney function patient remains clinically stable will reassess tomorrow and plan, may discharge the patient home tomorrow (2) Hypotension: Code(s): I95.9 - Hypotension, unspecified Status: Acute Assessment and Plan: Patient blood pressure is soft, patient is being diuresed will closely monitor (3) Acute respiratory failure with hypoxia and hypercarbia: Code(s): J96.01 - Acute respiratory failure with hypoxia; J96.02 - Acute respiratory failure with hypercapnia Status: Acute Assessment and Plan: Plan is above See plan below (4) Acute exacerbation of congestive heart failure: Code(s): I50.9 - Heart failure, unspecified Status: Acute Assessment and Plan: Plan is above (5) Obstructive sleep apnea: Code(s): G47.33 - Obstructive sleep apnea (adult) (pediatric) Status: Acute (6) Insulin dependent type 2 diabetes mellitus, uncontrolled: Code(s): E11.65 - Type 2 diabetes mellitus with hyperglycemia; Z79.4 - snf (current) use of insulin Status: Acute Assessment and Plan: Will continue home regimen and monitor (7) Paroxysmal atrial fibrillation: Code(s): I48.0 - Paroxysmal atrial fibrillation Status: Acute Assessment and Plan: Rate is controlled anticoagulated with Xarelto (8) Gastroesophageal reflux disease: Qualifiers: Esophagitis presence: without esophagitis Qualified Code(s): K21.9 - Gastro-esophageal reflux disease without esophagitis Code(s): K21.9 - Gastro-esophageal reflux disease without esophagitis Status: Acute Assessment and Plan: PP
--- NOTE | 2020-08-09 12:43 | PM.PNCARD ---
Progress Note: A&P Assessment and Plan (1) Congestive heart failure: Code(s): I50.9 - Heart failure, unspecified Status: Acute Assessment and Plan: Continue isosorbide mononitrate 60 mg daily. Holding furosemide and potassium due to renal failure. (2) Paroxysmal atrial fibrillation: Code(s): I48.0 - Paroxysmal atrial fibrillation Status: Acute Assessment and Plan: On anticoagulation and sinus rhythm. Continue anticoagulation (3) Acute and chronic respiratory failure: Code(s): J96.20 - Acute and chronic respiratory failure, unspecified whether with hypoxia or hypercapnia Status: Acute Assessment and Plan: ? Use of BiPAP appropriately. CO2 significantly elevated upon presentation. Pulmonology following. (4) NEPTALI on CPAP: Code(s): G47.33 - Obstructive sleep apnea (adult) (pediatric); Z99.89 - Dependence on other enabling machines and devices Status: Chronic Assessment and Plan: Pulmonology following (5) Essential (primary) hypertension: Code(s): I10 - Essential (primary) hypertension Status: Acute Assessment and Plan: Blood pressure has improved. (6) JENS (acute kidney injury): Code(s): N17.9 - Acute kidney failure, unspecified Status: Acute Assessment and Plan: It appears he has an underlying UTI. Will hold his potassium and furosemide. Will check a basic metabolic panel Subjective Date/time seen: 08/09/20 12:43 Interval history: 69-year-old male who was recently discharged from [facility] long-term care about 6 days ago, was seen home health. Prior to that was here in this hospital with congestive heart failure on chronic BiPAP. Pt is back to oxygen with nasal cannulae. Date of service 08/08/2020: He has improved from yesterday. CO2 levels markedly better. Still a bit lethargic but conversant. Denies any chest pain or shortness of breath Date of service 08/09/2020: He is doing much better today. He reports no shortness of breath or any problems breathing on oxygen per nasal cannula. This is his baseline. Alert and oriented today. Review of Systems Review of Systems: All systems reviewed & are unremarkable except as noted in HPI and below Constitutional: Constitutional: Denies fatigue, Denies headache(s) and Reports weakness Eyes: Eyes: Denies blurry vision ENT: Reports Normal hearing present, Denies headache(s) and Denies neck pain Cardiovascular: Cardiovascular: Denies chest pain and Reports dyspnea Respiratory: Respiratory: Denies dyspnea Gastrointestinal: Gastrointestinal: Denies abdominal pain Genitourinary: Genitourinary: Denies dysuria and Denies urinary frequency Musculoskeletal: Musculoskeletal: Denies back pain and Denies neck pain Integumentary/Breasts: Skin/Breast: Denies dry skin Neurologic: Reports Normal hearing present, Denies confusion, Denies headache(s) and Reports weakness Psychiatric: Psychiatric: Denies anxiety and Denies confusion Endocrine: Endocrine: Denies fatigue and Denies flushing Hematologic/Lymphatic: Hematologic/Lymphatic: Denies easy bleeding Allergic/Immunologic: Allergic/Immunologic: Denies GI upset with certain foods Exam Const: General: comfortable and no acute distress; No confusion Orientation/consciousness: No confusion HENMT: Head: normal to inspection Eyes: General: appearance normal, both eyes and all related structures Sclera: sclerae normal Neck: Neck: supple Other: Unable to assess JVD due to body habitus. Chest: Other: No reproducible chest wall pain to palpation Resp: Effort & Inspection: normal respiratory effort Auscultation: clear to auscultation bilaterally and diminished lung sounds Cardio: Rate: regular rate Rhythm: regular rhythm GI: Inspection: normal to inspection GI Palp: Yes Soft to palpation Auscultation: normal bowel sounds Skin: General skin exam: normal color Neuro: General: No confusio
[2020-08-09] MEDS: INSULIN ASPART (*BKC) 100 UNITS/ML SUB-Q ×2 (12:50→17:25)
[2020-08-09 12:59] LABS: Glucose Point of Care 395 mg/dl (65-105)
--- NOTE | 2020-08-09 15:52 | PM.PNPUL ---
Progress Note: A&P Assessment and Plan (1) Acute respiratory failure with hypoxia and hypercarbia: Code(s): J96.01 - Acute respiratory failure with hypoxia; J96.02 - Acute respiratory failure with hypercapnia Status: Acute Assessment and Plan: Patient with a history of chronic hypoxemic and hypercarbic respiratory failure from multiple conditions including morbid obesity, possible asthma/COPD (never smoker), obstructive sleep apnea, CHF, elevated right hemidiaphram (seen on 10/04/2007 CT of abdomen) and alveolar hypoventilation syndrome. Patient is a never smoker and I do not believe he has COPD. Last admission he was off all inhaled medications and was breathing at his baseline. I do believe the patient has alveolar hypoventilation syndrome, possible obstructive sleep apnea, fluid overload and a chronically elevated right hemidiaphragm. 08/05 patient is currently off his BiPAP for 1 hour and states that he is breathing back at his baseline. He denies fever, chills, cough, phlegm, wheezing. Patient did have leukocytosis and I will continue ceftriaxone and azithromycin pending culture results. I will discontinue patient's incruse inhaler at this time and follow him clinically. I will obtain a download from his [employer] to determine his compliance and settings. I obtained a download from the patient's [employer] from July 22 to August 03. Patient told me he is still getting used to the machine and wears a few hours a day. Patient is using AVAPS-AE the breath rate of 20, tidal volume 550, EPAP Min 5, EPAP max 15, pressure support minimum 4, pressure support maximum 24, maximum pressure 35 rise time 3.0, inspiratory time 0.8 with 2 L bleed in. Patient states that he does bleed oxygen into his machine but does not know how much. Days used 12 days used greater than 4 hours 15.4%. Average use days used is 2.1 hours. Average EPAP 5.5 cm average IPAP 25.8 cm average total leak 42.9. 08/06 Patient states he is breathing back at his baseline. Wore BiPAP 20/8 last night but pressure is too high. Patient is currently on 1 L oxygen nasal cannula with saturations 96% (on 1 L at home). CXR without change in elevated R HD, bibasilar infiltrates and congestion. Afebrile and white blood cell count is 9.3. Cr 2.1. I do not think this is pneumonia and I will DC ceftriaxone and azithromycin for now. Stable off inhalers. 08/07 Patient wore his hospital AVAPS overnight with RR 20, TV 550, EPAP6, IPAP min 7, I PAP max 30, 30% but was lethargic yesterday and this morning with worsening renal function with a creatinine of 2.50. Patient had a blood gas on his AVAPS RR 20, TV 550 setting of 7.17/84/67. Patient was given Narcan with minimal to no response. I will increase his RR to 24 and TV increased to 600. If no response will place on straight BiPAP 09/12. Patient is DNR. 08/08 Patient wore the BiPAP overnight and he is more awake this morning but he is confused. He is currently off the BiPAP on nasal cannula oxygen 2 L with saturations 95%. Continue nasal cannula during the day and will continue BiPAP at night again tonight. If patient is stable tomorrow will consider AVAPS mode. 08/09 Patient mental status is back to normal. Patient is deconditioned and will require rehabilitation center. He should be discharged on noninvasive ventilation whenever he naps and sleeps. He was previously on a trilogy [facility] AVAPS-AE the breath rate of 20, tidal volume 550, EPAP Min 5, EPAP max 15, pressure support minimum 4, pressure support maximum 24, maximum pressure 35 rise time 3.0, inspiratory time 0.8 with 2 L bleed in and these setting should be continued at rehab. Patient is an established patient with us in pulmonary clinic and should follow up with us in pulmonary clinic in 2 -3 weeks. Discussed [facility] Dr. Feldman, will sign off, please call with additional questions. Subjective Date/time seen: 08/09/20 15:52 Interval history: Chief
[2020-08-09 17:19] LABS: Glucose Point of Care 284 mg/dl (65-105)
[2020-08-09] MEDS: RIVAROXABAN 20 MG TABLET PO (17:25)
[2020-08-09 19:27] LABS: Glucose Point of Care 242 mg/dl (65-105)
== END 2020-08-09 19:15 | DRG 291 ==
LOC: ANHED 19:00 → ANHIMU 21:43
PROVIDERS: Emergency Medicine; Family Medicine; Internal Medicine Cardiovascular Disease; Internal Medicine Pulmonary Disease; Admitting Provider Internal Medicine; Emergency Provider Emergency Medicine; PCP Family Medicine; Visit Provider Family Medicine
DX: I11.0 Hypertensive heart disease with heart failure (principal); J96.22 Acute and chronic respiratory failure with hypercapnia; J96.21 Acute and chronic respiratory failure with hypoxia; J44.1 Chronic obstructive pulmonary disease with (acute) exacerbation; E66.2 Morbid (severe) obesity with alveolar hypoventilation; Z68.43 Body mass index [BMI] 50.0-59.9, adult; I48.20 Chronic atrial fibrillation, unspecified; N17.9 Acute kidney failure, unspecified; I50.33 Acute on chronic diastolic (congestive) heart failure; I95.9 Hypotension, unspecified; N40.0 Benign prostatic hyperplasia without lower urinary tract symptoms; M19.90 Unspecified osteoarthritis, unspecified site; F41.9 Anxiety disorder, unspecified; I25.10 Atherosclerotic heart disease of native coronary artery without angina pectoris; E11.42 Type 2 diabetes mellitus with diabetic polyneuropathy; F32.9 Major depressive disorder, single episode, unspecified; E78.5 Hyperlipidemia, unspecified; E11.65 Type 2 diabetes mellitus with hyperglycemia; M10.9 Gout, unspecified; D64.9 Anemia, unspecified; M48.00 Spinal stenosis, site unspecified; M79.7 Fibromyalgia; K21.9 Gastro-esophageal reflux disease without esophagitis; E03.9 Hypothyroidism, unspecified; Z66 Do not resuscitate; I25.2 Old myocardial infarction; Z87.442 Personal history of urinary calculi; Z95.5 Presence of coronary angioplasty implant and graft; Z86.73 Personal history of transient ischemic attack (TIA), and cerebral infarction without residual deficits; Z85.820 Personal history of malignant melanoma of skin; Z79.4 Long term (current) use of insulin
CPT/HCPCS: 36415; 36600; 71045; 80048; 80053; 81001; 82375; 82805; 82948; 83050; 83605; 83880; 84484; 85025; 85027; 87040; 87086; 93005; 93306; 94003; 94640; 96365; 96368; 96375; 96376; 97110; 97116; 97161; 97165; 97530; 99285; A9270; G0378; J0456; J0696; J1815; J1940; J2310

== ENCOUNTER 2020-08-16 12:43 | Inpatient (IN) | payer MEDICARE, MEDICAID, SELFPAY ==
[2020-08-16] VITALS (14 sets, daily range): BP systolic 85–114; BP diastolic 62–79; PULSE 49–67; RESP 15–33; TEMP 35.8–36.4; O2SAT 80–100; BMI 39.4
--- NOTE | ~2020-08-16 | US_ITS ---
EXAMINATION: US renal BI EXAM DATE: 08/17/2020 14:23 INDICATION: Renal failure. TECHNIQUE: Multiple grayscale and Doppler images of the kidneys were obtained (by a technologist who performed the scan) and subsequently reviewed. There is no prior study for comparison. FINDINGS: Sizable fatty destin bilaterally with some renal cortical thinning. Sizable fatty destin likely contributing to the mildly enlarged renal dimensions provided below. Right kidney: There is normal contour and echogenicity. It measures 15.0 x 7.2 x 7.7 centimeters. T here are no focal renal lesions identified. There is no hydronephrosis. Left kidney: There is normal contour and echogenicity. It measures 14.9 x 5.2 x 8.0 centimeters. Th ere are no focal renal lesions identified. There is no hydronephrosis. Fjaardo catheter, bladder collapsed. IMPRESSION: 1. No hydronephrosis. Reviewed, dictated and finalized at location A. IMPRESSION: 1. No hydronephrosis.
--- NOTE | ~2020-08-16 | XR_ITS ---
EXAMINATION: XR chest PICC line INDICATION: Weakness and shortness of breath TECHNIQUE: Portable AP chest at 1530 hours COMPARISON: 08/06/2020 FINDINGS: A right upper extremity PICC ends with its tip in the proximal right atrium. Bibasilar airs pace opacities persist without significant change. There is no pneumothorax. Cardiomegaly is noted. IMPRESSION: 1. Right upper extremity PICC ending in the proximal right atrium. 2. Small pleural effusions. 3. Bibasilar airspace opacities, consistent with atelectasis versus pneumonia. Reviewed, dictated and finalized at location B.
[2020-08-16] MEDS: NALOXONE HCL INJ 2 MG/2 ML AMP NASAL (13:27)
--- NOTE | 2020-08-16 13:34 | ECG_ITS ---
Measurements Intervals [place] Rate: 52 P: 34 NC: 176 QRS: 14 QRSD: 102 T: 66 QT: 452 QTc: 422 Interpretive Statements SINUS BRADYCARDIA EARLY PRECORDIAL R/S TRANSITION BORDERLINE ST-T WAVE ABNORMALITY- HIGH LATERAL LEADS BASELINE WANDER- AVL, V3 BORDERLINE ECG Electronically Signed On 08-16-2020 15:44:31 CDT by Gabriel Freed D.O.
[2020-08-16 14:10] LABS: Basophils Absolute Auto 0.1 K/mm3 (0.0-0.1); Basophils Percent Auto 0.6 % (0.2-1.2); Eosinophils Absolute Auto 0.1 K/mm3 (0-0.3); Hemoglobin 12.1 g/dL (14.0-18.0); Immature Granulocyte Absolute 0.44 K/mm3 (0.00-0.031); Lymphocytes Absolute Auto 0.96 K/mm3 (0.9-3.2); Lymphocytes Percent Auto 8.8 % (18.3-44.2); Mean Corpuscular HGB Conc 28.8 g/dl (32-36); Mean Corpuscular Hemoglobin 25.5 pg (26-34); Mean Corpuscular Volume 88.6 fl (80-100); Mean Platelet Volume 11.4 fl (7.4-10.4); Monocytes Absolute Auto 0.6 K/mm3 (0.1-0.6); Neutrophils Absolute Auto 8.8 K/mm3 (1.3-6.7); Neutrophils Percent Auto 80.6 % (45.5-73.1); Platelet Count Result 300 k/mm3 (150-375); Red Blood Count 4.74 M/mm3 (4.6-6.20); Red Cell Distribution Width 16.7 % (11.5-14.5); White Blood Count 10.9 K/mm3 (4.5-10.0)
--- NOTE | 2020-08-16 14:11 | ED.GENADULT ---
HPI - General Adult General Chief complaint: Weakness Stated complaint: 'tired and over medicated' Time Seen by Provider: 08/16/20 13:11 Source: EMS, RN notes reviewed and old records reviewed Mode of arrival: EMS Limitations: no limitations History of Present Illness HPI narrative: Patient is 69 years old white male brought to the emergency room from assisted living because of lethargy. Noticed this morning. Patient baseline is awake, alert and oriented x4, walk with therapy, today unable to eat or hold himself up. Patient on Percocet as needed since he been discharged from our hospital recently, did not take any Percocet for the last 12 hours. Patient is telling me and telling the staff that he does not want any chest resuscitation or intubation. Currently patient is awake, alert and oriented x4, Related Data Home Medications Medication Instructions Recorded Confirmed potassium chloride [Klor-Con M20] 20 meq PO DAILY 02/28/19 08/04/20 atorvastatin 40 mg PO HS 03/14/20 08/04/20 cyclobenzaprine 5 mg PO HS 03/14/20 08/04/20 isosorbide mononitrate 60 mg PO DAILY 03/14/20 08/04/20 pantoprazole 40 mg PO BID 03/14/20 08/04/20 pregabalin 50 mg PO TID 03/14/20 08/04/20 tamsulosin 0.4 mg PO DAILY 03/14/20 08/04/20 trazodone 100 mg PO HS 03/14/20 08/04/20 Saccharomyces boulardii 250 mg 250 mg PO . daily ea 08/02/20 08/04/20 oral powder packet albuterol sulfate 2.5 mg INHALATION Q6H PRN 08/02/20 08/04/20 aspirin 81 mg tablet,delayed 81 mg PO DAILY 08/02/20 08/04/20 release ferrous sulfate 325 mg (65 mg 325 mg PO DAILY 08/02/20 08/04/20 iron) tablet insulin aspart 30 unit SUBCUT TID ml 08/02/20 08/04/20 (niacinamide)(U-100) 100 unit/mL(3 mL) subcutaneous pen insulin degludec 200 unit/mL (3 100 unit SUBCUT HS 08/02/20 08/04/20 mL) subcutaneous pen nitroglycerin 0.4 mg sublingual 0.4 mg SUBLINGUAL Q5M PRN 08/02/20 08/04/20 tablet polyethylene glycol 3350 17 gram 17 g PO DAILY PRN 08/02/20 08/04/20 oral powder packet umeclidinium 62.5 mcg/actuation 1 inh INHALATION DAILY 08/02/20 08/04/20 blister powder for inhalation Xarelto 20 mg PO DAILY 08/06/20 08/06/20 Allergies Allergy/AdvReac Type Severity Reaction Status Date / Time clindamycin Allergy Severe Anaphylaxis Verified 08/04/20 18:09 Iodinated Contrast Media Allergy Severe Hives/RED Verified 08/04/20 18:09 FACE latex Allergy Intermediate Swelling Verified 08/04/20 18:09 Gadolinium-Containing Allergy Mild Rash Verified 08/04/20 18:09 Contrast Medi iodine Allergy Mild RASH Verified 08/04/20 18:09 erythromycin base AdvReac Mild NAUSEA Verified 08/04/20 18:09 Review of Systems Review of Systems: Narrative: CONSTITUTIONAL: Denies fever, chills, or sweats. EYES: Denies visual changes, redness, or discharge. ENT: Denies rhinorrhea, congestion, sore throat, or otalgia. CARDIOVASCULAR: Denies chest pain, palpitations, or edema. RESPIRATORY: Denies cough or dyspnea. GASTROINTESTINAL: Denies abdominal pain, nausea, vomiting, or diarrhea. GENITOURINARY: Denies dysuria or hematuria. SKIN: Denies rash or itching. MUSCULOSKELETAL: Denies back pain, joint pain, or myalgia. NEUROLOGIC: Denies headache, numbness, or weakness. PSYCHIATRIC: Denies anxiety or depression. [facility] Past Medical History Medical History Anxiety Arthritis Asthma Benign prostatic hyperplasia Chronic anemia Chronic bilateral low back pain Chronic constipation Chronic depression Chronic neck pain Congestive heart failure Coronary artery disease involving [place] coronary artery of [place] heart without angina pectoris Status post PA with stents in 2003. Degenerative disc disease Depression Diabetic peripheral neuropathy Diaphragmatic paralysis Diverticulitis Essential (primary) hypertension Fibromyalgia Gastroesophageal reflux disease Gout Herniated disc Hyperlipidemia Hypertension Hypothyroidism Insulin dependent type 2 [place]
[2020-08-16 14:21] LABS: Alanine Aminotransferase 10 U/L (4-50); Albumin Level 3.9 g/dL (3.5-5.1); Alkaline Phosphatase 99 U/L (38-126); Anion Gap 12 mmol/L (8-16); Aspartate Amino Transferase 28 U/L (17-59); Bilirubin,Total 0.5 mg/dL (0.2-1.3); Blood Urea Nitrogen 55 mg/dL (9-20); Calcium 9.1 mg/dL (8.4-10.2); Carbon Dioxide 34 mmol/L (22-30); Chloride 89 mmol/L (98-107); Estimated CRCL calculation 25 ml/min; Estimated Glomerular Filt Rate 15; Glucose 206 mg/dL (75-110); Potassium 4.8 mmol/L (3.4-5.0); Sodium 135 mmol/L (137-145)
[2020-08-16 14:24] LABS: Hypochromasia 1+ (NORMAL); Platelet Estimate Adequate (Adequate)
[2020-08-16 14:30] LABS: Troponin I < 0.012 ng/mL (0.000-0.034)
[2020-08-16 14:37] LABS: Alveolar/Arterial O2 Gradient 405.5 mmHg; Base Excess ABG 1.3 mEq/l (+/-2.0); Fractional Inspired Oxygen 100 %; HCO3 ABG 32.4 mEq/l (22.0-26.0); Oxygen Content ABG 17.4 %vol (16.0-22.0); Oxygen Saturation ABG 99.1 % (95.0-100.0); Oxyhemoglobin 97.7 % THb (90.0-100.0); PO2 FiO2 Ratio Arterial Blood 2.15 %; Total Hemoglobin 12.3 g/dL (12.0-18.0)
[2020-08-16 14:39] LABS: PCO2 ABG 92.5 mmHg (35.0-45.0); pH ABG 7.162 (7.350-7.450)
[2020-08-16 14:40] LABS: Device NON-REBREATHER MASK; Modified Allen's Test Pass; Site Drawn RIGHT RADIAL
[2020-08-16] MEDS: LIDOCAINE HCL 1% PF INJ 5 ML VIAL INFILTRATE (14:40)
[2020-08-16] MEDS: ALBUTEROL SULFATE NEB 2.5 MG/0.5 ML INH 5 MG INHALATION ×2 (15:53→21:12)
[2020-08-16] MEDS: IPRATROPIUM BR 0.02% INH SOLN 0.5 MG/2.5 ML VIAL INHALATION ×2 (15:53→21:12)
[2020-08-16 15:57] LABS: Alveolar/Arterial O2 Gradient 62.3 mmHg; Base Excess ABG 4.8 mEq/l (+/-2.0); Fractional Inspired Oxygen 30 %; HCO3 ABG 35.4 mEq/l (22.0-26.0); Oxygen Content ABG 13.4 %vol (16.0-22.0); PO2 FiO2 Ratio Arterial Blood 1.46 %; Total Hemoglobin 12.2 g/dL (12.0-18.0)
[2020-08-16 16:01] LABS: PCO2 ABG 91.7 mmHg (35.0-45.0); pH ABG 7.205 (7.350-7.450)
[2020-08-16 16:02] LABS: Device BIPAP; Modified Allen's Test Pass; PO2 ABG 43.9 mmHg (80.0-100.0); Site Drawn LEFT RADIAL
[2020-08-16 16:03] LABS: Expiratory Pressure 6 cmH2O; Inspiratory Pressure 12 cmH2O
[2020-08-16 17:06] LABS: Add Urine Microscopic? YES; Appearance Urine Cloudy (Clear); Bacteria Urine Trace /hpf; Bilirubin Urine Negative (Negative); Blood Urine 1+ (Negative); Color Urine Yellow (Yellow); Glucose Urine UA 1+ mg/dL (Negative); Hyaline Casts Urine 30-49 /lpf; Ketones Urine Negative (Negative); Leukocyte Esterase Ur 3+ LEU/UL (Negative); Mucus Urine Rare /lpf; Nitrate Urine Negative (Negative); Protein Urine 1+ mg/dL (Negative); Specific Grav Ur 1.017 (1.001-1.035); Squamous Epithelial Cell Urine Occasional /hpf (Few); Urobilinogen Urine Negative mg/dL (<2.0); WBC Urine >75 /hpf
--- NOTE | 2020-08-16 17:09 | PM.IMHP ---
H&P: HPI History of Present Illness Date/Time: 08/16/20 17:09Curry is a 69-year-old male patient who has a past medical history of having COPD. At 1 time he had been on a trilogy. The patient is now residing at a intermediate which she used to be [place]. The patient stated that his CPAP machine has been broken for 5 days. He has not been able to use it. The patient was discharged from this hospital on 08/09/2020. The patient has chronic hypercapnia and hypoxia. The patient is a DNR. The patient has had multiple admissions due to his hypoxia and hypercapnia. As well as his congestive heart failure. The patient was brought to the emergency room from the intermediate because he was lethargic this morning. Typically he is awake and orientated x4 knees usually walks in therapy but today was unable to eat or are hold himself up. The patient was awake and talking in the emergency room. His arterial blood gases initially in the emergency pH was 7.162 with a CO2 of 92.5. Patient was placed on a BiPAP 22/14 with rate of 18 30% oxygen. Repeat arterial blood gases pH 7.205 with a CO2 91.7. PO2 43.9. The patient is awake and talking to us. The patient remembered me from previous admissions. He was able to answer questions appropriately. A PICC line was placed in the emergency room. A chest x-ray was obtained which was read as right upper extremity PICC any in the proximal right atrium. Small pleural effusion. Bibasilar airspace opacities. Consistent with atelectasis versus pneumonia. The patient does not have any fever chills or cough. The patient was given nor can nasal in the emergency room, and a nebulizer treatment in the emergency room. The patient is being admitted to inpatient services on the date of service of 08/16/2020. Chief Complaint: Shortness of breath Review of Systems Review of Systems: All systems reviewed & are unremarkable except as noted in HPI and below Constitutional: Constitutional: Reports as per HPI and Reports no additional constitutional complaints Eyes: Eyes: Reports as per HPI and Reports no additional eye complaints ENT: Reports system reviewed and no additional complaints, except as documented and Reports Normal hearing present Cardiovascular: Cardiovascular: Reports no additional cardiovascular complaints Respiratory: Respiratory: Reports no additional respiratory complaints and Reports no additional respiratory complaints Gastrointestinal: Gastrointestinal: Reports as per HPI and Reports no additional gastrointestinal complaints Musculoskeletal: Musculoskeletal: Reports no additional musculoskeletal complaints Integumentary/Breasts: Skin/Breast: Reports system reviewed and no additional complaints, except as docu and Reports as per HPI Neurologic: Reports system reviewed and no additional complaints, except as documented, Reports as per HPI and Reports Normal hearing present Psychiatric: Psychiatric: Reports no additional psychiatric complaints and Reports as per HPI Endocrine: Endocrine: Reports no additional endocrine complaints Hematologic/Lymphatic: Hematologic/Lymphatic: Reports no additional hematologic/lymphatic complaints Allergic/Immunologic: Allergic/Immunologic: Reports no additional allergic/immunologic complaints [facility] Past Medical History Medical History (Updated 08/16/20 @ 18:34 by Tricia Chatterjee NP) Anxiety Arthritis Asthma Benign prostatic hyperplasia Chronic anemia Chronic bilateral low back pain Chronic constipation Chronic depression Chronic neck pain Congestive heart failure Coronary artery disease involving [place] coronary artery of [place] heart without angina pectoris Status post [place] with stents in 2003. Degenerative disc disease Depression Diabetic peripheral neuropathy Diaphragmatic paralysis Diverticulitis Essential (primary) hypertension Fibromyalgia Gastroesophageal reflux disease Gout Herniated disc Hyperlipidemia Hypertension Hypothyroidism Insuli
[2020-08-16 17:10] LABS: Lactic Acid Reflex 0.9 mmol/L (0.7-2.1); Partial Thromboplastin Time 29.2 SECONDS (22.3-36.8)
--- NOTE | 2020-08-16 18:17 | ADMGEN ---
This patient, Nolan Onofre Jr., was admitted to IMU Room 231-01. Patient/family oriented to hospital policies and general routines including ID bracelet, bed and alarms, visiting hours, pain management, procedures, bathroom and other care routines, personal items, smoking policy, room service/diet, and visiting hours. Information on how to activate the Rapid Response Team has been discussed. Patient/Family are encouraged to report perceived risks to care and to ask questions if they do not understand what they are told or what they should do.
[2020-08-16 20:46] LABS: Glucose Point of Care 168 mg/dl (65-105)
[2020-08-16] MEDS: CENTRAL LINE FLUSH 10 ML IV PUSH (21:30)
[2020-08-16] MEDS: CYCLOBENZAPRINE HCL 5 MG TABLET PO (21:54)
[2020-08-16] MEDS: ATORVASTATIN 40 MG TABLET PO (21:54)
[2020-08-16] MEDS: RIVAROXABAN 20 MG TABLET PO (21:54)
[2020-08-16] MEDS: PREGABALIN (*CRX) 50 MG CAPSULE PO (21:54)
[2020-08-16] MEDS: PANTOPRAZOLE 40 MG TABLET PO (21:54)
[2020-08-16] MEDS: PRAMIPEXOLE 1 MG TABLET PO (21:55)
[2020-08-16] MEDS: traZODone HCL 50 MG TABLET 100 MG PO (21:55)
[2020-08-17] VITALS (30 sets, daily range): BP systolic 84–108; BP diastolic 43–82; PULSE 53–71; RESP 20–36; TEMP 36.1–36.6; O2SAT 96–100
[2020-08-17] MEDS: ALBUTEROL SULFATE NEB 2.5 MG/0.5 ML INH 5 MG INHALATION ×4 (02:02→20:19)
[2020-08-17] MEDS: IPRATROPIUM BR 0.02% INH SOLN 0.5 MG/2.5 ML VIAL INHALATION ×4 (02:03→20:20)
[2020-08-17] MEDS: CENTRAL LINE FLUSH 10 ML IV PUSH ×6 (05:06→20:44)
[2020-08-17] MEDS: LEVOTHYROXINE SODIUM 100 MCG TABLET 200 MCG PO (05:31)
[2020-08-17 05:56] LABS: Basophils Percent Auto 0.4 % (0.2-1.2); Eosinophils Absolute Auto 0.2 K/mm3 (0-0.3); Eosinophils Percent Auto 1.6 % (0-4.4); Hematocrit 35.8 % (42.0-52.0); Hemoglobin 10.5 g/dL (14.0-18.0); Immature Granulocyte Absolute 0.26 K/mm3 (0.00-0.031); Immature Granulocyte Percent A 2.4 % (0-0.5); Lymphocytes Absolute Auto 0.93 K/mm3 (0.9-3.2); Lymphocytes Percent Auto 8.7 % (18.3-44.2); Mean Corpuscular HGB Conc 29.3 g/dl (32-36); Mean Corpuscular Hemoglobin 25.9 pg (26-34); Mean Corpuscular Volume 88.4 fl (80-100); Mean Platelet Volume 10.5 fl (7.4-10.4); Monocytes Absolute Auto 0.6 K/mm3 (0.1-0.6); Monocytes Percent Auto 5.2 % (2.6-8.5); Neutrophils Absolute Auto 8.8 K/mm3 (1.3-6.7); Neutrophils Percent Auto 81.7 % (45.5-73.1); Platelet Count Result 275 k/mm3 (150-375); Red Blood Count 4.05 M/mm3 (4.6-6.20); Red Cell Distribution Width 16.4 % (11.5-14.5); White Blood Count 10.7 K/mm3 (4.5-10.0)
[2020-08-17 06:09] LABS: Alanine Aminotransferase 8 U/L (4-50); Albumin Level 3.4 g/dL (3.5-5.1); Alkaline Phosphatase 87 U/L (38-126); Anion Gap 10 mmol/L (8-16); Aspartate Amino Transferase 20 U/L (17-59); Bilirubin,Total 0.3 mg/dL (0.2-1.3); Blood Urea Nitrogen 53 mg/dL (9-20); Calcium 8.6 mg/dL (8.4-10.2); Carbon Dioxide 30 mmol/L (22-30); Chloride 93 mmol/L (98-107); Estimated CRCL calculation 28 ml/min; Estimated Glomerular Filt Rate 18; Glucose 201 mg/dL (75-110); Lactate Dehydrogenase 309 U/L (313-618); Potassium 4.6 mmol/L (3.4-5.0); Sodium 133 mmol/L (137-145)
[2020-08-17 08:15] LABS: Glucose Point of Care 186 mg/dl (65-105)
[2020-08-17] MEDS: PANTOPRAZOLE 40 MG TABLET PO ×2 (10:29→18:16)
[2020-08-17] MEDS: AMIODARONE HCL 200 MG TABLET PO (10:29)
[2020-08-17] MEDS: ASPIRIN 81 MG ENTERIC TABLET PO (10:29)
[2020-08-17] MEDS: ISOSORBIDE MONONITRATE 60 MG TAB.ER.24H PO (10:29)
[2020-08-17] MEDS: FLUoxetine HCL 20 MG CAPSULE PO (10:29)
[2020-08-17] MEDS: PRAMIPEXOLE 1 MG TABLET PO ×2 (10:29→20:37)
[2020-08-17] MEDS: DULoxetine HCL 60 MG CAPSULE.DR PO (10:30)
[2020-08-17] MEDS: TAMSULOSIN HCL 0.4 MG CAPSULE PO (10:30)
[2020-08-17] MEDS: POTASSIUM CHLORIDE 20 MEQ TABLET.ER PO (10:30)
[2020-08-17] MEDS: FERROUS SULFATE 324 MG TABLET PO (10:34)
[2020-08-17] MEDS: FUROSEMIDE INJ 40 MG/4 ML VIAL IV PUSH (10:34)
[2020-08-17] MEDS: MICONAZOLE NITRATE 2% CREAM 30 GM TUBE 1 APPLIC TOPICAL (10:35)
[2020-08-17] MEDS: PREGABALIN (*CRX) 50 MG CAPSULE PO ×2 (10:39→18:16)
[2020-08-17 10:47] LABS: Free T4 Free Thyroxine Reflex 1.45 ng/dL (0.78-2.19)
[2020-08-17 11:27] LABS: Total Triiodothyronine (T3) 0.76 NG/ML (0.97-1.69)
[2020-08-17 12:10] LABS: Glucose Point of Care 196 mg/dl (65-105)
[2020-08-17 13:44] LABS: NT Pro B Type Natriuretic Pept 571 pg/mL (5-100)
[2020-08-17 15:35] LABS: Creatinine Urine 68.6 mg/dL; Urea Random Urine 359 MG/DL
[2020-08-17 15:48] LABS: Sodium Urine Random 21 meq/L
[2020-08-17 16:04] LABS: Eosinophil Urine None Seen % (None Seen)
[2020-08-17 16:14] LABS: Glucose Point of Care 173 mg/dl (65-105)
[2020-08-17] MEDS: SODIUM CHLORIDE 0.9% IV 250 ML 999 ML IV CONT (16:32)
[2020-08-17] MEDS: RIVAROXABAN 15 MG TABLET PO (18:16)
--- NOTE | 2020-08-17 18:36 | PM.IMPN ---
Progress Note: A&P Assessment and Plan (1) Congestive heart failure: Code(s): I50.9 - Heart failure, unspecified Status: Acute Assessment and Plan: a chest x-ray on admission is reviewed and compared with the previous one. is started on IV Lasix however with hypotension and renal failure will stop diuresis. He had chest x-ray looks lot less congested and I feel he is more dry than fluid overloaded. will give of fluid challenge of 250 cc intermittently for his hypotension and reassess. Will defer from using continuous IV infusion due to his underlying tenuous fluid status. Last echo was 08/05/2020 and was read as the following 1. Complete two-dimensional, color flow and Doppler transthoracic echocardiogram is performed. 2. Left ventricular chamber dimension is mildly enlarged. 3. Left ventricular systolic function is normal, estimated at 55-60%. 4. There is mildly increased left ventricular wall thickness. 5. The left ventricular diastolic function is normal. 6. Right ventricular chamber dimension is mildly enlarged. 7. Left atrial chamber dimension is mildly enlarged. 8. The mitral valve has thickened leaflets. 9. There is mild aortic valve sclerosis. (2) Paroxysmal atrial fibrillation: Code(s): I48.0 - Paroxysmal atrial fibrillation Status: Acute Assessment and Plan: EKG was sinus bradycardia. His blood pressures medications are on hold will continue his Xarelto and amiodarone (3) Obstructive sleep apnea: Code(s): G47.33 - Obstructive sleep apnea (adult) (pediatric) Status: Acute Assessment and Plan: The [facility]. He also stated that he had a trilogy at home. I suggested that the patient get his trilogy from home and [facility]. The patient is currently on a BiPAP machine. (4) Chronic anemia: Code(s): D64.9 - Anemia, unspecified Status: Acute Assessment and Plan: Patient's hemoglobin is 12.1 today and his hematocrit is normal which is much improved from his previous readings. Please continue to monitor. likely due to hemoconcentration (5) Insulin dependent type 2 diabetes mellitus, uncontrolled: Code(s): E11.65 - Type 2 diabetes mellitus with hyperglycemia; Z79.4 - half-way (current) use of insulin Status: Acute Assessment and Plan: Accu-Cheks AC and HS. His blood sugar was in the 200s today. Last A1c was 10.8 on 06/19/2020. (6) Depression: Code(s): F32.9 - Major depressive disorder, single episode, unspecified Status: Acute Assessment and Plan: Continue with home medications. (7) BPH without obstruction/lower urinary tract symptoms: Code(s): N40.0 - Benign prostatic hyperplasia without lower urinary tract symptoms Status: Chronic Assessment and Plan: Continue with home medications. It looks like the patient may be on tamsulosin. (8) Essential (primary) hypertension: Code(s): I10 - Essential (primary) hypertension Status: Acute Assessment and Plan: Continue with home medications. (9) Hypothyroidism: Code(s): E03.9 - Hypothyroidism, unspecified Status: Chronic Assessment and Plan: continue with thyroid medicine and check TSH with T3. Could this possibly be related to his amiodarone. (10) Acute respiratory failure with hypoxia and hypercarbia: Code(s): J96.01 - Acute respiratory failure with hypoxia; J96.02 - Acute respiratory failure with hypercapnia Status: Acute Assessment and Plan: ABG reviewed. Marginally improved with BiPAP his ABG has been chronically like that. Likely relates to his lethargy (11) Carbon dioxide narcosis: Code(s): R06.89 - Other abnormalities of breathing Status: Acute Assessment and Plan: likely causing his lethargy (12) JENS (acute kidney injury): Code(s):
[2020-08-17 20:21] LABS: Glucose Point of Care 244 mg/dl (65-105)
[2020-08-17] MEDS: traZODone HCL 50 MG TABLET 100 MG PO (20:37)
[2020-08-17] MEDS: ATORVASTATIN 40 MG TABLET PO (20:37)
[2020-08-17] MEDS: CYCLOBENZAPRINE HCL 5 MG TABLET PO (20:44)
[2020-08-18] VITALS (29 sets, daily range): BP systolic 98–136; BP diastolic 45–76; PULSE 55–98; RESP 19–38; TEMP 35.8–36.6; O2SAT 96–100
[2020-08-18] MEDS: IPRATROPIUM BR 0.02% INH SOLN 0.5 MG/2.5 ML VIAL INHALATION ×4 (03:50→20:29)
[2020-08-18] MEDS: ALBUTEROL SULFATE NEB 2.5 MG/0.5 ML INH 5 MG INHALATION ×4 (03:51→20:28)
[2020-08-18] MEDS: LEVOTHYROXINE SODIUM 100 MCG TABLET 200 MCG PO (06:17)
[2020-08-18] MEDS: CENTRAL LINE FLUSH 10 ML IV PUSH ×6 (06:17→21:01)
[2020-08-18 06:30] LABS: Basophils Absolute Auto 0.1 K/mm3 (0.0-0.1); Basophils Percent Auto 0.5 % (0.2-1.2); Eosinophils Absolute Auto 0.1 K/mm3 (0-0.3); Eosinophils Percent Auto 1.3 % (0-4.4); Hematocrit 33.5 % (42.0-52.0); Hemoglobin 9.9 g/dL (14.0-18.0); Immature Granulocyte Absolute 0.17 K/mm3 (0.00-0.031); Immature Granulocyte Percent A 1.6 % (0-0.5); Lymphocytes Percent Auto 10.5 % (18.3-44.2); Mean Corpuscular HGB Conc 29.6 g/dl (32-36); Mean Corpuscular Volume 87.9 fl (80-100); Mean Platelet Volume 9.9 fl (7.4-10.4); Monocytes Absolute Auto 0.7 K/mm3 (0.1-0.6); Monocytes Percent Auto 6.3 % (2.6-8.5); Neutrophils Absolute Auto 8.4 K/mm3 (1.3-6.7); Neutrophils Percent Auto 79.8 % (45.5-73.1); Platelet Count Result 294 k/mm3 (150-375); Red Blood Count 3.81 M/mm3 (4.6-6.20); Red Cell Distribution Width 16.7 % (11.5-14.5); White Blood Count 10.5 K/mm3 (4.5-10.0)
[2020-08-18 06:39] LABS: Alanine Aminotransferase 7 U/L (4-50); Albumin Level 3.2 g/dL (3.5-5.1); Alkaline Phosphatase 84 U/L (38-126); Anion Gap 5 mmol/L (8-16); Aspartate Amino Transferase 21 U/L (17-59); Bilirubin,Total 0.3 mg/dL (0.2-1.3); Blood Urea Nitrogen 51 mg/dL (9-20); Calcium 8.4 mg/dL (8.4-10.2); Carbon Dioxide 35 mmol/L (22-30); Chloride 94 mmol/L (98-107); Estimated CRCL calculation 35 ml/min; Estimated Glomerular Filt Rate 24; Glucose 211 mg/dL (75-110); Potassium 4.5 mmol/L (3.4-5.0); Sodium 134 mmol/L (137-145)
[2020-08-18] MEDS: UMECLIDINIUM BROMIDE 62.5 MCG ELLIPTA 1 PUFF INHALATION (07:56)
[2020-08-18 08:24] LABS: Glucose Point of Care 204 mg/dl (65-105)
[2020-08-18] MEDS: PREGABALIN (*CRX) 50 MG CAPSULE PO ×3 (08:31→18:11)
[2020-08-18] MEDS: POTASSIUM CHLORIDE 20 MEQ TABLET.ER PO (08:31)
[2020-08-18] MEDS: PRAMIPEXOLE 1 MG TABLET PO ×2 (08:31→21:00)
[2020-08-18] MEDS: FERROUS SULFATE 324 MG TABLET PO (08:31)
[2020-08-18] MEDS: SACCHAROMYCES BOULARDII 250 MG CAPSULE PO (08:31)
[2020-08-18] MEDS: FLUoxetine HCL 20 MG CAPSULE PO (08:32)
[2020-08-18] MEDS: ASPIRIN 81 MG ENTERIC TABLET PO (08:32)
[2020-08-18] MEDS: DULoxetine HCL 60 MG CAPSULE.DR PO (08:32)
[2020-08-18] MEDS: PANTOPRAZOLE 40 MG TABLET PO ×2 (08:32→18:11)
[2020-08-18] MEDS: AMIODARONE HCL 200 MG TABLET PO (08:32)
[2020-08-18] MEDS: TAMSULOSIN HCL 0.4 MG CAPSULE PO (08:32)
[2020-08-18] MEDS: INSULIN ASPART (*BKC) 100 UNITS/ML SUB-Q ×3 (08:33→18:10)
[2020-08-18 11:25] LABS: Alveolar/Arterial O2 Gradient 45.6 mmHg; Base Excess ABG 3.1 mEq/l (+/-2.0); Fractional Inspired Oxygen 30 %; HCO3 ABG 30.7 mEq/l (22.0-26.0); Oxygen Content ABG 15.6 %vol (16.0-22.0); Oxygen Saturation ABG 96.5 % (95.0-100.0); Oxyhemoglobin 95.5 % THb (90.0-100.0); PO2 ABG 95.1 mmHg (80.0-100.0); PO2 FiO2 Ratio Arterial Blood 3.17 %; Total Hemoglobin 11.5 g/dL (12.0-18.0)
[2020-08-18 11:28] LABS: PCO2 ABG 62.3 mmHg (35.0-45.0)
[2020-08-18 11:29] LABS: Device NON-INVASIVE VENT; Non-Invasive Inspiratory Pressure 22 CMH2O; Non-Invasive Vent Rate 18 /MIN; Site Drawn LEFT BRACHIAL
[2020-08-18 11:30] LABS: Non-Invasive Expiratory Pressure 14 CMH2O
[2020-08-18 12:03] LABS: Glucose Point of Care 281 mg/dl (65-105)
--- NOTE | 2020-08-18 12:51 | PM.IMPN ---
Progress Note: A&P Assessment and Plan (1) Congestive heart failure: Code(s): I50.9 - Heart failure, unspecified Status: Acute Assessment and Plan: a chest x-ray on admission is reviewed and compared with the previous one. is started on IV Lasix however with hypotension and renal failure will stop diuresis. He had chest x-ray looks lot less congested and I feel he is more dry than fluid overloaded. will give of fluid challenge of 250 cc intermittently for his hypotension and reassess. Will defer from using continuous IV infusion due to his underlying tenuous fluid status. Last echo was 08/05/2020 and was read as the following 1. Complete two-dimensional, color flow and Doppler transthoracic echocardiogram is performed. 2. Left ventricular chamber dimension is mildly enlarged. 3. Left ventricular systolic function is normal, estimated at 55-60%. 4. There is mildly increased left ventricular wall thickness. 5. The left ventricular diastolic function is normal. 6. Right ventricular chamber dimension is mildly enlarged. 7. Left atrial chamber dimension is mildly enlarged. 8. The mitral valve has thickened leaflets. 9. There is mild aortic valve sclerosis. (2) Paroxysmal atrial fibrillation: Code(s): I48.0 - Paroxysmal atrial fibrillation Status: Acute Assessment and Plan: EKG was sinus bradycardia. His blood pressures medications are on hold will continue his Xarelto and amiodarone (3) Obstructive sleep apnea: Code(s): G47.33 - Obstructive sleep apnea (adult) (pediatric) Status: Acute Assessment and Plan: The patient stated that [facility] not [facility]. He also stated that he had a trilogy at home. I suggested that the patient get his trilogy from home and take it to the senior living. The patient is currently on a BiPAP machine. (4) Chronic anemia: Code(s): D64.9 - Anemia, unspecified Status: Acute Assessment and Plan: Patient's hemoglobin is 12.1 today and his hematocrit is normal which is much improved from his previous readings. Please continue to monitor. likely due to hemoconcentration (5) Insulin dependent type 2 diabetes mellitus, uncontrolled: Code(s): E11.65 - Type 2 diabetes mellitus with hyperglycemia; Z79.4 - FDC (current) use of insulin Status: Acute Assessment and Plan: Accu-Cheks AC and HS. His blood sugar was in the 200s today. Last A1c was 10.8 on 06/19/2020. (6) Depression: Code(s): F32.9 - Major depressive disorder, single episode, unspecified Status: Acute Assessment and Plan: Continue with home medications. (7) BPH without obstruction/lower urinary tract symptoms: Code(s): N40.0 - Benign prostatic hyperplasia without lower urinary tract symptoms Status: Chronic Assessment and Plan: Continue with home medications. It looks like the patient may be on tamsulosin. (8) Essential (primary) hypertension: Code(s): I10 - Essential (primary) hypertension Status: Acute Assessment and Plan: Continue with home medications. (9) Hypothyroidism: Code(s): E03.9 - Hypothyroidism, unspecified Status: Chronic Assessment and Plan: continue with thyroid medicine and check TSH with T3. Could this possibly be related to his amiodarone. (10) Acute respiratory failure with hypoxia and hypercarbia: Code(s): J96.01 - Acute respiratory failure with hypoxia; J96.02 - Acute respiratory failure with hypercapnia Status: Acute Assessment and Plan: ABG reviewed. Marginally improved with BiPAP his ABG has been chronically like that. Likely relates to his lethargy (11) Carbon dioxide narcosis: Code(s): R06.89 - Other abnormalities of breathing Status: Acute Assessment and Plan: likely causing his lethargy (12) JENS (acute kidney injury): Code(s):
--- NOTE | 2020-08-18 12:54 | PM.CNNEP ---
Assessment and Plan Assessment and plan (1) JENS (acute kidney injury): Code(s): N17.9 - Acute kidney failure, unspecified Status: Acute Assessment and Plan: normal creatinine in June 2020 creatinine elevated ~ 2.1 - 2.5mg/dl in last July 2020 hospitalization presumed etiology of this change is due to necessity of diuretic therapy to maintain his volume status...although he certainly has risk factors for CKD however, during this hospitalization, his creatininie improved with holding diuretics and gentle IVF boluses furthermore, aggressive diuresis resulted in further rise in creatinine and hypotension (arguing in favor of overdiuresis) urine electrolytes c/w prerenal azotemia renal ultrasound without obstruction urine eosinophils negative agree with holding diuretics for now and follow trend of creatinine/renal function (2) CHF exacerbation: Qualifiers: Heart failure type: unspecified Qualified Code(s): I50.9 - Heart failure, unspecified Code(s): I50.9 - Heart failure, unspecified Status: Acute Assessment and Plan: unclear if this issues is present at this time follow volume status Cardiology has seen in the past (3) NEPTALI on CPAP: Code(s): G47.33 - Obstructive sleep apnea (adult) (pediatric); Z99.89 - Dependence on other enabling machines and devices Status: Chronic Assessment and Plan: BiPAP in place ABGs doing better continue current therapy (4) Essential (primary) hypertension: Code(s): I10 - Essential (primary) hypertension Status: Chronic Assessment and Plan: reasonable control at this time follow trend of hemodynamics (5) Diabetes: Code(s): E11.9 - Type 2 diabetes mellitus without complications Status: Chronic Assessment and Plan: follow accuchecks glycemic control Will continue to follow. History of Present Illness Reason for Consult Consult date: 08/18/20 Reason for consult: acute renal failure Chief Complaint Chief complaint: Carbon Oxide Narcosis, JENS, Noncompliance c/ treat History of Present Illness Narrative: The patient is a 69-year-old male with an extensive past medical history as outlined below altered mental status/lethargy. The patient was just recently discharged from [facility] about two weeks ago after suffering from hypoxia and hypercapnia due to his chronic respiratory failure as well as a congestive heart failure exacerbation. The nursing staff noted on the day of admission that the patient was not as awake and alert as he normally is and he was unable to participate with therapy much less eat his own meals which is not his normal.It was also noted that apparently his CPAP machine has been broken for last five days and hence he has not been able use or do his normal therapy as prescribed. Upon arrival to the emergency room, despite his lethargy, he was able to answer simple questions and was somewhat oriented. Given his history, an ABG was performed that showed significant CO2 retention in association with respiratory acidosis. He was immediately placed on BiPAP with some improvement in his ABG readings but still not back to baseline. His chest x-ray demonstrated small pleural effusions and bibasilar airspace opacities consistent with atelectasis versus pneumonia. He had no other symptoms with regard to fevers chills nausea vomiting diarrhea or cough. His mentation slowly improved but given these constellation of symptoms and laboratory findings, he was admitted the hospital for further evaluation therapy. Since admission, his respiratory status has been somewhat tenuous but stable/better overall. However, during this hospitalization, his kidney function has fluctuated much as it did on his last hospitalization although his renal function seems to be doing somewhat better today after holding his diuretics and given gentle IV fluid boluses For his previous h
[2020-08-18 16:23] LABS: Glucose Point of Care 213 mg/dl (65-105)
[2020-08-18] MEDS: RIVAROXABAN 15 MG TABLET PO (18:11)
[2020-08-18 20:35] LABS: Glucose Point of Care 273 mg/dl (65-105)
[2020-08-18] MEDS: traZODone HCL 50 MG TABLET 100 MG PO (20:59)
[2020-08-18] MEDS: ATORVASTATIN 40 MG TABLET PO (21:00)
[2020-08-18] MEDS: CYCLOBENZAPRINE HCL 5 MG TABLET PO (21:00)
[2020-08-19] VITALS (19 sets, daily range): BP systolic 117–131; BP diastolic 53–66; PULSE 59–81; RESP 16–31; TEMP 35.9–36.8; O2SAT 93–100; BMI 39.5
[2020-08-19] MEDS: IPRATROPIUM BR 0.02% INH SOLN 0.5 MG/2.5 ML VIAL INHALATION ×4 (01:55→20:01)
[2020-08-19] MEDS: ALBUTEROL SULFATE NEB 2.5 MG/0.5 ML INH 5 MG INHALATION ×4 (01:55→20:01)
[2020-08-19] MEDS: LEVOTHYROXINE SODIUM 100 MCG TABLET 200 MCG PO (06:26)
[2020-08-19] MEDS: CENTRAL LINE FLUSH 10 ML IV PUSH ×5 (06:26→22:00)
--- NOTE | 2020-08-19 07:15 | PC.NURSE ---
On 08/16/20 around 1400 I was called to the ED to evaluate this patient for a picc line placement per request of Dr. Elmore. Reviewing the patient's blood work I found his GFR to be 15, BUN 55 and Creatinine of 3.9. I also reviewed the patient past renal function from previous visit and found his renal function to be subpar for picc line placement due to potential need for dialysis. I went to the bedside to discuss with the patient his options for central line access. With Dr. Elmore at the bedside, patient refused any central line access in his neck because he had had a bad experience with a line in his neck in the past. He also refused any line placement in his groin, mid thigh or feet. Patient states that he will never agree to have dialysis and want the picc line placed in his arm. Arrangements were made for picc line placement as requested by patient.
[2020-08-19] MEDS: SACCHAROMYCES BOULARDII 250 MG CAPSULE PO (08:06)
[2020-08-19] MEDS: POTASSIUM CHLORIDE 20 MEQ TABLET.ER PO (08:06)
[2020-08-19] MEDS: FERROUS SULFATE 324 MG TABLET PO (08:06)
[2020-08-19] MEDS: DULoxetine HCL 60 MG CAPSULE.DR PO (08:06)
[2020-08-19] MEDS: TAMSULOSIN HCL 0.4 MG CAPSULE PO (08:06)
[2020-08-19] MEDS: PRAMIPEXOLE 1 MG TABLET PO ×2 (08:06→19:51)
[2020-08-19] MEDS: ASPIRIN 81 MG ENTERIC TABLET PO (08:06)
[2020-08-19] MEDS: PANTOPRAZOLE 40 MG TABLET PO ×2 (08:06→18:18)
[2020-08-19] MEDS: FUROSEMIDE INJ 40 MG/4 ML VIAL IV PUSH ×2 (08:07→18:32)
[2020-08-19] MEDS: AMIODARONE HCL 200 MG TABLET PO (08:07)
[2020-08-19] MEDS: INSULIN ASPART (*BKC) 100 UNITS/ML SUB-Q ×3 (08:07→18:13)
[2020-08-19] MEDS: FLUoxetine HCL 20 MG CAPSULE PO (08:07)
[2020-08-19] MEDS: PREGABALIN (*CRX) 50 MG CAPSULE PO ×3 (08:11→18:32)
[2020-08-19] MEDS: MICONAZOLE NITRATE 2% CREAM 30 GM TUBE 1 APPLIC TOPICAL (08:33)
[2020-08-19 08:35] LABS: Glucose Point of Care 258 mg/dl (65-105)
[2020-08-19 08:39] LABS: Albumin Level 3.3 g/dL (3.5-5.1); Anion Gap 5 mmol/L (8-16); Blood Urea Nitrogen 41 mg/dL (9-20); Carbon Dioxide 36 mmol/L (22-30); Chloride 94 mmol/L (98-107); Estimated CRCL calculation 41 ml/min; Estimated Glomerular Filt Rate 29; Glucose 270 mg/dL (75-110); Phosphorus 3.4 mg/dL (2.5-4.5); Potassium 5.3 mmol/L (3.4-5.0); Sodium 135 mmol/L (137-145)
[2020-08-19] MEDS: UMECLIDINIUM BROMIDE 62.5 MCG ELLIPTA 1 PUFF INHALATION (08:59)
--- NOTE | 2020-08-19 10:08 | P.PNNP_ITS ---
Progress Note: A&P Assessment and Plan (1) JENS (acute kidney injury): Code(s): N17.9 - Acute kidney failure, unspecified Status: Acute Assessment and Plan: * normal creatinine in June 2020 * creatinine elevated ~ 2.1 - 2.5mg/dl in last July 2020 hospitalization * this peaked at 3.9 this admission and is now down to 2.3. * presumed etiology of this change is due to necessity of diuretic therapy to maintain his volume status...although he certainly has risk factors for CKD * however, during this hospitalization, his creatininie improved with holding diuretics and gentle IVF boluses * furthermore, aggressive diuresis resulted in further rise in creatinine and hypotension (arguing in favor of overdiuresis) * urine electrolytes c/w prerenal azotemia * renal ultrasound without obstruction * urine eosinophils negative * Back on IV Lasix. * As long as his creatinine continues to improve I think this is okay. * His swelling is not too bad so he could switch to p.o. soon (2) CHF exacerbation: Qualifiers: Heart failure type: unspecified Qualified Code(s): I50.9 - Heart failure, unspecified Code(s): I50.9 - Heart failure, unspecified Status: Acute Assessment and Plan: * echo shows pretty good LV and mildly enlarged RV. * Cardiology has seen in the past * Possibly sleep apnea is responsible for this. (3) NEPTALI on CPAP: Code(s): G47.33 - Obstructive sleep apnea (adult) (pediatric); Z99.89 - Dependence on other enabling machines and devices Status: Chronic Assessment and Plan: * BiPAP in place * ABGs doing better * continue current therapy (4) Essential (primary) hypertension: Code(s): I10 - Essential (primary) hypertension Status: Chronic Assessment and Plan: * reasonable control at this time * follow trend of hemodynamics * Blood pressure is under good control * on carvedilol at home but this is on hold right now. (5) Diabetes: Code(s): E11.9 - Type 2 diabetes mellitus without complications Status: Chronic Assessment and Plan: * follow accuchecks * glycemic control Subjective Date/time seen: 08/19/20 10:08 Interval history: Nolan is a very pleasant gentleman with acute kidney injury. He has some swelling but it is not too bad. No shortness of breath. He is eating some breakfast Exam Narrative: Exam Narrative: GENERAL APPEARANCE: well developed well nourished male in no acute distress; BIPAP in place HEENT: normocephalic, atraumatic, normal conjunctiva and sclera, nares patient CARDIOVASCULAR: RRR, normal S1 and S2, no rub RESPIRATORY: coarse and decreased at bases ABDOMEN: soft, nontender, nondistended, positive bowel sounds present EXTREMITIES: no evidence of cyanosis, clubbing, but 1+ symmetric edema NEUROLOGICAL: alert and oriented x 3; CN II - XII intact bilaterally; no focal deficits noted Objective Data Vital Signs Vital Signs: Vital Signs - 24 hr 08/18/20 11:09 08/18/20 12:00 08/18/20 12:06 Temperature 35.9 C L Pulse Rate 63 57 L 57 L Respiratory Rate 38 H 23 H Blood Pressure 120/54 L Pulse Oximetry 100 100 100 08/18/20 14:00 08/18/20 14:31 08/18/20 14:32 Temperature Pulse Rate 58 L 56 L 63 Respiratory Rate 33 H 29 H Blood Pressure Pulse Oximetry 100 0
--- NOTE | 2020-08-19 10:08 | PM.PNNEP ---
Progress Note: A&P Assessment and Plan (1) JENS (acute kidney injury): Code(s): N17.9 - Acute kidney failure, unspecified Status: Acute Assessment and Plan: normal creatinine in June 2020 creatinine elevated ~ 2.1 - 2.5mg/dl in last July 2020 hospitalization this peaked at 3.9 this admission and is now down to 2.3. presumed etiology of this change is due to necessity of diuretic therapy to maintain his volume status...although he certainly has risk factors for CKD however, during this hospitalization, his creatininie improved with holding diuretics and gentle IVF boluses furthermore, aggressive diuresis resulted in further rise in creatinine and hypotension (arguing in favor of overdiuresis) urine electrolytes c/w prerenal azotemia renal ultrasound without obstruction urine eosinophils negative Back on IV Lasix. As long as his creatinine continues to improve I think this is okay. His swelling is not too bad so he could switch to p.o. soon (2) CHF exacerbation: Qualifiers: Heart failure type: unspecified Qualified Code(s): I50.9 - Heart failure, unspecified Code(s): I50.9 - Heart failure, unspecified Status: Acute Assessment and Plan: echo shows pretty good LV and mildly enlarged RV. Cardiology has seen in the past Possibly sleep apnea is responsible for this. (3) NEPTALI on CPAP: Code(s): G47.33 - Obstructive sleep apnea (adult) (pediatric); Z99.89 - Dependence on other enabling machines and devices Status: Chronic Assessment and Plan: BiPAP in place ABGs doing better continue current therapy (4) Essential (primary) hypertension: Code(s): I10 - Essential (primary) hypertension Status: Chronic Assessment and Plan: reasonable control at this time follow trend of hemodynamics Blood pressure is under good control on carvedilol at home but this is on hold right now. (5) Diabetes: Code(s): E11.9 - Type 2 diabetes mellitus without complications Status: Chronic Assessment and Plan: follow accuchecks glycemic control Subjective Date/time seen: 08/19/20 10:08 Interval history: Nolan is a very pleasant gentleman with acute kidney injury. He has some swelling but it is not too bad. No shortness of breath. He is eating some breakfast Exam Narrative: Exam Narrative: GENERAL APPEARANCE: well developed well nourished male in no acute distress; BIPAP in place HEENT: normocephalic, atraumatic, normal conjunctiva and sclera, nares patient CARDIOVASCULAR: RRR, normal S1 and S2, no rub RESPIRATORY: coarse and decreased at bases ABDOMEN: soft, nontender, nondistended, positive bowel sounds present EXTREMITIES: no evidence of cyanosis, clubbing, but 1+ symmetric edema NEUROLOGICAL: alert and oriented x 3; CN II - XII intact bilaterally; no focal deficits noted Objective Data Vital Signs Vital Signs: Vital Signs - 24 hr 08/18/20 11:09 08/18/20 12:00 08/18/20 12:06 Temperature 35.9 C L Pulse Rate 63 57 L 57 L Respiratory Rate 38 H 23 H Blood Pressure 120/54 L Pulse Oximetry 100 100 100 08/18/20 14:00 08/18/20 14:31 08/18/20 14:32 Temperature Pulse Rate 58 L 56 L 63 Respiratory Rate 33 H 29 H Blood Pressure Pulse Oximetry 100 08/18/20 14:41 08/18/20 16:00 08/18/20 16:48 Temperature 35.8 C L Pulse Rate 55 L 66 63 Respiratory Rate 28 H 30 H Blood Pressure 120/76 Pulse Oximetry 100 98 08/18/20 18:00 08/18/20 19:19 08/18/20 20:00 Temperature 36.4 C L Pulse Rate 67 66 64 Respiratory Rate 28 H Blood Pressure 136/57 L Pulse Oximetry 96 97 08/18/20 20:29 08/18/20 20:40 08/18/20 22:00 Temperature Pulse Rate 60 71 98 Respiratory Rate 19 20 Blood Pressure Pulse Oximetry 08/18/20 22:01 08/18/20 23:27 08/19/20 00:00 Temperature 36.2 C L Pulse Rate 69 61 59 L Respiratory Rate 27 H 26 H Blood Pressure
--- NOTE | 2020-08-19 10:52 | PC.NURSE ---
This patient, Nolan Onofre Jr., was transferred to [facility] on 08/19/20 at 1050. Personal belongings sent with patient. Report given to JIHAN Smith. Appropriate documentation sent with patient.
--- NOTE | 2020-08-19 11:51 | PM.IMPN ---
Progress Note: A&P Assessment and Plan (1) Congestive heart failure: Code(s): I50.9 - Heart failure, unspecified Status: Acute Assessment and Plan: a chest x-ray on admission is reviewed and compared with the previous one. is started on IV Lasix however with hypotension and renal failure will stop diuresis. He had chest x-ray looks lot less congested and I feel he is more dry than fluid overloaded. will give of fluid challenge of 250 cc intermittently for his hypotension and reassess. Will defer from using continuous IV infusion due to his underlying tenuous fluid status. Last echo was 08/05/2020 and was read as the following 1. Complete two-dimensional, color flow and Doppler transthoracic echocardiogram is performed. 2. Left ventricular chamber dimension is mildly enlarged. 3. Left ventricular systolic function is normal, estimated at 55-60%. 4. There is mildly increased left ventricular wall thickness. 5. The left ventricular diastolic function is normal. 6. Right ventricular chamber dimension is mildly enlarged. 7. Left atrial chamber dimension is mildly enlarged. 8. The mitral valve has thickened leaflets. 9. There is mild aortic valve sclerosis. (2) Paroxysmal atrial fibrillation: Code(s): I48.0 - Paroxysmal atrial fibrillation Status: Acute Assessment and Plan: EKG was sinus bradycardia. His blood pressures medications are on hold will continue his Xarelto and amiodarone (3) Obstructive sleep apnea: Code(s): G47.33 - Obstructive sleep apnea (adult) (pediatric) Status: Acute Assessment and Plan: The patient stated that [facility] not working [facility]. He also stated that he had a trilogy at home. I suggested that the patient get his trilogy from home and take it to the shelter. The patient is currently on a BiPAP machine. (4) Chronic anemia: Code(s): D64.9 - Anemia, unspecified Status: Acute Assessment and Plan: Patient's hemoglobin is 12.1 today and his hematocrit is normal which is much improved from his previous readings. Please continue to monitor. likely due to hemoconcentration (5) Insulin dependent type 2 diabetes mellitus, uncontrolled: Code(s): E11.65 - Type 2 diabetes mellitus with hyperglycemia; Z79.4 - alf (current) use of insulin Status: Acute Assessment and Plan: Accu-Cheks AC and HS. His blood sugar was in the 200s today. Last A1c was 10.8 on 06/19/2020. (6) Depression: Code(s): F32.9 - Major depressive disorder, single episode, unspecified Status: Acute Assessment and Plan: Continue with home medications. (7) BPH without obstruction/lower urinary tract symptoms: Code(s): N40.0 - Benign prostatic hyperplasia without lower urinary tract symptoms Status: Chronic Assessment and Plan: Continue with home medications. It looks like the patient may be on tamsulosin. (8) Essential (primary) hypertension: Code(s): I10 - Essential (primary) hypertension Status: Chronic Assessment and Plan: Continue with home medications. (9) Hypothyroidism: Code(s): E03.9 - Hypothyroidism, unspecified Status: Chronic Assessment and Plan: continue with thyroid medicine and check TSH with T3. Could this possibly be related to his amiodarone. (10) Acute respiratory failure with hypoxia and hypercarbia: Code(s): J96.01 - Acute respiratory failure with hypoxia; J96.02 - Acute respiratory failure with hypercapnia Status: Acute Assessment and Plan: ABG reviewed. Marginally improved with BiPAP his ABG has been chronically like that. Likely relates to his lethargy (11) Carbon dioxide narcosis: Code(s): R06.89 - Other abnormalities of breathing Status: Acute Assessment and Plan: likely causing his lethargy (12) JENS (acute kidney injury): Code(s):
[2020-08-19] MEDS: SODIUM POLYSTYRENE SULFONONATE 15 GM/60 ML BTL PO (12:11)
[2020-08-19 12:57] LABS: Glucose Point of Care 338 mg/dl (65-105)
[2020-08-19] MEDS: RIVAROXABAN 15 MG TABLET PO (18:18)
[2020-08-19 18:46] LABS: Glucose Point of Care 240 mg/dl (65-105)
[2020-08-19] MEDS: ATORVASTATIN 40 MG TABLET PO (19:51)
[2020-08-19] MEDS: CYCLOBENZAPRINE HCL 5 MG TABLET PO (19:51)
[2020-08-19] MEDS: traZODone HCL 50 MG TABLET 100 MG PO (19:51)
[2020-08-19 21:20] LABS: Glucose Point of Care 309 mg/dl (65-105)
[2020-08-20] VITALS (17 sets, daily range): BP systolic 114–133; BP diastolic 58–67; PULSE 59–79; RESP 16–25; TEMP 36.2–36.7; O2SAT 92–97
[2020-08-20] MEDS: ALBUTEROL SULFATE NEB 2.5 MG/0.5 ML INH 5 MG INHALATION ×4 (02:08→19:58)
[2020-08-20] MEDS: IPRATROPIUM BR 0.02% INH SOLN 0.5 MG/2.5 ML VIAL INHALATION ×4 (02:08→19:59)
[2020-08-20 05:07] LABS: Albumin Level 3.3 g/dL (3.5-5.1); Blood Urea Nitrogen 37 mg/dL (9-20); Calcium 8.8 mg/dL (8.4-10.2); Carbon Dioxide > 40 mmol/L (22-30); Chloride 95 mmol/L (98-107); Estimated CRCL calculation 45 ml/min; Estimated Glomerular Filt Rate 32; Glucose 213 mg/dL (75-110); Phosphorus 3.1 mg/dL (2.5-4.5); Potassium 4.7 mmol/L (3.4-5.0); Sodium 138 mmol/L (137-145)
[2020-08-20] MEDS: CENTRAL LINE FLUSH 10 ML IV PUSH ×3 (05:43→22:51)
[2020-08-20] MEDS: LEVOTHYROXINE SODIUM 100 MCG TABLET 200 MCG PO (05:44)
[2020-08-20] MEDS: oxyCODONE/ACETAMINOPHEN (*CRX) 5-325 MG TABLET 1 TABLET PO (06:05)
--- NOTE | 2020-08-20 07:30 | PM.PNNEP ---
Progress Note: A&P Assessment and Plan (1) JENS (acute kidney injury): Code(s): N17.9 - Acute kidney failure, unspecified Status: Acute Assessment and Plan: normal creatinine in June 2020 creatinine elevated ~ 2.1 - 2.5mg/dl in last July 2020 hospitalization It is unclear if he is going to have a higher baseline creatinine then in June. urine electrolytes c/w prerenal azotemia renal ultrasound without obstruction urine eosinophils negative It looks like his volume status is getting toward euvolemic. His blood pressure is okay. Reduce diuretics. (2) CHF exacerbation: Qualifiers: Heart failure type: unspecified Qualified Code(s): I50.9 - Heart failure, unspecified Code(s): I50.9 - Heart failure, unspecified Status: Acute Assessment and Plan: echo shows pretty good LV and mildly enlarged RV. Cardiology has seen in the past Possibly sleep apnea is responsible for this. (3) NEPTALI on CPAP: Code(s): G47.33 - Obstructive sleep apnea (adult) (pediatric); Z99.89 - Dependence on other enabling machines and devices Status: Chronic Assessment and Plan: BiPAP in place At night ABGs doing better continue current therapy (4) Essential (primary) hypertension: Code(s): I10 - Essential (primary) hypertension Status: Chronic Assessment and Plan: blood pressure doing well. He is off Carvedilol (5) Diabetes: Code(s): E11.9 - Type 2 diabetes mellitus without complications Status: Chronic Assessment and Plan: follow accuchecks glycemic control Subjective Date/time seen: 08/20/20 07:30 Interval history: Nolan is a very pleasant gentleman with acute kidney injury. Swelling is much better. No shortness of breath. He made 6L of urine yesterday. Exam Narrative: Exam Narrative: GENERAL APPEARANCE: well developed well nourished male in no acute distress; HEENT: normocephalic, atraumatic CARDIOVASCULAR: RRR, normal S1 and S2, no rub RESPIRATORY: coarse and decreased at bases ABDOMEN: soft, nontender, nondistended, positive bowel sounds present EXTREMITIES: Trace to 1+ symmetric edema NEUROLOGICAL: alert and oriented x 3; CN II - XII intact bilaterally; no focal deficits noted Objective Data Vital Signs Vital Signs: Vital Signs - 24 hr 08/19/20 08:00 08/19/20 08:07 08/19/20 08:59 Temperature 36.8 C Pulse Rate 72 61 71 Respiratory Rate 22 H 18 Blood Pressure 131/66 Pulse Oximetry 97 99 08/19/20 09:08 08/19/20 09:30 08/19/20 14:00 Temperature 35.9 C L Pulse Rate 70 79 Respiratory Rate 18 16 Blood Pressure 117/53 L Pulse Oximetry 93 96 08/19/20 15:37 08/19/20 15:47 08/19/20 15:49 Temperature Pulse Rate 76 80 77 Respiratory Rate 20 20 31 H Blood Pressure Pulse Oximetry 96 08/19/20 20:00 08/19/20 20:05 08/19/20 20:20 Temperature Pulse Rate 60 81 Respiratory Rate 26 H 28 H Blood Pressure Pulse Oximetry 99 100 99 08/20/20 00:00 08/20/20 02:07 08/20/20 02:23 Temperature 36.6 C Pulse Rate 73 73 59 L Respiratory Rate 18 19 22 H Blood Pressure 133/67 Pulse Oximetry 97 97 08/20/20 05:12 Temperature 36.7 C Pulse Rate 72 Respiratory Rate 16 Blood Pressure 127/59 L Pulse Oximetry 93 Intake/Output Intake/Output: Intake & Output 08/17/20 08/18/20 08/19/20 08/20/20 23:59 23:59 23:59 23:59 Intake Total 776 638 3745 500 Output Total 1250 3950 5250 1250 Balance -600 -3370 -3710 -750 Meds/Results Medications: Active Medications Generic Name Dose Route Start Last Admin Trade Name Freq PRN Reason Stop Dose Admin Albuterol 5 mg 08/16/20 20:00 08/20/20 02:08 Albuterol Sulfate Neb 2.5 Mg/0.5 Ml Inh INHALATION 5 mg Q6HRT KIRSTEN Administration Albuterol 2.5 mg 08/16/20 20:07 Albuterol Sulfate Neb 2.5 Mg/0.5 Ml Inh INHALATION Q6H PRN shortness of breath or wheezing Amiodarone
[2020-08-20 08:06] LABS: Glucose Point of Care 169 mg/dl (65-105)
[2020-08-20] MEDS: FERROUS SULFATE 324 MG TABLET PO (08:46)
[2020-08-20] MEDS: AMIODARONE HCL 200 MG TABLET PO (08:46)
[2020-08-20] MEDS: PRAMIPEXOLE 1 MG TABLET PO ×2 (08:46→20:17)
[2020-08-20] MEDS: PANTOPRAZOLE 40 MG TABLET PO ×2 (08:46→17:12)
[2020-08-20] MEDS: ASPIRIN 81 MG ENTERIC TABLET PO (08:46)
[2020-08-20] MEDS: SACCHAROMYCES BOULARDII 250 MG CAPSULE PO (08:46)
[2020-08-20] MEDS: FUROSEMIDE INJ 40 MG/4 ML VIAL 20 MG IV PUSH (08:47)
[2020-08-20] MEDS: TAMSULOSIN HCL 0.4 MG CAPSULE PO (08:47)
[2020-08-20] MEDS: DULoxetine HCL 60 MG CAPSULE.DR PO (08:47)
[2020-08-20] MEDS: FLUoxetine HCL 20 MG CAPSULE PO (08:47)
[2020-08-20] MEDS: PREGABALIN (*CRX) 50 MG CAPSULE PO ×3 (08:52→17:12)
[2020-08-20] MEDS: UMECLIDINIUM BROMIDE 62.5 MCG ELLIPTA 1 PUFF INHALATION (08:58)
[2020-08-20] MEDS: INSULIN ASPART (*BKC) 100 UNITS/ML SUB-Q (12:50)
[2020-08-20 13:04] LABS: Glucose Point of Care 286 mg/dl (65-105)
--- NOTE | 2020-08-20 14:49 | PM.DS ---
DS: Summary Time Spent with Patient Time attestation: Total time spent providing and/or coordinating discharge services: DS: Data Data Completed and Pending Labs on day of discharge: Labs from last 24 hours 08/20/20 08/20/20 08/20/20 12:37 08:00 04:39 Sodium 138 Potassium 4.7 Chloride 95 L Carbon Dioxide > 40 H Anion Gap BUN 37 H Creatinine 2.10 H Estim Creat Clear Calc 45 Estimated GFR 32 L Glucose 213 H POC Capillary Glucose 286 H 169 H Calcium 8.8 Phosphorus 3.1 Albumin 3.3 L 08/19/20 08/19/20 21:17 18:11 Sodium Potassium Chloride Carbon Dioxide Anion Gap BUN Creatinine Estim Creat Clear Calc Estimated GFR Glucose POC Capillary Glucose 309 H 240 H Calcium Phosphorus Albumin Preliminary micro results at discharge 08/16/20 16:49 Blood Culture - Preliminary Blood 08/16/20 16:49 Blood Culture - Preliminary Blood Discharge Plan Discharge Attending physician on discharge: Jeffery Feldman Consulting providers: Tami Boston Discharging Clinician: Jeffery Feldman Patient Disposition: [facility] Shelter/Asst Living Activity: as tolerated Diet: heart healthy Discharge Instructions: Patient to follow up with his primary care provider as soon as possible. Patient Instructions: Antibiotic Form, Rivaroxaban (By mouth), Heart Failure (DC), Basic Carbohydrate Counting (DC) Stand Alone Forms: General Discharge Information Follow-up/Referrals: Ren Lu MD [Primary Care Provider] - Discharge Medications: New potassium chloride 10 mEq capsule, extended release 10 meq PO DAILY Qty: 30 RF: 0 furosemide [Lasix] 40 mg tablet 40 mg PO DAILY Qty: 30 RF: 0 Continued ketoconazole 2 % cream 1 applic topical DAILY Qty: 60 RF: 2 fluticasone propionate 50 mcg/actuation [place],Suspension 1 spray intranasal Q12HR PRN (Reason: Congestion) Qty: 1 RF: 0 carvedilol 25 mg tablet 25 mg PO DAILY RF: 0 fluoxetine 20 mg capsule 20 mg PO DAILY RF: 0 atorvastatin 40 mg tablet 40 mg PO HS RF: 0 isosorbide mononitrate 30 mg tablet extended release 24 hr 60 mg PO DAILY RF: 0 tamsulosin 0.4 mg capsule 0.4 mg PO DAILY RF: 0 trazodone 100 mg tablet 100 mg PO HS RF: 0 pantoprazole 40 mg tablet,delayed release (DR/EC) 40 mg PO BID RF: 0 cyclobenzaprine 5 mg tablet 5 mg PO HS RF: 0 pregabalin 50 mg capsule 50 mg PO TID RF: 0 amiodarone [Pacerone] 200 mg Tablet 200 mg PO DAILY@0800 Qty: 30 RF: 0 oxycodone-acetaminophen 5-325 mg tablet 1 tablet PO Q6H PRN (Reason: Pain) Qty: 30 RF: 0 Xarelto 20 mg tablet 20 mg PO DAILY RF: 0 (DME) Mepilex 4 X 4 Bandage 1 ea topical PRN Qty: 60 RF: 0 pramipexole 1 mg tablet 1 mg PO BID Qty: 180 RF: 3 levothyroxine 200 mcg tablet 200 mcg PO DAILY Qty: 30 RF: 11 duloxetine 60 mg capsule,delayed release(DR/EC) 60 mg PO DAILY Qty: 30 RF: 11 nitroglycerin [Nitrostat] 0.4 mg tablet, sublingual 0.4 mg sublingual Q5M PRN (Reason: chest pain) RF: 0 polyethylene glycol 3350 [Miralax] 17 gram powder in packet 17 g PO DAILY PRN (Reason: constipation) RF: 0 Incruse Ellipta 62.5 mcg/actuation blister with device 1 inh inhalation DAILY RF: 0 ferrous sulfate 325 mg (65 mg iron) tablet 325 mg PO DAILY RF: 0 aspirin [Adult Low Dose Aspirin] 81 mg tablet,delayed release (DR/EC) 81 mg PO DAILY RF: 0 albuterol sulfate 2.5 mg /3 mL (0.083 %) solution for nebulization 2.5 mg inhalation Q6H PRN (Reason: shortness of breath or wheezing) RF: 0 Saccharomyces boulardii 250 mg powder in packet 250 mg PO . daily RF: 0 metoprolol tartrate 25 mg tablet 25 mg PO BID Qty: 60 RF: 11 Tresiba FlexTouch U-200 200 unit/mL (3 mL) insulin pen 100 unit SUBCUT HS RF: 0 Fiasp FlexTouch U-100 Insulin 100 unit/mL (3 mL) insulin pen 30 unit SUBCUT T
[2020-08-20 15:01] LABS: EDCOVIDSCREEN Negative (Negative)
[2020-08-20] MEDS: RIVAROXABAN 15 MG TABLET PO (17:12)
[2020-08-20 17:28] LABS: Glucose Point of Care 476 mg/dl (65-105)
[2020-08-20] MEDS: INSULIN ASPART (*BKC) 100 UNITS/ML 10 UNITS SUB-Q (17:37)
[2020-08-20] MEDS: INSULIN GLARGINE (*BKC) 100 UNITS/ML 20 UNITS SUB-Q (17:37)
[2020-08-20] MEDS: CYCLOBENZAPRINE HCL 5 MG TABLET PO (20:17)
[2020-08-20] MEDS: traZODone HCL 50 MG TABLET 100 MG PO (20:17)
[2020-08-20] MEDS: ATORVASTATIN 40 MG TABLET PO (20:17)
[2020-08-20 21:27] LABS: Glucose Point of Care 461 mg/dl (65-105)
[2020-08-20] MEDS: INSULIN ASPART (*BKC) 100 UNITS/ML 6 UNITS SUB-Q (22:06)
--- NOTE | 2020-08-20 22:14 | PC.NURSE ---
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 Will monitor blood sugar during the night.
[2020-08-20 22:24] LABS: Glucose Point of Care > 500 mg/dl (65-105)
[2020-08-21] MEDS: ALBUTEROL SULFATE NEB 2.5 MG/0.5 ML INH 5 MG INHALATION (01:51)
[2020-08-21] MEDS: IPRATROPIUM BR 0.02% INH SOLN 0.5 MG/2.5 ML VIAL INHALATION (01:51)
[2020-08-21 01:52] VITALS: PULSE 72; RESP 22
[2020-08-21 01:56] LABS: Glucose Point of Care 412 mg/dl (65-105)
[2020-08-21 01:57] VITALS: PULSE 72; RESP 22; O2SAT 97
[2020-08-21 01:58] VITALS: PULSE 72; RESP 20
[2020-08-21] MEDS: INSULIN ASPART (*BKC) 100 UNITS/ML 8 UNITS SUB-Q (02:05)
[2020-08-21 05:10] LABS: Glucose Point of Care 311 mg/dl (65-105)
[2020-08-21 05:53] LABS: Albumin Level 3.1 g/dL (3.5-5.1); Anion Gap 7 mmol/L (8-16); Blood Urea Nitrogen 37 mg/dL (9-20); Calcium 8.6 mg/dL (8.4-10.2); Carbon Dioxide 36 mmol/L (22-30); Chloride 88 mmol/L (98-107); Estimated CRCL calculation 47 ml/min; Estimated Glomerular Filt Rate 33; Glucose 333 mg/dL (75-110); Potassium 4.7 mmol/L (3.4-5.0); Sodium 131 mmol/L (137-145)
[2020-08-21 06:00] VITALS: BP 129/55; PULSE 65; RESP 20; TEMP 36.4; O2SAT 98
[2020-08-21] MEDS: LEVOTHYROXINE SODIUM 100 MCG TABLET 200 MCG PO (06:11)
[2020-08-21 06:57] LABS: Glucose Point of Care 306 mg/dl (65-105)
[2020-08-21 08:00] VITALS: O2SAT 98
[2020-08-21 08:10] VITALS: PULSE 68
[2020-08-21] MEDS: AMIODARONE HCL 200 MG TABLET PO (08:10)
[2020-08-21] MEDS: DULoxetine HCL 60 MG CAPSULE.DR PO (08:11)
[2020-08-21] MEDS: ASPIRIN 81 MG ENTERIC TABLET PO (08:11)
[2020-08-21] MEDS: PANTOPRAZOLE 40 MG TABLET PO (08:12)
[2020-08-21] MEDS: FERROUS SULFATE 324 MG TABLET PO (08:12)
[2020-08-21] MEDS: PREGABALIN (*CRX) 50 MG CAPSULE PO (08:12)
[2020-08-21] MEDS: PRAMIPEXOLE 1 MG TABLET PO (08:12)
[2020-08-21] MEDS: SACCHAROMYCES BOULARDII 250 MG CAPSULE PO (08:13)
[2020-08-21] MEDS: TAMSULOSIN HCL 0.4 MG CAPSULE PO (08:13)
--- NOTE | 2020-08-21 08:27 | PC.NURSE ---
Discussed blood sugar issues overnight with Dr. Feldman. Per MD, we are still able to discharge patient this morning.
--- NOTE | 2020-08-21 08:30 | PC.NURSE ---
Dr. Feldman made aware of elevated blood sugars last evening and overnight. Blood glucose [address] Feldman and orders received to transfer patient to [facility] as planned. Called updates to Hina at [facility]. Ambulance scheduled to transport patient at 0900.
[2020-08-21 08:33] LABS: Glucose Point of Care 253 mg/dl (65-105)
--- NOTE | 2020-08-21 08:33 | P.PNNP_ITS ---
Progress Note: A&P Assessment and Plan (1) JENS (acute kidney injury): Code(s): N17.9 - Acute kidney failure, unspecified Status: Acute Assessment and Plan: * normal creatinine in June 2020 * creatinine elevated ~ 2.1 - 2.5mg/dl in last July 2020 hospitalization * It is unclear if he is going to have a higher baseline creatinine then in June. * urine electrolytes c/w prerenal azotemia * renal ultrasound without obstruction * urine eosinophils negative * It looks like his volume status is getting toward euvolemic. His blood pressure is okay. * on reduced diuretics and intake/ output is equal. (2) CHF exacerbation: Qualifiers: Heart failure type: unspecified Qualified Code(s): I50.9 - Heart failure, unspecified Code(s): I50.9 - Heart failure, unspecified Status: Acute Assessment and Plan: * echo shows pretty good LV and mildly enlarged RV. * Cardiology has seen in the past * Possibly sleep apnea is responsible for this. (3) NEPTALI on CPAP: Code(s): G47.33 - Obstructive sleep apnea (adult) (pediatric); Z99.89 - Dependence on other enabling machines and devices Status: Chronic Assessment and Plan: * BiPAP in place At night * ABGs doing better * continue current therapy (4) Essential (primary) hypertension: Code(s): I10 - Essential (primary) hypertension Status: Chronic Assessment and Plan: * blood pressure doing well. * He is off Carvedilol * He may need this restarted as an outpatient. (5) Diabetes: Code(s): E11.9 - Type 2 diabetes mellitus without complications Status: Chronic Assessment and Plan: * follow accuchecks * glycemic control Subjective Date/time seen: 08/21/20 08:33 Interval history: Patient feels well. He is eager for discharge. No chest pain or shortness of breath Exam Narrative: Exam Narrative: WDWN in NAD skin no rash head ncat lungs clear cor reg no rub or gallop abd BS+ nontender and soft ext no edema. Objective Data Vital Signs Vital Signs: Vital Signs - 24 hr 08/20/20 08:46 08/20/20 08:59 08/20/20 09:00 Temperature Pulse Rate 72 71 Respiratory Rate 20 Blood Pressure Pulse Oximetry 92 08/20/20 09:09 08/20/20 13:45 08/20/20 13:52 Temperature Pulse Rate 69 73 70 Respiratory Rate 20 20 18 Blood Pressure Pulse Oximetry 08/20/20 14:00 08/20/20 19:59 08/20/20 20:00 Temperature 36.2 C L Pulse Rate 79 74 Respiratory Rate 17 18 Blood Pressure 114/59 L Pulse Oximetry 95 94 08/20/20 20:02 08/20/20 20:08 08/20/20 22:03 Temperature 36.7 C Pulse Rate 74 71 75 Respiratory Rate 18 20 Blood Pressure 127/58 L Pulse Oximetry 94 95 08/20/20 22:10 08/21/20 01:52 08/21/20 01:57 Temperature Pulse Rate 71 72 72 Respiratory Rate 25 H 22 H 22 H Blood Pressure Pulse Oximetry 96 97 08/21/20 01:58 08/21/20 06:00 08/21/20 08:10 Temperature 36.4 C L Pulse Rate 72 65 68 Respiratory Rate 20 20 Blood Pressure 129/55 L Pu
--- NOTE | 2020-08-21 08:33 | PM.PNNEP ---
Progress Note: A&P Assessment and Plan (1) JENS (acute kidney injury): Code(s): N17.9 - Acute kidney failure, unspecified Status: Acute Assessment and Plan: normal creatinine in June 2020 creatinine elevated ~ 2.1 - 2.5mg/dl in last July 2020 hospitalization It is unclear if he is going to have a higher baseline creatinine then in June. urine electrolytes c/w prerenal azotemia renal ultrasound without obstruction urine eosinophils negative It looks like his volume status is getting toward euvolemic. His blood pressure is okay. on reduced diuretics and intake/ output is equal. (2) CHF exacerbation: Qualifiers: Heart failure type: unspecified Qualified Code(s): I50.9 - Heart failure, unspecified Code(s): I50.9 - Heart failure, unspecified Status: Acute Assessment and Plan: echo shows pretty good LV and mildly enlarged RV. Cardiology has seen in the past Possibly sleep apnea is responsible for this. (3) NEPTALI on CPAP: Code(s): G47.33 - Obstructive sleep apnea (adult) (pediatric); Z99.89 - Dependence on other enabling machines and devices Status: Chronic Assessment and Plan: BiPAP in place At night ABGs doing better continue current therapy (4) Essential (primary) hypertension: Code(s): I10 - Essential (primary) hypertension Status: Chronic Assessment and Plan: blood pressure doing well. He is off Carvedilol He may need this restarted as an outpatient. (5) Diabetes: Code(s): E11.9 - Type 2 diabetes mellitus without complications Status: Chronic Assessment and Plan: follow accuchecks glycemic control Subjective Date/time seen: 08/21/20 08:33 Interval history: Patient feels well. He is eager for discharge. No chest pain or shortness of breath Exam Narrative: Exam Narrative: WDWN in NAD skin no rash head ncat lungs clear cor reg no rub or gallop abd BS+ nontender and soft ext no edema. Objective Data Vital Signs Vital Signs: Vital Signs - 24 hr 08/20/20 08:46 08/20/20 08:59 08/20/20 09:00 Temperature Pulse Rate 72 71 Respiratory Rate 20 Blood Pressure Pulse Oximetry 92 08/20/20 09:09 08/20/20 13:45 08/20/20 13:52 Temperature Pulse Rate 69 73 70 Respiratory Rate 20 20 18 Blood Pressure Pulse Oximetry 08/20/20 14:00 08/20/20 19:59 08/20/20 20:00 Temperature 36.2 C L Pulse Rate 79 74 Respiratory Rate 17 18 Blood Pressure 114/59 L Pulse Oximetry 95 94 08/20/20 20:02 08/20/20 20:08 08/20/20 22:03 Temperature 36.7 C Pulse Rate 74 71 75 Respiratory Rate 18 20 Blood Pressure 127/58 L Pulse Oximetry 94 95 08/20/20 22:10 08/21/20 01:52 08/21/20 01:57 Temperature Pulse Rate 71 72 72 Respiratory Rate 25 H 22 H 22 H Blood Pressure Pulse Oximetry 96 97 08/21/20 01:58 08/21/20 06:00 08/21/20 08:10 Temperature 36.4 C L Pulse Rate 72 65 68 Respiratory Rate 20 20 Blood Pressure 129/55 L Pulse Oximetry 98 Intake/Output Intake/Output: Intake & Output 08/18/20 08/19/20 08/20/20 08/21/20 23:59 23:59 23:59 23:59 Intake Total 580 1540 2120 450 Output Total 3950 5250 2000 1000 Balance -5100 -3710 120 -550 Meds/Results Medications: Active Medications Generic Name Dose Route Start Last Admin Trade Name Néstor PRN Reason Stop Dose Admin Albuterol 5 mg 08/16/20 20:00 08/21/20 01:51 Albuterol Sulfate Neb 2.5 Mg/0.5 Ml Inh INHALATION 5 mg Q6HRT KIRSTEN Administration Albuterol 2.5 mg 08/16/20 20:07 Albuterol Sulfate Neb 2.5 Mg/0.5 Ml Inh INHALATION Q6H PRN shortness of breath or wheezing Amiodarone HCl 200 mg 08/17/20 08:00 08/21/20 08:10 Amiodarone Hcl 200 Mg Tablet PO 200 mg DAILY@0800 KIRSTEN Administration Aspirin 81 mg 08/17/20 09:00 08/21/20 08:11 Aspirin 81 Mg Enteric Tablet PO 81 mg DAILY KIRSTEN Administration Atorvast
--- NOTE | 2020-08-21 08:59 | PC.NURSE ---
Fluoxetine held due to patient being on Duloxetine. Notified Dr. Feldman. Also notified him that IV Lasix not given due to patient not having IV access.
[2020-08-21] MEDS: INSULIN ASPART (*BKC) 100 UNITS/ML SUB-Q (09:03)
--- NOTE | 2020-08-21 09:03 | PM.IMPN ---
Progress Note: A&P Assessment and Plan (1) Congestive heart failure: Code(s): I50.9 - Heart failure, unspecified Status: Acute Assessment and Plan: a chest x-ray on admission is reviewed and compared with the previous one. is started on IV Lasix however with hypotension and renal failure will stop diuresis. He had chest x-ray looks lot less congested and I feel he is more dry than fluid overloaded. will give of fluid challenge of 250 cc intermittently for his hypotension and reassess. Will defer from using continuous IV infusion due to his underlying tenuous fluid status. Last echo was 08/05/2020 and was read as the following 1. Complete two-dimensional, color flow and Doppler transthoracic echocardiogram is performed. 2. Left ventricular chamber dimension is mildly enlarged. 3. Left ventricular systolic function is normal, estimated at 55-60%. 4. There is mildly increased left ventricular wall thickness. 5. The left ventricular diastolic function is normal. 6. Right ventricular chamber dimension is mildly enlarged. 7. Left atrial chamber dimension is mildly enlarged. 8. The mitral valve has thickened leaflets. 9. There is mild aortic valve sclerosis. 08/20/20 11:00 Patient is morbidly obese patient with history of COPD, CHF and sleep apenea on CPAP-Trilogy was just discharged to SNF apparently there was problem with patient trilogy and he was not able to wear it and he was found desaturating, he was sent to ER for further evaluation , patient was placed on BIPAP and he responded, there was concerned may CHF congestion, was given lasix but held due to worsening CKD, today patient is doing better as his Trilogy is functioning and his oxygen saturation is to baseline, will continue to monitor and transfer patient to SNF once bed is available. (2) Paroxysmal atrial fibrillation: Code(s): I48.0 - Paroxysmal atrial fibrillation Status: Acute Assessment and Plan: EKG was sinus bradycardia. His blood pressures medications are on hold will continue his Xarelto and amiodarone (3) Obstructive sleep apnea: Code(s): G47.33 - Obstructive sleep apnea (adult) (pediatric) Status: Acute Assessment and Plan: The patient stated that his machine at the [facility] is not working correctly. He also stated that he had a trilogy at home. I suggested that the patient get his trilogy from home and take it to the [facility]. The patient is currently on a BiPAP machine. (4) Chronic anemia: Code(s): D64.9 - Anemia, unspecified Status: Acute Assessment and Plan: Patient's hemoglobin is 12.1 today and his hematocrit is normal which is much improved from his previous readings. Please continue to monitor. likely due to hemoconcentration (5) Insulin dependent type 2 diabetes mellitus, uncontrolled: Code(s): E11.65 - Type 2 diabetes mellitus with hyperglycemia; Z79.4 - lobsterman (current) use of insulin Status: Acute Assessment and Plan: Accu-Cheks AC and HS. His blood sugar was in the 200s today. Last A1c was 10.8 on 06/19/2020. (6) Depression: Code(s): F32.9 - Major depressive disorder, single episode, unspecified Status: Acute Assessment and Plan: Continue with home medications. (7) BPH without obstruction/lower urinary tract symptoms: Code(s): N40.0 - Benign prostatic hyperplasia without lower urinary tract symptoms Status: Chronic Assessment and Plan: Continue with home medications. It looks like the patient may be on tamsulosin. (8) Essential (primary) hypertension: Code(s): I10 - Essential (primary) hypertension Status: Chronic Assessment and Plan: Continue with home medications. (9) Hypothyroidism: Code(s): E03.9 - Hypothyroidism, unspecified Status: Chronic Assessment and Plan: continue with thyroid medicine and check TSH with T3. Could this po
--- NOTE | 2020-08-21 09:06 | PM.DS ---
DS: Admitting Diagnosis Admitting Diagnosis Admitting Diagnosis: short of breath DS: Discharge Diagnosis Discharge Diagnosis (1) Congestive heart failure: Code(s): I50.9 - Heart failure, unspecified Status: Acute Assessment and Plan: a chest x-ray on admission is reviewed and compared with the previous one. is started on IV Lasix however with hypotension and renal failure will stop diuresis. He had chest x-ray looks lot less congested and I feel he is more dry than fluid overloaded. will give of fluid challenge of 250 cc intermittently for his hypotension and reassess. Will defer from using continuous IV infusion due to his underlying tenuous fluid status. Last echo was 08/05/2020 and was read as the following 1. Complete two-dimensional, color flow and Doppler transthoracic echocardiogram is performed. 2. Left ventricular chamber dimension is mildly enlarged. 3. Left ventricular systolic function is normal, estimated at 55-60%. 4. There is mildly increased left ventricular wall thickness. 5. The left ventricular diastolic function is normal. 6. Right ventricular chamber dimension is mildly enlarged. 7. Left atrial chamber dimension is mildly enlarged. 8. The mitral valve has thickened leaflets. 9. There is mild aortic valve sclerosis. 08/20/20 11:00 Patient is morbidly obese patient with history of COPD, CHF and sleep apenea on CPAP-Trilogy was just discharged to SNF apparently there was problem with patient trilogy and he was not able to wear it and he was found desaturating, he was sent to ER for further evaluation , patient was placed on BIPAP and he responded, there was concerned may CHF congestion, was given lasix but held due to worsening CKD, today patient is doing better as his Trilogy is functioning and his oxygen saturation is to baseline, will continue to monitor and transfer patient to SNF once bed is available. (2) Paroxysmal atrial fibrillation: Code(s): I48.0 - Paroxysmal atrial fibrillation Status: Acute Assessment and Plan: EKG was sinus bradycardia. His blood pressures medications are on hold will continue his Xarelto and amiodarone (3) Obstructive sleep apnea: Code(s): G47.33 - Obstructive sleep apnea (adult) (pediatric) Status: Acute Assessment and Plan: The patient stated that his machine at the [facility] is not working correctly. He also stated that he had a trilogy at home. I suggested that the patient get his trilogy from home and take it to the [facility]. The patient is currently on a BiPAP machine. (4) Chronic anemia: Code(s): D64.9 - Anemia, unspecified Status: Acute Assessment and Plan: Patient's hemoglobin is 12.1 today and his hematocrit is normal which is much improved from his previous readings. Please continue to monitor. likely due to hemoconcentration (5) Insulin dependent type 2 diabetes mellitus, uncontrolled: Code(s): E11.65 - Type 2 diabetes mellitus with hyperglycemia; Z79.4 - shelter (current) use of insulin Status: Acute Assessment and Plan: Accu-Cheks AC and HS. His blood sugar was in the 200s today. Last A1c was 10.8 on 06/19/2020. (6) Depression: Code(s): F32.9 - Major depressive disorder, single episode, unspecified Status: Acute Assessment and Plan: Continue with home medications. (7) BPH without obstruction/lower urinary tract symptoms: Code(s): N40.0 - Benign prostatic hyperplasia without lower urinary tract symptoms Status: Chronic Assessment and Plan: Continue with home medications. It looks like the patient may be on tamsulosin. (8) Essential (primary) hypertension: Code(s): I10 - Essential (primary) hypertension Status: Chronic Assessment and Plan: Continue with home medications. (9) Hypothyroidism: Code(s): E03.9 - Hypothyroidism, unspecified Status: Chronic
--- NOTE | 2020-08-21 10:40 | P.CDI_ITS ---
CDI Query Clarification Request -CHF has been documented by hospitalists. CHF exacerbation documented by nephrology. -Lasix 40mg IV BID ordered then Lasix 20mg IV daily ordered - He had chest x-ray looks lot less congested and I feel he is more dry than fluid overloaded. will give of fluid challenge of 250 cc intermittently for his hypotension and reassess documented. Please clarify type and acuity of CHF: * Systolic *Acute * Diastolic *Chronic * Both Systolic and Diastolic *Acute on Chronic * Unable to determine * Unable to determine <Marry Harper RN - Last Filed: 08/22/20 05:53> Clarified Diagnosis (1) Acute exacerbation of congestive heart failure: Code(s): I50.9 - Heart failure, unspecified <Marry Harper RN - Last Filed: 08/22/20 05:53> Status: Acute <Marry Harper RN - Last Filed: 08/22/20 05:53> Assessment and Plan: unable to determine as patient recent cardiac echo showed normal systolic and diastolic function, chest x-ray also suggest patient is not volume overloaded, unable to determine congestive heart failure <Jeffery Feldman MD - Last Filed: 09/07/20 16:02>
--- NOTE | 2020-10-10 17:57 | PM.IMPN ---
Progress Note: A&P Assessment and Plan (1) Acute exacerbation of congestive heart failure: Code(s): I50.9 - Heart failure, unspecified Status: Acute Assessment and Plan: unable to determine as patient recent cardiac echo showed normal systolic and diastolic function, chest x-ray also suggest patient is not volume overloaded, unable to determine congestive heart failure Subjective Date/time seen: 10/10/20 17:57 Exam Narrative: Morbidly obese Patient is comfortable, NAD HEENT: eyes are clear and none icteric LUNGS: bilateral fair entry with the minimum rales and rhonchi HEART: RR S1S2 ABD: morbidly BS+, Soft and nontender Lower extremities: edema SKIN: nonjaundiced Neuro: grossly intact. Objective Data Meds/Results Radiology Results: ITS Impressions Chest X-Ray 08/16/20 15:32 IMPRESSION: 1. Right upper extremity PICC ending in the proximal right atrium. 2. Small pleural effusions. 3. Bibasilar airspace opacities, consistent with atelectasis versus pneumonia. Renal Ultrasound 08/17/20 14:57 IMPRESSION: 1. No hydronephrosis. Quality VTE Prophylaxis VTE prophylaxis: pharmacologic ordered
== END 2020-08-21 09:00 | DRG 291 ==
LOC: ANHED 15:21 → ANHIMU 18:39 → ANH2MED 08-20 14:48 → ANHIMU 08-23 09:59
PROVIDERS: Internal Medicine; Internal Medicine Nephrology; Nurse Practitioner; Admitting Provider Internal Medicine; Emergency Provider Emergency Medicine; PCP Family Medicine; Visit Provider Family Medicine
DX: I11.0 Hypertensive heart disease with heart failure (principal); J96.01 Acute respiratory failure with hypoxia; J96.02 Acute respiratory failure with hypercapnia; N17.9 Acute kidney failure, unspecified; I50.9 Heart failure, unspecified; Z20.822 Contact with and (suspected) exposure to COVID-19; I25.10 Atherosclerotic heart disease of native coronary artery without angina pectoris; I48.0 Paroxysmal atrial fibrillation; J45.40 Moderate persistent asthma, uncomplicated; J44.9 Chronic obstructive pulmonary disease, unspecified; G47.33 Obstructive sleep apnea (adult) (pediatric); D64.9 Anemia, unspecified; E11.42 Type 2 diabetes mellitus with diabetic polyneuropathy; E11.51 Type 2 diabetes mellitus with diabetic peripheral angiopathy without gangrene; E11.65 Type 2 diabetes mellitus with hyperglycemia; F32.9 Major depressive disorder, single episode, unspecified; N40.0 Benign prostatic hyperplasia without lower urinary tract symptoms; E03.9 Hypothyroidism, unspecified; E78.5 Hyperlipidemia, unspecified; E66.01 Morbid (severe) obesity due to excess calories; Z68.39 Body mass index [BMI] 39.0-39.9, adult; I25.2 Old myocardial infarction; Z66 Do not resuscitate; Z79.01 Long term (current) use of anticoagulants; Z79.4 Long term (current) use of insulin; Z79.82 Long term (current) use of aspirin; Z79.899 Other long term (current) drug therapy; Z86.73 Personal history of transient ischemic attack (TIA), and cerebral infarction without residual deficits; Z95.5 Presence of coronary angioplasty implant and graft; Z99.89 Dependence on other enabling machines and devices
CPT/HCPCS: 36415; 36569; 36600; 51702; 76775; 80053; 80069; 81001; 82570; 82805; 82948; 83605; 83615; 83735; 83880; 84300; 84439; 84443; 84480; 84484; 84540; 85025; 85610; 85730; 85999; 86140; 87040; 87077; 87086; 87088; 87186; 87426; 93005; 94003; 94640; 97110; 97161; 97166; 97530; 99285; A9270; C1751; C9803; J1815; J1940; J2310; J7030